=== PATIENT | female | born 1950 | race African-American/Black ===

== ENCOUNTER 2017-02-10 09:14 | Inpatient (IN) | payer MEDICAID, MEDICARE ==
[2017-02-10] MEDS ORDERED: ASPIRIN 81 MG TABLET, CHEWABLE PO ONE (09:43)
[2017-02-10 09:55] LABS: ABSOLUTE BASOPHILS # (AUTO) 0.1 10^3/uL (0.0-0.2); ABSOLUTE LYMPHOCYTES (AUTO) 1.3 10^3/uL (0.5-4.7); ABSOLUTE MONOCYTES (AUTO) 0.5 10^3/uL (0.1-1.4); ABSOLUTE NEUT (AUTO) 4.1 10^3/uL (1.7-8.2); BASOPHILS % (AUTO) 1.1 % (0-2); EOSINOPHILS % (AUTO) 0.4 % (0-6); HEMATOCRIT 39.3 % (36.0-47.0); HEMOGLOBIN 13.3 g/dL (12.0-15.5); HGB HCT DIFFERENCE 0.6; LYMPHOCYTES % (AUTO) 22.1 % (13-45); MEAN CORPUSCULAR HEMOGLOBIN 29.1 pg (27.0-33.4); MEAN CORPUSCULAR VOLUME 86 fl (80-97); MONOCYTES % (AUTO) 7.9 % (3-13); RED BLOOD COUNT 4.58 10^6/uL (3.72-5.28); RED CELL DISTRIBUTION WIDTH 15.2 % (11.5-14.0); SEGMENTED NEUTROPHILS % (AUTO) 68.5 % (42-78)
--- NOTE | 2017-02-10 10:29 | RADIOLOGY REPORT (SQ) ---
EXAM DESCRIPTION: CHEST PA/LAT COMPLETED DATE/TIME: 02/10/2017 10:12 am REASON FOR STUDY: chest pressure, weakness COMPARISON: 03/19/2015 EXAM PARAMETERS: NUMBER OF VIEWS: two views TECHNIQUE: Digital Frontal and Lateral radiographic views of the chest acquired. RADIATION DOSE: NA LIMITATIONS: none FINDINGS: LUNGS AND PLEURA: No opacities, masses or pneumothorax. No pleural effusion. MEDIASTINUM AND HILAR STRUCTURES: No masses or contour abnormalities. HEART AND VASCULAR STRUCTURES: Heart normal size. No evidence for failure. BONES: No acute findings. HARDWARE: None in the chest. OTHER: No other significant finding. IMPRESSION: NO SIGNIFICANT RADIOGRAPHIC FINDING IN THE CHEST. TECHNICAL DOCUMENTATION: JOB ID: [id number] [employer]- All Rights Reserved
--- NOTE | 2017-02-10 11:07 | ER Document Report ---
ED General - General Chief Complaint: Weakness Stated Complaint: Weakness Time Seen by Provider: 02/10/17 09:42 Mode of Arrival: Medic Information source: Patient, Relative Notes: Patient presents emergency department with complaints of feeling weak decreased appetite for the last couple days. Patient also reports she felt some chest pressure this a.m. Patient reports yesterday when she was in the shower she became nauseated and vomited and passed out per second. She also reports that yesterday she was sitting on the bed but off the bed landing on the floor. She reports she did not hit her head. She reports she was awake the whole time. She denies fever and diarrhea. Reports she just feels weak for the past few days. Patient has history of severe osteoarthritis and high blood pressure. Patient reports a chest pressure this a.m. feels more muscular and her chest wall is tender to palpation. TRAVEL OUTSIDE OF THE [place] IN LAST 30 DAYS: No - HPI Onset: Other - a few days Onset/Duration: Persistent Quality of pain: No pain Severity: None Pain Level: Denies Associated symptoms: Chest pain - pressure, Nausea, Vomiting Exacerbated by: Denies Relieved by: Denies Similar symptoms previously: No Recently seen / treated by doctor: No - Related Data Allergies/Adverse Reactions: No Known Allergies Allergy (Verified 11/08/13 21:18) Home Medications: Current Home Medications Amlodipine Besylate [Norvasc 5 mg Tablet] 5 mg PO DAILY 02/10/17 [History] Cetirizine HCl [Zyrtec 10 mg Tablet] 10 mg PO DAILY 02/10/17 [History] Ergocalciferol (Vitamin D2) [Vitamin D2] 50,000 unit PO WE 02/10/17 [History] Folic Acid [Folvite 1 mg Tablet] 1 mg PO DAILY 02/10/17 [History] Ibuprofen [Motrin 600 mg Tablet] 600 mg PO Q8 02/10/17 [History] Lisinopril [Zestril] 40 mg PO DAILY 02/10/17 [History] Montelukast Sodium [Singulair 10 mg Tablet] 10 mg PO DAILY 02/10/17 [History] Omeprazole 20 mg PO Q12 02/10/17 [History] Oxycodone HCl/Acetaminophen [Percocet 5-325 mg Tablet] 1 tab PO Q8HP PRN [History] Prednisone [Deltasone 5 mg Tablet] 10 mg PO DAILY 02/10/17 [History] Past Medical History - General Information source: Patient, Relative - Social History Smoking Status: Never Smoker Chew tobacco use (# tins/day): No Frequency of alcohol use: None Drug Abuse: None Lives with: Family Family History: Reviewed & Not Pertinent Patient has suicidal ideation: No Patient has homicidal ideation: No - Past Medical History Cardiac Medical History: Reports: Hx Hypertension Pulmonary Medical History: Denies: Hx Tuberculosis Renal/ Medical History: Denies: Hx Peritoneal Dialysis GI Medical History: Reports: Hx Gastroesophageal Reflux Disease Musculoskeltal Medical History: Reports Hx Arthritis - RA Skin Medical History: Reports Hx MRSA - CURRENTLY HAS SENSATION OF ABSCESS DEVELOPING UNDER THE LEFT ARM Traumatic Medical History: Reports: Hx Fractures - T10 COMP FX, ACUTE R SHOULDER AND CLAVICLE FX Past Surgical History: Reports: Hx Appendectomy, Hx Hysterectomy, Hx Oral Surgery, Hx Orthopedic Surgery - foot surgery - Immunizations Immunizations up to date: Yes Hx Diphtheria, Pertussis, Tetanus Vaccination: Yes Review of Systems - Review of Systems Notes: Review HPI for review of systems., All other systems negative Physical Exam - Vital signs Vitals: Temp Pulse Resp BP Pulse Ox 98.3 F 78 20 154/84 H 100 02/10/17 09:20 02/10/17 09:20 02/10/17 09:20 02/10/17 09:20 02/10/17 09:20 - Notes Notes: PHYSICAL EXAMINATION: GENERAL: Well-appearing and in no acute distress HEAD: Atraumatic, normocephalic. EYES: Pupils equal round and reactive to light, extraocular movements intact, sclera anicteric, conjunctiva are normal. ENT: nares patent, oropharynx clear without exudates. Moist mucous membranes. NECK: Normal range of motion, supple without lymphadenopathy LUNGS: CTAB and equal. No wheezes rales or rhonchi. HEART: Regular rate and rhythm without murmurs ABDOMEN: Soft, no tenderness. No guarding, no rebound EXTREMITIES: chronic arthritic changes noted to bilateral upper/lower extremities, no open wounds, no pitting edema. No cyanosis. NEUROLOGICAL: Cranial nerves grossly intact. Normal sensory/motor exams. PSYCH: Normal mood, normal affect. SKIN: Warm, Dry, normal turgor, no rashes or lesions noted Course - Re-evaluation Re-evalutation: 02/10/17 11:08 Daughter Nakita at the bedside instructed on plan of care. Both patient and daughter verbalized understanding. - Vital Signs Vital signs: Temp Pulse Resp BP Pulse Ox 99 F 82 16 159/77 H 100 02/11/17 11:41 02/11/17 14:00 02/11/17 11:41 02/11/17 11:41 02/11/17 11:41 - Laboratory Result Diagrams: 02/11/17 04:54 02/11/17 04:54 Laboratory results interpreted by me: 02/10/17 02/10/17 02/10/17 09:30 11:15 11:33 RDW 15.2 H Potassium 3.2 L Glucose 121 H Albumin 3.3 L Urine Urobilinogen 4.0 H - Diagnostic Test Radiology reviewed: Image reviewed, Reports reviewed Discharge - Discharge Clinical Impression: Weakness, Chest pressure Disposition: ADMITTED INPATIENT Admitting Provider: Chevy
[2017-02-10 12:06] LABS: ALANINE AMINOTRANSFERASE 29 U/L (9-52); ALBUMIN 3.3 g/dL (3.5-5.0); ALKALINE PHOSPHATASE 66 U/L (38-126); ANION GAP 8 (5-19); ASPARTATE AMINO TRANSFERASE 22 U/L (14-36); BILIRUBIN,DIRECT 0.3 mg/dL (0.0-0.4); BILIRUBIN,TOTAL 1.2 mg/dL (0.2-1.3); BLOOD UREA NITROGEN 10 mg/dL (7-20); CALCIUM 9.2 mg/dL (8.4-10.2); CARBON DIOXIDE 28 mmol/L (22-30); CHLORIDE 102 mmol/L (98-107); CREATINE KINASE 47 U/L (30-135); CREATININE RESULT 0.58 mg/dL (0.52-1.25); GLUCOSE 121 mg/dL (75-110); LIPASE 87.4 U/L (23-300); POTASSIUM 3.2 mmol/L (3.6-5.0); SODIUM 138.1 mmol/L (137-145); TOTAL PROTEIN 6.8 g/dL (6.3-8.2)
[2017-02-10 12:10] LABS: APPEARANCE,URINE CLEAR; BILIRUBIN,URINE NEGATIVE (NEGATIVE); GLUCOSE, URINE NEGATIVE (NEGATIVE); KETONES,URINE NEGATIVE (NEGATIVE); LEUKOCYTE ESTERASE,URINE NEGATIVE (NEGATIVE); NITRITE,URINE NEGATIVE (NEGATIVE); PROTEIN,URINE NEGATIVE (NEGATIVE)
[2017-02-10 12:17] LABS: CREATINE KINASE MB 0.28 ng/mL (<4.55)
[2017-02-10 12:19] LABS: TROPONIN I < 0.012 ng/mL
--- NOTE | 2017-02-10 13:31 | RADIOLOGY REPORT (SQ) ---
EXAM DESCRIPTION: CT HEAD WITHOUT COMPLETED DATE/TIME: 02/10/2017 1:13 pm REASON FOR STUDY: falling COMPARISON: 02/19/2016 TECHNIQUE: Axial images acquired through the brain without intravenous contrast. Images reviewed wi th bone, brain and subdural windows. Images stored on PACS. All CT scanners at this facility use dose modulation, iterative reconstruction, and/or weight based d osing when appropriate to reduce radiation dose to as low as reasonably achievable (ALARA). [facility]: Dose Right [facility]: CareDose [facility]: Dose Right [facility]: Teradose 4D [facility]: InPlace RADIATION DOSE: 64.61mGy. LIMITATIONS: None. FINDINGS: VENTRICLES: Prominent. CEREBRUM: No masses. No hemorrhage. No midline shift. Areas of low density in the white matter mos t likely due to chronic micro-vascular ischemic change. No evidence for acute infarction. CEREBELLUM: No masses. No hemorrhage. No alteration of density. No evidence for acute infarction. EXTRAAXIAL SPACES: Age-related involutional change. No fluid collections. No masses. ORBITS AND GLOBE: No intra- or extraconal masses. Normal contour of globe without masses. CALVARIUM: No fracture. PARANASAL SINUSES: No fluid or mucosal thickening. SOFT TISSUES: No mass or hematoma. OTHER: No other significant finding. IMPRESSION: CHRONIC CHANGES OF ATROPHY AND MICROVASCULAR ISCHEMIA. NO ACUTE PROCESS. TECHNICAL DOCUMENTATION: JOB ID: [id number] Quality ID # [id number]: Final reports with documentation of one or more dose reduction techniques (e.g., Au tomated exposure control, adjustment of the mA and/or kV according to patient size, use of iterative reconstruction technique) 2010 [employer]- All Rights Reserved
[2017-02-10] MEDS ORDERED: ACETAMINOPHEN 325 MG TABLET PO PRN (15:39)
[2017-02-10] MEDS ORDERED: ONDANSETRON HCL INJ/PF 4 MG/2 ML SDV IV PRN (15:39)
[2017-02-10] MEDS ORDERED: OXYCODONE-ACETAMINOPHEN 5-325 MG TABLET PO PRN (15:39)
[2017-02-10] MEDS ORDERED: ENOXAPARIN SODIUM INJ 40 MG/0.4 ML DISP.SYRIN SUBCUT ONE (16:00)
--- NOTE | 2017-02-10 16:13 | RADIOLOGY REPORT (SQ) ---
EXAM DESCRIPTION: CTA CHEST COMPLETED DATE/TIME: 02/10/2017 3:55 pm REASON FOR STUDY: fall, change in loc COMPARISON: 08/04/2010 TECHNIQUE: CT scan of the chest performed using helical scanning technique with dynamic intravenous contrast injection. Images reviewed with lung, soft tissue and bone windows. Reconstructed coronal and sagittal MPR images reviewed. Additional 3 dimensional post-processing performed to develop Maximal Intensity Projection images ([place] P). All images stored on PACS. All CT scanners at this facility use dose modulation, iterative reconstruction, and/or weight based d osing when appropriate to reduce radiation dose to as low as reasonably achievable (ALARA). [facility]: Dose Right [facility]: CareDose [facility]: Dose Right [facility]: Teradose 4D [facility]: Vaddio CONTRAST TYPE AND DOSE: 61 mL Isovue 370- low osmolar. RENAL FUNCTION: BUN 10 creatinine 0.6 RADIATION DOSE: 44.74 mGy. LIMITATIONS: Positioning. Motion. FINDINGS: LUNGS AND PLEURA: Diffuse interlobular septal thickening. Subsegmental bronchiectasis rig ht lower lobe. No effusions. AORTA AND GREAT VESSELS: No aneurysm or dissection. HEART: Cardiomegaly. No pericardial effusion. PULMONARY ARTERIES: No emboli visualized in the main pulmonary arteries or the segmental branches. HILAR AND MEDIASTINAL STRUCTURES: No identified masses or abnormal nodes. HARDWARE: None in the chest. UPPER ABDOMEN: No acute findings. THYROID AND OTHER SOFT TISSUES: No masses. No adenopathy. BONES: Compression fracture T12 with greater than 75% height loss that was not present in 2009. No s ignificant retropulsion. Additional compression fractures which are old. Old proximal humeral fract ures. 3D MIPS: Confirm above findings. OTHER: No other significant finding. IMPRESSION: 1. No PE. No evidence of pulmonary contusion or pneumothorax. 2. Compression fracture T12 of uncertain chronicity. TECHNICAL DOCUMENTATION: JOB ID: [id number] Quality ID # [id number]: Final reports with documentation of one or more dose reduction techniques (e.g., Au tomated exposure control, adjustment of the mA and/or kV according to patient size, use of iterative reconstruction technique) 2010 [employer]- All Rights Reserved
--- NOTE | 2017-02-10 16:26 | RADIOLOGY REPORT (SQ) ---
EXAM DESCRIPTION: HIP BILATERAL COMPLETED DATE/TIME: 02/10/2017 4:09 pm REASON FOR STUDY: fall, change in loc COMPARISON: None. NUMBER OF VIEWS: Two views. TECHNIQUE: AP pelvis and additional frog-leg view of the right and left hip. LIMITATIONS: None. FINDINGS: MINERALIZATION: Normal. PRIMARY HIP: No fracture or dislocation. No worrisome bone lesions. OPPOSITE HIP: No fracture or dislocation. No worrisome bone lesions. PUBIS AND ISCHIUM: No fracture. PELVIS: No fracture. SACRUM: No fracture or dislocation. No worrisome bone lesions. LOWER LUMBAR SPINE: No fracture or dislocation. No worrisome bone lesions. No significant disc disea se. SOFT TISSUES: No findings. OTHER: No other significant finding. IMPRESSION: No fracture. TECHNICAL DOCUMENTATION: JOB ID: [id number] [email or web address]- All Rights Reserved
--- NOTE | 2017-02-10 17:07 | EKG REPORT ---
SEVERITY:- ABNORMAL ECG - SINUS RHYTHM CONSIDER LEFT VENTRICULAR HYPERTROPHY PROLONGED QT INTERVAL : Confirmed by: James Chung 10-Feb-2017 17:06:25
[2017-02-10 17:18] LABS: TROPONIN I < 0.012 ng/mL
[2017-02-10] MEDS: DOCUSATE SODIUM 100 MG CAPSULE PO SCH (17:26)
[2017-02-10] MEDS: POTASSI CL 20 MEQ/NS 1L 1,000 ML IV PRN (17:27)
[2017-02-10] MEDS: LANSOPRAZOLE 15 MG TAB.RAP.DR PO SCH (17:31)
[2017-02-10] MEDS ORDERED: LANSOPRAZOLE 30 MG TAB.RAP.DR PO SCH (18:00)
--- NOTE | 2017-02-10 18:02 | PDOC H&P ---
History of Present Illness Admission Date/PCP: 02/10/17 14:38 MARY LOU OLEA MD Patient complains of: Weakness and chest pressure in the fall History of Present Illness: LILLIE AMIN is a 66 year old female This is a 66-year-old female with a significant history of the rheumatoid arthritis and hypertension's and multiple deformity due to the severe arthritis noticed more weakness since last several weeks. According to the patient she passed out yesterday and she was feeling some pressure in the chest and her daughter was concerned and brought to the emergency department. Patient initial CT head was negative and x-ray of the hip was also negative. Patient's denied any fall and injury. Patient have a CTA was also negative for any acute embolism but showing some T12 compression fracture. Patient also see the [facility] for the tunnel mucker problem and patient was complaining for weakness in the leg since review the last month August. Patients denied any shortness of the breath denied any headache denied any bloody lesion. Patient was just complaining some weakness but other than that no other symptoms Past Medical History Cardiac Medical History: Reports: Hypertension Pulmonary Medical History: Denies: Tuberculosis GI Medical History: Reports: Gastroesophageal Reflux Disease Musculoskeltal Medical History: Reports: Arthritis - RA, Other - Rheumatoid arthritis Past Surgical History Past Surgical History: Reports: Appendectomy, Hysterectomy, Orthopedic Surgery - foot surgery Social History Lives with: Family Smoking Status: Never Smoker Frequency of Alcohol Use: None Hx Recreational Drug Use: No Hx Prescription Drug Abuse: No Family History Family History: Reviewed & Not Pertinent Parental Family History Reviewed: Yes Children Family History Reviewed: Yes Sibling(s) Family History Reviewed.: Yes Medication/Allergy Home Medications: Amlodipine Besylate [Norvasc 5 mg Tablet] 5 mg PO DAILY 02/10/17 Cetirizine HCl [Zyrtec 10 mg Tablet] 10 mg PO DAILY 02/10/17 Ergocalciferol (Vitamin D2) [Vitamin D2] 50,000 unit PO WE 02/10/17 Folic Acid [Folvite 1 mg Tablet] 1 mg PO DAILY 02/10/17 Ibuprofen [Motrin 600 mg Tablet] 600 mg PO Q8 02/10/17 Lisinopril [Zestril] 40 mg PO DAILY 02/10/17 Montelukast Sodium [Singulair 10 mg Tablet] 10 mg PO DAILY 02/10/17 Omeprazole 20 mg PO Q12 02/10/17 Oxycodone HCl/Acetaminophen [Percocet 5-325 mg Tablet] 1 tab PO Q8HP PRN Prednisone [Deltasone 5 mg Tablet] 10 mg PO DAILY 02/10/17 Allergies/Adverse Reactions: No Known Allergies Allergy (Verified 11/08/13 21:18) Review of Systems Constitutional: PRESENT: fatigue, weakness Cardiovascular: PRESENT: chest pain Respiratory: ABSENT: as per HPI, cough, dyspnea, hemoptysis, sputum, other Gastrointestinal: ABSENT: as per HPI, abdominal pain, bloating, coffee ground emesis, constipation, diarrhea, dysphagia, heartburn, hematemesis, hematochezia , melena, nausea, vomiting, other Musculoskeletal: PRESENT: joint swelling, muscle weakness Neurological: ABSENT: as per HPI, abnormal gait, abnormal movements, abnormal speech, confusion, convulsions, dizziness, focal weakness, frequent falls, lack of coordination, memory loss, numbness, paresthesias, restless legs, syncope, tingling, tremor(s), vertigo, weakness, other Psychiatric: ABSENT: as per HPI, anxiety, depression, hallucinations, homidical ideation, suicidal ideation, other Endocrine: ABSENT: as per HPI, cold intolerance, flushing, heat intolerance, menstrual abnormalities, polydipsia, polyphagia, polyuria, other Hematologic/Lymphatic: ABSENT: as per HPI, easy bleeding, easy bruising, lymphadenopathy, other Physical Exam Vital Signs: Temp Pulse Resp BP Pulse Ox 98.3 F 78 19 144/88 H 99 02/10/17 09:20 02/10/17 09:20 02/10/17 15:08 02/10/17 15:08 02/10/17 13:01 General appearance: PRESENT: no acute distress, well-developed, well-nourished Head exam: PRESENT: atraumatic, normocephalic Eye exam: PRESENT: conjunctiva pink, EOMI, PERRLA. ABSENT: scleral icterus Ear exam: PRESENT: normal external ear exam Neck exam: PRESENT: full ROM. ABSENT: carotid bruit, JVD, lymphadenopathy, thyromegaly Respiratory exam: PRESENT: clear to auscultation lucas Cardiovascular exam: PRESENT: +S1, +S2 Pulses: PRESENT: normal dorsalis pedis pul, +2 pedal pulses bilateral Vascular exam: PRESENT: normal capillary refill Extremities exam: ABSENT: pedal edema Neurological exam: PRESENT: alert, awake, oriented to person, oriented to place , oriented to time, oriented to situation, reflexes normal, CN II-XII grossly intact, normal gait Psychiatric exam: PRESENT: appropriate affect, normal mood. ABSENT: homicidal ideation, suicidal ideation Skin exam: PRESENT: dry Results Impressions: Chest X-Ray 02/10/17 09:43 IMPRESSION: NO SIGNIFICANT RADIOGRAPHIC FINDING IN THE CHEST. Head CT 02/10/17 11:03 IMPRESSION: CHRONIC CHANGES OF ATROPHY AND MICROVASCULAR ISCHEMIA. NO ACUTE PROCESS. Assessment & Plan - Diagnosis (1) Chest pressure Is this a current diagnosis for this admission?: YesPlan: Most likely a chest wall pain due to the significant history of the rheumatoid arthritis. Will rule out the acute coronary syndromes and do the CT angiogram (2) Weakness Is this a current diagnosis for this admission?: YesPlan: Rule out any infectious process check sed rate and also IV fluid and physical therapy evaluations (3) Hypertension Qualifiers: Hypertension type: essential hypertension Qualified Code(s): I10 - Essential (primary) hypertension Is this a current diagnosis for this admission?: YesPlan: Continues to current medications (4) Rheumatoid arthritis Qualifiers: Rheumatoid arthritis location: multiple sites Is this a current diagnosis for this admission?: YesPlan: Patient is currently see the [facility] tunnel mucker and currently on a biological medications (5) Chronic pain syndrome Is this a current diagnosis for this admission?: YesPlan: Due to the significant rheumatoid arthritis currently taking the Percocet (6) Hyperlipidemia Qualifiers: Hyperlipidemia type: unspecified Qualified Code(s): E78.5 - Hyperlipidemia, unspecified Is this a current diagnosis for this admission?: YesPlan: Stable (7) Hypokalemia Is this a current diagnosis for this admission?: YesPlan: Replace the potassium (8) T12 compression fracture Qualifiers: Encounter type: initial encounter Is this a current diagnosis for this admission?: YesPlan: We will get the MRI of the T-spine for further evaluations - Time Time Spent: 50 to 70 Minutes Medications reviewed and adjusted accordingly: Yes Anticipated discharge: Home, Other Within: Other - Inpatient Certification Medical Necessity: Need Close Monitoring Due to Risk of Patient Decompensation, Need For IV Fluids Post Hospital Care: D/C Manager Safe Documentation - Plan Summary Plan Summary: At this point will get the MRI of the spine get the physical therapy and further evaluations. Patient's currently otherwise stable no sign of any acute neurological events.
--- NOTE | 2017-02-10 22:19 | RADIOLOGY REPORT (SQ) ---
EXAM DESCRIPTION: MRI HEAD WITHOUT COMPLETED DATE/TIME: 02/10/2017 10:02 pm REASON FOR STUDY: weakness/tia COMPARISON: CORRELATION MADE TO CT OF THE CERVICAL SPINE FROM 03/19/2015. TECHNIQUE: Multiplanar imaging includes non-contrasted T1, T2, FLAIR, and diffusion with ADC map seq uences. Images stored on PACS. LIMITATIONS: None. FINDINGS: ANATOMY: No anomalies. Normal vascular flow voids. Pituitary fossa normal. CSF SPACES: Atrophy induced prominence of ventricles and CSF spaces. CEREBRUM: High signal intensity lesions scattered throughout the white matter on FLAIR imaging with d istribution suggesting micro-vascular ischemic changes. No evidence of hemorrhage, mass, or extraaxi al fluid collection. POSTERIOR FOSSA: No signal alteration. No hemorrhage. No edema, masses or mass effect. Internal ute tory canals, cerebello-pontine angles, mastoids normal. DIFFUSION IMAGING: Negative for acute or sub-acute infarction. ORBITS: No masses. Globes normal. PARANASAL SINUSES: No fluid levels. Mucosa normal. OTHER: Limited evaluation of the cervical spine on sagittal images demonstrates stable chronic change with retrolisthesis of C4 on C5 which has mass effect upon the cervical cord. IMPRESSION: ATROPHY AND CHRONIC MICRO-VASCULAR ISCHEMIC CHANGES. OTHERWISE NORMAL MRI OF THE BRAIN W ITHOUT INTRAVENOUS GADOLINIUM CONTRAST. CHRONIC CHANGES CERVICAL SPINE ABOVE. TECHNICAL DOCUMENTATION: JOB ID: [id number]- All Rights Reserved
--- NOTE | 2017-02-10 22:26 | RADIOLOGY REPORT (SQ) ---
EXAM DESCRIPTION: MRI LUMBAR SPINE WITHOUT COMPLETED DATE/TIME: 02/10/2017 10:11 pm REASON FOR STUDY: back pain/weknaess COMPARISON: None. TECHNIQUE: Sagittal and Axial imaging includes T1, T2, STIR and gradient echo sequences. Coronal T2/ HASTE imaging. LIMITATIONS: Poor signal to noise ratio on multiple sequences. FINDINGS: VISUALIZED UPPER ABDOMEN: Limited evaluation. No acute or suspicious findings suggested. Bilateral renal cysts. SEGMENTATION: No transitional anatomy. The lowest well-developed disc space is labeled L5-S1. ALIGNMENT: Anatomic. VERTEBRAE: Intact. BONE MARROW: Normal. No marrow replacement or reactive changes. DISC SIGNAL: Mild multilevel disc desiccation most notable at L4-L5. POSTERIOR ELEMENTS: Generally intact. No pars defect evident. HARDWARE: None in the spine. CORD AND CONUS: Normal in size and signal intensity. Conus at the appropriate level. SOFT TISSUES: No aortic aneurysm seen. No bulky retroperitoneal adenopathy or mass. No paraspinal mas s or fluid. L1-L2: No significant spinal stenosis or exit foraminal stenosis. L2-L3: No significant spinal stenosis or exit foraminal stenosis. L3-L4: No significant spinal stenosis or exit foraminal stenosis. L4-L5: Mild broad-based disc bulging and ligamentum flavum hypertrophy resulting in minimal spinal ca nal stenosis. No significant neural foraminal narrowing. L5-S1: No significant spinal stenosis or exit foraminal stenosis. LOWER THORACIC: See separate MRI thoracic spine report. SACRUM: Visualized upper sacrum intact. OTHER: No other significant findings. IMPRESSION: MILD DEGENERATIVE CHANGE WITHOUT ACUTE OSSEOUS ABNORMALITY OR SIGNIFICANT SPINAL CANAL S TENOSIS. TECHNICAL DOCUMENTATION: JOB ID: [id number]- All Rights Reserved
--- NOTE | 2017-02-10 22:55 | RADIOLOGY REPORT (SQ) ---
EXAM DESCRIPTION: MRI THORACIC SPINE WITHOUT COMPLETED DATE/TIME: 02/10/2017 10:02 pm REASON FOR STUDY: back pain/weknaess COMPARISON: Correlation made to CT chest from 02/10/2017 and lumbar spine radiographs from 02/19/2016. TECHNIQUE: Sagittal and Axial imaging includes T1, T2, STIR and gradient echo sequences. LIMITATIONS: None. FINDINGS: LOCALIZER: Spinal canal stenosis at the C4 level. ALIGNMENT: Normal. VERTEBRAE: There is a chronic wedge compression deformity of the T10 vertebral body (described as T12 on prior CT chest) which appears to have progressed slightly when compared to lumbar spine radiograp hs from 2006 with some edema involving the superior endplate centrally suggestive of acute on chronic injury. Vertebrae heights otherwise maintained. BONE MARROW: Active endplate change seen at T8-T9. Marrow signal otherwise normal. HARDWARE: None in the spine. CORD: Normal in size and signal intensity. SOFT TISSUES: No soft tissue masses. THORACIC DISCS T1-T12: Multilevel degenerative disc disease. No significant spinal stenosis or exit foraminal stenosis. LOWER CERVICAL: Incompletely imaged. No significant spinal stenosis or exit foraminal stenosis. UPPER LUMBAR: See separate lumbar spine report. OTHER: No other significant finding. IMPRESSION: ACUTE ON CHRONIC COMPRESSION DEFORMITY OF THE T10 VERTEBRAL BODY (DESCRIBED T12 ON IA IOR CHEST CT). MILD MULTILEVEL DEGENERATIVE CHANGE ABOVE WITHOUT SIGNIFICANT SPINAL CANAL STENOSIS. INCOMPLETE VISUALIZATION OF SPINAL CANAL STENOSIS AT THE C4 LEVEL IN THE SETTING OF CHRONIC POSTTRAUM ATIC/POSTSURGICAL CHANGE. TECHNICAL DOCUMENTATION: JOB ID: [id number] [employer]- All Rights Reserved
[2017-02-10 23:47] LABS: CREATINE KINASE MB 0.42 ng/mL (<4.55)
[2017-02-10 23:52] LABS: TROPONIN I < 0.012 ng/mL
[2017-02-11 05:19] LABS: ABSOLUTE BASOPHILS # (AUTO) 0.1 10^3/uL (0.0-0.2); ABSOLUTE EOSINOPHILS # (AUTO) 0.1 10^3/uL (0.0-0.6); ABSOLUTE LYMPHOCYTES (AUTO) 2.8 10^3/uL (0.5-4.7); ABSOLUTE MONOCYTES (AUTO) 0.5 10^3/uL (0.1-1.4); EOSINOPHILS % (AUTO) 2.1 % (0-6); HEMATOCRIT 36.1 % (36.0-47.0); HEMOGLOBIN 12.3 g/dL (12.0-15.5); HGB HCT DIFFERENCE 0.8; LYMPHOCYTES % (AUTO) 42.6 % (13-45); MEAN CORPUSCULAR HEMOGLOBIN 28.6 pg (27.0-33.4); MEAN CORPUSCULAR HGB CONC 33.9 g/dL (32.0-36.0); MEAN CORPUSCULAR VOLUME 84 fl (80-97); MONOCYTES % (AUTO) 7.8 % (3-13); RED BLOOD COUNT 4.29 10^6/uL (3.72-5.28); RED CELL DISTRIBUTION WIDTH 14.6 % (11.5-14.0); SEGMENTED NEUTROPHILS % (AUTO) 46.5 % (42-78); WHITE BLOOD COUNT 6.5 10^3/uL (4.0-10.5)
[2017-02-11] MEDS: LANSOPRAZOLE 15 MG TAB.RAP.DR PO SCH ×2 (05:25→18:13)
[2017-02-11 05:26] LABS: ALANINE AMINOTRANSFERASE 29 U/L (9-52); ALBUMIN 2.7 g/dL (3.5-5.0); ALKALINE PHOSPHATASE 57 U/L (38-126); ANION GAP 7 (5-19); ASPARTATE AMINO TRANSFERASE 20 U/L (14-36); BILIRUBIN,DIRECT 0.3 mg/dL (0.0-0.4); BILIRUBIN,TOTAL 0.9 mg/dL (0.2-1.3); BLOOD UREA NITROGEN 7 mg/dL (7-20); CALCIUM 8.1 mg/dL (8.4-10.2); CARBON DIOXIDE 28 mmol/L (22-30); CHLORIDE 107 mmol/L (98-107); CREATINE KINASE 42 U/L (30-135); CREATININE RESULT 0.58 mg/dL (0.52-1.25); GLUCOSE 85 mg/dL (75-110); SODIUM 141.7 mmol/L (137-145); TOTAL PROTEIN 5.9 g/dL (6.3-8.2)
[2017-02-11 05:32] LABS: CREATINE KINASE MB 0.33 ng/mL (<4.55)
[2017-02-11 05:40] LABS: TROPONIN I < 0.012 ng/mL
[2017-02-11] MEDS: DOCUSATE SODIUM 100 MG CAPSULE PO SCH ×2 (09:55→18:13)
[2017-02-11] MEDS: AMLODIPINE BESYLATE 5 MG TABLET PO SCH (09:55)
[2017-02-11] MEDS: POTASSI CL 20 MEQ/NS 1L 1,000 ML IV PRN (09:55)
[2017-02-11] MEDS: CETIRIZINE 10 MG TABLET PO SCH (09:56)
[2017-02-11] MEDS: PREDNISONE 5 MG TABLET PO SCH (09:57)
[2017-02-11] MEDS: MONTELUKAST SODIUM 10 MG TABLET PO SCH (09:57)
[2017-02-11] MEDS: ENOXAPARIN SODIUM INJ 40 MG/0.4 ML DISP.SYRIN SUBCUT SCH (09:59)
[2017-02-11] MEDS: LISINOPRIL 10 MG TABLET PO SCH (09:59)
[2017-02-11] MEDS: FOLIC ACID 1 MG TABLET PO SCH (09:59)
[2017-02-11] MEDS ORDERED: (PENDING PHARMACY ID) (Lisinopril [Zestril] 40 MG) PO SCH ×2 (10:00)
[2017-02-11] MEDS: POTASSIUM CHLORIDE 10 MEQ TABLET.SA PO SCH ×2 (10:01→14:42)
--- NOTE | 2017-02-11 12:32 | PDOC PROGRESS REPORT ---
Subjective Progress Note for:: 02/11/17 Subjective:: Patient denied any chest pain or difficulty with breathing. No abdominal pain, nausea or vomiting. Generalized weakness and multiple rheumatoid arthritis related joint aches and pain do exist. Patient reported taking Aleve and Prednisone. Physical Exam Vital Signs: Temp Pulse Resp BP Pulse Ox 99 F 77 16 159/77 H 100 02/11/17 11:41 02/11/17 11:41 02/11/17 11:41 02/11/17 11:41 02/11/17 11:41 Intake & Output 02/10/17 02/11/17 02/12/17 06:59 06:59 06:59 Intake Total 895 Output Total 100 Balance 795 Weight 49.9 kg General appearance: PRESENT: no acute distress, cooperative Head exam: PRESENT: atraumatic, normocephalic Eye exam: PRESENT: EOMI, PERRLA Mouth exam: PRESENT: moist Respiratory exam: PRESENT: clear to auscultation lucas Cardiovascular exam: PRESENT: RRR. ABSENT: diastolic murmur, rubs, systolic murmur GI/Abdominal exam: PRESENT: normal bowel sounds, soft. ABSENT: distended, guarding, mass, organolmegaly, rebound, tenderness Extremities exam: ABSENT: pedal edema Musculoskeletal exam: PRESENT: deformity - related to her rheumatoid arthritis with contracture, particularly in upper extermities. Neurological exam: PRESENT: alert, awake, oriented to person, oriented to place , oriented to time, oriented to situation, CN II-XII grossly intact. ABSENT: motor sensory deficit Psychiatric exam: PRESENT: appropriate affect, normal mood. ABSENT: homicidal ideation, suicidal ideation Skin exam: PRESENT: dry, intact, warm. ABSENT: cyanosis, rash Results Laboratory Results: 02/11/17 04:54 02/11/17 04:54 02/11/17 02/11/17 02/11/17 04:54 04:54 04:54 WBC 6.5 RBC 4.29 Hgb 12.3 Hct 36.1 MCV 84 MCH 28.6 MCHC 33.9 RDW 14.6 H Plt Count 142 L Seg Neutrophils % 46.5 Lymphocytes % 42.6 Monocytes % 7.8 Eosinophils % 2.1 Basophils % 1.0 Absolute Neutrophils 3.0 Absolute Lymphocytes 2.8 Absolute Monocytes 0.5 Absolute Eosinophils 0.1 Absolute Basophils 0.1 Sodium 141.7 Potassium 3.0 L* Chloride 107 Carbon Dioxide 28 Anion Gap 7 BUN 7 Creatinine 0.58 Est GFR ( Amer) > 60 Est GFR (Non-Af Amer) > 60 Glucose 85 Calcium 8.1 L Magnesium 1.8 Total Bilirubin 0.9 AST 20 ALT 29 Alkaline Phosphatase 57 Total Protein 5.9 L Albumin 2.7 L 02/10/17 02/10/17 02/10/17 16:00 16:30 22:45 Creatine Kinase 51 50 CK-MB (CK-2) 0.30 Troponin I < 0.012 NT-Pro-B Natriuret Pep 02/10/17 02/11/17 02/11/17 22:45 04:54 04:54 Creatine Kinase 42 CK-MB (CK-2) 0.42 0.33 Troponin I < 0.012 < 0.012 NT-Pro-B Natriuret Pep 57 Impressions: Head MRI 02/10/17 00:00 IMPRESSION: ATROPHY AND CHRONIC MICRO-VASCULAR ISCHEMIC CHANGES. OTHERWISE NORMAL MRI OF THE BRAIN WITHOUT INTRAVENOUS GADOLINIUM CONTRAST. CHRONIC CHANGES CERVICAL SPINE ABOVE. Lumbar Spine MRI 02/10/17 00:00 IMPRESSION: MILD DEGENERATIVE CHANGE WITHOUT ACUTE OSSEOUS ABNORMALITY OR SIGNIFICANT SPINAL CANAL STENOSIS. Thoracic Spine MRI 02/10/17 00:00 IMPRESSION: ACUTE ON CHRONIC COMPRESSION DEFORMITY OF THE T10 VERTEBRAL BODY ( DESCRIBED T12 ON PRIOR CHEST CT). MILD MULTILEVEL DEGENERATIVE CHANGE ABOVE WITHOUT SIGNIFICANT SPINAL CANAL STENOSIS. INCOMPLETE VISUALIZATION OF SPINAL CANAL STENOSIS AT THE C4 LEVEL IN THE SETTING OF CHRONIC POSTTRAUMATIC/POSTSURGICAL CHANGE. Chest X-Ray 02/10/17 09:43 IMPRESSION: NO SIGNIFICANT RADIOGRAPHIC FINDING IN THE CHEST. Head CT 02/10/17 11:03 IMPRESSION: CHRONIC CHANGES OF ATROPHY AND MICROVASCULAR ISCHEMIA. NO ACUTE PROCESS. Chest/Abdomen CTA 02/10/17 14:23 IMPRESSION: 1. No PE. No evidence of pulmonary contusion or pneumothorax. 2. Compression fracture T12 of uncertain chronicity. Hip X-Ray 02/10/17 14:23 IMPRESSION: No fracture. Assessment & Plan - Diagnosis (1) Chest pressure Is this a current diagnosis for this admission?: YesPlan: See covering attending physician orders. (2) Chronic pain syndrome Is this a current diagnosis for this admission?: YesPlan: See covering attending physician orders. (3) Hyperlipidemia Qualifiers: Hyperlipidemia type: unspecified Qualified Code(s): E78.5 - Hyperlipidemia, unspecified Is this a current diagnosis for this admission?: YesPlan: See covering attending physician orders. (4) Hypertension Qualifiers: Hypertension type: essential hypertension Qualified Code(s): I10 - Essential (primary) hypertension Is this a current diagnosis for this admission?: YesPlan: See covering attending physician orders. (5) Hypokalemia Is this a current diagnosis for this admission?: YesPlan: See covering attending physician orders. (6) Rheumatoid arthritis Qualifiers: Rheumatoid arthritis location: multiple sites Is this a current diagnosis for this admission?: YesPlan: See covering attending physician orders. (7) Weakness Is this a current diagnosis for this admission?: YesPlan: See covering attending physician orders. (8) Non-traumatic compression fracture of T10 thoracic vertebra Qualifiers: Encounter type: initial encounter Qualified Code(s): M48.54XA - Collapsed vertebra, not elsewhere classified, thoracic region, initial encounter for fracture Is this a current diagnosis for this admission?: YesPlan: See covering attending physician orders. Patient will be started on Tramadol 50mg p.o tid prn for pain. Consider consultation with Dr Rod Ryan for any further intervention in view of MRI reported findings as acute or subacute in occurrence. - Time Time Spent with patient: 25-34 minutes Medications reviewed and adjusted accordingly: Yes Anticipated discharge: Home with Homehealth Within: Other - Inpatient Certification Medical Necessity: Need Close Monitoring Due to Risk of Patient Decompensation, Need For Continuous Telemetry Monitoring, Need for Pain Control, Risk of Complication if Not Cared For in Hospital Post Hospital Care: D/C Director Field Services Documentation - Plan Summary Plan Summary: See covering attending physician orders.
[2017-02-11] MEDS ORDERED: OXYCODONE-ACETAMINOPHEN 5-325 MG TABLET PO PRN ×2 (14:04)
[2017-02-12] MEDS: LANSOPRAZOLE 15 MG TAB.RAP.DR PO SCH ×2 (05:33→17:23)
[2017-02-12 05:47] LABS: ABSOLUTE BASOPHILS # (AUTO) 0.1 10^3/uL (0.0-0.2); ABSOLUTE EOSINOPHILS # (AUTO) 0.1 10^3/uL (0.0-0.6); ABSOLUTE LYMPHOCYTES (AUTO) 2.1 10^3/uL (0.5-4.7); ABSOLUTE MONOCYTES (AUTO) 0.6 10^3/uL (0.1-1.4); ABSOLUTE NEUT (AUTO) 4.6 10^3/uL (1.7-8.2); BASOPHILS % (AUTO) 0.8 % (0-2); EOSINOPHILS % (AUTO) 0.9 % (0-6); HEMATOCRIT 35.4 % (36.0-47.0); HGB HCT DIFFERENCE 0.6; LYMPHOCYTES % (AUTO) 28.1 % (13-45); MEAN CORPUSCULAR HEMOGLOBIN 28.9 pg (27.0-33.4); MEAN CORPUSCULAR HGB CONC 33.8 g/dL (32.0-36.0); MEAN CORPUSCULAR VOLUME 86 fl (80-97); MONOCYTES % (AUTO) 8.6 % (3-13); RED BLOOD COUNT 4.14 10^6/uL (3.72-5.28); RED CELL DISTRIBUTION WIDTH 14.7 % (11.5-14.0); SEGMENTED NEUTROPHILS % (AUTO) 61.6 % (42-78); WHITE BLOOD COUNT 7.5 10^3/uL (4.0-10.5)
[2017-02-12] MEDS: ENOXAPARIN SODIUM INJ 40 MG/0.4 ML DISP.SYRIN SUBCUT SCH (09:37)
[2017-02-12] MEDS: PREDNISONE 5 MG TABLET PO SCH (09:38)
[2017-02-12] MEDS: FOLIC ACID 1 MG TABLET PO SCH (09:38)
[2017-02-12] MEDS: CETIRIZINE 10 MG TABLET PO SCH (09:38)
[2017-02-12] MEDS: AMLODIPINE BESYLATE 5 MG TABLET PO SCH (09:38)
[2017-02-12] MEDS: DOCUSATE SODIUM 100 MG CAPSULE PO SCH ×2 (09:39→17:25)
[2017-02-12] MEDS: LISINOPRIL 10 MG TABLET PO SCH (09:39)
[2017-02-12] MEDS: MONTELUKAST SODIUM 10 MG TABLET PO SCH (09:39)
--- NOTE | 2017-02-12 11:49 | PDOC PROGRESS REPORT ---
Subjective Progress Note for:: 02/12/17 Subjective:: Patient denied any chest pain or difficulty with breathing. No abdominal pain, nausea or vomiting. Patient denied any ongoing pain at the time of my evaluation. Physical Exam Vital Signs: Temp Pulse Resp BP Pulse Ox 98.4 F 69 16 158/87 H 100 02/12/17 07:57 02/12/17 07:57 02/12/17 07:57 02/12/17 07:57 02/12/17 07:57 Intake & Output 02/11/17 02/12/17 02/13/17 06:59 06:59 06:59 Intake Total 895 1855 Output Total 100 Balance 795 1855 Weight 49.9 kg 51.5 kg Physical Exam: General appearance: PRESENT: no acute distress, cooperative Head exam: PRESENT: atraumatic, normocephalic Eye exam: PRESENT: EOMI, PERRLA Mouth exam: PRESENT: moist Respiratory exam: PRESENT: clear to auscultation lucas Cardiovascular exam: PRESENT: RRR. ABSENT: diastolic murmur, rubs, systolic murmur GI/Abdominal exam: PRESENT: normal bowel sounds, soft. ABSENT: distended, guarding, mass, organomegaly, rebound, tenderness Extremities exam: ABSENT: pedal edema Musculoskeletal exam: PRESENT: deformity - related to her rheumatoid arthritis with contracture, particularly in upper extermities. Neurological exam: PRESENT: alert, awake, oriented to person, oriented to place , oriented to time, oriented to situation, CN II-XII grossly intact. ABSENT: motor sensory deficit Psychiatric exam: PRESENT: appropriate affect, normal mood. ABSENT: homicidal ideation, suicidal ideation Skin exam: PRESENT: dry, intact, warm. ABSENT: cyanosis, rash Results Laboratory Results: 02/12/17 05:33 02/11/17 04:54 02/12/17 05:33 WBC 7.5 RBC 4.14 Hgb 12.0 Hct 35.4 L MCV 86 MCH 28.9 MCHC 33.8 RDW 14.7 H Plt Count 161 Seg Neutrophils % 61.6 Lymphocytes % 28.1 Monocytes % 8.6 Eosinophils % 0.9 Basophils % 0.8 Absolute Neutrophils 4.6 Absolute Lymphocytes 2.1 Absolute Monocytes 0.6 Absolute Eosinophils 0.1 Absolute Basophils 0.1 06/02/17 06/02/17 06/02/17 16:00 16:30 22:45 Creatine Kinase 51 50 CK-MB (CK-2) 0.30 Troponin I < 0.012 NT-Pro-B Natriuret Pep 02/10/17 02/11/17 02/11/17 22:45 04:54 04:54 Creatine Kinase 42 CK-MB (CK-2) 0.42 0.33 Troponin I < 0.012 < 0.012 NT-Pro-B Natriuret Pep 57 Impressions: Head MRI 02/10/17 00:00 IMPRESSION: ATROPHY AND CHRONIC MICRO-VASCULAR ISCHEMIC CHANGES. OTHERWISE NORMAL MRI OF THE BRAIN WITHOUT INTRAVENOUS GADOLINIUM CONTRAST. CHRONIC CHANGES CERVICAL SPINE ABOVE. Lumbar Spine MRI 02/10/17 00:00 IMPRESSION: MILD DEGENERATIVE CHANGE WITHOUT ACUTE OSSEOUS ABNORMALITY OR SIGNIFICANT SPINAL CANAL STENOSIS. Thoracic Spine MRI 02/10/17 00:00 IMPRESSION: ACUTE ON CHRONIC COMPRESSION DEFORMITY OF THE T10 VERTEBRAL BODY ( DESCRIBED T12 ON PRIOR CHEST CT). MILD MULTILEVEL DEGENERATIVE CHANGE ABOVE WITHOUT SIGNIFICANT SPINAL CANAL STENOSIS. INCOMPLETE VISUALIZATION OF SPINAL CANAL STENOSIS AT THE C4 LEVEL IN THE SETTING OF CHRONIC POSTTRAUMATIC/POSTSURGICAL CHANGE. Chest X-Ray 02/10/17 09:43 IMPRESSION: NO SIGNIFICANT RADIOGRAPHIC FINDING IN THE CHEST. Head CT 02/10/17 11:03 IMPRESSION: CHRONIC CHANGES OF ATROPHY AND MICROVASCULAR ISCHEMIA. NO ACUTE PROCESS. Chest/Abdomen CTA 02/10/17 14:23 IMPRESSION: 1. No PE. No evidence of pulmonary contusion or pneumothorax. 2. Compression fracture T12 of uncertain chronicity. Hip X-Ray 02/10/17 14:23 IMPRESSION: No fracture. Assessment & Plan - Diagnosis (1) Chest pressure Is this a current diagnosis for this admission?: Yes (2) Chronic pain syndrome Is this a current diagnosis for this admission?: Yes (3) Hyperlipidemia Qualifiers: Hyperlipidemia type: unspecified Qualified Code(s): E78.5 - Hyperlipidemia, unspecified Is this a current diagnosis for this admission?: Yes (4) Hypertension Qualifiers: Hypertension type: essential hypertension Qualified Code(s): I10 - Essential (primary) hypertension Is this a current diagnosis for this admission?: Yes (5) Hypokalemia Is this a current diagnosis for this admission?: YesPlan: See covering attending physician orders. (6) Rheumatoid arthritis Qualifiers: Rheumatoid arthritis location: multiple sites Is this a current diagnosis for this admission?: Yes (7) Weakness Is this a current diagnosis for this admission?: Yes (8) Non-traumatic compression fracture of T10 thoracic vertebra Qualifiers: Encounter type: initial encounter Qualified Code(s): M48.54XA - Collapsed vertebra, not elsewhere classified, thoracic region, initial encounter for fracture Is this a current diagnosis for this admission?: Yes - Time Time Spent with patient: 25-34 minutes Medications reviewed and adjusted accordingly: Yes Anticipated discharge: Home with Homehealth - Inpatient Certification Medical Necessity: Need Close Monitoring Due to Risk of Patient Decompensation, Need For Continuous Telemetry Monitoring, Risk of Complication if Not Cared For in Hospital Post Hospital Care: D/C Lens Cutter Documentation - Plan Summary Plan Summary: See covering attending physician orders.
[2017-02-12 13:04] LABS: ANION GAP 7 (5-19); BLOOD UREA NITROGEN 6 mg/dL (7-20); CALCIUM 8.7 mg/dL (8.4-10.2); CARBON DIOXIDE 25 mmol/L (22-30); CHLORIDE 107 mmol/L (98-107); CREATININE RESULT 0.51 mg/dL (0.52-1.25); GLUCOSE 105 mg/dL (75-110); POTASSIUM 3.7 mmol/L (3.6-5.0); SODIUM 138.9 mmol/L (137-145)
[2017-02-13] MEDS ORDERED: AMLODIPINE BESYLATE 5 MG TABLET PO ONE (02:15)
[2017-02-13] MEDS: LANSOPRAZOLE 15 MG TAB.RAP.DR PO SCH (06:42)
[2017-02-13 06:49] LABS: ABSOLUTE BASOPHILS # (AUTO) 0.1 10^3/uL (0.0-0.2); ABSOLUTE EOSINOPHILS # (AUTO) 0.1 10^3/uL (0.0-0.6); ABSOLUTE LYMPHOCYTES (AUTO) 2.8 10^3/uL (0.5-4.7); ABSOLUTE MONOCYTES (AUTO) 0.6 10^3/uL (0.1-1.4); ABSOLUTE NEUT (AUTO) 4.2 10^3/uL (1.7-8.2); BASOPHILS % (AUTO) 0.8 % (0-2); EOSINOPHILS % (AUTO) 1.3 % (0-6); HEMATOCRIT 36.3 % (36.0-47.0); HGB HCT DIFFERENCE -0.3; LYMPHOCYTES % (AUTO) 35.7 % (13-45); MEAN CORPUSCULAR HGB CONC 33.2 g/dL (32.0-36.0); MEAN CORPUSCULAR VOLUME 84 fl (80-97); MONOCYTES % (AUTO) 8.1 % (3-13); RED BLOOD COUNT 4.31 10^6/uL (3.72-5.28); RED CELL DISTRIBUTION WIDTH 15.3 % (11.5-14.0); SEGMENTED NEUTROPHILS % (AUTO) 54.1 % (42-78); WHITE BLOOD COUNT 7.7 10^3/uL (4.0-10.5)
[2017-02-13 06:51] VITALS: BP 150/85
[2017-02-13] MEDS: ENOXAPARIN SODIUM INJ 40 MG/0.4 ML DISP.SYRIN SUBCUT SCH (10:14)
[2017-02-13] MEDS: AMLODIPINE BESYLATE 5 MG TABLET PO SCH (10:33)
[2017-02-13] MEDS: MONTELUKAST SODIUM 10 MG TABLET PO SCH (10:33)
[2017-02-13] MEDS: LISINOPRIL 10 MG TABLET PO SCH (10:34)
[2017-02-13] MEDS: PREDNISONE 5 MG TABLET PO SCH (10:34)
[2017-02-13] MEDS: DOCUSATE SODIUM 100 MG CAPSULE PO SCH (10:34)
[2017-02-13] MEDS: CETIRIZINE 10 MG TABLET PO SCH (10:35)
[2017-02-13] MEDS: FOLIC ACID 1 MG TABLET PO SCH (10:35)
--- NOTE | 2017-02-13 11:58 | PDOC DISCHARGE SUMMARY ---
General - Admit/Disc Date/PCP Admission Date/Primary Care Provider: 02/10/17 15:39 MARY LOU OLEA MD Discharge Date: 02/13/17 - Discharge Diagnosis (1) Chest pressure Is this a current diagnosis for this admission?: YesSummary: All cardiac workup is negative and CT angiogram is negative will follow outpatients will refer to the cardiology (2) Weakness Is this a current diagnosis for this admission?: YesSummary: All stable and improving (3) Hypertension Is this a current diagnosis for this admission?: YesSummary: Continues to current medications (4) Rheumatoid arthritis Is this a current diagnosis for this admission?: YesSummary: Patients follow the [facility] (5) Chronic pain syndrome Is this a current diagnosis for this admission?: YesSummary: Patient is currently on a narcotics (6) Hyperlipidemia Is this a current diagnosis for this admission?: YesSummary: Continues to current medications (7) Hypokalemia Is this a current diagnosis for this admission?: YesSummary: Potassium on discharge was stable (8) T12 compression fracture Is this a current diagnosis for this admission?: YesSummary: Discussed with the patient and the daughter and referred to the pain management for further evaluations - Additional Information Discharge Diet: Cardiac Discharge Activity: Activity As Tolerated Home Medications: Amlodipine Besylate [Norvasc 5 mg Tablet] 5 mg PO DAILY 02/10/17 Cetirizine HCl [Zyrtec 10 mg Tablet] 10 mg PO DAILY 02/10/17 Ergocalciferol (Vitamin D2) [Vitamin D2] 50,000 unit PO WE 02/10/17 Folic Acid [Folvite 1 mg Tablet] 1 mg PO DAILY 02/10/17 Ibuprofen [Motrin 600 mg Tablet] 600 mg PO Q8 02/10/17 Lisinopril [Zestril] 40 mg PO DAILY 02/10/17 Montelukast Sodium [Singulair 10 mg Tablet] 10 mg PO DAILY 02/10/17 Omeprazole 20 mg PO Q12 02/10/17 Oxycodone HCl/Acetaminophen [Percocet 5-325 mg Tablet] 1 tab PO Q8HP PRN Prednisone [Deltasone 5 mg Tablet] 10 mg PO DAILY 02/10/17 History of Present Illness History of Present Illness: LILLIE AMIN is a 66 year old female This is a 66-year-old female with a significant history of the rheumatoid arthritis and hypertension's and multiple deformity due to the severe arthritis noticed more weakness since last several weeks. According to the patient she passed out yesterday and she was feeling some pressure in the chest and her daughter was concerned and brought to the emergency department. Patient initial CT head was negative and x-ray of the hip was also negative. Patient's denied any fall and injury. Patient have a CTA was also negative for any acute embolism but showing some T12 compression fracture. Patient also see the [facility] for the child adolescent care problem and patient was complaining for weakness in the leg since review the last month August. Patients denied any shortness of the breath denied any headache denied any bloody lesion. Patient was just complaining some weakness but other than that no other symptoms Hospital Course Hospital Course: This is a 66-year-old female presents with the complaining of weakness and initial workup was all stable except the potassium was low and patient's was complaining some chest pressure most likely chest wall pain but initial cardiac workup was all negative. Patient's underwent for the MRI of the head was negative for any acute neurological events Patient underwent for the MRI of the T-spine and L-spine with suggesting compression fracture but patients denied any pain and at this point patient's desires to go homeAnd discussed with the patient and the daughter to further evaluate for the kyphoplasty and make arrangements to the pain management for that Patient's continues the same home medications and following a one-week and will refer as outpatients cardiology and the pain management We will recheck the patient's Chem-7 on the follow-up visit Physical Exam Vital Signs: Temp Pulse Resp BP Pulse Ox 98.2 F 106 H 17 150/85 H 100 02/13/17 04:00 02/13/17 07:00 02/13/17 04:00 02/13/17 04:00 02/13/17 04:00 Intake & Output 02/12/17 02/13/17 02/14/17 06:59 06:59 06:59 Intake Total 1855 2555 Output Total 400 Balance 1855 2155 Weight 51.5 kg 52 kg General appearance: PRESENT: no acute distress, well-developed, well-nourished Head exam: PRESENT: atraumatic, normocephalic Eye exam: PRESENT: conjunctiva pink, EOMI, PERRLA. ABSENT: scleral icterus Ear exam: PRESENT: normal external ear exam Mouth exam: PRESENT: moist, tongue midline Neck exam: PRESENT: full ROM. ABSENT: carotid bruit, JVD, lymphadenopathy, thyromegaly Respiratory exam: PRESENT: clear to auscultation lucas Cardiovascular exam: PRESENT: RRR. ABSENT: diastolic murmur, rubs, systolic murmur Pulses: PRESENT: normal dorsalis pedis pul, +2 pedal pulses bilateral Vascular exam: PRESENT: normal capillary refill GI/Abdominal exam: PRESENT: normal bowel sounds, soft. ABSENT: distended, guarding, mass, organolmegaly, rebound, tenderness Rectal exam: PRESENT: deferred Neurological exam: PRESENT: alert, awake, oriented to person, oriented to place , oriented to time, oriented to situation, CN II-XII grossly intact. ABSENT: motor sensory deficit Psychiatric exam: PRESENT: appropriate affect, normal mood. ABSENT: homicidal ideation, suicidal ideation Skin exam: PRESENT: dry, intact, warm. ABSENT: cyanosis, rash Results Laboratory Results: 02/13/17 05:50 02/12/17 12:38 02/12/17 02/13/17 12:38 05:50 WBC 7.7 RBC 4.31 Hgb 12.0 Hct 36.3 MCV 84 MCH 28.0 MCHC 33.2 RDW 15.3 H Plt Count 160 Seg Neutrophils % 54.1 Lymphocytes % 35.7 Monocytes % 8.1 Eosinophils % 1.3 Basophils % 0.8 Absolute Neutrophils 4.2 Absolute Lymphocytes 2.8 Absolute Monocytes 0.6 Absolute Eosinophils 0.1 Absolute Basophils 0.1 Sodium 138.9 Potassium 3.7 Chloride 107 Carbon Dioxide 25 Anion Gap 7 BUN 6 L Creatinine 0.51 L Est GFR ( Amer) > 60 Est GFR (Non-Af Amer) > 60 Glucose 105 Calcium 8.7 02/10/17 02/10/17 02/10/17 16:00 16:30 22:45 Creatine Kinase 51 50 CK-MB (CK-2) 0.30 Troponin I < 0.012 NT-Pro-B Natriuret Pep 02/10/17 02/11/17 02/11/17 22:45 04:54 04:54 Creatine Kinase 42 CK-MB (CK-2) 0.42 0.33 Troponin I < 0.012 < 0.012 NT-Pro-B Natriuret Pep 57 Impressions: Head MRI 02/10/17 00:00 IMPRESSION: ATROPHY AND CHRONIC MICRO-VASCULAR ISCHEMIC CHANGES. OTHERWISE NORMAL MRI OF THE BRAIN WITHOUT INTRAVENOUS GADOLINIUM CONTRAST. CHRONIC CHANGES CERVICAL SPINE ABOVE. Lumbar Spine MRI 02/10/17 00:00 IMPRESSION: MILD DEGENERATIVE CHANGE WITHOUT ACUTE OSSEOUS ABNORMALITY OR SIGNIFICANT SPINAL CANAL STENOSIS. Thoracic Spine MRI 02/10/17 00:00 IMPRESSION: ACUTE ON CHRONIC COMPRESSION DEFORMITY OF THE T10 VERTEBRAL BODY ( DESCRIBED T12 ON PRIOR CHEST CT). MILD MULTILEVEL DEGENERATIVE CHANGE ABOVE WITHOUT SIGNIFICANT SPINAL CANAL STENOSIS. INCOMPLETE VISUALIZATION OF SPINAL CANAL STENOSIS AT THE C4 LEVEL IN THE SETTING OF CHRONIC POSTTRAUMATIC/POSTSURGICAL CHANGE. Chest X-Ray 02/10/17 09:43 IMPRESSION: NO SIGNIFICANT RADIOGRAPHIC FINDING IN THE CHEST. Head CT 02/10/17 11:03 IMPRESSION: CHRONIC CHANGES OF ATROPHY AND MICROVASCULAR ISCHEMIA. NO ACUTE PROCESS. Chest/Abdomen CTA 02/10/17 14:23 IMPRESSION: 1. No PE. No evidence of pulmonary contusion or pneumothorax. 2. Compression fracture T12 of uncertain chronicity. Hip X-Ray 02/10/17 14:23 IMPRESSION: No fracture. Plan Time Spent: Greater than 30 Minutes - Discussed with the patient and the daughter in the room about the possible evaluation for the kyphoplasty but patient wants to go home and patient does not have any pain issue at this point will follow as outpatients. Patients walk with the physical therapy need a walker and discussed with the patient and the daughter about the fall precautions
--- NOTE | 2017-02-13 19:34 | CONSULT/HISTORY AND PHYSICAL E ---
Consultation/History and Physical PATIENT NAME: LILLIE AMIN : 1950 AGE: 66Y DATE: 02/13/2017 ROOM: 319 PAIN MANAGEMENT CONSULTATION CHIEF COMPLAINT: Back pain. HISTORY OF PRESENT ILLNESS: The patient notes chronic intermittent aggravating back pain for years on and off and relates to a history of significant rheumatoid arthritis. She did fall last week on , 02/09/2017, and the pain in her back did get worse but nothing too significant and remains intermittent and again just describes it as aggravating. She denies bowel or bladder incontinence or saddle anesthesia. She did have some weakness which is what I believe brought her into the ER on 02/10/2017. The patient notes she is feeling a little bit better and is more or less just anxiously awaiting to be discharged home today. PAST MEDICAL HISTORY: She has hypertension, GERD, rheumatoid arthritis, and a history of fractures, prior fracture at T10 and also of the right shoulder and clavicle, per prior H&P notes. PAST SURGICAL HISTORY: She has had an appendectomy and hysterectomy, foot surgery, and some oral surgery, per prior H&P notes. SOCIAL HISTORY: She does not smoke. She does not drink alcohol. She does not use illicit drugs. She lives with her family. FAMILY HISTORY: Non-contributory. ALLERGIES: NKDA. MEDICATIONS AT HOME: She is on: 1. Norvasc. 2. Zyrtec. 3. Vitamin D. 4. Folic acid. 5. Motrin. 6. Lisinopril. 7. Singulair. 8. Omeprazole. 9. Percocet. 10. Prednisone. REVIEW OF SYSTEMS: Per the HPI. IMAGING: Summaries of the imaging: We have an MRI thoracic spine noncontrast done 02/10/2017 with impression of an acute on chronic compression deformity of the T10 vertebral body (previously described as T12 on a prior chest CT). There is also mild multilevel degenerative change as above without significant spinal stenosis. Then there is an MRI of the lumbar spine also done on 02/10/2017 with the impression of mild degenerative change without acute osseous abnormality or significant spinal canal stenosis. PHYSICAL EXAMINATION: VITAL SIGNS: Had not been taken yet that day while I was there for the consult. GENERAL: She is a pleasant 66-year-old female in no acute distress. Upon walking into the room, I did notice that her daughter was actually sleeping in the hospital bed and she was actually sitting in the reclined chair, but her feet were draped over the armrest, and she was slouched into the chair in a somewhat awkward position but did not seem uncomfortable whatsoever. EYES: EOMI. CARDIOVASCULAR: Regular rate and rhythm. No murmurs, rubs, or gallops. Pulse is +2 at the bilateral radial pulses. RESPIRATORY: Respirations are even and unlabored work of breathing. Lungs are clear to auscultation. SPINE: She did have axial tenderness which was moderate with palpation at about the T12 area, T10 to T12 area. Otherwise, she had no tenderness in any other areas of the spine or the paravertebral musculature or around her hips or SI joints. NEUROLOGIC: Alert and oriented x3. Cranial nerves II-XII are grossly intact. Sensation is intact in bilateral lower extremities. There is no clonus at the ankle jerks. Reflexes are +2 bilateral knees and ankles. Strength is 5/5 diffusely in bilateral lower extremities. EXTREMITIES: There is significant rheumatoid arthritic deformities, specifically at the wrists and the hands. ASSESSMENT: Acute/chronic compression fracture of T12 vertebral body. PLAN: To continue conservative management. I discussed fall prevention with her. I did recommend use of a back brace for about 2-4 weeks while ambulatory, avoid lifting over 10 pounds, and avoid any excessive bending or twisting motions. I did discuss a kyphoplasty with her and provided her with some information, a booklet specifically, regarding the procedure which she will hold off on for now as I do not think she needs it nor does she feel like she needs it at this time, but if the pain continues to progress or does not improve, we could consider in the future, and I recommended that she follow up at [facility] as needed. I gave her our contact information so that she could make an appointment again as needed. DICTATING PHYSICIAN: GEOVANI BYNUM, PA-C For Rod Ryan MD [id number] PHY#: [id number] ID: [id number] JOB#: [id number] ACCT: [id number] cc:Ana ZHANGSSICA US, TERRELL-Yazmin > GARYD
== END 2017-02-13 12:52 | disposition home health service (06) | DRG 313 ==
LOC: ER 09:14 → EH 14:38 → UNDOADMIN 14:38 → EH 15:39 → 3W 17:06
PROVIDERS: ADMIT Family Medicine; ATTEND Family Medicine
DX: R07.89 Other chest pain (principal); M48.54XA Collapsed vertebra, not elsewhere classified, thoracic region, initial encounter for fracture; R53.1 Weakness; K21.9 Gastro-esophageal reflux disease without esophagitis; I10 Essential (primary) hypertension; M06.9 Rheumatoid arthritis, unspecified; G89.4 Chronic pain syndrome; E78.5 Hyperlipidemia, unspecified; E87.6 Hypokalemia; Z79.899 Other long term (current) drug therapy; Z90.710 Acquired absence of both cervix and uterus
CPT/HCPCS: 36415; 70450; 70551; 71020; 71275; 72146; 72148; 73522; 80048; 80053; 81001; 82550; 82553; 83690; 83735; 83880; 84484; 85025; 87040; 87086; 93005; 93010; 99285; J1650; J3480; J7512

== ENCOUNTER 2017-03-01 12:22 | Emergency (ER) | payer MEDICAID ==
[2017-03-01] MEDS ORDERED: OXYCODONE-ACETAMINOPHEN 5-325 MG TABLET PO ONE ×2 (13:19→15:25)
--- NOTE | 2017-03-01 13:20 | ER Document Report ---
ED Medical Screen (RME) - General Chief Complaint: Fall Injury Stated Complaint: LOWER BACK PAIN Time Seen by Provider: 03/01/17 13:18 Mode of Arrival: Medic Information source: Patient Notes: 66-year-old female with a history of osteoporosis, osteopenia rotating rheumatoid arthritis who ambulates with a walker. Patient fell onto her buttocks earlier today and presents with low back pain. TRAVEL OUTSIDE OF THE [place] IN LAST 30 DAYS: No - Related Data Allergies/Adverse Reactions: No Known Allergies Allergy (Verified 03/01/17 12:28) Past Medical History - Past Medical History Cardiac Medical History: Reports: Hx Hypertension Pulmonary Medical History: Denies: Hx Tuberculosis Renal/ Medical History: Denies: Hx Peritoneal Dialysis GI Medical History: Reports: Hx Gastroesophageal Reflux Disease Musculoskeltal Medical History: Reports Hx Arthritis - RA Skin Medical History: Reports Hx MRSA - CURRENTLY HAS SENSATION OF ABSCESS DEVELOPING UNDER THE LEFT ARM Traumatic Medical History: Reports: Hx Fractures - T10 COMP FX, ACUTE R SHOULDER AND CLAVICLE FX Past Surgical History: Reports: Hx Appendectomy, Hx Hysterectomy, Hx Oral Surgery, Hx Orthopedic Surgery - foot surgery - Immunizations Immunizations up to date: Yes Hx Diphtheria, Pertussis, Tetanus Vaccination: Yes Physical Exam - Vital signs Vitals: Temp Pulse Resp BP Pulse Ox 98.8 F 95 18 119/89 H 97 03/01/17 12:28 03/01/17 12:28 03/01/17 12:28 03/01/17 12:28 03/01/17 12:28 Course - Vital Signs Vital signs: Temp Pulse Resp BP Pulse Ox 98.8 F 95 18 119/89 H 97 03/01/17 12:28 03/01/17 12:28 03/01/17 12:28 03/01/17 12:28 03/01/17 12:28
[2017-03-01] MEDS ORDERED: OXYCODONE-ACETAMINOPHEN 5-325 MG TABLET ONE (13:21)
--- NOTE | 2017-03-01 14:32 | RADIOLOGY REPORT (SQ) ---
EXAM DESCRIPTION: CT LUMBAR SPINE WITHOUT COMPLETED DATE/TIME: 03/01/2017 1:50 pm REASON FOR STUDY: low back pain COMPARISON: MR 02/11/2016 TECHNIQUE: Axial images acquired through the lumbar spine without intravenous contrast. Images revi ewed with lung, soft tissue and bone windows. Reconstructed coronal and sagittal MPR images reviewed . All images stored on PACS. All CT scanners at this facility use dose modulation, iterative reconstruction, and/or weight based d osing when appropriate to reduce radiation dose to as low as reasonably achievable (ALARA). [facility]: Dose Right [facility]: CareDose [facility]: Dose Right [facility]: Teradose 4D [facility]: [employer] RADIATION DOSE: 16.1 mGy. LIMITATIONS: None. FINDINGS: SEGMENTATION: Normal. No transitional anatomy. ALIGNMENT: Normal. VERTEBRAL BODIES: No fractures. No dislocation. No acute findings. DISCS: There is a shallow broad-based disc bulge at L4-5 with minimal central canal narrowing. There is no foraminal stenosis. PEDICLES, TRANSVERSE PROCESSES: No fractures. No dislocation. No acute findings. FACETS, POSTERIOR ELEMENTS: No fractures. No dislocation. No spinal stenosis. HARDWARE: None in the spine. VISUALIZED RIBS: No fractures. SOFT TISSUES: Prominent lower calyceal calculi are seen in the left kidney. OTHER: No other significant finding. IMPRESSION: 1. There is no acute abnormality. 2. There is shallow broad-based disc bulge at L4-5 as described. 3. Left renal calculi are present. TECHNICAL DOCUMENTATION: JOB ID: [id number] Quality ID # [id number]: Final reports with documentation of one or more dose reduction techniques (e.g., Au tomated exposure control, adjustment of the mA and/or kV according to patient size, use of iterative reconstruction technique) 2010 [employer]- All Rights Reserved
--- NOTE | 2017-03-01 14:36 | RADIOLOGY REPORT (SQ) ---
EXAM DESCRIPTION: CT PELVIS WITHOUT COMPLETED DATE/TIME: 03/01/2017 1:50 pm REASON FOR STUDY: sacral pain s/p fall COMPARISON: None. TECHNIQUE: CT scan of the pelvis performed without intravenous or oral contrast. Images reviewed wi th soft tissue and bone windows. Reconstructed coronal and sagittal MPR images reviewed. All images stored on PACS. All CT scanners at this facility use dose modulation, iterative reconstruction, and/or weight based d osing when appropriate to reduce radiation dose to as low as reasonably achievable (ALARA). [facility]: Dose Right [facility]: CareDose [facility]: Dose Right [facility]: Teradose 4D [facility]: [employer] RADIATION DOSE: Up-to-date CT equipment and radiation dose reduction techniques were employed. CTDIv ol: 10.4 mGy. DLP: 261 mGy-cm. mGy. LIMITATIONS: None. FINDINGS: PELVIC BONES: No acute fracture. No worrisome bone lesions. VISUALIZED SPINE: No acute findings. HIP(S): No acute fracture or dislocation. No worrisome bone lesions. PELVIC SOFT TISSUES: The urinary bladder is normal. The uterus is absent. There is no adnexal mass or fluid collection. EXTRAPELVIC SOFT TISSUES: No significant findings. OTHER: No other significant finding. IMPRESSION: NO ACUTE OR SIGNIFICANT FINDINGS. TECHNICAL DOCUMENTATION: JOB ID: [id number] Quality ID # [id number]: Final reports with documentation of one or more dose reduction techniques (e.g., Au tomated exposure control, adjustment of the mA and/or kV according to patient size, use of iterative reconstruction technique) 2010 [employer]- All Rights Reserved
--- NOTE | 2017-03-01 15:15 | ER Document Report ---
ED Fall - General Chief Complaint: Fall Injury Stated Complaint: FALL/BACK PAIN Time Seen by Provider: 03/01/17 13:18 Mode of Arrival: Medic Information source: Patient Notes: Patient is a 66-year-old patient with rheumatoid arthritis who presents to the ER today because she slipped and fell out of her wheelchair yesterday, thinking that it was locked when it was not and hurt her low back and her buttock. Patient states that she is no longer hurting. She denies any numbness or tingling. She states at this time symptoms have resolved. She denies hitting her head or loss of consciousness. TRAVEL OUTSIDE OF THE [place] IN LAST 30 DAYS: No - Related data Allergies/Adverse Reactions: No Known Allergies Allergy (Verified 03/01/17 12:28) Past Medical History - General Information source: Patient - Social History Smoking Status: Unknown if Ever Smoked Family History: Reviewed & Not Pertinent Patient has suicidal ideation: No Patient has homicidal ideation: No - Past Medical History Cardiac Medical History: Reports: Hx Hypertension Pulmonary Medical History: Denies: Hx Tuberculosis Renal/ Medical History: Denies: Hx Peritoneal Dialysis GI Medical History: Reports: Hx Gastroesophageal Reflux Disease Musculoskeltal Medical History: Reports Hx Arthritis - RA Skin Medical History: Reports Hx MRSA - CURRENTLY HAS SENSATION OF ABSCESS DEVELOPING UNDER THE LEFT ARM Traumatic Medical History: Reports: Hx Fractures - T10 COMP FX, ACUTE R SHOULDER AND CLAVICLE FX Past Surgical History: Reports: Hx Appendectomy, Hx Hysterectomy, Hx Oral Surgery, Hx Orthopedic Surgery - foot surgery - Immunizations Immunizations up to date: Yes Hx Diphtheria, Pertussis, Tetanus Vaccination: Yes Review of Systems - Review of Systems Constitutional: No symptoms reported EENT: No symptoms reported Cardiovascular: No symptoms reported Respiratory: No symptoms reported Gastrointestinal: No symptoms reported Genitourinary: No symptoms reported Female Genitourinary: No symptoms reported Musculoskeletal: See HPI Skin: No symptoms reported Hematologic/Lymphatic: No symptoms reported Neurological/Psychological: No symptoms reported Physical Exam - Vital signs Vitals: Temp Pulse Resp BP Pulse Ox 98.8 F 95 18 119/89 H 97 03/01/17 12:28 03/01/17 12:28 03/01/17 12:28 03/01/17 12:28 03/01/17 12:28 - Notes Notes: PHYSICAL EXAMINATION: GENERAL: eating, sitting comfortably, in no acute distress. HEAD: Atraumatic, normocephalic. EYES: Pupils equal round and reactive to light, extraocular movements intact, sclera anicteric, conjunctiva are normal. NECK: Normal range of motion, supple without lymphadenopathy LUNGS: CTAB and equal. No wheezes rales or rhonchi. HEART: Regular rate and rhythm without murmurs ABDOMEN: Soft, no tenderness. No guarding, no rebound BACK: no vertebral tenderness, normal ROM GI/: no CVA tenderness EXTREMITIES: contractures of bilateral hands, no pitting edema. No cyanosis. NEUROLOGICAL: Cranial nerves grossly intact. Normal sensory/motor exams. PSYCH: Normal mood, normal affect. SKIN: Warm, Dry, normal turgor, no rashes or lesions noted Course - Re-evaluation Re-evalutation: 03/01/17 15:29 CT of pelvis and lumbar spine negative for any acute pathology. - Vital Signs Vital signs: Temp Pulse Resp BP Pulse Ox 98.8 F 95 18 119/89 H 97 03/01/17 12:28 03/01/17 12:28 03/01/17 12:28 03/01/17 12:28 03/01/17 12:28 Discharge - Discharge Clinical Impression: Fall Qualifiers: Encounter type: initial encounter Qualified Code(s): W19.XXXA - Unspecified fall, initial encounter Back pain Qualifiers: Back pain location: back pain in other location Chronicity: acute Qualified Code(s): M54.9 - Dorsalgia, unspecified Condition: Stable Disposition: HOME, SELF-CARE Additional Instructions: Return immediately for any new or worsening symptoms. Follow up with primary care provider, call tomorrow to make followup appointment. Prescriptions: Ondansetron [Zofran Odt 4 mg Tablet] 1 - 2 tab PO Q4H PRN #15 tab.rapdis PRN Reason: For Nausea/Vomiting Oxycodone HCl/Acetaminophen [Percocet 5-325 mg Tablet] 1 - 2 tab PO Q4H PRN #15 tablet PRN Reason: Referrals: MARY LOU OLEA MD [Primary Care Provider] - Follow up as needed
[2017-03-01] MEDS ORDERED: ONDANSETRON 4 MG TAB.RAPDIS PO ONE (15:25)
[2017-03-01 16:00] VITALS: BP 145/77
== END 2017-03-01 16:04 | disposition home or self-care (01) ==
LOC: ER 12:22
DX: M54.9 Dorsalgia, unspecified (principal); W05.0XXA Fall from non-moving wheelchair, initial encounter
CPT/HCPCS: 99284; 72131; 72192; S0119

== ENCOUNTER 2017-05-26 10:55 | Emergency (ER) | payer MEDICAID ==
--- NOTE | 2017-05-26 12:10 | RADIOLOGY REPORT (SQ) ---
EXAM DESCRIPTION: ANKLE LEFT COMPLETE; TIBIA FIBULA LEFT COMPLETED DATE/TIME: 05/26/2017 11:41 am REASON FOR STUDY: fall pain COMPARISON: None. TECHNIQUE: Two views of the left tibia and fibula and three views of the left ankle. Images saved t o PACs. LIMITATIONS: None. FINDINGS: Bones are osteopenic. There is disruption of Boehler's angle and deformity over the talar dome which is probably all chronic. No obvious acute fracture. If there is clinical suspicion of a cute calcaneal fracture, follow-up CT is recommended. IMPRESSION: See above. TECHNICAL DOCUMENTATION: JOB ID: [id number] [employer]- All Rights Reserved
--- NOTE | 2017-05-26 12:10 | RADIOLOGY REPORT (SQ) ---
EXAM DESCRIPTION: ANKLE LEFT COMPLETE; TIBIA FIBULA LEFT COMPLETED DATE/TIME: 05/26/2017 11:41 am REASON FOR STUDY: fall pain COMPARISON: None. TECHNIQUE: Two views of the left tibia and fibula and three views of the left ankle. Images saved t o PACs. LIMITATIONS: None. FINDINGS: Bones are osteopenic. There is disruption of Boehler's angle and deformity over the talar dome which is probably all chronic. No obvious acute fracture. If there is clinical suspicion of a cute calcaneal fracture, follow-up CT is recommended. IMPRESSION: See above. TECHNICAL DOCUMENTATION: JOB ID: [id number] [email or web address]- All Rights Reserved
--- NOTE | 2017-05-26 13:27 | RADIOLOGY REPORT (SQ) ---
EXAM DESCRIPTION: CT LT LOWER EXTREMITY WITHOUT COMPLETED DATE/TIME: 05/26/2017 1:08 pm REASON FOR STUDY: left ankle and foot eval calcaneal fracture COMPARISON: None. TECHNIQUE: Axial imaging performed through the left ankle with reformatted coronal and sagittal imag ing windowed for bone and soft tissues. Images saved to PACS. 3D IMAGING: Were 3D images as MIP, SSD, or volume rendering performed at the work station? Yes. All CT scanners at this facility use dose modulation, iterative reconstruction, and/or weight based d osing when appropriate to reduce radiation dose to as low as reasonably achievable (ALARA). [facility]: Dose Right [facility]: CareDose [facility]: Dose Right [facility]: Teradose 4D [facility]: [employer] LIMITATIONS: None. RADIATION DOSE: Up-to-date CT equipment and radiation dose reduction techniques were employed. CTDIv ol: 4.1 mGy. DLP: 74 mGy-cm. mGy. FINDINGS: No acute fracture. Osteopenia and chronic degenerative changes. Loose bodies in the ankl e joint. 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 Vascular calcifications. No foreign body identified . IMPRESSION: No acute fracture. TECHNICAL DOCUMENTATION: JOB ID: [id number] Quality ID # [id number]: Final reports with documentation of one or more dose reduction techniques (e.g., Au tomated exposure control, adjustment of the mA and/or kV according to patient size, use of iterative reconstruction technique) 2010 [employer]- All Rights Reserved
[2017-05-26] MEDS ORDERED: OXYCODONE-ACETAMINOPHEN 5-325 MG TABLET PO ONE (13:55)
--- NOTE | 2017-05-26 14:00 | ER Document Report ---
ED General - General Chief Complaint: Ankle Injury Stated Complaint: FALL,LEFT LEG SWELLING TRAVEL OUTSIDE OF THE [place].S. IN LAST 30 DAYS: No - HPI Patient complains to provider of: Left ankle pain Notes: Patient coming in after having a fall around midnight states that she was using a walker when lost her balance and fell over patient now complains of left ankle pain. Patient has severe rheumatoid arthritis and sees specialist at [place]. Local PCP is at the [facility] - [place]. Patient states left ankle swollen and bruised. Denies any loss consciousness denies any chest pain abdominal pain or any other symptoms prior to or after fall. Patient is resting comfortably upon my evaluation. - Related Data Allergies/Adverse Reactions: No Known Allergies Allergy (Verified 03/01/17 12:28) Past Medical History - Social History Smoking Status: Unknown if Ever Smoked Family History: Reviewed & Not Pertinent Patient has suicidal ideation: No Patient has homicidal ideation: No - Past Medical History Cardiac Medical History: Reports: Hx Hypertension Pulmonary Medical History: Denies: Hx Tuberculosis Renal/ Medical History: Denies: Hx Peritoneal Dialysis GI Medical History: Reports: Hx Gastroesophageal Reflux Disease Musculoskeltal Medical History: Reports Hx Arthritis - RA Skin Medical History: Reports Hx MRSA - CURRENTLY HAS SENSATION OF ABSCESS DEVELOPING UNDER THE LEFT ARM Traumatic Medical History: Reports: Hx Fractures - T10 COMP FX, ACUTE R SHOULDER AND CLAVICLE FX Past Surgical History: Reports: Hx Appendectomy, Hx Hysterectomy, Hx Oral Surgery, Hx Orthopedic Surgery - foot surgery - Immunizations Immunizations up to date: Yes Hx Diphtheria, Pertussis, Tetanus Vaccination: Yes Review of Systems - Review of Systems Constitutional: No symptoms reported EENT: No symptoms reported Cardiovascular: No symptoms reported Respiratory: No symptoms reported Gastrointestinal: No symptoms reported Genitourinary: No symptoms reported Female Genitourinary: No symptoms reported Musculoskeletal: Other - Ankle pain Skin: No symptoms reported Hematologic/Lymphatic: No symptoms reported Neurological/Psychological: No symptoms reported Physical Exam - Vital signs Vitals: Temp Pulse Resp BP Pulse Ox 99.2 F 98 16 143/72 H 96 05/26/17 11:02 05/26/17 11:02 05/26/17 11:02 05/26/17 11:02 05/26/17 11:02 Interpretation: Normal - General General appearance: Appears well, Alert - HEENT Head: Normocephalic, Atraumatic Eyes: Normal Pupils: PERRL - Respiratory Respiratory status: No respiratory distress Chest status: Nontender Breath sounds: Normal Chest palpation: Normal - Cardiovascular Rhythm: Regular Heart sounds: Normal auscultation Murmur: No - Abdominal Inspection: Normal Distension: No distension Bowel sounds: Normal Tenderness: Nontender Organomegaly: No organomegaly - Back Back: Normal, Nontender - Extremities General upper extremity: Normal inspection - Chronic deformities due to RA, Nontender General lower extremity: Normal inspection - Chronic deformities of the lower extremities due to the patient's RA. Patient does have slight swelling compared to the right of her left ankle. Diffuse tenderness upon palpation of the ankle and foot., Nontender - Neurological Neuro grossly intact: Yes Cognition: Normal Orientation: AAOx4 Smithers Coma Scale Eye Opening: Spontaneous Smithers Coma Scale Verbal: Oriented Amilcar Coma Scale Motor: Obeys Commands Amilcar Coma Scale Total: 15 Speech: Normal Motor strength normal: LUE, RUE, LLE, RLE Sensory: Normal - Psychological Associated symptoms: Normal affect, Normal mood - Skin Skin Temperature: Warm Skin Moisture: Dry Skin Color: Normal Course - Re-evaluation Re-evalutation: 05/26/17 13:58 Due to the amount of degenerative changes x-ray was not beneficial in delineating signs of fracture a CT scan was performed and read by the radiologist no signs of fracture however multiple other chronic changes. Patient was evaluated on the [place] database and seems to be in pain management this time having recurring prescription for Percocet and oxycodone. Patient was given 1 oxycodone here. I did have our keycase assembler set the patient up for home physical therapy and home health care. - Vital Signs Vital signs: Temp Pulse Resp BP Pulse Ox 99.2 F 98 16 143/72 H 96 05/26/17 11:02 05/26/17 11:02 05/26/17 11:02 05/26/17 11:02 05/26/17 11:02 Discharge - Discharge Clinical Impression: Left ankle pain Qualifiers: Chronicity: acute Qualified Code(s): M25.572 - Pain in left ankle and joints of left foot Condition: Good Disposition: HOME, SELF-CARE Instructions: Ice & Elevation ([facility]), Contusion ([facility]), Warm Packs ([facility]) Additional Instructions: Follow-up with your primary care physician. Return to the ER if symptoms worsen. Referrals: MARY LOU OLEA MD [Primary Care Provider] - Follow up in 3-5 days
[2017-05-26 14:06] VITALS: BP 118/72
== END 2017-05-26 14:25 | disposition home or self-care (01) ==
LOC: ER 10:55
DX: M25.572 Pain in left ankle and joints of left foot (principal); M79.89 Other specified soft tissue disorders; W19.XXXA Unspecified fall, initial encounter
CPT/HCPCS: 99284

== ENCOUNTER 2017-08-14 22:48 | Inpatient (IN) | payer MEDICAID ==
[2017-08-15 00:39] LABS: ABSOLUTE BASOPHILS # (AUTO) 0.1 10^3/uL (0.0-0.2); ABSOLUTE EOSINOPHILS # (AUTO) 0.1 10^3/uL (0.0-0.6); ABSOLUTE LYMPHOCYTES (AUTO) 3.1 10^3/uL (0.5-4.7); ABSOLUTE MONOCYTES (AUTO) 1.3 10^3/uL (0.1-1.4); ABSOLUTE NEUT (AUTO) 5.7 10^3/uL (1.7-8.2); BASOPHILS % (AUTO) 1.3 % (0-2); EOSINOPHILS % (AUTO) 1.2 % (0-6); HEMATOCRIT 36.7 % (36.0-47.0); HEMOGLOBIN 12.6 g/dL (12.0-15.5); HGB HCT DIFFERENCE 1.1; LYMPHOCYTES % (AUTO) 30.2 % (13-45); MEAN CORPUSCULAR HEMOGLOBIN 28.6 pg (27.0-33.4); MEAN CORPUSCULAR HGB CONC 34.3 g/dL (32.0-36.0); MEAN CORPUSCULAR VOLUME 84 fl (80-97); MONOCYTES % (AUTO) 12.3 % (3-13); RED CELL DISTRIBUTION WIDTH 14.4 % (11.5-14.0); WHITE BLOOD COUNT 10.4 10^3/uL (4.0-10.5)
[2017-08-15 00:46] LABS: VENOUS BLOOD BASE EXCESS 2.4 mmol/L; VENOUS BLOOD HCO3 25.6 mmol/L (20-32); VENOUS BLOOD PCO2 35.1 mmHg (35-63); VENOUS BLOOD PH 7.48 (7.30-7.42)
--- NOTE | 2017-08-15 00:47 | RADIOLOGY REPORT (SQ) ---
EXAM DESCRIPTION: CHEST SINGLE VIEW CLINICAL HISTORY: 66 years, Female, fever COMPARISON: 03/19/2015, report only. NUMBER OF VIEWS: One view, two images. TECHNIQUE: AP portable. LIMITATIONS: None. FINDINGS: Small obscuration/effusion of the right costophrenic angle. Normal lung volume. Normal cardiac silhouette. Fracture-deformity of the proximal left humeral shaft. Mild deformity of bilateral humeral heads. IMPRESSION: Small right pleural effusion/atelectasis. 2011 [employer]- All Rights Reserved
[2017-08-15 00:51] LABS: PROTHROMBIN TIME 15.6 SEC (11.4-15.4)
[2017-08-15 01:06] LABS: ALANINE AMINOTRANSFERASE 20 U/L (9-52); ALBUMIN 3.4 g/dL (3.5-5.0); ALKALINE PHOSPHATASE 65 U/L (38-126); ANION GAP 12 (5-19); ASPARTATE AMINO TRANSFERASE 26 U/L (14-36); BILIRUBIN,DIRECT 0.5 mg/dL (0.0-0.4); BLOOD UREA NITROGEN 9 mg/dL (7-20); CALCIUM 8.5 mg/dL (8.4-10.2); CARBON DIOXIDE 26 mmol/L (22-30); CHLORIDE 101 mmol/L (98-107); CREATININE RESULT 0.64 mg/dL (0.52-1.25); GLUCOSE 138 mg/dL (75-110); SODIUM 138.8 mmol/L (137-145); TOTAL PROTEIN 6.8 g/dL (6.3-8.2)
[2017-08-15] MEDS ORDERED: ONDANSETRON HCL INJ/PF 4 MG/2 ML SDV IV ONE (01:06)
[2017-08-15] MEDS ORDERED: RINGERS SOLUTION,LACTATED 1,000 ML IV ONE (01:06)
[2017-08-15 01:12] LABS: POTASSIUM 2.9 mmol/L (3.6-5.0)
[2017-08-15] MEDS ORDERED: OXYCODONE HCL IR 5 MG TABLET PO ONE (01:15)
[2017-08-15] MEDS ORDERED: AZITHROMYCIN 250 MG TABLET PO ONE (01:20)
[2017-08-15] MEDS ORDERED: CEFTRIAXONE 1 GM/D5W RTU 1 GM/50 ML RTUPB IV ONE (01:20)
--- NOTE | 2017-08-15 01:21 | ER Document Report ---
ED General - General Chief Complaint: Vomiting Stated Complaint: THROWING UP,BODY PAIN Time Seen by Provider: 08/15/17 00:30 Notes: Patient is a 66-year-old female with a past medical history rheumatoid arthritis , currently immunosuppressed on methotrexate, who presents with 4 days of progressively worsening vomiting and generalized weakness. Patient reports for the past 2 weeks she has been unable to ambulate as she has had such severe pain throughout her body. However she states that she is not even able to get out of bed for the past 2 days and feels extremely lightheaded. She saw her primary care doctor on Monday for these concerns and was started on Tamiflu as well as amoxicillin for concerns of possible infectious etiology of her presentation but states that these have not helped. Nothing worsens her symptoms. No known sick contacts although her daughter at bedside states that she believes she has gotten sick from her mother. Patient has been completely unable to tolerate oral intake today which was why the family brought her into the hospital. Patient denies any focal abdominal pain. She does note that she started having diarrhea today. Family reports that she has had recorded fevers at home but they are unable to recall the exact numbers. TRAVEL OUTSIDE OF THE [place] IN LAST 30 DAYS: No - Related Data Allergies/Adverse Reactions: No Known Allergies Allergy (Verified 08/14/17 22:50) Past Medical History - General Information source: Patient - Social History Smoking Status: Never Smoker Frequency of alcohol use: None Drug Abuse: None Lives with: Family Family History: Reviewed & Not Pertinent Patient has suicidal ideation: No Patient has homicidal ideation: No - Past Medical History Cardiac Medical History: Reports: Hx Hypertension Pulmonary Medical History: Denies: Hx Tuberculosis Renal/ Medical History: Denies: Hx Peritoneal Dialysis GI Medical History: Reports: Hx Gastroesophageal Reflux Disease Musculoskeltal Medical History: Reports Hx Arthritis - RA Skin Medical History: Reports Hx MRSA - CURRENTLY HAS SENSATION OF ABSCESS DEVELOPING UNDER THE LEFT ARM Traumatic Medical History: Reports: Hx Fractures - T10 COMP FX, ACUTE R SHOULDER AND CLAVICLE FX Past Surgical History: Reports: Hx Appendectomy, Hx Hysterectomy, Hx Oral Surgery, Hx Orthopedic Surgery - foot surgery - Immunizations Immunizations up to date: Yes Hx Diphtheria, Pertussis, Tetanus Vaccination: Yes Review of Systems - Review of Systems Notes: Constitutional: Positive for generalized fatigue and lightheadedness HENT: Negative for sore throat. Eyes: Negative for visual changes. Cardiovascular: Negative for chest pain. Respiratory: Negative for shortness of breath. Gastrointestinal: Positive for vomiting and diarrhea Genitourinary: Negative for dysuria. Musculoskeletal: Negative for back pain. Skin: Negative for rash. Neurological: Negative for headaches, weakness or numbness. 10 point ROS negative except as marked above and in HPI. Physical Exam - Vital signs Vitals: Temp Pulse Resp BP Pulse Ox 97.6 F 111 H 18 93/66 L 98 08/14/17 22:57 08/14/17 22:57 08/14/17 22:57 08/14/17 22:57 08/14/17 22:57 Interpretation: Hypotensive, Tachycardic Notes: PHYSICAL EXAMINATION: GENERAL: Frail, chronically ill in appearance but in no acute distress HEAD: Atraumatic, normocephalic. EYES: Pupils equal round and reactive to light, extraocular movements intact, sclera anicteric, conjunctiva are normal. ENT: nares patent, oropharynx clear without exudates. Moderately dry mucous membranes. NECK: Normal range of motion, supple without lymphadenopathy LUNGS: Breath sounds clear to auscultation bilaterally and equal. No wheezes rales or rhonchi. HEART: Regular tachycardia without murmurs ABDOMEN: Soft, nontender, normoactive bowel sounds. No guarding, no rebound. No masses appreciated. EXTREMITIES: Normal range of motion, no pitting or edema. No cyanosis. NEUROLOGICAL: No focal neurological deficits. Moves all extremities spontaneously and on command. PSYCH: Very soft speech SKIN: Warm, Dry, poor skin turgor Course - Re-evaluation Re-evalutation: 08/15/17 01:00 Patient presents with persistent vomiting, weakness, and inability to ambulate for the past 2 days. Apparently at baseline patient is quite debilitated from rheumatoid arthritis but has been unable to even ambulate to the restroom for the past 2 days. The patient presented hypotensive 97 systolic and review of her prior visits shows that she is normally hypertensive. She does appear clinically quite dehydrated and her laboratories suggest that this is the case secondary to vomiting as she is hypokalemic and alkalotic on a venous blood gas. Patient denies any focal infectious symptoms other than persistent vomiting and diarrhea. Apparently her primary care doctor put her on Tamiflu although it is unclear that she was ever formally diagnosed with influenza. A chest x-ray here does show a possible right lower lobe pneumonia versus a pleural effusion. Patient does have mild tachypnea and is saturating 94% on room air. Will empirically start ceftriaxone and azithromycin for coverage of a community-acquired pneumonia. Will also begin potassium and magnesium repletion. 08/15/17 01:20 I have also discussed this case with Dr. Reece the patient's primary care physician has agreed to admit. - Vital Signs Vital signs: Temp Pulse Resp BP Pulse Ox 97.6 F 111 H 21 H 126/81 H 94 08/14/17 22:57 08/14/17 22:57 08/15/17 02:01 08/15/17 02:00 08/15/17 02:01 - Laboratory Result Diagrams: 08/15/17 00:20 08/15/17 00:20 Laboratory results interpreted by me: 08/15/17 08/15/17 08/15/17 00:20 00:20 00:20 RDW 14.4 H Plt Count 149 L PT 15.6 H VBG pH Potassium 2.9 L* Glucose 138 H Direct Bilirubin 0.5 H Albumin 3.4 L 08/15/17 00:20 RDW Plt Count PT VBG pH 7.48 H Potassium Glucose Direct Bilirubin Albumin - Diagnostic Test Radiology reviewed: Image reviewed, Reports reviewed Radiology results interpreted by me: 08/15/17 01:21 Chest x-ray: Right lower lobe infiltrate and effusion - EKG Interpretation by Me Additional EKG results interpreted by me: 08/15/17 03:27 Normal sinus rhythm. Rate 86. Prolonged QT of 512. No ST elevations or depressions. Discharge - Discharge Clinical Impression: Weakness, Hypokalemia, Dehydration, Metabolic alkalosis Hypotension Qualifiers: Hypotension type: unspecified hypotension type Qualified Code(s): I95.9 - Hypotension, unspecified Condition: Fair Disposition: ADMITTED INPATIENT Admitting Provider: Chevy Unit Admitted: Telemetry
[2017-08-15] MEDS: POTASSI CL 20 MEQ/50 ML RIDER 20 MEQ/50 ML RTUPB IV SCH ×2 (01:41→03:05)
[2017-08-15] MEDS: MAGNESIUM SULFATE/D5W 1 GM/100 ML RTUPB IV SCH ×2 (01:45→05:23)
[2017-08-15 02:37] LABS: APPEARANCE,URINE CLEAR; BILIRUBIN,URINE NEGATIVE (NEGATIVE); GLUCOSE, URINE NEGATIVE (NEGATIVE); KETONES,URINE NEGATIVE (NEGATIVE); LEUKOCYTE ESTERASE,URINE NEGATIVE (NEGATIVE); NITRITE,URINE NEGATIVE (NEGATIVE); PROTEIN,URINE 30 mg/dL (NEGATIVE); URINE SPECIFIC GRAVITY 1.019
[2017-08-15 02:47] LABS: BACTERIA,URINE TRACE /HPF; RBC,URINE NONE SEEN /HPF; WBC,URINE 0-1 /HPF
[2017-08-15] MEDS ORDERED: NORMAL SALINE 1000 ML 1,000 ML IV PRN (04:04)
[2017-08-15] MEDS ORDERED: BENZONATATE 100 MG CAPSULE PO PRN (04:10)
[2017-08-15] MEDS ORDERED: ACETAMINOPHEN 325 MG TABLET PO PRN (04:37)
[2017-08-15] MEDS ORDERED: ONDANSETRON HCL INJ/PF 4 MG/2 ML SDV IV PRN (04:40)
[2017-08-15] MEDS ORDERED: ERGOCALCIFEROL (VITAMIN D2) 50000 UNIT (1.25 MG) CAPSULE PO SCH (06:00)
[2017-08-15] MEDS: LANSOPRAZOLE 30 MG TAB.RAP.DR PO SCH ×2 (06:13→20:09)
--- NOTE | 2017-08-15 06:23 | EKG REPORT ---
SEVERITY:- ABNORMAL ECG - SINUS RHYTHM NONSPECIFIC T ABNORMALITIES, INFERIOR LEADS PROLONGED QT INTERVAL : Confirmed by: James Chung 15-Aug-2017 06:22:37
[2017-08-15] MEDS: LISINOPRIL 10 MG TABLET PO SCH (09:54)
[2017-08-15] MEDS: MONTELUKAST SODIUM 10 MG TABLET PO SCH (09:55)
[2017-08-15] MEDS: OXYCODONE-ACETAMINOPHEN 5-325 MG TABLET PO SCH ×3 (09:56→22:10)
[2017-08-15] MEDS: AMLODIPINE BESYLATE 5 MG TABLET PO SCH (09:56)
[2017-08-15] MEDS: FOLIC ACID 1 MG TABLET PO SCH (09:56)
[2017-08-15] MEDS: OXYCODONE HCL IR 5 MG TABLET PO SCH ×3 (09:56→22:10)
[2017-08-15] MEDS ORDERED: PREDNISONE 5 MG TABLET PO SCH ×2 (10:00)
[2017-08-15] MEDS ORDERED: OSELTAMIVIR PHOSPHATE 75 MG CAPSULE PO SCH (10:00)
[2017-08-15] MEDS ORDERED: POTASSIUM CHLORIDE 10 MEQ TABLET.SA PO SCH (10:00)
[2017-08-15] MEDS ORDERED: AMOXICILLIN TRIHYDRATE 500 MG CAPSULE PO SCH (10:00)
[2017-08-15] MEDS: ESCITALOPRAM OXALATE 10 MG TABLET PO SCH (10:10)
[2017-08-15] MEDS: PREDNISONE 10 MG TABLET PO SCH ×2 (10:10→20:09)
[2017-08-15] MEDS: CETIRIZINE 10 MG TABLET PO SCH (10:10)
--- NOTE | 2017-08-15 11:18 | PDOC H&P ---
History of Present Illness Admission Date/PCP: 08/15/17 01:44 MARY LOU OLEA MD Patient complains of: WeaknessAnd a fever and nausea and vomiting History of Present Illness: LILLIE AMIN is a 66 year old female This 66-year-old females with a significant history of rheumatoid arthritis and currently taking the Symphony once a month and the methotrexate once a weekAnd currently see you and see a rheumatologistRecently came in the office on MondayBecause of the fevers chills and the body ache and the patient was contacted with the positive fluAnd the patient's was started on Tamiflu and amoxicillin Patient's currently complaining some nausea and vomiting I think is most related to the Tamiflu but denied any abdominal pain Patient's denied any chest pain denied any shortness of the breath Patient is complaining of a more stiffness in the joint that happened several times in the past when the patient's rheumatoid is getting worse pt initial workup persistent hypokalemia and other blood work is pretty much stable except patient was some questionable right-sided pneumonia but patients denied any cough or congestion's Past Medical History Cardiac Medical History: Reports: Hypertension Pulmonary Medical History: Denies: Tuberculosis GI Medical History: Reports: Gastroesophageal Reflux Disease Musculoskeltal Medical History: Reports: Arthritis - RA, Other Musculoskeletal History Note: Rheumatoid arthritis Psychiatric Medical History: Reports: Depression Past Surgical History Past Surgical History: Reports: Appendectomy, Hysterectomy, Orthopedic Surgery - foot surgery Social History Lives with: Family Smoking Status: Never Smoker Frequency of Alcohol Use: None Hx Recreational Drug Use: No Drugs: None Hx Prescription Drug Abuse: No Family History Family History: Reviewed & Not Pertinent Parental Family History Reviewed: Yes Children Family History Reviewed: Yes Sibling(s) Family History Reviewed.: Yes Medication/Allergy Home Medications: Alendronate Sodium [Fosamax 70 mg Tablet] 70 mg PO FR@1000 08/15/17 Amlodipine Besylate [Norvasc 5 mg Tablet] 5 mg PO DAILY 08/15/17 Amoxicillin Trihydrate [Amoxil 500 mg Capsule] 500 mg PO Q8 08/15/17 Aspirin [Aspirin 81 mg Chewable Tablet] 81 mg PO DAILY 08/15/17 Benzonatate [Tessalon Perles 100 mg Capsule] 100 mg PO Q8HP PRN 08/15/17 Cetirizine HCl [Zyrtec 10 mg Tablet] 10 mg PO DAILY 08/15/17 Ergocalciferol (Vitamin D2) [Vitamin D2] 50,000 units PO WE@1000 08/15/17 Escitalopram Oxalate [Lexapro 10 mg Tablet] 10 mg PO DAILY 08/15/17 Folic Acid [Folvite 1 mg Tablet] 1 mg PO DAILY 08/15/17 Golimumab [Simponi] 50 mg SQ ASDIR PRN 08/15/17 Ibuprofen [Motrin 800 mg Tablet] 800 mg PO Q8 08/15/17 Lisinopril [Zestril] 40 mg PO DAILY 08/15/17 Methotrexate Sodium/Pf [Methotrexate 25 mg/ml Vial] 25 mg INJ WE@1000 08/15/17 Montelukast Sodium [Singulair 10 mg Tablet] 10 mg PO DAILY 08/15/17 Omeprazole 20 mg PO Q12 08/15/17 Oseltamivir Phosphate [Tamiflu 75 mg Capsule] 75 mg PO Q12 08/15/17 Oxycodone HCl [Oxycontin Sr 10 mg Tablet] 10 mg PO Q8 08/15/17 Potassium Chloride [Klor-Con M20] 40 meq PO DAILY 08/15/17 Prednisone [Deltasone 5 mg Tablet] 5 mg PO DAILY 08/15/17 Allergies/Adverse Reactions: No Known Allergies Allergy (Verified 08/14/17 22:50) Review of Systems Constitutional: PRESENT: chills, weakness. ABSENT: fever(s), headache(s), weight gain, weight loss Eyes: ABSENT: visual disturbances Ears: ABSENT: hearing changes Cardiovascular: ABSENT: chest pain, dyspnea on exertion, edema, orthropnea, palpitations Respiratory: ABSENT: cough, hemoptysis Gastrointestinal: PRESENT: nausea, vomiting. ABSENT: abdominal pain, constipation, diarrhea, hematemesis, hematochezia Genitourinary: ABSENT: dysuria, hematuria Musculoskeletal: ABSENT: joint swelling Integumentary: ABSENT: rash, wounds Neurological: ABSENT: abnormal gait, abnormal speech, confusion, dizziness, focal weakness, syncope Psychiatric: ABSENT: anxiety, depression, homidical ideation, suicidal ideation Endocrine: ABSENT: cold intolerance, heat intolerance, menstrual abnormalities, polydipsia, polyuria Hematologic/Lymphatic: ABSENT: easy bleeding, easy bruising, lymphadenopathy Physical Exam Vital Signs: Temp Pulse Resp BP Pulse Ox 98.3 F 111 H 15 97/66 L 95 08/15/17 10:50 08/14/17 22:57 08/15/17 10:31 08/15/17 10:31 08/15/17 10:31 General appearance: PRESENT: no acute distress, well-developed, well-nourished Head exam: PRESENT: atraumatic, normocephalic Eye exam: PRESENT: conjunctiva pink, EOMI, PERRLA. ABSENT: scleral icterus Ear exam: PRESENT: normal external ear exam Mouth exam: PRESENT: moist, tongue midline Neck exam: PRESENT: full ROM. ABSENT: carotid bruit, JVD, lymphadenopathy, thyromegaly Respiratory exam: PRESENT: clear to auscultation lucas Cardiovascular exam: PRESENT: RRR. ABSENT: diastolic murmur, rubs, systolic murmur Pulses: PRESENT: normal dorsalis pedis pul, +2 pedal pulses bilateral Vascular exam: PRESENT: normal capillary refill GI/Abdominal exam: PRESENT: normal bowel sounds, soft. ABSENT: distended, guarding, mass, organolmegaly, rebound, tenderness Rectal exam: PRESENT: deferred Extremities exam: ABSENT: pedal edema Additional comments: Multiple joint deformity both upper and lower extremity due to the rheumatoid arthritis Neurological exam: PRESENT: alert, awake, oriented to person, oriented to place , oriented to time, oriented to situation, CN II-XII grossly intact. ABSENT: motor sensory deficit Psychiatric exam: PRESENT: appropriate affect, normal mood. ABSENT: homicidal ideation, suicidal ideation Skin exam: PRESENT: dry, intact, warm. ABSENT: cyanosis, rash Results Laboratory Results: 08/15/17 02:00 Urine Color GIULIANO Urine Appearance CLEAR Urine pH 6.0 Ur Specific [place] 1.019 Urine Protein 30 H Urine Glucose (UA) NEGATIVE Urine Ketones NEGATIVE Urine Blood NEGATIVE Urine Nitrite NEGATIVE Ur Leukocyte Esterase NEGATIVE Ur Squamous Epith Cells FEW Impressions: Chest X-Ray 08/14/17 23:09 IMPRESSION: Small right pleural effusion/atelectasis. 2010 [employer]- All Rights Reserved Assessment & Plan - Diagnosis (1) Pneumonia Qualifiers: Pneumonia type: due to unspecified organism Laterality: right Is this a current diagnosis for this admission?: Yes Plan: Possible patient with some flu symptoms and top of that possible underlying right-sided pneumonia will treat with the community-acquired pneumonia with IV antibiotics (2) Dehydration Is this a current diagnosis for this admission?: Yes Plan: Continues IV fluid (3) Hypokalemia Is this a current diagnosis for this admission?: Yes Plan: Replace the potassiums (4) Hypotension Qualifiers: Hypotension type: unspecified hypotension type Qualified Code(s): I95.9 - Hypotension, unspecified Is this a current diagnosis for this admission?: Yes Plan: Currently all improving due to the above conditions (5) Weakness Is this a current diagnosis for this admission?: Yes Plan: Most likely due to the recent infections with the significant rheumatoid arthritis with a chronic steroid will increase the steroid dose (6) Chronic pain syndrome Is this a current diagnosis for this admission?: Yes Plan: Patient also see a pain management (7) Rheumatoid arthritis Qualifiers: Rheumatoid arthritis location: multiple sites Is this a current diagnosis for this admission?: Yes Plan: Currently continues to current medications - Time Time Spent: 30 to 50 Minutes Medications reviewed and adjusted accordingly: Yes Anticipated discharge: Home Within: Other - Inpatient Certification Medical Necessity: Need Close Monitoring Due to Risk of Patient Decompensation, Need For IV Fluids, Need for IV Antibiotics Post Hospital Care: D/C [employer] Treater Documentation - Plan Summary Plan Summary: See other MD orders discussed with the patient daughter on the bedside and the patient's will get the physical therapy evaluations and continues to monitor the patient's
[2017-08-15] MEDS: POTASSI CL 20 MEQ/NS 1L 1,000 ML IV PRN (13:11)
[2017-08-15] MEDS ORDERED: INFLUENZA ADLT QUAD (36MOS+) 2017-18 VAC 0.5 ML SYR IM PRN (17:43)
[2017-08-15] MEDS: CEFTRIAXONE 1 GM/D5W RTU 1 GM/50 ML RTUPB IV SCH (22:11)
[2017-08-16] MEDS: POTASSI CL 20 MEQ/NS 1L 1,000 ML IV PRN (03:46)
[2017-08-16] MEDS: OXYCODONE HCL IR 5 MG TABLET PO SCH ×3 (06:15→22:41)
[2017-08-16] MEDS: OXYCODONE-ACETAMINOPHEN 5-325 MG TABLET PO SCH ×3 (06:15→22:41)
[2017-08-16] MEDS: LANSOPRAZOLE 30 MG TAB.RAP.DR PO SCH ×2 (06:15→17:36)
[2017-08-16 06:16] LABS: HEMATOCRIT 32.7 % (36.0-47.0); HEMOGLOBIN 11.2 g/dL (12.0-15.5); HGB HCT DIFFERENCE 0.9; MEAN CORPUSCULAR HEMOGLOBIN 28.4 pg (27.0-33.4); MEAN CORPUSCULAR HGB CONC 34.2 g/dL (32.0-36.0); MEAN CORPUSCULAR VOLUME 83 fl (80-97); RED BLOOD COUNT 3.93 10^6/uL (3.72-5.28); RED CELL DISTRIBUTION WIDTH 14.1 % (11.5-14.0); WHITE BLOOD COUNT 5.3 10^3/uL (4.0-10.5)
[2017-08-16 06:32] LABS: ANION GAP 8 (5-19); BLOOD UREA NITROGEN 7 mg/dL (7-20); CALCIUM 8.3 mg/dL (8.4-10.2); CARBON DIOXIDE 24 mmol/L (22-30); CHLORIDE 104 mmol/L (98-107); CREATININE RESULT 0.51 mg/dL (0.52-1.25); GLUCOSE 120 mg/dL (75-110); POTASSIUM 5.1 mmol/L (3.6-5.0); SODIUM 135.5 mmol/L (137-145)
[2017-08-16] MEDS: LISINOPRIL 10 MG TABLET PO SCH (09:44)
[2017-08-16] MEDS: AMLODIPINE BESYLATE 5 MG TABLET PO SCH (09:45)
[2017-08-16] MEDS: MONTELUKAST SODIUM 10 MG TABLET PO SCH (09:45)
[2017-08-16] MEDS: PREDNISONE 10 MG TABLET PO SCH ×2 (09:45→17:36)
[2017-08-16] MEDS: ESCITALOPRAM OXALATE 10 MG TABLET PO SCH (09:45)
[2017-08-16] MEDS: FOLIC ACID 1 MG TABLET PO SCH (09:45)
[2017-08-16] MEDS: ENOXAPARIN SODIUM INJ 40 MG/0.4 ML DISP.SYRIN SUBCUT SCH (09:46)
[2017-08-16] MEDS: CETIRIZINE 10 MG TABLET PO SCH (09:46)
--- NOTE | 2017-08-16 12:10 | PDOC PROGRESS REPORT ---
Subjective Progress Note for:: 08/16/17 Subjective:: Patient is currently doing well Still patient's very weak Patient's denied any chest pain denied any shortness of the breath Since potassiums back to the normal Reason For Visit: PNEUMONIA,DEHYDRATION,HYPOKALEMIA,HYPOKALEMIA Physical Exam Vital Signs: Temp Pulse Resp BP Pulse Ox 97.8 F 79 17 157/85 H 91 L 08/16/17 07:58 08/16/17 07:58 08/16/17 07:58 08/16/17 07:58 08/16/17 07:58 Intake & Output 08/15/17 08/16/17 08/17/17 06:59 06:59 06:59 Intake Total 1250 Balance 1250 Weight 52.4 kg General appearance: PRESENT: no acute distress, well-developed, well-nourished Head exam: PRESENT: atraumatic, normocephalic Eye exam: PRESENT: conjunctiva pink, EOMI, PERRLA. ABSENT: scleral icterus Ear exam: PRESENT: normal external ear exam Mouth exam: PRESENT: moist, tongue midline Neck exam: PRESENT: full ROM. ABSENT: carotid bruit, JVD, lymphadenopathy, thyromegaly Respiratory exam: PRESENT: clear to auscultation lucas Cardiovascular exam: PRESENT: RRR. ABSENT: diastolic murmur, rubs, systolic murmur Pulses: PRESENT: normal dorsalis pedis pul, +2 pedal pulses bilateral Vascular exam: PRESENT: normal capillary refill GI/Abdominal exam: PRESENT: normal bowel sounds, soft. ABSENT: distended, guarding, mass, organolmegaly, rebound, tenderness Rectal exam: PRESENT: deferred Extremities exam: ABSENT: pedal edema Musculoskeletal exam: PRESENT: deformity Neurological exam: PRESENT: alert, awake, oriented to person, oriented to place , oriented to time, oriented to situation, CN II-XII grossly intact. ABSENT: motor sensory deficit Psychiatric exam: PRESENT: appropriate affect, normal mood. ABSENT: homicidal ideation, suicidal ideation Skin exam: PRESENT: dry, intact, warm. ABSENT: cyanosis, rash Results Laboratory Results: 08/16/17 05:22 08/16/17 05:22 08/16/17 08/16/17 05:22 05:22 WBC 5.3 RBC 3.93 Hgb 11.2 L Hct 32.7 L MCV 83 MCH 28.4 MCHC 34.2 RDW 14.1 H Plt Count 102 L Sodium 135.5 L Potassium 5.1 H Chloride 104 Carbon Dioxide 24 Anion Gap 8 BUN 7 Creatinine 0.51 L Est GFR ( Amer) > 60 Est GFR (Non-Af Amer) > 60 Glucose 120 H Calcium 8.3 L Impressions: Chest X-Ray 08/14/17 23:09 IMPRESSION: Small right pleural effusion/atelectasis. 2010 [employer]- All Rights Reserved Assessment & Plan - Diagnosis (1) Pneumonia Qualifiers: Pneumonia type: due to unspecified organism Laterality: right Is this a current diagnosis for this admission?: Yes Plan: Possible patient with some flu symptoms and top of that possible underlying right-sided pneumonia will treat with the community-acquired pneumonia with IV antibiotics (2) Dehydration Is this a current diagnosis for this admission?: Yes Plan: Currently all resolved (3) Hypokalemia Is this a current diagnosis for this admission?: Yes Plan: Currently all resolved (4) Hypotension Qualifiers: Hypotension type: unspecified hypotension type Qualified Code(s): I95.9 - Hypotension, unspecified Is this a current diagnosis for this admission?: Yes Plan: Currently all resolved (5) Weakness Is this a current diagnosis for this admission?: Yes Plan: Most likely due to the recent infections with the significant rheumatoid arthritis with a chronic steroid will increase the steroid dose (6) Chronic pain syndrome Is this a current diagnosis for this admission?: Yes Plan: Patient also see a pain management (7) Rheumatoid arthritis Qualifiers: Rheumatoid arthritis location: multiple sites Is this a current diagnosis for this admission?: Yes Plan: Currently continues to current medications - Time Time Spent with patient: 15-24 minutes Medications reviewed and adjusted accordingly: Yes Anticipated discharge: Home Within: Other - Inpatient Certification Medical Necessity: Need Close Monitoring Due to Risk of Patient Decompensation Post Hospital Care: D/C [employer] Custodian Documentation - Plan Summary Plan Summary: Continues to physical therapy and continues to IV antibiotic
[2017-08-16 14:09] LABS: APPEARANCE,URINE CLEAR; BILIRUBIN,URINE NEGATIVE (NEGATIVE); GLUCOSE, URINE NEGATIVE (NEGATIVE); KETONES,URINE TRACE mg/dL (NEGATIVE); LEUKOCYTE ESTERASE,URINE NEGATIVE (NEGATIVE); NITRITE,URINE NEGATIVE (NEGATIVE); PROTEIN,URINE NEGATIVE (NEGATIVE); URINE SPECIFIC GRAVITY 1.003
[2017-08-16 14:25] LABS: BACTERIA,URINE TRACE /HPF; RBC,URINE 0-1 /HPF; WBC,URINE 0-1 /HPF
[2017-08-16] MEDS: CEFTRIAXONE 1 GM/D5W RTU 1 GM/50 ML RTUPB IV SCH (22:42)
[2017-08-17 04:50] LABS: ANION GAP 11 (5-19); BLOOD UREA NITROGEN 6 mg/dL (7-20); CALCIUM 8.9 mg/dL (8.4-10.2); CARBON DIOXIDE 24 mmol/L (22-30); CHLORIDE 103 mmol/L (98-107); CREATININE RESULT 0.49 mg/dL (0.52-1.25); GLUCOSE 108 mg/dL (75-110); POTASSIUM 4.7 mmol/L (3.6-5.0); SODIUM 137.7 mmol/L (137-145)
[2017-08-17] MEDS: OXYCODONE-ACETAMINOPHEN 5-325 MG TABLET PO SCH ×3 (05:29→23:45)
[2017-08-17] MEDS: OXYCODONE HCL IR 5 MG TABLET PO SCH ×3 (05:29→23:45)
[2017-08-17] MEDS: LANSOPRAZOLE 30 MG TAB.RAP.DR PO SCH ×2 (05:30→17:34)
--- NOTE | 2017-08-17 08:59 | PDOC PROGRESS REPORT ---
Subjective Progress Note for:: 08/17/17 Subjective:: Patient is currently doing well except patient's complaint of bilateral knee pain and patients questions to ask Dr. Waters to see here to maybe give her some injections to feel better and able to walk Patient's denied any chest pain denied any shortness of the breath Reason For Visit: PNEUMONIA,DEHYDRATION,HYPOKALEMIA,HYPOKALEMIA Physical Exam Vital Signs: Temp Pulse Resp BP Pulse Ox 98.4 F 60 16 148/91 H 100 08/17/17 05:00 08/17/17 07:00 08/17/17 05:00 08/17/17 05:00 08/17/17 05:00 Intake & Output 08/16/17 08/17/17 08/18/17 06:59 06:59 06:59 Intake Total 1250 630 Output Total 400 Balance 1250 230 Weight 52.4 kg 54.8 kg General appearance: PRESENT: no acute distress, well-developed, well-nourished Head exam: PRESENT: atraumatic, normocephalic Eye exam: PRESENT: conjunctiva pink, EOMI, PERRLA. ABSENT: scleral icterus Ear exam: PRESENT: normal external ear exam Mouth exam: PRESENT: moist, tongue midline Neck exam: PRESENT: full ROM. ABSENT: carotid bruit, JVD, lymphadenopathy, thyromegaly Respiratory exam: PRESENT: clear to auscultation lucas Cardiovascular exam: PRESENT: RRR. ABSENT: diastolic murmur, rubs, systolic murmur Pulses: PRESENT: normal dorsalis pedis pul, +2 pedal pulses bilateral Vascular exam: PRESENT: normal capillary refill GI/Abdominal exam: PRESENT: normal bowel sounds, soft. ABSENT: distended, guarding, mass, organolmegaly, rebound, tenderness Rectal exam: PRESENT: deferred Additional comments: Difficult deformity in the bilateral upper and lower extremity due to significant rheumatoid arthritis Neurological exam: PRESENT: alert, awake, oriented to person, oriented to place , oriented to time, oriented to situation, CN II-XII grossly intact. ABSENT: motor sensory deficit Psychiatric exam: PRESENT: appropriate affect, normal mood. ABSENT: homicidal ideation, suicidal ideation Skin exam: PRESENT: dry, intact, warm. ABSENT: cyanosis, rash Results Laboratory Results: 08/16/17 05:22 08/17/17 03:48 08/16/17 08/17/17 13:45 03:48 Sodium 137.7 Potassium 4.7 Chloride 103 Carbon Dioxide 24 Anion Gap 11 BUN 6 L Creatinine 0.49 L Est GFR ( Amer) > 60 Est GFR (Non-Af Amer) > 60 Glucose 108 Calcium 8.9 Urine Color STRAW Urine Appearance CLEAR Urine pH 6.0 Ur Specific [place] 1.003 Urine Protein NEGATIVE Urine Glucose (UA) NEGATIVE Urine Ketones TRACE H Urine Blood SMALL H Urine Nitrite NEGATIVE Ur Leukocyte Esterase NEGATIVE Impressions: Chest X-Ray 08/14/17 23:09 IMPRESSION: Small right pleural effusion/atelectasis. 2010 [employer]- All Rights Reserved Assessment & Plan - Diagnosis (1) Pneumonia Qualifiers: Pneumonia type: due to unspecified organism Laterality: right Is this a current diagnosis for this admission?: Yes Plan: Currently all resolving (2) Dehydration Is this a current diagnosis for this admission?: Yes Plan: Currently all resolved (3) Hypokalemia Is this a current diagnosis for this admission?: Yes Plan: Currently all resolved (4) Hypotension Qualifiers: Hypotension type: unspecified hypotension type Qualified Code(s): I95.9 - Hypotension, unspecified Is this a current diagnosis for this admission?: Yes Plan: Currently all resolved (5) Weakness Is this a current diagnosis for this admission?: Yes Plan: Most likely due to the recent infections with the significant rheumatoid arthritis with a chronic steroid will increase the steroid dose (6) Chronic pain syndrome Is this a current diagnosis for this admission?: Yes Plan: Patient also see a pain management (7) Rheumatoid arthritis Qualifiers: Rheumatoid arthritis location: multiple sites Is this a current diagnosis for this admission?: Yes Plan: Will increase the steroid and asked the orthopedic to evaluate but the bilateral knee - Time Time Spent with patient: 15-24 minutes Medications reviewed and adjusted accordingly: Yes Anticipated discharge: Home Within: within 24 hours - Inpatient Certification Medical Necessity: Need Close Monitoring Due to Risk of Patient Decompensation Post Hospital Care: D/C [employer] Documentation - Plan Summary Plan Summary: Continues to physical therapy
[2017-08-17] MEDS: ENOXAPARIN SODIUM INJ 40 MG/0.4 ML DISP.SYRIN SUBCUT SCH (10:45)
[2017-08-17] MEDS: AMLODIPINE BESYLATE 5 MG TABLET PO SCH (10:54)
[2017-08-17] MEDS: LISINOPRIL 10 MG TABLET PO SCH (10:54)
[2017-08-17] MEDS: CETIRIZINE 10 MG TABLET PO SCH (10:54)
[2017-08-17] MEDS: FOLIC ACID 1 MG TABLET PO SCH (10:54)
[2017-08-17] MEDS: ESCITALOPRAM OXALATE 10 MG TABLET PO SCH (10:54)
[2017-08-17] MEDS: MONTELUKAST SODIUM 10 MG TABLET PO SCH (10:55)
[2017-08-17] MEDS: PREDNISONE 10 MG TABLET PO SCH ×2 (10:55→17:33)
--- NOTE | 2017-08-17 11:11 | Physician Advisory Note ---
Physician Advisor ProgressNote .: Pursuant to the plan for [facility], I have reviewed the medical record for this patient. Physician Advisor Statement: Please document, if you agree: 1. "Pneumonia, suspect due to " [most likely organism type: gram positive? gram neg? ... - being tx'd with Rocephin] Thanks! CK
--- NOTE | 2017-08-17 11:27 | RADIOLOGY REPORT (SQ) ---
EXAM DESCRIPTION: KNEE BILATERAL 1-2 VIEWS COMPLETED DATE/TIME: 08/17/2017 11:10 am REASON FOR STUDY: PAIN COMPARISON: None. NUMBER OF VIEWS: Two views. TECHNIQUE: AP and lateral bilateral knees. LIMITATIONS: None. FINDINGS: MINERALIZATION: Normal. RIGHT KNEE BONES: No acute fracture. No worrisome bone lesions. MEDIAL COMPARTMENT: Small marginal osteophytes. Significant narrowing the joint space. Mild menis sohail calcification. LATERAL COMPARTMENT: Small marginal osteophytes. Marked narrowing of the joint space with subchondr al sclerosis in femoral condyles tibial plateau. No chondrocalcinosis. LEFT KNEE BONES: No acute fracture. No worrisome bone lesions. MEDIAL COMPARTMENT: Small marginal osteophytes. Mild joint space narrowing. No chondrocalcinosis. LATERAL COMPARTMENT: Normal marginal osteophytes. Marked narrowing of the joint space with subchond ral sclerosis in femoral condyles and tibial plateau No chondrocalcinosis. IMPRESSION: Significant degenerative joint changes are seen predominantly lateral joint compartment of each knee, left worse than right. There is also mild degenerative joint change in the patellofemo ral compartment of each knee. TECHNICAL DOCUMENTATION: JOB ID: [id number] [employer]- All Rights Reserved
[2017-08-17] MEDS ORDERED: BUPIVACAINE HCL 0.5 % INJ/PF 30 ML SDV INJ PRN (12:00)
[2017-08-17] MEDS ORDERED: BETAMET ACET/BETAMET NA INJ 6 MG/1 ML IM PRN (12:01)
--- NOTE | 2017-08-17 12:22 | PDOC CONSULTATION ---
Consultation Consult Date: 08/17/17 Consult reason:: Bilateral knee pain History of Present Illness Admission Date/PCP: 08/15/17 01:44 MARY LOU OLEA MD History of Present Illness: The patient is a 66-year-old black female known to me from previous medical encounters who has been admitted to the hospital is now complaining of bilateral knee pain. Patient has severe rheumatoid arthritis and has associated deformities. Past Medical History Cardiac Medical History: Reports: Hypertension Pulmonary Medical History: Denies: Tuberculosis GI Medical History: Reports: Gastroesophageal Reflux Disease Musculoskeltal Medical History: Reports: Arthritis - RA, Other Psychiatric Medical History: Reports: Depression Past Surgical History Past Surgical History: Reports: Appendectomy, Hysterectomy, Orthopedic Surgery - foot surgery Social History Lives with: Family Smoking Status: Never Smoker Frequency of Alcohol Use: None Hx Recreational Drug Use: No Drugs: None Hx Prescription Drug Abuse: No Family History Family History: Reviewed & Not Pertinent Parental Family History Reviewed: No Children Family History Reviewed: No Sibling(s) Family History Reviewed.: No Medication/Allergy Home Medications: Alendronate Sodium [Fosamax 70 mg Tablet] 70 mg PO FR@1000 08/15/17 Amlodipine Besylate [Norvasc 5 mg Tablet] 5 mg PO DAILY 08/15/17 Amoxicillin Trihydrate [Amoxil 500 mg Capsule] 500 mg PO Q8 08/15/17 Aspirin [Aspirin 81 mg Chewable Tablet] 81 mg PO DAILY 08/15/17 Benzonatate [Tessalon Perles 100 mg Capsule] 100 mg PO Q8HP PRN 08/15/17 Cetirizine HCl [Zyrtec 10 mg Tablet] 10 mg PO DAILY 08/15/17 Ergocalciferol (Vitamin D2) [Vitamin D2] 50,000 units PO WE@1000 08/15/17 Escitalopram Oxalate [Lexapro 10 mg Tablet] 10 mg PO DAILY 08/15/17 Folic Acid [Folvite 1 mg Tablet] 1 mg PO DAILY 08/15/17 Golimumab [Simponi] 50 mg SQ ASDIR PRN 08/15/17 Ibuprofen [Motrin 800 mg Tablet] 800 mg PO Q8 08/15/17 Lisinopril [Zestril] 40 mg PO DAILY 08/15/17 Methotrexate Sodium/Pf [Methotrexate 25 mg/ml Vial] 25 mg INJ WE@1000 08/15/17 Montelukast Sodium [Singulair 10 mg Tablet] 10 mg PO DAILY 08/15/17 Omeprazole 20 mg PO Q12 08/15/17 Oseltamivir Phosphate [Tamiflu 75 mg Capsule] 75 mg PO Q12 08/15/17 Oxycodone HCl [Oxycontin Sr 10 mg Tablet] 10 mg PO Q8 08/15/17 Potassium Chloride [Klor-Con M20] 40 meq PO DAILY 08/15/17 Prednisone [Deltasone 5 mg Tablet] 5 mg PO DAILY 08/15/17 Allergies/Adverse Reactions: No Known Allergies Allergy (Verified 08/14/17 22:50) Review of Systems All systems: as per PMH Physical Exam Vital Signs: Temp Pulse Resp BP Pulse Ox 36.9 C 60 16 148/91 H 100 08/17/17 05:00 08/17/17 07:00 08/17/17 05:00 08/17/17 05:00 08/17/17 05:00 Intake & Output 08/16/17 08/17/17 08/18/17 06:59 06:59 06:59 Intake Total 1250 630 Output Total 400 Balance 1250 230 Weight 52.4 kg 54.8 kg Physical Exam: Patient's tiny black female curled up in a hospital bed with multiple deformities characteristic for late stage rheumatoid arthritis. This involves t her extremities as well as the lower extremities. General appearance: PRESENT: mild distress Head exam: PRESENT: normocephalic Respiratory exam: PRESENT: unlabored Cardiovascular exam: PRESENT: RRR GI/Abdominal exam: PRESENT: soft Rectal exam: PRESENT: deferred Extremities exam: PRESENT: other - Bilateral lower extremities elevated on pillows. There is crepitus associate with passive range of motion of the knees. There is probably a 30 flexion contracture left greater than right. Distal neurovascular examination is intact. Neurological exam: PRESENT: alert, awake, oriented to person, oriented to place , oriented to time, oriented to situation. ABSENT: motor sensory deficit Psychiatric exam: PRESENT: appropriate affect, normal mood. ABSENT: homicidal ideation, suicidal ideation Skin exam: PRESENT: dry, intact, warm. ABSENT: cyanosis, rash Results Laboratory Results: 08/16/17 05:22 08/17/17 03:48 08/16/17 08/17/17 13:45 03:48 Sodium 137.7 Potassium 4.7 Chloride 103 Carbon Dioxide 24 Anion Gap 11 BUN 6 L Creatinine 0.49 L Est GFR ( Amer) > 60 Est GFR (Non-Af Amer) > 60 Glucose 108 Calcium 8.9 Urine Color STRAW Urine Appearance CLEAR Urine pH 6.0 Ur Specific [place] 1.003 Urine Protein NEGATIVE Urine Glucose (UA) NEGATIVE Urine Ketones TRACE H Urine Blood SMALL H Urine Nitrite NEGATIVE Ur Leukocyte Esterase NEGATIVE 08/15/17 02:00 Catheterized Urine Urine Culture - Final NO GROWTH 2 DAYS Impressions: Chest X-Ray 08/14/17 23:09 IMPRESSION: Small right pleural effusion/atelectasis. 2010 [employer]- All Rights Reserved Knee X-Ray 08/17/17 00:00 IMPRESSION: Significant degenerative joint changes are seen predominantly lateral joint compartment of each knee, left worse than right. There is also mild degenerative joint change in the patellofemoral compartment of each knee. Status: Imported from PACS Assessment & Plan - Diagnosis (1) Inflammatory knee arthritis Is this a current diagnosis for this admission?: Yes Plan: Patient will undergo bilateral knee injections today. - Time Time Spent: 50 to 70 Minutes Anticipated discharge: Other Within: Other
[2017-08-17] MEDS: CEFTRIAXONE 1 GM/D5W RTU 1 GM/50 ML RTUPB IV SCH (23:46)
[2017-08-18] MEDS: OXYCODONE-ACETAMINOPHEN 5-325 MG TABLET PO SCH ×3 (05:59→22:40)
[2017-08-18] MEDS: OXYCODONE HCL IR 5 MG TABLET PO SCH ×3 (06:00→22:41)
[2017-08-18] MEDS: LANSOPRAZOLE 30 MG TAB.RAP.DR PO SCH ×2 (06:00→17:03)
[2017-08-18 07:30] LABS: HEMATOCRIT 35.6 % (36.0-47.0); HEMOGLOBIN 12.3 g/dL (12.0-15.5); HGB HCT DIFFERENCE 1.3; MEAN CORPUSCULAR HEMOGLOBIN 28.1 pg (27.0-33.4); MEAN CORPUSCULAR HGB CONC 34.6 g/dL (32.0-36.0); MEAN CORPUSCULAR VOLUME 81 fl (80-97); RED BLOOD COUNT 4.39 10^6/uL (3.72-5.28); RED CELL DISTRIBUTION WIDTH 13.7 % (11.5-14.0); WHITE BLOOD COUNT 3.4 10^3/uL (4.0-10.5)
[2017-08-18 07:55] LABS: ANION GAP 11 (5-19); BLOOD UREA NITROGEN 9 mg/dL (7-20); CALCIUM 8.6 mg/dL (8.4-10.2); CARBON DIOXIDE 27 mmol/L (22-30); CHLORIDE 99 mmol/L (98-107); GLUCOSE 148 mg/dL (75-110); POTASSIUM 3.8 mmol/L (3.6-5.0); SODIUM 136.9 mmol/L (137-145)
--- NOTE | 2017-08-18 08:25 | PDOC PROGRESS REPORT ---
Subjective Progress Note for:: 08/18/17 Subjective:: Patient is currently feeling much better patients getting the injection of the knee Patient's denied any chest pain denied any shortness of the breath Since denied any fever Patient's feeling some more than 100% better and wants to go home tomorrow due to the family situations Reason For Visit: PNEUMONIA,DEHYDRATION,HYPOKALEMIA,HYPOKALEMIA Physical Exam Vital Signs: Temp Pulse Resp BP Pulse Ox 98.3 F 59 L 18 169/90 H 97 08/17/17 23:56 08/18/17 07:00 08/17/17 23:56 08/17/17 23:56 08/17/17 23:56 Intake & Output 08/17/17 08/18/17 08/19/17 06:59 06:59 06:59 Intake Total 630 658 Output Total 400 475 Balance 230 183 Weight 54.8 kg 55.2 kg General appearance: PRESENT: no acute distress, well-developed, well-nourished Head exam: PRESENT: atraumatic, normocephalic Eye exam: PRESENT: conjunctiva pink, EOMI, PERRLA. ABSENT: scleral icterus Ear exam: PRESENT: normal external ear exam Mouth exam: PRESENT: moist, tongue midline Neck exam: PRESENT: full ROM. ABSENT: carotid bruit, JVD, lymphadenopathy, thyromegaly Respiratory exam: PRESENT: clear to auscultation lucas Cardiovascular exam: PRESENT: RRR. ABSENT: diastolic murmur, rubs, systolic murmur Pulses: PRESENT: normal dorsalis pedis pul, +2 pedal pulses bilateral Vascular exam: PRESENT: normal capillary refill GI/Abdominal exam: PRESENT: normal bowel sounds, soft. 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 ABSENT: motor sensory deficit Psychiatric exam: PRESENT: appropriate affect, normal mood. ABSENT: homicidal ideation, suicidal ideation Skin exam: PRESENT: dry, intact, warm. ABSENT: cyanosis, rash Results Laboratory Results: 08/18/17 06:30 08/18/17 06:30 08/18/17 08/18/17 06:30 06:30 WBC 3.4 L RBC 4.39 Hgb 12.3 Hct 35.6 L MCV 81 MCH 28.1 MCHC 34.6 RDW 13.7 Plt Count 204 Sodium 136.9 L Potassium 3.8 Chloride 99 Carbon Dioxide 27 Anion Gap 11 BUN 9 Creatinine 0.50 L Est GFR ( Amer) > 60 Est GFR (Non-Af Amer) > 60 Glucose 148 H Calcium 8.6 08/15/17 02:00 Catheterized Urine Urine Culture - Final NO GROWTH 2 DAYS Impressions: Chest X-Ray 08/14/17 23:09 IMPRESSION: Small right pleural effusion/atelectasis. 2010 [email or web address]- All Rights Reserved Knee X-Ray 08/17/17 00:00 IMPRESSION: Significant degenerative joint changes are seen predominantly lateral joint compartment of each knee, left worse than right. There is also mild degenerative joint change in the patellofemoral compartment of each knee. Assessment & Plan - Diagnosis (1) Pneumonia Qualifiers: Pneumonia type: due to unspecified organism Laterality: right Is this a current diagnosis for this admission?: Yes Plan: Currently all resolved (2) Dehydration Is this a current diagnosis for this admission?: Yes Plan: Currently all resolved (3) Hypokalemia Is this a current diagnosis for this admission?: Yes Plan: Currently all resolved (4) Hypotension Qualifiers: Hypotension type: unspecified hypotension type Qualified Code(s): I95.9 - Hypotension, unspecified Is this a current diagnosis for this admission?: Yes Plan: Currently all resolved (5) Weakness Is this a current diagnosis for this admission?: Yes Plan: Most likely due to the recent infections with the significant rheumatoid arthritis with a chronic steroid will increase the steroid dose (6) Chronic pain syndrome Is this a current diagnosis for this admission?: Yes Plan: Patient also see a pain management (7) Rheumatoid arthritis Qualifiers: Rheumatoid arthritis location: multiple sites Is this a current diagnosis for this admission?: Yes Plan: Will increase the steroid and asked the orthopedic to evaluate but the bilateral knee - Time Time Spent with patient: 15-24 minutes Medications reviewed and adjusted accordingly: Yes Anticipated discharge: Home Within: within 24 hours - Inpatient Certification Medical Necessity: Need Close Monitoring Due to Risk of Patient Decompensation - Plan Summary Plan Summary: Patient is currently doing well patient's back to the baseline still is to follow with the [facility] information security associate for the ongoing problem patient's discharge home tomorrow morning with the home health and physical therapy and continues to medication as above and following a one-week in office
[2017-08-18] MEDS: AMLODIPINE BESYLATE 5 MG TABLET PO SCH (10:20)
[2017-08-18] MEDS: LISINOPRIL 10 MG TABLET PO SCH (10:20)
[2017-08-18] MEDS: ESCITALOPRAM OXALATE 10 MG TABLET PO SCH (10:20)
[2017-08-18] MEDS: FOLIC ACID 1 MG TABLET PO SCH (10:20)
[2017-08-18] MEDS: CETIRIZINE 10 MG TABLET PO SCH (10:20)
[2017-08-18] MEDS: ENOXAPARIN SODIUM INJ 40 MG/0.4 ML DISP.SYRIN SUBCUT SCH (10:24)
[2017-08-18] MEDS: MONTELUKAST SODIUM 10 MG TABLET PO SCH (10:24)
[2017-08-18] MEDS: PREDNISONE 10 MG TABLET PO SCH ×2 (10:24→17:02)
[2017-08-18] MEDS: CEPHALEXIN 500 MG CAPSULE PO SCH ×2 (14:39→22:41)
--- NOTE | 2017-08-18 15:15 | PDOC DISCHARGE SUMMARY ---
General - Admit/Disc Date/PCP Admission Date/Primary Care Provider: 08/15/17 01:44 MARY LOU OLEA MD Discharge Date: 08/19/17 - Discharge Diagnosis (1) Pneumonia Is this a current diagnosis for this admission?: Yes Summary: Currently all resolved (2) Dehydration Is this a current diagnosis for this admission?: Yes Summary: Currently all resolved (3) Hypokalemia Is this a current diagnosis for this admission?: Yes Summary: Currently all resolved (4) Hypotension Is this a current diagnosis for this admission?: Yes Summary: Currently all resolved (5) Weakness Is this a current diagnosis for this admission?: Yes Summary: From chronic disease from rheumatoid arthritis (6) Chronic pain syndrome Is this a current diagnosis for this admission?: Yes Summary: Patient is currently see the pain management (7) Rheumatoid arthritis Is this a current diagnosis for this admission?: Yes Summary: Currently follow the [facility] world history teacher - Additional Information Discharge Diet: Cardiac Discharge Activity: Activity As Tolerated Home Medications: Alendronate Sodium [Fosamax 70 mg Tablet] 70 mg PO FR@1000 08/15/17 Amlodipine Besylate [Norvasc 5 mg Tablet] 5 mg PO DAILY 08/15/17 Aspirin [Aspirin 81 mg Chewable Tablet] 81 mg PO DAILY 08/15/17 Benzonatate [Tessalon Perles 100 mg Capsule] 100 mg PO Q8HP PRN 08/15/17 Cetirizine HCl [Zyrtec 10 mg Tablet] 10 mg PO DAILY 08/15/17 Ergocalciferol (Vitamin D2) [Vitamin D2] 50,000 units PO WE@1000 08/15/17 Escitalopram Oxalate [Lexapro 10 mg Tablet] 10 mg PO DAILY 08/15/17 Folic Acid [Folvite 1 mg Tablet] 1 mg PO DAILY 08/15/17 Golimumab [Simponi] 50 mg SQ ASDIR PRN 08/15/17 Ibuprofen [Motrin 800 mg Tablet] 800 mg PO Q8 08/15/17 Lisinopril [Zestril] 40 mg PO DAILY 08/15/17 Methotrexate Sodium/Pf [Methotrexate 25 mg/ml Vial] 25 mg INJ WE@1000 08/15/17 Montelukast Sodium [Singulair 10 mg Tablet] 10 mg PO DAILY 08/15/17 Omeprazole 20 mg PO Q12 08/15/17 Oxycodone HCl [Oxycontin Sr 10 mg Tablet] 10 mg PO Q8 08/15/17 Potassium Chloride [Klor-Con M20] 40 meq PO DAILY 08/15/17 Cephalexin Monohydrate [Keflex 500 mg Capsule] 500 mg PO TID #21 capsule Prednisone [Deltasone 10 mg Tablet] 10 mg PO BID #14 tablet 08/18/17 History of Present Illness History of Present Illness: LILLIE AMIN is a 66 year old female This 66-year-old females with a significant history of rheumatoid arthritis and currently taking the Symphony once a month and the methotrexate once a weekAnd currently see you and see a rheumatologistRecently came in the office on MondayBecause of the fevers chills and the body ache and the patient was contacted with the positive fluAnd the patient's was started on Tamiflu and amoxicillin Patient's currently complaining some nausea and vomiting I think is most related to the Tamiflu but denied any abdominal pain Patient's denied any chest pain denied any shortness of the breath Patient is complaining of a more stiffness in the joint that happened several times in the past when the patient's rheumatoid is getting worse pt initial workup persistent hypokalemia and other blood work is pretty much stable except patient was some questionable right-sided pneumonia but patients denied any cough or congestion's Hospital Course Hospital Course: This is a 66-year-old female with a significant history of the rheumatoid arthritis with a significant deformity from the and currently taking the medications from the [facility] to the flulike symptoms last week in the office and patient was giving the Tamiflu and antibiotic patients came to the ER because of the feeling not well with some nausea and vomitingAnd patient was diagnosed with a possible pneumonia and presented with generalized weakness due to the chronic conditionsPatient was admitting in the hospital for further evaluation and treatment His nausea and vomiting most likely from the side effect from the Tamiflu was stoppedAnd patient's symptoms all resolved Patient's steroid dose was increased and patient's put him on IV antibiotic Recent response very well with medication and switch to the p.o. medications Patient also complains of bilateral knee pain and the Dr. Waters was consulted and given injections Patient also counseled with the physical therapy some progress but patient still require physical therapy and patients and the family do not want to go to the acute rehabAnd was to prefer to go home At this point patient's possible discharge in the morning while patient is requested because of the some family arrangement with some home health and physical therapy for remained stable Patient's also continues to have a steroid dose for the next 1 week and will taper back to the 5 mg and patient have a following upcoming appointment to the [facility] for further evaluations Physical Exam Vital Signs: Temp Pulse Resp BP Pulse Ox 98.6 F 61 17 160/90 H 96 08/18/17 11:41 08/18/17 11:41 08/18/17 11:41 08/18/17 11:41 08/18/17 11:41 Intake & Output 08/17/17 08/18/17 08/19/17 06:59 06:59 06:59 Intake Total 630 658 Output Total 400 475 Balance 230 183 Weight 54.8 kg 55.2 kg General appearance: PRESENT: no acute distress, well-developed, well-nourished Head exam: PRESENT: atraumatic, normocephalic Eye exam: PRESENT: conjunctiva pink, EOMI, PERRLA. ABSENT: scleral icterus Ear exam: PRESENT: normal external ear exam Mouth exam: PRESENT: moist, tongue midline Neck exam: PRESENT: full ROM. ABSENT: carotid bruit, JVD, lymphadenopathy, thyromegaly Respiratory exam: PRESENT: clear to auscultation lucas Cardiovascular exam: PRESENT: RRR. ABSENT: diastolic murmur, rubs, systolic murmur Pulses: PRESENT: normal dorsalis pedis pul, +2 pedal pulses bilateral Vascular exam: PRESENT: normal capillary refill GI/Abdominal exam: PRESENT: normal bowel sounds, soft. ABSENT: distended, guarding, mass, organolmegaly, rebound, tenderness Rectal exam: PRESENT: deferred Extremities exam: ABSENT: pedal edema Additional comments: Significant deformity from rheumatoid arthritis Musculoskeletal exam: PRESENT: ambulatory Neurological exam: PRESENT: alert, awake, oriented to person, oriented to place , oriented to time, oriented to situation, CN II-XII grossly intact. ABSENT: motor sensory deficit Psychiatric exam: PRESENT: appropriate affect, normal mood. ABSENT: homicidal ideation, suicidal ideation Skin exam: PRESENT: dry, intact, warm. ABSENT: cyanosis, rash Results Laboratory Results: 08/18/17 06:30 08/18/17 06:30 08/18/17 08/18/17 06:30 06:30 WBC 3.4 L RBC 4.39 Hgb 12.3 Hct 35.6 L MCV 81 MCH 28.1 MCHC 34.6 RDW 13.7 Plt Count 204 Sodium 136.9 L Potassium 3.8 Chloride 99 Carbon Dioxide 27 Anion Gap 11 BUN 9 Creatinine 0.50 L Est GFR ( Amer) > 60 Est GFR (Non-Af Amer) > 60 Glucose 148 H Calcium 8.6 08/15/17 02:00 Catheterized Urine Urine Culture - Final NO GROWTH 2 DAYS Impressions: Chest X-Ray 08/14/17 23:09 IMPRESSION: Small right pleural effusion/atelectasis. 2010 [employer]- All Rights Reserved Knee X-Ray 08/17/17 00:00 IMPRESSION: Significant degenerative joint changes are seen predominantly lateral joint compartment of each knee, left worse than right. There is also mild degenerative joint change in the patellofemoral compartment of each knee. Plan Time Spent: Greater than 30 Minutes - Discharge home with the home health and physical therapy Follow you and see world history teacher Check a CBC and Chem-7 in the following visit in office Discussed with the patient and the daughter about the fall precautions and the patient's also offered to go to the acute rehab but the patient and family declined for that
[2017-08-19] MEDS: OXYCODONE HCL IR 5 MG TABLET PO SCH ×3 (06:25→22:33)
[2017-08-19] MEDS: CEPHALEXIN 500 MG CAPSULE PO SCH ×3 (06:25→22:33)
[2017-08-19] MEDS: LANSOPRAZOLE 30 MG TAB.RAP.DR PO SCH ×2 (06:25→17:34)
[2017-08-19] MEDS: OXYCODONE-ACETAMINOPHEN 5-325 MG TABLET PO SCH ×3 (06:25→22:33)
[2017-08-19] MEDS: ENOXAPARIN SODIUM INJ 40 MG/0.4 ML DISP.SYRIN SUBCUT SCH (10:06)
[2017-08-19] MEDS: FOLIC ACID 1 MG TABLET PO SCH (10:07)
[2017-08-19] MEDS: CETIRIZINE 10 MG TABLET PO SCH (10:07)
[2017-08-19] MEDS: MONTELUKAST SODIUM 10 MG TABLET PO SCH (10:07)
[2017-08-19] MEDS: PREDNISONE 10 MG TABLET PO SCH ×2 (10:07→17:33)
[2017-08-19] MEDS: AMLODIPINE BESYLATE 5 MG TABLET PO SCH (10:07)
[2017-08-19] MEDS: ESCITALOPRAM OXALATE 10 MG TABLET PO SCH (10:07)
[2017-08-19] MEDS: LISINOPRIL 10 MG TABLET PO SCH (10:08)
--- NOTE | 2017-08-19 12:41 | PDOC PROGRESS REPORT ---
Subjective Progress Note for:: 08/19/17 Subjective:: Patient denied any difficulty with breathing or chest pain. No nausea or vomiting. Toleration oral feeding. Her discharge is delayed due to difficulty procuring prescribed bed to aide her management upon discharge. This item will not e available to patient until 08/21/17 Reason For Visit: PNEUMONIA,DEHYDRATION,HYPOKALEMIA,HYPOKALEMIA Physical Exam Vital Signs: Temp Pulse Resp BP Pulse Ox 98.0 F 68 18 156/90 H 99 08/19/17 08:23 08/19/17 08:23 08/19/17 08:23 08/19/17 08:23 08/19/17 08:23 Intake & Output 08/18/17 08/19/17 08/20/17 06:59 06:59 06:59 Intake Total 658 928 Output Total 475 250 Balance 183 678 Weight 55.2 kg General appearance: PRESENT: no acute distress Head exam: PRESENT: atraumatic, normocephalic Mouth exam: PRESENT: moist Respiratory exam: PRESENT: clear to auscultation lucas, decreased breath sounds - at lung bases Cardiovascular exam: PRESENT: RRR. ABSENT: diastolic murmur, rubs, systolic murmur Vascular exam: PRESENT: normal capillary refill. ABSENT: pallor GI/Abdominal exam: PRESENT: normal bowel sounds, soft. ABSENT: distended, guarding, mass, organolmegaly, rebound, tenderness Extremities exam: ABSENT: pedal edema Musculoskeletal exam: PRESENT: deformity - related to rheumatoid arthritis Neurological exam: PRESENT: alert, awake, oriented to person, oriented to place , oriented to time, CN II-XII grossly intact Psychiatric exam: PRESENT: appropriate affect, normal mood. ABSENT: homicidal ideation, suicidal ideation Skin exam: PRESENT: dry, intact, warm. ABSENT: cyanosis, rash Results Laboratory Results: 08/18/17 06:30 08/18/17 06:30 Impressions: Chest X-Ray 08/14/17 23:09 IMPRESSION: Small right pleural effusion/atelectasis. 2010 [employer]- All Rights Reserved Knee X-Ray 08/17/17 00:00 IMPRESSION: Significant degenerative joint changes are seen predominantly lateral joint compartment of each knee, left worse than right. There is also mild degenerative joint change in the patellofemoral compartment of each knee. Assessment & Plan - Diagnosis (1) Pneumonia Qualifiers: Pneumonia type: due to unspecified organism Laterality: right Is this a current diagnosis for this admission?: Yes Plan: See covering attending physician orders. (2) Dehydration Is this a current diagnosis for this admission?: Yes Plan: See covering attending physician orders. (3) Hypokalemia Is this a current diagnosis for this admission?: Yes Plan: See covering attending physician orders. (4) Rheumatoid arthritis Qualifiers: Rheumatoid arthritis location: multiple sites Is this a current diagnosis for this admission?: Yes Plan: See covering attending physician orders. - Time Time Spent with patient: 15-24 minutes Medications reviewed and adjusted accordingly: Yes Anticipated discharge: Home Within: within 48 hours - Inpatient Certification Based on my medical assessment, after consideration of the patient's comorbidities, presenting symptoms, or acuity I expect that the services needed warrant INPATIENT care.: Yes I certify that my determination is in accordance with my understanding of Medicare's requirements for reasonable and necessary INPATIENT services [42 CFR 412.3e].: Yes Medical Necessity: Need Close Monitoring Due to Risk of Patient Decompensation, Need For Continuous Telemetry Monitoring, Risk of Complication if Not Cared For in Hospital Post Hospital Care: D/C Shop Director Documentation - Plan Summary Plan Summary: I will cancel pending discharge order. We will follow up on DME supple for bed by Monday
[2017-08-20] MEDS: OXYCODONE HCL IR 5 MG TABLET PO SCH ×3 (07:11→22:33)
[2017-08-20] MEDS: LANSOPRAZOLE 30 MG TAB.RAP.DR PO SCH ×2 (07:12→17:55)
[2017-08-20] MEDS: OXYCODONE-ACETAMINOPHEN 5-325 MG TABLET PO SCH ×3 (07:12→22:33)
[2017-08-20] MEDS: CEPHALEXIN 500 MG CAPSULE PO SCH ×3 (07:15→22:33)
[2017-08-20] MEDS: AMLODIPINE BESYLATE 5 MG TABLET PO SCH (10:49)
[2017-08-20] MEDS: ENOXAPARIN SODIUM INJ 40 MG/0.4 ML DISP.SYRIN SUBCUT SCH (10:49)
[2017-08-20] MEDS: CETIRIZINE 10 MG TABLET PO SCH (10:50)
[2017-08-20] MEDS: ESCITALOPRAM OXALATE 10 MG TABLET PO SCH (10:50)
[2017-08-20] MEDS: PREDNISONE 10 MG TABLET PO SCH ×2 (10:50→17:55)
[2017-08-20] MEDS: LISINOPRIL 10 MG TABLET PO SCH (10:50)
[2017-08-20] MEDS: FOLIC ACID 1 MG TABLET PO SCH (10:50)
[2017-08-20] MEDS: MONTELUKAST SODIUM 10 MG TABLET PO SCH (10:50)
--- NOTE | 2017-08-20 11:11 | PDOC PROGRESS REPORT ---
Subjective Progress Note for:: 08/20/17 Subjective:: Patient denied any chest pain or difficulty with breathing. No abdominal pain, nausea or vomiting. No fever or chills. Reason For Visit: PNEUMONIA,DEHYDRATION,HYPOKALEMIA,HYPOKALEMIA Physical Exam Vital Signs: Temp Pulse Resp BP Pulse Ox 98.5 F 60 18 156/88 H 99 08/20/17 09:00 08/20/17 09:00 08/20/17 09:00 08/20/17 09:00 08/20/17 09:00 Intake & Output 08/19/17 08/20/17 08/21/17 06:59 06:59 06:59 Intake Total 928 910 Output Total 250 Balance 678 910 Physical Exam: General appearance: PRESENT: no acute distress Head exam: PRESENT: atraumatic, normocephalic Mouth exam: PRESENT: moist Respiratory exam: PRESENT: clear to auscultation lucas, decreased breath sounds - at lung bases Cardiovascular exam: PRESENT: RRR. ABSENT: diastolic murmur, rubs, systolic murmur Vascular exam: PRESENT: normal capillary refill. ABSENT: pallor GI/Abdominal exam: PRESENT: normal bowel sounds, soft. ABSENT: distended, guarding, mass, organomegaly, rebound, tenderness Extremities exam: ABSENT: pedal edema Musculoskeletal exam: PRESENT: deformity - related to rheumatoid arthritis Neurological exam: PRESENT: alert, awake, oriented to person, oriented to place , oriented to time, CN II-XII grossly intact Psychiatric exam: PRESENT: appropriate affect, normal mood. ABSENT: homicidal ideation, suicidal ideation Skin exam: PRESENT: dry, intact, warm. ABSENT: cyanosis, rash Results Laboratory Results: 08/18/17 06:30 08/18/17 06:30 Impressions: Chest X-Ray 08/14/17 23:09 IMPRESSION: Small right pleural effusion/atelectasis. 2010 [employer] [facility] [employer]- All Rights Reserved Knee X-Ray 08/17/17 00:00 IMPRESSION: Significant degenerative joint changes are seen predominantly lateral joint compartment of each knee, left worse than right. There is also mild degenerative joint change in the patellofemoral compartment of each knee. Assessment & Plan - Diagnosis (1) Pneumonia Qualifiers: Pneumonia type: due to unspecified organism Laterality: right Is this a current diagnosis for this admission?: Yes (2) Dehydration Is this a current diagnosis for this admission?: Yes (3) Hypokalemia Is this a current diagnosis for this admission?: Yes (4) Rheumatoid arthritis Qualifiers: Rheumatoid arthritis location: multiple sites Is this a current diagnosis for this admission?: Yes - Time Time Spent with patient: 25-34 minutes Medications reviewed and adjusted accordingly: Yes Anticipated discharge: Home Within: within 24 hours - Inpatient Certification Based on my medical assessment, after consideration of the patient's comorbidities, presenting symptoms, or acuity I expect that the services needed warrant INPATIENT care.: Yes I certify that my determination is in accordance with my understanding of Medicare's requirements for reasonable and necessary INPATIENT services [42 CFR 412.3e].: Yes Medical Necessity: Need Close Monitoring Due to Risk of Patient Decompensation, Risk of Complication if Not Cared For in Hospital Post Hospital Care: D/C Cloth Carrier Documentation - Plan Summary Plan Summary: See covering attending physician orders.
[2017-08-21] MEDS: OXYCODONE HCL IR 5 MG TABLET PO SCH ×3 (06:13→21:32)
[2017-08-21] MEDS: OXYCODONE-ACETAMINOPHEN 5-325 MG TABLET PO SCH ×3 (06:13→21:32)
[2017-08-21] MEDS: LANSOPRAZOLE 30 MG TAB.RAP.DR PO SCH ×2 (06:14→19:08)
[2017-08-21] MEDS: CEPHALEXIN 500 MG CAPSULE PO SCH ×3 (06:15→21:32)
[2017-08-21] MEDS: ENOXAPARIN SODIUM INJ 40 MG/0.4 ML DISP.SYRIN SUBCUT SCH (11:03)
[2017-08-21] MEDS: ESCITALOPRAM OXALATE 10 MG TABLET PO SCH (11:04)
[2017-08-21] MEDS: AMLODIPINE BESYLATE 5 MG TABLET PO SCH (11:04)
[2017-08-21] MEDS: CETIRIZINE 10 MG TABLET PO SCH (11:04)
[2017-08-21] MEDS: PREDNISONE 10 MG TABLET PO SCH ×2 (11:04→19:08)
[2017-08-21] MEDS: FOLIC ACID 1 MG TABLET PO SCH (11:04)
[2017-08-21] MEDS: LISINOPRIL 10 MG TABLET PO SCH (11:05)
[2017-08-21] MEDS: MONTELUKAST SODIUM 10 MG TABLET PO SCH (11:05)
[2017-08-21] MEDS ORDERED: ONDANSETRON HCL INJ/PF 4 MG/2 ML SDV IV PRN (11:30)
--- NOTE | 2017-08-21 13:14 | PDOC PROGRESS REPORT ---
Subjective Progress Note for:: 08/21/17 Subjective:: Patient is currently doing wellPatient did not go home because of the patient does not have any hospital bed Reason For Visit: PNEUMONIA,DEHYDRATION,HYPOKALEMIA,HYPOKALEMIA Physical Exam Vital Signs: Temp Pulse Resp BP Pulse Ox 98.6 F 59 L 18 131/76 H 98 08/21/17 12:50 08/21/17 12:50 08/21/17 12:50 08/21/17 12:50 08/21/17 12:50 Intake & Output 08/20/17 08/21/17 08/22/17 06:59 06:59 06:59 Intake Total 910 890 Output Total 600 Balance 910 290 General appearance: PRESENT: no acute distress, well-developed, well-nourished Head exam: PRESENT: atraumatic, normocephalic Eye exam: PRESENT: conjunctiva pink, EOMI, PERRLA. ABSENT: scleral icterus Ear exam: PRESENT: normal external ear exam Mouth exam: PRESENT: moist, tongue midline Neck exam: PRESENT: full ROM. ABSENT: carotid bruit, JVD, lymphadenopathy, thyromegaly Respiratory exam: PRESENT: clear to auscultation lucas Cardiovascular exam: PRESENT: RRR. ABSENT: diastolic murmur, rubs, systolic murmur Pulses: PRESENT: normal dorsalis pedis pul, +2 pedal pulses bilateral Vascular exam: PRESENT: normal capillary refill GI/Abdominal exam: PRESENT: normal bowel sounds, soft. ABSENT: distended, guarding, mass, organolmegaly, rebound, tenderness Rectal exam: PRESENT: deferred Additional comments: Deformity in both upper and lower extremity Musculoskeletal exam: PRESENT: ambulatory Neurological exam: PRESENT: alert, awake, oriented to person, oriented to place , oriented to time, oriented to situation, CN II-XII grossly intact. ABSENT: motor sensory deficit Psychiatric exam: PRESENT: appropriate affect, normal mood. ABSENT: homicidal ideation, suicidal ideation Skin exam: PRESENT: dry, intact, warm. ABSENT: cyanosis, rash Results Laboratory Results: 08/18/17 06:30 08/21/17 10:25 08/21/17 08/21/17 08:44 10:25 Potassium Cancelled 3.5 L Impressions: Chest X-Ray 08/14/17 23:09 IMPRESSION: Small right pleural effusion/atelectasis. 2010 [employer] [facility]- All Rights Reserved Knee X-Ray 08/17/17 00:00 IMPRESSION: Significant degenerative joint changes are seen predominantly lateral joint compartment of each knee, left worse than right. There is also mild degenerative joint change in the patellofemoral compartment of each knee. Assessment & Plan - Diagnosis (1) Pneumonia Qualifiers: Pneumonia type: due to unspecified organism Laterality: right Is this a current diagnosis for this admission?: Yes Plan: Currently all resolved (2) Dehydration Is this a current diagnosis for this admission?: Yes Plan: Currently all resolved (3) Hypokalemia Is this a current diagnosis for this admission?: Yes Plan: Recheck the potassium todayWas 3.5 patients continues to take the potassium at home (4) Hypotension Qualifiers: Hypotension type: unspecified hypotension type Qualified Code(s): I95.9 - Hypotension, unspecified Is this a current diagnosis for this admission?: Yes Plan: Currently all resolved (5) Weakness Is this a current diagnosis for this admission?: Yes Plan: Most likely due to the recent infections with the significant rheumatoid arthritis with a chronic steroid will increase the steroid dose (6) Chronic pain syndrome Is this a current diagnosis for this admission?: Yes Plan: Patient also see a pain management (7) Rheumatoid arthritis Qualifiers: Rheumatoid arthritis location: multiple sites Is this a current diagnosis for this admission?: Yes Plan: Will increase the steroid and asked the orthopedic to evaluate but the bilateral knee - Inpatient Certification Medical Necessity: Need Close Monitoring Due to Risk of Patient Decompensation Post Hospital Care: D/C Wirer Documentation - Plan Summary Plan Summary: Patient is waiting for the arrangement for the bed otherwise patient is ready to go home
[2017-08-21] MEDS ORDERED: POTASSIUM CHLORIDE 10 MEQ TABLET.SA PO ONE (14:00)
[2017-08-22] MEDS: OXYCODONE-ACETAMINOPHEN 5-325 MG TABLET PO SCH (05:10)
[2017-08-22] MEDS: CEPHALEXIN 500 MG CAPSULE PO SCH (05:11)
[2017-08-22] MEDS: LANSOPRAZOLE 30 MG TAB.RAP.DR PO SCH (05:11)
[2017-08-22] MEDS: OXYCODONE HCL IR 5 MG TABLET PO SCH (05:11)
[2017-08-22] MEDS: LISINOPRIL 10 MG TABLET PO SCH (11:17)
[2017-08-22] MEDS: FOLIC ACID 1 MG TABLET PO SCH (11:18)
[2017-08-22] MEDS: AMLODIPINE BESYLATE 5 MG TABLET PO SCH (11:18)
[2017-08-22] MEDS: PREDNISONE 10 MG TABLET PO SCH (11:18)
[2017-08-22] MEDS: ENOXAPARIN SODIUM INJ 40 MG/0.4 ML DISP.SYRIN SUBCUT SCH (11:18)
[2017-08-22] MEDS: CETIRIZINE 10 MG TABLET PO SCH (11:19)
[2017-08-22] MEDS: ESCITALOPRAM OXALATE 10 MG TABLET PO SCH (11:19)
[2017-08-22] MEDS: MONTELUKAST SODIUM 10 MG TABLET PO SCH (11:19)
[2017-08-22 13:13] VITALS: BP 154/77
== END 2017-08-22 16:15 | disposition home health service (06) | DRG 195 ==
LOC: ER 22:48 → EH 08-15 01:44 → 5 08-15 17:25
PROVIDERS: ADMIT Family Medicine; ATTEND Family Medicine
PROC: 3E0U33Z Introduction of Anti-inflammatory into Joints, Percutaneous Approach (ICD-10-PCS; principal; 2017-08-17)
PROC: 3E0U3BZ Introduction of Anesthetic Agent into Joints, Percutaneous Approach (ICD-10-PCS; 2017-08-17)
DX: J18.9 Pneumonia, unspecified organism (principal); E87.6 Hypokalemia; E86.0 Dehydration; I95.9 Hypotension, unspecified; M17.0 Bilateral primary osteoarthritis of knee; I10 Essential (primary) hypertension; K21.9 Gastro-esophageal reflux disease without esophagitis; G89.4 Chronic pain syndrome; M06.9 Rheumatoid arthritis, unspecified; F32.9 Major depressive disorder, single episode, unspecified; Z79.82 Long term (current) use of aspirin; Z79.899 Other long term (current) drug therapy; Z90.710 Acquired absence of both cervix and uterus
CPT/HCPCS: 36415; 51701; 71010; 80048; 80053; 81001; 82803; 83605; 84132; 85025; 85027; 85610; 85652; 87040; 87086; 87804; 93005; 93010; 96374; 99285; J0696; J0702; J1650; J2405; J3475; J3480; J7120; J7512

== ENCOUNTER 2017-09-07 13:56 | Emergency (ER) | payer MEDICAID ==
[2017-09-07] MEDS ORDERED: NORMAL SALINE 1000 ML 1,000 ML IV ONE ×2 (14:06→15:20)
--- NOTE | 2017-09-07 14:07 | ER Document Report ---
ED General - General Chief Complaint: Chest Pain Stated Complaint: NAUSEA,VOMITING Time Seen by Provider: 09/07/17 14:03 Notes: Patient is a 66-year-old female, past medical history rheumatoid arthritis ( currently immunosuppressed on methotrexate), hypertension, GERD, presents with 3 days of nausea, vomiting and diarrhea. Pt also says that she is having worsening SOB that is worse when she moves. She is bedbound and her daughter is her caregiver. Patient is having mild epigastric pain that is worse when she vomits, but denies hematemesis, fevers, blood in stool, urinary symptoms, rash, flank pain, chest pain, numbness, tingling, back pain or headache. TRAVEL OUTSIDE OF THE [place] IN LAST 30 DAYS: No - Related Data Allergies/Adverse Reactions: No Known Allergies Allergy (Verified 09/07/17 14:19) Past Medical History - General Information source: Patient - Social History Smoking Status: Unknown if Ever Smoked Family History: Reviewed & Not Pertinent - Past Medical History Cardiac Medical History: Reports: Hx Hypertension Pulmonary Medical History: Denies: Hx Tuberculosis Renal/ Medical History: Denies: Hx Peritoneal Dialysis GI Medical History: Reports: Hx Gastroesophageal Reflux Disease Musculoskeltal Medical History: Reports Hx Arthritis - RA Skin Medical History: Reports Hx MRSA - CURRENTLY HAS SENSATION OF ABSCESS DEVELOPING UNDER THE LEFT ARM Psychiatric Medical History: Reports: Hx Depression Traumatic Medical History: Reports: Hx Fractures - T10 COMP FX, ACUTE R SHOULDER AND CLAVICLE FX Past Surgical History: Reports: Hx Appendectomy, Hx Hysterectomy, Hx Oral Surgery, Hx Orthopedic Surgery - foot surgery - Immunizations Immunizations up to date: Yes Hx Diphtheria, Pertussis, Tetanus Vaccination: Yes Review of Systems - Review of Systems Notes: REVIEW OF SYSTEMS: CONSTITUTIONAL: -fevers, -chills EENT: -eye pain, -difficulty swallowing, -nasal congestion CARDIOVASCULAR:-chest pain, -syncope. RESPIRATORY: -cough, -SOB GASTROINTESTINAL: +epigastric abdominal pain, +nausea, +vomiting, +diarrhea GENITOURINARY: -dysuria, -hematuria MUSCULOSKELETAL: -back pain, -neck pain SKIN: -rash or skin lesions. HEMATOLOGIC: -easy bruising or bleeding. LYMPHATIC: -swollen, enlarged glands. NEUROLOGICAL: -altered mental status or loss of consciousness, -headache, - neurologic symptoms PSYCHIATRIC: -anxiety, -depression. ALL OTHER SYSTEMS REVIEWED AND NEGATIVE. Physical Exam - Vital signs Vitals: Temp Pulse Ox 99.0 F 88 L 09/07/17 14:00 09/07/17 14:00 - Notes Notes: PHYSICAL EXAMINATION: GENERAL: Well-appearing, well-nourished and in no acute distress. HEAD: Atraumatic, normocephalic. EYES: Pupils equal round and reactive to light, extraocular movements intact, sclera anicteric, conjunctiva are normal. ENT: nares patent, oropharynx clear without exudates. Moist mucous membranes. NECK: Supple without lymphadenopathy LUNGS: Breath sounds clear to auscultation bilaterally and equal. No wheezes rales or rhonchi. HEART: Regular rate and rhythm without murmurs ABDOMEN: Soft, mild epigastric tenderness, normoactive bowel sounds. No guarding, no rebound. No masses appreciated. EXTREMITIES: Normal range of motion, no pitting or edema. No cyanosis. NEUROLOGICAL: Cranial nerves grossly intact. Normal sensory and motor exams. PSYCH: Normal mood, normal affect. SKIN: Warm, Dry, normal turgor, no rashes or lesions noted. Course - Re-evaluation Re-evalutation: Pt with worsening shortness of breath and dyspnea on exertion. She is satting 88% on room air and she does not wear oxygen at home and has no history of COPD. Due to recent hospitalization, hypoxia and tachycardia, d-dimer ordered, which was very elevated. CTA ordered to assess for PEs. Call from Radiologist, Dr. Sinha, about extensive PEs, almost throughout her entire left lung. Spoke to her PMD, Dr. Jorje Reece, and he recommends transfer to facility for evaluation by Vascular Surgery for possible intervention due to the extensive nature of the PEs. Heparin started. Pt's nausea and vomiting completely resolved after Zofran, fluids and Reglan. No abdominal tenderness. 09/07/17 16:52 Placed call to [facility] [place] and Dr. Jackman has accepted patient. 09/07/17 17:30: Transport in ED. Pt reassessed and stable for air transport. - Vital Signs Vital signs: Temp Pulse Resp BP Pulse Ox 98.1 F 122 H 22 H 116/60 96 09/07/17 18:17 09/07/17 18:17 09/07/17 18:17 09/07/17 18:01 09/07/17 18:17 - Laboratory Result Diagrams: 09/07/17 14:10 09/07/17 14:10 Laboratory results interpreted by me: 09/07/17 09/07/17 09/07/17 14:10 14:10 14:10 WBC 11.0 H RDW 15.3 H Plt Count 146 L Basophils % (Manual) 3 H Abs Basophils (Manual) 0.3 H D-Dimer 18.90 H Sodium 134.9 L Potassium 3.4 L Creatine Kinase < 20 L Total Protein 6.0 L Albumin 3.1 L Urine Ketones Urine Urobilinogen Ur Leukocyte Esterase 09/07/17 15:11 WBC RDW Plt Count Basophils % (Manual) Abs Basophils (Manual) D-Dimer Sodium Potassium Creatine Kinase Total Protein Albumin Urine Ketones TRACE H Urine Urobilinogen 4.0 H Ur Leukocyte Esterase TRACE H - Diagnostic Test Radiology reviewed: Image reviewed, Reports reviewed Radiology results interpreted by me: CXR: NAD CTA Chest: extensive bilateral PEs. - EKG Interpretation by Me EKG shows normal: Sinus rhythm, [place], Intervals, QRS Complexes, ST-T Waves Rate: Normal When compared to previous EKG there are: No significant change - compared to 08/15/17 EKG Critical Care Note - Critical Care Note Total time excluding time spent on procedures (mins): 35 Discharge - Discharge Clinical Impression: Pulmonary embolism Qualifiers: Pulmonary embolism type: other Chronicity: acute Acute cor pulmonale presence: with acute cor pulmonale Qualified Code(s): I26.09 - Other pulmonary embolism with acute cor pulmonale Condition: Serious Disposition: [facility]
[2017-09-07 14:28] LABS: HEMATOCRIT 37.1 % (36.0-47.0); HEMOGLOBIN 12.5 g/dL (12.0-15.5); MEAN CORPUSCULAR HEMOGLOBIN 28.2 pg (27.0-33.4); MEAN CORPUSCULAR HGB CONC 33.6 g/dL (32.0-36.0); MEAN CORPUSCULAR VOLUME 84 fl (80-97); PLATELET COUNT 146 10^3/uL (150-450); RED BLOOD COUNT 4.42 10^6/uL (3.72-5.28); RED CELL DISTRIBUTION WIDTH 15.3 % (11.5-14.0)
--- NOTE | 2017-09-07 14:28 | RADIOLOGY REPORT (SQ) ---
EXAM DESCRIPTION: CHEST SINGLE VIEW COMPLETED DATE/TIME: 09/07/2017 2:19 pm REASON FOR STUDY: chest pain COMPARISON: 08/15/2017 EXAM PARAMETERS: NUMBER OF VIEWS: One view. TECHNIQUE: Single frontal radiographic view of the chest acquired. RADIATION DOSE: NA LIMITATIONS: None. FINDINGS: LUNGS AND PLEURA: No opacities, masses or pneumothorax. No pleural effusion. MEDIASTINUM AND HILAR STRUCTURES: No masses. Contour normal. HEART AND VASCULAR STRUCTURES: Heart normal in size. Normal vasculature. BONES: No acute findings. Degenerative changes are identified in both shoulder articulations. The p reviously described old fracture of the proximal left humerus is again identified. HARDWARE: None in the chest. OTHER: No other significant finding. IMPRESSION: NO ACUTE RADIOGRAPHIC FINDING IN THE CHEST. TECHNICAL DOCUMENTATION: JOB ID: [id number] [employer]- All Rights Reserved
[2017-09-07 14:32] LABS: VENOUS BLOOD BASE EXCESS 0.7 mmol/L; VENOUS BLOOD HCO3 26.3 mmol/L (20-32); VENOUS BLOOD PCO2 46.4 mmHg (35-63); VENOUS BLOOD PH 7.37 (7.30-7.42)
[2017-09-07 14:39] LABS: ALANINE AMINOTRANSFERASE 30 U/L (9-52); ALBUMIN 3.1 g/dL (3.5-5.0); ALKALINE PHOSPHATASE 68 U/L (38-126); ANION GAP 11 (5-19); ASPARTATE AMINO TRANSFERASE 16 U/L (14-36); BILIRUBIN,DIRECT 0.3 mg/dL (0.0-0.4); BILIRUBIN,TOTAL 0.9 mg/dL (0.2-1.3); BLOOD UREA NITROGEN 8 mg/dL (7-20); CALCIUM 8.4 mg/dL (8.4-10.2); CARBON DIOXIDE 26 mmol/L (22-30); CHLORIDE 98 mmol/L (98-107); CREATINE KINASE < 20 U/L (30-135); GLUCOSE 90 mg/dL (75-110); LIPASE 68.4 U/L (23-300); POTASSIUM 3.4 mmol/L (3.6-5.0); SODIUM 134.9 mmol/L (137-145)
[2017-09-07 14:51] LABS: ABSOLUTE LYMPHOCYTES# (MANUAL) 1.9 10^3/uL (0.5-4.7); ABSOLUTE MONOCYTES # (MANUAL) 0.4 10^3/uL (0.1-1.4); ABSOLUTE NEUTROPHILS# (MANUAL) 8.1 10^3/uL (1.7-8.2); ANISOCYTOSIS SLIGHT; BASOPHILS % (MANUAL) 3 % (0-2); EOSINOPHILS % (MANUAL) 2 % (0-6); LYMPHOCYTES % (MANUAL) 16 % (13-45); MONOCYTES % (MANUAL) 4 % (3-13); OVALOCYTES SLIGHT; PLATELET COMMENT ADEQUATE; PLATELET LARGE PRESENT; POIKILOCYTOSIS SLIGHT; POLYCHROMASIA SLIGHT; ROULEAUX SLIGHT; SEGMENTED NEUTROPHILS % (MAN) 74 % (42-78); TOTAL CELLS COUNTED 100; TOXIC VACUOLATION PRESENT
[2017-09-07] MEDS ORDERED: POTASSIUM CHLORIDE 10 MEQ TABLET.SA PO ONE (14:51)
[2017-09-07] MEDS ORDERED: METOCLOPRAMIDE HCL INJ/PF 10 MG/2 ML SDV IV ONE (14:51)
[2017-09-07 14:52] LABS: NT PRO BNP 129 pg/mL (5-900)
[2017-09-07 14:53] LABS: TROPONIN I < 0.012 ng/mL
[2017-09-07 15:38] LABS: APPEARANCE,URINE SLIGHTLY-CLOUDY; BILIRUBIN,URINE NEGATIVE (NEGATIVE); COLOR,URINE YELLOW; GLUCOSE, URINE NEGATIVE (NEGATIVE); KETONES,URINE TRACE mg/dL (NEGATIVE); LEUKOCYTE ESTERASE,URINE TRACE (NEGATIVE); NITRITE,URINE NEGATIVE (NEGATIVE); PROTEIN,URINE NEGATIVE (NEGATIVE); URINE SPECIFIC GRAVITY 1.015
--- NOTE | 2017-09-07 16:26 | RADIOLOGY REPORT (SQ) ---
EXAM DESCRIPTION: CTA CHEST COMPLETED DATE/TIME: 09/07/2017 4:05 pm REASON FOR STUDY: hypoxia, tachycardia, SOB, elevated d-dimer COMPARISON: CT angio chest 02/10/2017 TECHNIQUE: CT scan of the chest performed using helical scanning technique with dynamic intravenous contrast injection. Images reviewed with lung, soft tissue and bone windows. Reconstructed coronal and sagittal MPR images reviewed. Additional 3 dimensional post-processing performed to develop Maximal Intensity Projection images (VA P). All images stored on PACS. All CT scanners at this facility use dose modulation, iterative reconstruction, and/or weight based d osing when appropriate to reduce radiation dose to as low as reasonably achievable (ALARA). [facility]: Dose Right [facility]: CareDose [facility]: Dose Right [facility]: Teradose 4D [facility]: Vicampo CONTRAST TYPE AND DOSE: contrast/concentration: Isovue 370.00 mg/ml; Total Contrast Delivered: 61.0 ml; Total Saline Delivered: 80.0 ml Contrast bolus adequate for pulmonary arteries and aorta. RENAL FUNCTION: Creatinine 0.7 RADIATION DOSE: CT Rad equipment meets quality standard of care and radiation dose reduction techniq ues were employed. CTDIvol: 13.2 - 19.9 mGy. DLP: 727 mGy-cm. . LIMITATIONS: None. FINDINGS: LUNGS AND PLEURA: Trace bilateral pleural effusions are present. There is airspace diseas e in both the right and left posterior costophrenic sulci, infarct versus atelectasis. AORTA AND GREAT VESSELS: No aneurysm. Contrast bolus not optimized for the aorta. HEART: No pericardial effusion. No significant coronary artery calcifications. PULMONARY ARTERIES: Large pulmonary emboli to the distal right and left main pulmonary arteries. Paulette t extends into the right lower lobe segmental pulmonary arteries, left upper lobe and left lower lobe segmental pulmonary arteries. HILAR AND MEDIASTINAL STRUCTURES: No identified masses or abnormal nodes. HARDWARE: None in the chest. UPPER ABDOMEN: No significant findings. Limited exam. THYROID AND OTHER SOFT TISSUES: No masses. No adenopathy. 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 Old 50% compression deformity T12 3D MIPS: Confirm above findings. OTHER: No other significant finding. IMPRESSION: Bilateral multiple pulmonary emboli COMMENT: Pertinent findings on the imaging study reported as a CRITICAL RESULT to MELISSA HESS MD at16:10 on 09/07/2017. Category of Critical Result: Bilateral pulmonary emboli Quality ID # [id number]: Final reports with documentation of one or more dose reduction techniques (e.g., Au tomated exposure control, adjustment of the mA and/or kV according to patient size, use of iterative reconstruction technique) TECHNICAL DOCUMENTATION: JOB ID: [id number] [employer]- All Rights Reserved
[2017-09-07 16:38] LABS: PROTHROMBIN TIME 14.9 SEC (11.4-15.4)
[2017-09-07 16:39] LABS: PARTIAL THROMBOPLASTIN TIME 34.5 SEC (23.5-35.8)
[2017-09-07] MEDS ORDERED: HEPARIN SODIUM,PORCINE/D5W 25,000 UNIT/250 ML RTUINJ IV PRN (16:49)
[2017-09-07] MEDS ORDERED: HEPARIN SOD (PORCINE) 1,000 UNIT/ML 10 ML VIAL IV ONE (16:49)
[2017-09-07 18:02] VITALS: BP 116/60
[2017-09-07] MEDS ORDERED: HEPARIN SOD (PORCINE) 1,000 UNIT/ML 10 ML VIAL IV PRN (19:51)
--- NOTE | 2017-09-10 12:39 | EKG REPORT ---
SEVERITY:- BORDERLINE ECG - SINUS RHYTHM BORDERLINE T ABNORMALITIES, ANT-LAT LEADS : Confirmed by: Ammy Page MD 10-Sep-2017 12:38:33
== END 2017-09-07 18:32 | disposition short-term general hospital (02) ==
LOC: ER 13:56
DX: I26.09 Other pulmonary embolism with acute cor pulmonale (principal); R07.9 Chest pain, unspecified; R11.2 Nausea with vomiting, unspecified; M06.9 Rheumatoid arthritis, unspecified; I10 Essential (primary) hypertension; K21.9 Gastro-esophageal reflux disease without esophagitis; R06.02 Shortness of breath; R10.13 Epigastric pain
CPT/HCPCS: 93005; 99291; 96361; 96375; 96365; 36415; 82550; 83690; 85025; 85610; 85730; 80053; 81001; 84484; 85379; 82803; 83880; 71010; 71275; 93010; J1644 ×2; J2765; J7030

== ENCOUNTER 2018-01-27 23:37 | Inpatient (IN) | payer MEDICARE, MEDICAID ==
[2018-01-27] MEDS ORDERED: RINGERS SOLUTION,LACTATED 1,000 ML IV ONE (23:44)
[2018-01-27] MEDS ORDERED: ACETAMINOPHEN 325 MG TABLET PO ONE (23:44)
--- NOTE | 2018-01-28 00:20 | RADIOLOGY REPORT (SQ) ---
EXAM DESCRIPTION: Angle view of the chest. CLINICAL HISTORY: fever COMPARISON: None. FINDINGS: Single frontal view of the chest. Atherosclerotic calcification and tortuosity of the thoracic aorta. Heart is not enlarged. Leads overlie the chest. Left basilar patchy airspace opacity. No pneumothorax or pleural effusion definitely identified. Remote left proximal humerus fracture. Degenerative change of the shoulders. Upper abdominal soft tissues are unremarkable. IMPRESSION: 1. Left basilar patchy airspace opacities concerning for pneumonia. Continued radiographic follow-up to resolution recommended.
[2018-01-28 00:24] LABS: ABSOLUTE EOSINOPHILS # (AUTO) 0.1 10^3/uL (0.0-0.6); ABSOLUTE MONOCYTES (AUTO) 1.1 10^3/uL (0.1-1.4); ABSOLUTE NEUT (AUTO) 3.6 10^3/uL (1.7-8.2); BASOPHILS % (AUTO) 0.5 % (0-2); EOSINOPHILS % (AUTO) 1.5 % (0-6); HEMATOCRIT 36.3 % (36.0-47.0); LYMPHOCYTES % (AUTO) 29.4 % (13-45); MEAN CORPUSCULAR HEMOGLOBIN 28.2 pg (27.0-33.4); MEAN CORPUSCULAR VOLUME 86 fl (80-97); MONOCYTES % (AUTO) 15.7 % (3-13); PLATELET COUNT 164 10^3/uL (150-450); RED BLOOD COUNT 4.25 10^6/uL (3.72-5.28); RED CELL DISTRIBUTION WIDTH 14.7 % (11.5-14.0); SEGMENTED NEUTROPHILS % (AUTO) 52.9 % (42-78); TOTAL CELLS COUNTED % (AUTO) 100 %; WHITE BLOOD COUNT 6.8 10^3/uL (4.0-10.5)
[2018-01-28 00:25] LABS: VENOUS BLOOD BASE EXCESS -0.1 mmol/L; VENOUS BLOOD HCO3 25.7 mmol/L (20-32); VENOUS BLOOD PCO2 46.7 mmHg (35-63); VENOUS BLOOD PH 7.36 (7.30-7.42)
[2018-01-28] MEDS ORDERED: CEFTRIAXONE INJ 1000 MG VIAL IV ONE (00:39)
[2018-01-28 00:42] LABS: ALANINE AMINOTRANSFERASE 28 U/L (9-52); ALBUMIN 2.8 g/dL (3.5-5.0); ALKALINE PHOSPHATASE 51 U/L (38-126); ANION GAP 10 (5-19); ASPARTATE AMINO TRANSFERASE 46 U/L (14-36); BILIRUBIN,DIRECT 0.6 mg/dL (0.0-0.4); BILIRUBIN,TOTAL 1.1 mg/dL (0.2-1.3); BLOOD UREA NITROGEN 14 mg/dL (7-20); CALCIUM 8.5 mg/dL (8.4-10.2); CARBON DIOXIDE 25 mmol/L (22-30); CHLORIDE 103 mmol/L (98-107); GLUCOSE 112 mg/dL (75-110); POTASSIUM 3.6 mmol/L (3.6-5.0); SODIUM 137.5 mmol/L (137-145); TOTAL PROTEIN 5.7 g/dL (6.3-8.2)
[2018-01-28] MEDS ORDERED: RINGERS SOLUTION,LACTATED 500 ML IV ONE (00:53)
[2018-01-28 01:08] LABS: APPEARANCE,URINE CLEAR; BILIRUBIN,URINE NEGATIVE (NEGATIVE); COLOR,URINE AMBER; GLUCOSE, URINE NEGATIVE (NEGATIVE); KETONES,URINE 20 mg/dL (NEGATIVE); LEUKOCYTE ESTERASE,URINE NEGATIVE (NEGATIVE); NITRITE,URINE NEGATIVE (NEGATIVE); PROTEIN,URINE NEGATIVE (NEGATIVE); URINE SPECIFIC GRAVITY 1.019
--- NOTE | 2018-01-28 01:22 | ER Document Report ---
ED General - General Chief Complaint: General Weakness Stated Complaint: FEVER Time Seen by Provider: 01/27/18 23:43 Mode of Arrival: Medic Information source: Patient, Emergency Med Personnel, [facility] Records TRAVEL OUTSIDE OF THE [place] IN LAST 30 DAYS: No - HPI Patient complains to provider of: fever Onset: This afternoon Onset/Duration: Sudden Quality of pain: No pain Associated symptoms: Chills, Nonproductive cough, Fever, Other - dark urine Exacerbated by: Denies Relieved by: Denies Similar symptoms previously: Yes Recently seen / treated by doctor: Yes - on z tor - Related Data Allergies/Adverse Reactions: No Known Allergies Allergy (Verified 09/07/17 14:19) Past Medical History - General Information source: Patient, Emergency Med Personnel, [facility] Records - Social History Smoking Status: Never Smoker Frequency of alcohol use: None Drug Abuse: None Lives with: Family Family History: Reviewed & Not Pertinent - Past Medical History Cardiac Medical History: Reports: Hx Hypertension Pulmonary Medical History: Reports: Hx Pneumonia Denies: Hx Tuberculosis Renal/ Medical History: Denies: Hx Peritoneal Dialysis GI Medical History: Reports: Hx Gastroesophageal Reflux Disease Musculoskeltal Medical History: Reports Hx Arthritis - RA Skin Medical History: Reports Hx MRSA - CURRENTLY HAS SENSATION OF ABSCESS DEVELOPING UNDER THE LEFT ARM Psychiatric Medical History: Reports: Hx Depression Traumatic Medical History: Reports: Hx Fractures - T10 COMP FX, ACUTE R SHOULDER AND CLAVICLE FX Past Surgical History: Reports: Hx Appendectomy, Hx Hysterectomy, Hx Oral Surgery, Hx Orthopedic Surgery - foot surgery - Immunizations Immunizations up to date: Yes Hx Diphtheria, Pertussis, Tetanus Vaccination: Yes Review of Systems - Review of Systems Constitutional: Weakness EENT: No symptoms reported Cardiovascular: No symptoms reported Respiratory: Cough Gastrointestinal: No symptoms reported Genitourinary: See HPI Female Genitourinary: No symptoms reported Musculoskeletal: Joint pain Skin: No symptoms reported Hematologic/Lymphatic: No symptoms reported Neurological/Psychological: No symptoms reported Physical Exam - Vital signs Vitals: Resp Pulse Ox 18 93 01/27/18 23:49 01/27/18 23:49 - Notes Notes: PHYSICAL EXAMINATION: GENERAL: Elderly frail female sitting up in bed in no acute distress HEAD: Atraumatic, normocephalic. EYES: Pupils equal round and reactive to light, extraocular movements intact, conjunctiva are normal. ENT: Nares patent, oropharynx clear without exudates. Dry mucous membranes. NECK: Normal range of motion, supple without lymphadenopathy LUNGS: Breath sounds clear to auscultation bilaterally and equal. No wheezes rales or rhonchi. HEART: tachy ABDOMEN: Soft, nontender, nondistended abdomen. No guarding, no rebound. No masses appreciated. Female : deferred Musculoskeletal: Good skeletal changes secondary to rheumatoid arthritis. Both wrists are flexed. Bilateral shoulders have slight internal rotation NEUROLOGICAL: Cranial nerves grossly intact. Normal speech Normal sensory, motor exams PSYCH: Normal mood, normal affect. SKIN: Warm, Dry, normal turgor, no rashes or lesions noted. Course - Re-evaluation Re-evalutation: 01/28/18 01:32 Labs- All tests 24 hr 01/28/18 01/28/18 01/28/18 00:10 00:10 00:10 WBC 6.8 RBC 4.25 Hgb 12.0 Hct 36.3 MCV 86 MCH 28.2 MCHC 33.0 RDW 14.7 H Plt Count 164 Seg Neutrophils % 52.9 Lymphocytes % 29.4 Monocytes % 15.7 H Eosinophils % 1.5 Basophils % 0.5 Absolute Neutrophils 3.6 Absolute Lymphocytes 2.0 Absolute Monocytes 1.1 Absolute Eosinophils 0.1 Absolute Basophils 0.0 VBG pH VBG pCO2 VBG HCO3 VBG Base Excess Sodium 137.5 Potassium 3.6 Chloride 103 Carbon Dioxide 25 Anion Gap 10 BUN 14 Creatinine 0.86 Est GFR ( Amer) > 60 Est GFR (Non-Af Amer) > 60 Glucose 112 H Lactic Acid 1.1 Calcium 8.5 Total Bilirubin 1.1 Direct Bilirubin 0.6 H Neonat Total Bilirubin Not Reportable Neonat Direct Bilirubin Not Reportable Neonat Indirect Bili Not Reportable AST 46 H ALT 28 Alkaline Phosphatase 51 Total Protein 5.7 L Albumin 2.8 L Urine Color Urine Appearance Urine pH Ur Specific [place] Urine Protein Urine Glucose (UA) Urine Ketones Urine Blood Urine Nitrite Urine Bilirubin Urine Urobilinogen Ur Leukocyte Esterase Urine WBC (Auto) Urine RBC (Auto) U Hyaline Cast (Auto) Squamous Epi Cells Auto Urine Mucus (Auto) Urine Ascorbic Acid 01/28/18 01/28/18 00:10 00:45 WBC RBC Hgb Hct MCV MCH MCHC RDW Plt Count Seg Neutrophils % Lymphocytes % Monocytes % Eosinophils % Basophils % Absolute Neutrophils Absolute Lymphocytes Absolute Monocytes Absolute Eosinophils Absolute Basophils VBG pH 7.36 VBG pCO2 46.7 VBG HCO3 25.7 VBG Base Excess -0.1 Sodium Potassium Chloride Carbon Dioxide Anion Gap BUN Creatinine Est GFR ( Amer) Est GFR (Non-Af Amer) Glucose Lactic Acid Calcium Total Bilirubin Direct Bilirubin Neonat Total Bilirubin Neonat Direct Bilirubin Neonat Indirect Bili AST ALT Alkaline Phosphatase Total Protein Albumin Urine Color GIULIANO Urine Appearance CLEAR Urine pH 5.0 Ur Specific [place] 1.019 Urine Protein NEGATIVE Urine Glucose (UA) NEGATIVE Urine Ketones 20 H Urine Blood NEGATIVE Urine Nitrite NEGATIVE Urine Bilirubin NEGATIVE Urine Urobilinogen 4.0 H Ur Leukocyte Esterase NEGATIVE Urine WBC (Auto) 6 Urine RBC (Auto) 1 U Hyaline Cast (Auto) 7 Squamous Epi Cells Auto 1 Urine Mucus (Auto) RARE Urine Ascorbic Acid NEGATIVE Chest X-Ray 01/27/18 23:43 IMPRESSION: 1. Left basilar patchy airspace opacities concerning for pneumonia. Continued radiographic follow-up to resolution recommended. - Vital Signs Vital signs: Temp Pulse Resp BP Pulse Ox 20 101/57 L 92 01/28/18 01:00 01/28/18 00:39 01/28/18 01:00 - Laboratory Result Diagrams: 01/28/18 00:10 01/28/18 00:10 Laboratory results interpreted by me: 01/28/18 01/28/18 01/28/18 00:10 00:10 00:45 RDW 14.7 H Monocytes % 15.7 H Glucose 112 H Direct Bilirubin 0.6 H AST 46 H Total Protein 5.7 L Albumin 2.8 L Urine Ketones 20 H Urine Urobilinogen 4.0 H - Diagnostic Test Radiology reviewed: Image reviewed, Reports reviewed - EKG Interpretation by Wi EKG shows normal: Sinus rhythm - 75 Rate: Normal Discharge - Discharge Clinical Impression: Pneumonia Condition: Stable Disposition: ADMITTED INPATIENT Admitting Provider: Chevy Unit Admitted: IMCU Referrals: MARY LOU OLEA MD [Primary Care Provider] - Follow up as needed
[2018-01-28] MEDS ORDERED: ACETAMINOPHEN 325 MG TABLET PO PRN (01:23)
[2018-01-28] MEDS ORDERED: IPRATROPIUM/ALBUTEROL 0.5-2.5 MG/3 ML AMPUL NEB PRN (01:23)
[2018-01-28] MEDS: NORMAL SALINE 1000 ML 1,000 ML IV PRN ×2 (03:23→17:04)
[2018-01-28] MEDS: LANSOPRAZOLE 15 MG TAB.RAP.DR PO SCH ×2 (06:08→17:04)
[2018-01-28] MEDS: GUAIFENESIN 600 MG TABLET.SA PO SCH ×2 (09:00→22:51)
--- NOTE | 2018-01-28 09:38 | PDOC H&P ---
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 with the history of the chronic significant deformity due to the rheumatoid arthritis currently see a pain management and also orthopedic and a history of the pulmonary embolism and currently on Xarelto with the multiple other comorbidity recently seen in my office with a routine visit for some mild cough and congestion's was put on the Zithromax and the patient's call back yesterday and told the patient have a fever and not feeling well then directed to the emergency departments patient was found to be a pneumonia and admitting in the hospital for further evaluation and treatments Was also running low blood pressures and currently when I saw in the floor patients feeling better denied any chest pain denied any shortness of the breath Patient's currently on IV fluid and IV antibiotics Complains some episode of the cough but denied any blood denied any other symptoms Since denied any headache denied any urinary symptoms Past Medical History Cardiac Medical History: Reports: Hypertension Pulmonary Medical History: Reports: Pneumonia Denies: Tuberculosis GI Medical History: Reports: Gastroesophageal Reflux Disease Musculoskeltal Medical History: Reports: Arthritis - RA, Other Musculoskeletal History Note: Rheumatoid arthritis with a significant deformity Psychiatric Medical History: Reports: Depression Past Surgical History Past Surgical History: Reports: Appendectomy, Hysterectomy, Orthopedic Surgery - foot surgery Social History Lives with: Family Smoking Status: Never Smoker Frequency of Alcohol Use: None Hx Recreational Drug Use: No Drugs: None Hx Prescription Drug Abuse: No Family History Family History: Reviewed & Not Pertinent Parental Family History Reviewed: Yes Children Family History Reviewed: Yes Sibling(s) Family History Reviewed.: Yes Medication/Allergy Home Medications: Alendronate Sodium [Fosamax 70 mg Tablet] 70 mg PO FR@1000 08/15/17 Amlodipine Besylate [Norvasc 5 mg Tablet] 5 mg PO DAILY 08/15/17 Aspirin [Aspirin 81 mg Chewable Tablet] 81 mg PO DAILY 08/15/17 Benzonatate [Tessalon Perles 100 mg Capsule] 100 mg PO Q8HP PRN 08/15/17 Cetirizine HCl [Zyrtec 10 mg Tablet] 10 mg PO DAILY 08/15/17 Ergocalciferol (Vitamin D2) [Vitamin D2] 50,000 units PO WE@1000 08/15/17 Escitalopram Oxalate [Lexapro 10 mg Tablet] 10 mg PO DAILY 08/15/17 Folic Acid [Folvite 1 mg Tablet] 1 mg PO DAILY 08/15/17 Golimumab [Simponi] 50 mg SQ ASDIR PRN 08/15/17 Ibuprofen [Motrin 800 mg Tablet] 800 mg PO Q8 08/15/17 Lisinopril [Zestril] 40 mg PO DAILY 08/15/17 Methotrexate Sodium/Pf [Methotrexate 25 mg/ml Vial] 25 mg INJ WE@1000 08/15/17 Montelukast Sodium [Singulair 10 mg Tablet] 10 mg PO DAILY 08/15/17 Omeprazole 20 mg PO Q12 08/15/17 Oxycodone HCl [Oxycontin Sr 10 mg Tablet] 10 mg PO Q8 08/15/17 Potassium Chloride [Klor-Con M20] 40 meq PO DAILY 08/15/17 Cephalexin Monohydrate [Keflex 500 mg Capsule] 500 mg PO TID #21 capsule Prednisone [Deltasone 10 mg Tablet] 10 mg PO BID #14 tablet 08/18/17 Allergies/Adverse Reactions: No Known Allergies Allergy (Verified 09/07/17 14:19) Review of Systems Constitutional: PRESENT: chills, fever(s), weakness. ABSENT: headache(s), weight gain, weight loss Eyes: ABSENT: visual disturbances Ears: ABSENT: hearing changes Cardiovascular: ABSENT: chest pain, dyspnea on exertion, edema, orthropnea, palpitations Respiratory: PRESENT: cough, sputum. ABSENT: hemoptysis Gastrointestinal: ABSENT: abdominal pain, constipation, diarrhea, hematemesis, hematochezia, nausea, vomiting Genitourinary: ABSENT: dysuria, hematuria Musculoskeletal: ABSENT: joint swelling Integumentary: ABSENT: rash, wounds Neurological: ABSENT: abnormal gait, abnormal speech, confusion, dizziness, focal weakness, syncope Psychiatric: ABSENT: anxiety, depression, homidical ideation, suicidal ideation Endocrine: ABSENT: cold intolerance, heat intolerance, menstrual abnormalities, polydipsia, polyuria Hematologic/Lymphatic: ABSENT: easy bleeding, easy bruising, lymphadenopathy Physical Exam Vital Signs: Temp Pulse Resp BP Pulse Ox 97.9 F 99 16 113/59 L 95 01/28/18 07:54 01/28/18 07:54 01/28/18 07:54 01/28/18 07:54 01/28/18 07:54 Intake & Output 01/27/18 01/28/18 01/29/18 06:59 06:59 06:59 Intake Total 450 Balance 450 Weight 47.7 kg General appearance: PRESENT: no acute distress, well-developed, well-nourished Head exam: PRESENT: atraumatic, normocephalic Eye exam: PRESENT: conjunctiva pink, EOMI, PERRLA. ABSENT: scleral icterus Ear exam: PRESENT: normal external ear exam Mouth exam: PRESENT: moist, tongue midline Neck exam: PRESENT: full ROM. ABSENT: carotid bruit, JVD, lymphadenopathy, thyromegaly Respiratory exam: PRESENT: clear to auscultation lucas Cardiovascular exam: PRESENT: RRR. ABSENT: diastolic murmur, rubs, systolic murmur Pulses: PRESENT: normal dorsalis pedis pul, +2 pedal pulses bilateral Vascular exam: PRESENT: normal capillary refill GI/Abdominal exam: PRESENT: normal bowel sounds, soft. ABSENT: distended, guarding, mass, organolmegaly, rebound, tenderness Rectal exam: PRESENT: deferred Extremities exam: ABSENT: pedal edema Additional comments: Significant deformity both upper and lower extremity due to the rheumatoid arthritis Neurological exam: PRESENT: alert, awake, oriented to person, oriented to place , oriented to time, oriented to situation, CN II-XII grossly intact. ABSENT: motor sensory deficit Psychiatric exam: PRESENT: appropriate affect, normal mood. ABSENT: homicidal ideation, suicidal ideation Skin exam: PRESENT: dry, intact, warm. ABSENT: cyanosis, rash Results Impressions: Chest X-Ray 01/27/18 23:43 IMPRESSION: 1. Left basilar patchy airspace opacities concerning for pneumonia. Continued radiographic follow-up to resolution recommended. Assessment & Plan - Diagnosis (1) Pneumonia Qualifiers: Laterality: unspecified laterality Is this a current diagnosis for this admission?: Yes Plan: Continues IV antibiotic (2) Chronic pain syndrome Is this a current diagnosis for this admission?: Yes Plan: Continues to current pain medication (3) Dehydration Is this a current diagnosis for this admission?: Yes Plan: Continues to IV fluid (4) Hyperlipidemia Qualifiers: (5) Hypotension Qualifiers: Hypotension type: idiopathic hypotension Qualified Code(s): I95.0 - Idiopathic hypotension Is this a current diagnosis for this admission?: Yes Plan: Most likely due to the underlying sepsis and pneumonia continues to IV fluid and hold the blood pressure medications (6) Rheumatoid arthritis Qualifiers: Rheumatoid arthritis location: multiple sites Is this a current diagnosis for this admission?: Yes Plan: Currently hold the methotrexate due to the infections (7) Pulmonary embolism Qualifiers: Pulmonary embolism type: other Chronicity: unspecified Is this a current diagnosis for this admission?: Yes Plan: Continue Xarelto - Time Time Spent: 30 to 50 Minutes Medications reviewed and adjusted accordingly: Yes Anticipated discharge: Home Within: Other - Inpatient Certification Medical Necessity: Need Close Monitoring Due to Risk of Patient Decompensation, Need For IV Fluids, Need for IV Antibiotics 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
[2018-01-28] MEDS: CEFEPIME 2 GM/D5W RTU 2 GM/50 ML RTUPB IV SCH ×2 (09:51→22:51)
[2018-01-28] MEDS ORDERED: ENOXAPARIN SODIUM INJ 40 MG/0.4 ML DISP.SYRIN SUBCUT SCH (10:00)
[2018-01-28] MEDS: AZITHROMYCIN 500 MG in DEXTROSE 5%-WATER 250 ML IV SCH (10:55)
[2018-01-28] MEDS ORDERED: BENZONATATE 100 MG CAPSULE PO PRN (11:10)
[2018-01-28] MEDS ORDERED: (PENDING PHARMACY ID) (Oxycodone Hcl/Acetaminophen [Oxycodon-Acetaminophen 7.5-325] 1 EACH PO PRN (11:10)
[2018-01-28] MEDS ORDERED: ESCITALOPRAM OXALATE 10 MG TABLET PO ONE (13:00)
[2018-01-28] MEDS ORDERED: LANSOPRAZOLE 30 MG TAB.RAP.DR PO ONE (13:00)
--- NOTE | 2018-01-28 16:20 | EKG REPORT ---
SEVERITY:- ABNORMAL ECG - SINUS TACHYCARDIA NONSPECIFIC T ABNORMALITIES, DIFFUSE LEADS : Confirmed by: James Chung 28-Jan-2018 16:19:25
[2018-01-28] MEDS: RIVAROXABAN 10 MG TABLET PO SCH (17:04)
[2018-01-28] MEDS: CETIRIZINE 5 MG TABLET PO SCH (17:05)
[2018-01-28] MEDS: CYCLOSPORINE 0.05% OPH EMULSIO 0.4 ML DROPERETTE OU SCH (17:05)
[2018-01-28] MEDS: OXYCODONE HCL IR 5 MG TABLET PO PRN (18:39)
[2018-01-28] MEDS: OXYCODONE-ACETAMINOPHEN 5-325 MG TABLET PO PRN (18:39)
--- NOTE | 2018-01-28 20:10 | PDOC CONSULTATION ---
Consultation Consult Date: 01/28/18 Attending physician:: MARY LOU OLEA Consult reason:: pna History of Present Illness Admission Date/PCP: 01/28/18 01:35 MARY LOU OLEA MD History of Present Illness: LILLIE AMIN is a 67 year old female severe R CHRONIC STEROIDS WELL METHOTRXATE c/ocough,fever,chiis increrasing shortness of breath,She is bed bound derik to her RA. No hx of chronic barbara disesde as a child.Admits to exsoure to passive smoke chid and adult.She has never smoked ;no known occupational exsposure to potential resp toxins.No pwts or receny travel.No chest pain,3 pillows no PND,nocturnal cough or edema.No snoring nocturia 2-3 per night,unrestful sleep and excessive daytime somulence Past Medical History Cardiac Medical History: Reports: Hypertension Pulmonary Medical History: Reports: Pneumonia Denies: Tuberculosis GI Medical History: Reports: Gastroesophageal Reflux Disease Musculoskeltal Medical History: Reports: Arthritis - RA, Other Psychiatric Medical History: Reports: Depression Past Surgical History Past Surgical History: Reports: Appendectomy, Hysterectomy, Orthopedic Surgery - foot surgery Social History Information Source: Patient, [facility] Records Lives with: Family Smoking Status: Never Smoker Passive smoke exposure as: Both Frequency of Alcohol Use: None Hx Recreational Drug Use: No Drugs: None Hx Prescription Drug Abuse: No Do you have pets?: No Have you had any respiratory illnesses as a child?: No Have you been exposed to any sick contacts recently?: No Have you had any recent respiratory illnesses?: No Have you travelled outside of [place] in the past 12 months?: No Family History Family History: DM, Hypertension Parental Family History Reviewed: Yes Children Family History Reviewed: Yes Sibling(s) Family History Reviewed.: Yes Medication/Allergy Home Medications: Benzonatate [Tessalon Perles 100 mg Capsule] 100 mg PO Q8HP PRN 08/15/17 Escitalopram Oxalate [Lexapro 10 mg Tablet] 10 mg PO DAILY 08/15/17 Lisinopril [Zestril] 40 mg PO DAILY 08/15/17 Potassium Chloride [Klor-Con M20] 40 meq PO DAILY 08/15/17 Cephalexin [Cephalexin 250 MG Tablet] 250 mg PO DAILY 01/28/18 Cyclosporine 0.05% Oph Emulsio [Restasis 0.05% Opthalmic Droperette] 1 drop OU BID 01/28/18 Diclofenac Sodium [Voltaren] 4 gm TP TID 01/28/18 Levocetirizine Dihydrochloride [Xyzal] 5 mg PO QPM 01/28/18 Oxycodone HCl/Acetaminophen [Oxycodon-Acetaminophen 7.5-325] 1 each PO Q8HP PRN 01/28/18 Pantoprazole Sodium [Protonix] 40 mg PO DAILY 01/28/18 Rivaroxaban [Xarelto 10 mg Tablet] 20 mg PO DAILY 01/28/18 Cefuroxime Axetil [Ceftin 500 mg Tablet] 500 mg PO Q12 #12 tablet 02/07/18 Clopidogrel Bisulfate [Plavix 75 mg Tablet] 75 mg PO DAILY #30 tablet 02/07/18 Diltiazem HCl [Cardizem 60 mg Tablet] 60 mg PO Q8 #30 tablet 02/07/18 Guaifenesin [Mucinex Sr 600 mg Tablet.sa] 600 mg PO Q12 #30 tablet.sa 02/07/18 Prednisone [Deltasone 10 mg Tablet] 10 mg PO DAILY #30 tablet 02/07/18 Allergies/Adverse Reactions: No Known Allergies Allergy (Verified 09/07/17 14:19) Review of Systems Constitutional: PRESENT: chills, fever(s). ABSENT: night sweats Eyes: ABSENT: visual disturbances Ears: ABSENT: hearing changes Nose, Mouth, and Throat: ABSENT: sore throat Cardiovascular: PRESENT: orthropnea. ABSENT: palpitations Respiratory: PRESENT: cough, dyspnea. ABSENT: hemoptysis Gastrointestinal: ABSENT: abdominal pain, bloating, coffee ground emesis, dysphagia, heartburn, hematemesis, hematochezia, melena Genitourinary: ABSENT: dysuria, hematuria Musculoskeletal: PRESENT: joint swelling, muscle weakness Integumentary: ABSENT: pruritus, rash Neurological: ABSENT: abnormal gait, abnormal movements, abnormal speech, confusion, lack of coordination, memory loss Endocrine: ABSENT: cold intolerance, heat intolerance Hematologic/Lymphatic: ABSENT: easy bruising Physical Exam Vital Signs: Temp Pulse Resp BP Pulse Ox 100.2 F 102 H 18 125/69 95 01/28/18 18:21 01/28/18 17:05 01/28/18 17:05 01/28/18 17:05 01/28/18 17:05 Intake & Output 01/27/18 01/28/18 01/29/18 06:59 06:59 06:59 Intake Total 450 1771 Balance 450 1771 Weight 47.7 kg General appearance: PRESENT: no acute distress, cooperative, disheveled Head exam: PRESENT: atraumatic, normocephalic Eye exam: PRESENT: conjunctiva pale, EOMI. ABSENT: nystagmus, periorbital swelling, scleral icterus Mouth exam: PRESENT: dry mucosa, neck supple, tongue midline Neck exam: ABSENT: carotid bruit, JVD, lymphadenopathy, thyromegaly, tracheal deviation, tracheostomy Respiratory exam: PRESENT: decreased breath sounds, prolonged expiratory phas, rales, rhonchi, unlabored. ABSENT: retraction, stridor, tachypnea Cardiovascular exam: PRESENT: RRR, +S1, +S2 Pulses: PRESENT: normal radial pulses GI/Abdominal exam: PRESENT: normal bowel sounds, soft Extremities exam: ABSENT: calf tenderness, clubbing, full ROM Musculoskeletal exam: ABSENT: full ROM Neurological exam: PRESENT: awake, oriented to person, oriented to place, oriented to time Psychiatric exam: PRESENT: flat affect Skin exam: PRESENT: dry, warm Results Impressions: Chest X-Ray 01/27/18 23:43 IMPRESSION: 1. Left basilar patchy airspace opacities concerning for pneumonia. Continued radiographic follow-up to resolution recommended. Assessment & Plan - Diagnosis (1) Pneumonia Qualifiers: Laterality: unspecified laterality Is this a current diagnosis for this admission?: Yes Plan: no sputum thus far chest phsiotherapy acetyl cystene (2) Chronic pain syndrome Is this a current diagnosis for this admission?: Yes (3) Rheumatoid arthritis Qualifiers: Rheumatoid arthritis location: multiple sites Is this a current diagnosis for this admission?: Yes Plan: prednisone and methortexate recent hospitialization [facility] coverage (4) Weakness Is this a current diagnosis for this admission?: Yes
[2018-01-29] MEDS: OXYCODONE HCL IR 5 MG TABLET PO PRN ×2 (04:55→16:53)
[2018-01-29] MEDS: OXYCODONE-ACETAMINOPHEN 5-325 MG TABLET PO PRN ×2 (04:55→16:53)
[2018-01-29] MEDS: LANSOPRAZOLE 30 MG TAB.RAP.DR PO SCH (04:56)
[2018-01-29 06:50] LABS: HEMATOCRIT 33.9 % (36.0-47.0); HEMOGLOBIN 11.5 g/dL (12.0-15.5); MEAN CORPUSCULAR HEMOGLOBIN 28.5 pg (27.0-33.4); MEAN CORPUSCULAR VOLUME 84 fl (80-97); PLATELET COUNT 113 10^3/uL (150-450); RED BLOOD COUNT 4.04 10^6/uL (3.72-5.28); RED CELL DISTRIBUTION WIDTH 14.7 % (11.5-14.0); WHITE BLOOD COUNT 4.3 10^3/uL (4.0-10.5)
[2018-01-29 07:42] LABS: ABSOLUTE LYMPHOCYTES# (MANUAL) 1.2 10^3/uL (0.5-4.7); ABSOLUTE MONOCYTES # (MANUAL) 0.4 10^3/uL (0.1-1.4); ABSOLUTE NEUTROPHILS# (MANUAL) 2.6 10^3/uL (1.7-8.2); BASOPHILS % (MANUAL) 0 % (0-2); EOSINOPHILS % (MANUAL) 4 % (0-6); LYMPHOCYTES % (MANUAL) 26 % (13-45); MONOCYTES % (MANUAL) 9 % (3-13); SEGMENTED NEUTROPHILS % (MAN) 60 % (42-78); TOTAL CELLS COUNTED 100
[2018-01-29 07:43] LABS: ANISOCYTOSIS SLIGHT; BURR CELLS SLIGHT; OVALOCYTES 1+; PLATELET COMMENT DECREASED; POIKILOCYTOSIS 1+
[2018-01-29 08:02] LABS: ALANINE AMINOTRANSFERASE 23 U/L (9-52); ALBUMIN 2.7 g/dL (3.5-5.0); ALKALINE PHOSPHATASE 40 U/L (38-126); ANION GAP 8 (5-19); ASPARTATE AMINO TRANSFERASE 55 U/L (14-36); BILIRUBIN,DIRECT 0.6 mg/dL (0.0-0.4); BILIRUBIN,TOTAL 0.8 mg/dL (0.2-1.3); BLOOD UREA NITROGEN 7 mg/dL (7-20); CALCIUM 7.9 mg/dL (8.4-10.2); CARBON DIOXIDE 24 mmol/L (22-30); CHLORIDE 105 mmol/L (98-107); GLUCOSE 80 mg/dL (75-110); POTASSIUM 3.7 mmol/L (3.6-5.0); SODIUM 136.6 mmol/L (137-145)
--- NOTE | 2018-01-29 08:53 | PDOC PROGRESS REPORT ---
Subjective Progress Note for:: 01/29/18 Subjective:: Patient is currently doing fairPatient still feeling weak Still with some mild cough Patient's denied any chest pain denied any shortness of the breath Reason For Visit: PNEUMONIA Physical Exam Vital Signs: Temp Pulse Resp BP Pulse Ox 98.4 F 87 16 103/64 100 01/29/18 00:03 01/29/18 07:00 01/29/18 00:03 01/29/18 00:03 01/29/18 00:03 Intake & Output 01/28/18 01/29/18 01/30/18 06:59 06:59 06:59 Intake Total 450 3121 Output Total 140 Balance 450 2981 Weight 47.7 kg 52.2 kg General appearance: PRESENT: no acute distress, well-developed, well-nourished Head exam: PRESENT: atraumatic, normocephalic Eye exam: PRESENT: conjunctiva pink, EOMI, PERRLA. ABSENT: scleral icterus Ear exam: PRESENT: normal external ear exam Mouth exam: PRESENT: moist, tongue midline Neck exam: PRESENT: full ROM. ABSENT: carotid bruit, JVD, lymphadenopathy, thyromegaly Respiratory exam: PRESENT: clear to auscultation lucas Cardiovascular exam: PRESENT: RRR. ABSENT: diastolic murmur, rubs, systolic murmur Pulses: PRESENT: normal dorsalis pedis pul, +2 pedal pulses bilateral Vascular exam: PRESENT: normal capillary refill GI/Abdominal exam: PRESENT: normal bowel sounds, soft. ABSENT: distended, guarding, mass, organolmegaly, rebound, tenderness Rectal exam: PRESENT: deferred Extremities exam: ABSENT: pedal edema Neurological exam: PRESENT: alert, awake, oriented to person, oriented to place , oriented to time, oriented to situation, CN II-XII grossly intact. ABSENT: motor sensory deficit Psychiatric exam: PRESENT: appropriate affect, normal mood. ABSENT: homicidal ideation, suicidal ideation Skin exam: PRESENT: dry, intact, warm. ABSENT: cyanosis, rash Results Laboratory Results: 01/29/18 05:31 01/29/18 07:35 01/29/18 01/29/18 01/29/18 05:31 05:31 07:35 WBC 4.3 RBC 4.04 Hgb 11.5 L Hct 33.9 L MCV 84 MCH 28.5 MCHC 34.0 RDW 14.7 H Plt Count 113 L Seg Neutrophils % Not Reportable Lymphocytes % Not Reportable Monocytes % Not Reportable Eosinophils % Not Reportable Basophils % Not Reportable Absolute Neutrophils Not Reportable Absolute Lymphocytes Not Reportable Absolute Monocytes Not Reportable Absolute Eosinophils Not Reportable Absolute Basophils Not Reportable Sodium Cancelled 136.6 L Potassium Cancelled 3.7 Chloride Cancelled 105 Carbon Dioxide Cancelled 24 Anion Gap Cancelled 8 BUN Cancelled 7 Creatinine Cancelled 0.48 L Est GFR ( Amer) Cancelled > 60 Est GFR (Non-Af Amer) Cancelled > 60 Glucose Cancelled 80 Calcium Cancelled 7.9 L Total Bilirubin Cancelled 0.8 AST Cancelled 55 H ALT Cancelled 23 Alkaline Phosphatase Cancelled 40 Total Protein Cancelled 6.0 L Albumin Cancelled 2.7 L Impressions: Chest X-Ray 01/27/18 23:43 IMPRESSION: 1. Left basilar patchy airspace opacities concerning for pneumonia. Continued radiographic follow-up to resolution recommended. Assessment & Plan - Diagnosis (1) Pneumonia Qualifiers: Laterality: unspecified laterality Is this a current diagnosis for this admission?: Yes Plan: Continues to IV antibiotic (2) Chronic pain syndrome Is this a current diagnosis for this admission?: Yes Plan: Continues to current pain medication (3) Dehydration Is this a current diagnosis for this admission?: Yes Plan: Currently resolving (4) Hyperlipidemia Qualifiers: Is this a current diagnosis for this admission?: Yes (5) Hypotension Qualifiers: Hypotension type: idiopathic hypotension Qualified Code(s): I95.0 - Idiopathic hypotension Is this a current diagnosis for this admission?: Yes Plan: Currently stable still continues hold the blood pressure medications (6) Rheumatoid arthritis Qualifiers: Rheumatoid arthritis location: multiple sites Is this a current diagnosis for this admission?: Yes Plan: Currently hold the methotrexate due to the infections (7) Pulmonary embolism Qualifiers: Pulmonary embolism type: other Chronicity: unspecified Is this a current diagnosis for this admission?: Yes Plan: Continue Xarelto - Time Time Spent with patient: 15-24 minutes Medications reviewed and adjusted accordingly: Yes Anticipated discharge: Home Within: Other - Inpatient Certification Medical Necessity: Need Close Monitoring Due to Risk of Patient Decompensation, Need For IV Fluids, Need for IV Antibiotics 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
[2018-01-29] MEDS ORDERED: RIVAROXABAN 10 MG TABLET PO SCH (10:00)
[2018-01-29] MEDS ORDERED: POTASSIUM CHLORIDE 10 MEQ TABLET.SA PO SCH (10:00)
[2018-01-29] MEDS: CEFEPIME 2 GM/D5W RTU 2 GM/50 ML RTUPB IV SCH ×2 (10:47→22:13)
--- NOTE | 2018-01-29 10:48 | RADIOLOGY REPORT (SQ) ---
EXAM DESCRIPTION: CT CHEST WITHOUT COMPLETED DATE/TIME: 01/29/2018 10:16 am REASON FOR STUDY: pna rheumatoid arthritis COMPARISON: Chest x-ray dated January 2018 TECHNIQUE: CT scan performed of the chest without intravenous contrast. Images reviewed with lung, soft tissue and bone windows. Reconstructed coronal and sagittal MPR images reviewed. All images st ored on PACS. All CT scanners at this facility use dose modulation, iterative reconstruction, and/or weight based d osing when appropriate to reduce radiation dose to as low as reasonably achievable (ALARA). [facility]: Dose Right [facility]: CareDose [facility]: Dose Right [facility]: Teradose 4D [facility]: Smart Freebee RADIATION DOSE: CT Rad equipment meets quality standard of care and radiation dose reduction techniq ues were employed. CTDIvol: 10.1 mGy. DLP: 318 mGy-cm. mGy. LIMITATIONS: No technical limitations. FINDINGS: LUNGS AND PLEURA: Small bilateral pleural effusions are identified with associated airspac e consolidation most consistent with atelectatic changes although I cannot exclude minimal pneumonic infiltrates. HILAR AND MEDIASTINAL STRUCTURES: No identified masses or abnormal nodes. No obvious aneurysm. HEART AND VASCULAR STRUCTURES: There is some thickening of the pericardium suggesting a small pericar dial effusion. Pulmonary vascular congestion is identified. UPPER ABDOMEN: No significant findings. Limited exam. THYROID AND OTHER SOFT TISSUES: No masses. No adenopathy. BONES: There is bony deformity of both proximal humeri presumably related to previous trauma. Couple thoracic compression fractures are identified which are age indeterminate HARDWARE: None in the chest. OTHER: No other significant findings. IMPRESSION: Small bilateral pleural effusions are identified with associated airspace consolidation most consistent with atelectatic changes although I cannot exclude minimal pneumonic infiltrates. Ot her findings as noted above TECHNICAL DOCUMENTATION: JOB ID: [id number] Quality ID # [id number]: Final reports with documentation of one or more dose reduction techniques (e.g., Au tomated exposure control, adjustment of the mA and/or kV according to patient size, use of iterative reconstruction technique) 2010 [employer]- All Rights Reserved Reading location - IP/workstation name: [email or web address]
[2018-01-29] MEDS: CYCLOSPORINE 0.05% OPH EMULSIO 0.4 ML DROPERETTE OU SCH ×2 (10:57→17:02)
[2018-01-29] MEDS: GUAIFENESIN 600 MG TABLET.SA PO SCH ×2 (11:11→22:12)
--- NOTE | 2018-01-29 11:13 | RADIOLOGY REPORT (SQ) ---
EXAM DESCRIPTION: CHEST 2 VIEWS COMPLETED DATE/TIME: 01/29/2018 10:38 am REASON FOR STUDY: Caps COMPARISON: CT chest 01/18/2018, 02/10/2017 EXAM PARAMETERS: NUMBER OF VIEWS: two views TECHNIQUE: Digital Frontal and Lateral radiographic views of the chest acquired. RADIATION DOSE: NA LIMITATIONS: none FINDINGS: LUNGS AND PLEURA: No opacities, masses or pneumothorax. No pleural effusion. MEDIASTINUM AND HILAR STRUCTURES: No masses or contour abnormalities. HEART AND VASCULAR STRUCTURES: Stable mild cardiomegaly BONES: Old incompletely healed fracture left proximal humeral metaphysis. Advanced osteoarthritis ri ght glenohumeral joint HARDWARE: None in the chest. OTHER: No other significant finding. IMPRESSION: No acute changes. TECHNICAL DOCUMENTATION: JOB ID: [id number] [email or web address]- All Rights Reserved Reading location - IP/workstation name: [email or web address]
[2018-01-29] MEDS ORDERED: MAG HYDROX/AL HYDROX/SIMETH SUSP 30 ML UDCUP PO PRN (11:30)
--- NOTE | 2018-01-29 12:07 | PDOC PROGRESS REPORT ---
Subjective Progress Note for:: 01/29/18 Subjective:: Continues occasional cough otherwise without complaints Reason For Visit: PNEUMONIA Physical Exam Vital Signs: Temp Pulse Resp BP Pulse Ox 98.4 F 87 16 103/64 100 01/29/18 00:03 01/29/18 07:00 01/29/18 00:03 01/29/18 00:03 01/29/18 00:03 Intake & Output 01/28/18 01/29/18 01/30/18 06:59 06:59 06:59 Intake Total 450 3121 Output Total 140 Balance 450 2981 Weight 47.7 kg 52.2 kg General appearance: PRESENT: no acute distress, cooperative, disheveled Head exam: PRESENT: atraumatic, normocephalic Eye exam: PRESENT: conjunctiva pale, EOMI, PERRLA. ABSENT: nystagmus, periorbital swelling, scleral icterus Mouth exam: PRESENT: moist, neck supple, tongue midline Neck exam: ABSENT: carotid bruit, JVD, lymphadenopathy, thyromegaly, tracheal deviation, tracheostomy Respiratory exam: PRESENT: decreased breath sounds, prolonged expiratory phas, rales, rhonchi, unlabored. ABSENT: retraction, stridor Cardiovascular exam: PRESENT: RRR, +S1, +S2 Pulses: PRESENT: normal radial pulses GI/Abdominal exam: PRESENT: normal bowel sounds, soft Extremities exam: ABSENT: calf tenderness, clubbing, joint swelling Musculoskeletal exam: PRESENT: tenderness. ABSENT: ambulatory, deformity, dislocation, full ROM Neurological exam: PRESENT: alert, awake Psychiatric exam: PRESENT: flat affect Skin exam: PRESENT: dry, warm Results Laboratory Results: 01/29/18 05:31 01/29/18 07:35 01/29/18 01/29/18 01/29/18 05:31 05:31 07:35 WBC 4.3 RBC 4.04 Hgb 11.5 L Hct 33.9 L MCV 84 MCH 28.5 MCHC 34.0 RDW 14.7 H Plt Count 113 L Seg Neutrophils % Not Reportable Lymphocytes % Not Reportable Monocytes % Not Reportable Eosinophils % Not Reportable Basophils % Not Reportable Absolute Neutrophils Not Reportable Absolute Lymphocytes Not Reportable Absolute Monocytes Not Reportable Absolute Eosinophils Not Reportable Absolute Basophils Not Reportable Sodium Cancelled 136.6 L Potassium Cancelled 3.7 Chloride Cancelled 105 Carbon Dioxide Cancelled 24 Anion Gap Cancelled 8 BUN Cancelled 7 Creatinine Cancelled 0.48 L Est GFR ( Amer) Cancelled > 60 Est GFR (Non-Af Amer) Cancelled > 60 Glucose Cancelled 80 Calcium Cancelled 7.9 L Total Bilirubin Cancelled 0.8 AST Cancelled 55 H ALT Cancelled 23 Alkaline Phosphatase Cancelled 40 Total Protein Cancelled 6.0 L Albumin Cancelled 2.7 L Impressions: Chest X-Ray 01/29/18 00:00 IMPRESSION: No acute changes. Chest CT 01/29/18 06:00 IMPRESSION: Small bilateral pleural effusions are identified with associated airspace consolidation most consistent with atelectatic changes although I cannot exclude minimal pneumonic infiltrates. Other findings as noted above Assessment & Plan - Diagnosis (1) Pneumonia Qualifiers: Laterality: unspecified laterality Is this a current diagnosis for this admission?: Yes Plan: no sputum thus far chest phsiotherapy acetyl cystene (2) Chronic pain syndrome Is this a current diagnosis for this admission?: Yes (3) Rheumatoid arthritis Qualifiers: Rheumatoid arthritis location: multiple sites Is this a current diagnosis for this admission?: Yes Plan: prednisone and methortexate recent hospitialization HAP coverage (4) Weakness Is this a current diagnosis for this admission?: Yes
[2018-01-29] MEDS: ONDANSETRON HCL INJ/PF 4 MG/2 ML SDV IV PRN (12:57)
[2018-01-29] MEDS: AZITHROMYCIN 500 MG in DEXTROSE 5%-WATER 250 ML IV SCH (12:57)
[2018-01-29] MEDS: ESCITALOPRAM OXALATE 10 MG TABLET PO SCH (12:58)
[2018-01-29] MEDS: RIVAROXABAN 10 MG TABLET PO SCH (16:52)
[2018-01-29] MEDS: NORMAL SALINE 1000 ML 1,000 ML IV PRN (16:52)
[2018-01-29] MEDS: CETIRIZINE 5 MG TABLET PO SCH (17:02)
--- NOTE | 2018-01-30 01:33 | RADIOLOGY REPORT (SQ) ---
EXAM DESCRIPTION: U/S ABDOMEN COMPLETE W/O DOP COMPLETED DATE/TIME: 01/30/2018 12:55 am REASON FOR STUDY: n/v/abnormal lft COMPARISON: None. TECHNIQUE: Dynamic and static grayscale images acquired of the abdomen and recorded on PACS. Additio nal selected color Doppler and spectral images recorded. LIMITATIONS: Limited by decreased patient mobility. FINDINGS: PANCREAS: Not seen. LIVER: Poorly seen. No gross mass. Potential fatty parenchyma. LIVER VASCULATURE: Normal directional flow of the main portal vein and hepatic veins. GALLBLADDER: Sludge. No definable stones or pericholecystic fluid. ULTRASOUND-DETECTED ALLRED'S SIGN: Negative. INTRAHEPATIC DUCTS AND COMMON DUCT: CBD and intrahepatic ducts normal caliber. No filling defects. INFERIOR VENA CAVA: Normal flow. AORTA: No aneurysm. RIGHT KIDNEY:No stones or obstruction. At least 1 cyst. LEFT KIDNEY: No stones or obstruction. At least 1 cyst. SPLEEN: Not seen. PERITONEAL AND PLEURAL SPACES: No ascites or effusions. OTHER: No other significant finding. IMPRESSION: 1. Gallbladder sludge. No definable stones. 2. Limited study, other findings as above. TECHNICAL DOCUMENTATION: JOB ID: [id number] [employer]- All Rights Reserved Reading location - IP/workstation name: [email or web address]
[2018-01-30] MEDS: NORMAL SALINE 1000 ML 1,000 ML IV PRN ×2 (04:13→16:35)
[2018-01-30] MEDS: LANSOPRAZOLE 30 MG TAB.RAP.DR PO SCH (05:07)
[2018-01-30 05:19] LABS: ABSOLUTE EOSINOPHILS # (AUTO) 0.2 10^3/uL (0.0-0.6); ABSOLUTE LYMPHOCYTES (AUTO) 1.5 10^3/uL (0.5-4.7); ABSOLUTE MONOCYTES (AUTO) 0.7 10^3/uL (0.1-1.4); ABSOLUTE NEUT (AUTO) 2.2 10^3/uL (1.7-8.2); BASOPHILS % (AUTO) 0.8 % (0-2); EOSINOPHILS % (AUTO) 3.5 % (0-6); HEMATOCRIT 34.3 % (36.0-47.0); HEMOGLOBIN 11.5 g/dL (12.0-15.5); LYMPHOCYTES % (AUTO) 32.1 % (13-45); MEAN CORPUSCULAR HEMOGLOBIN 28.1 pg (27.0-33.4); MEAN CORPUSCULAR HGB CONC 33.5 g/dL (32.0-36.0); MEAN CORPUSCULAR VOLUME 84 fl (80-97); MONOCYTES % (AUTO) 15.2 % (3-13); PLATELET COUNT 144 10^3/uL (150-450); RED BLOOD COUNT 4.09 10^6/uL (3.72-5.28); RED CELL DISTRIBUTION WIDTH 14.7 % (11.5-14.0); SEGMENTED NEUTROPHILS % (AUTO) 48.4 % (42-78); TOTAL CELLS COUNTED % (AUTO) 100 %; WHITE BLOOD COUNT 4.6 10^3/uL (4.0-10.5)
[2018-01-30 05:47] LABS: ALANINE AMINOTRANSFERASE 27 U/L (9-52); ALBUMIN 2.3 g/dL (3.5-5.0); ALKALINE PHOSPHATASE 43 U/L (38-126); ANION GAP 8 (5-19); ASPARTATE AMINO TRANSFERASE 36 U/L (14-36); BILIRUBIN,DIRECT 0.5 mg/dL (0.0-0.4); BILIRUBIN,TOTAL 0.6 mg/dL (0.2-1.3); BLOOD UREA NITROGEN 5 mg/dL (7-20); CALCIUM 7.9 mg/dL (8.4-10.2); CARBON DIOXIDE 25 mmol/L (22-30); CHLORIDE 105 mmol/L (98-107); GLUCOSE 58 mg/dL (75-110); POTASSIUM 3.6 mmol/L (3.6-5.0); SODIUM 137.7 mmol/L (137-145); TOTAL PROTEIN 5.2 g/dL (6.3-8.2)
[2018-01-30] MEDS: CEFEPIME 2 GM/D5W RTU 2 GM/50 ML RTUPB IV SCH ×2 (10:27→23:00)
[2018-01-30] MEDS: ONDANSETRON HCL INJ/PF 4 MG/2 ML SDV IV PRN ×2 (10:27→21:24)
[2018-01-30] MEDS: CYCLOSPORINE 0.05% OPH EMULSIO 0.4 ML DROPERETTE OU SCH ×2 (10:31→18:37)
--- NOTE | 2018-01-30 11:27 | PDOC PROGRESS REPORT ---
Subjective Progress Note for:: 01/30/18 Subjective:: Continues occasional cough otherwise without complaints Reason For Visit: PNEUMONIA Physical Exam Vital Signs: Temp Pulse Resp BP Pulse Ox 98.9 F 93 18 122/62 94 01/30/18 07:42 01/30/18 07:42 01/30/18 07:42 01/30/18 07:42 01/30/18 07:42 Intake & Output 01/29/18 01/30/18 01/31/18 06:59 06:59 06:59 Intake Total 3121 1725 Output Total 140 200 Balance 2981 1525 Weight 52.2 kg 50.8 kg General appearance: PRESENT: no acute distress, cooperative, disheveled Head exam: PRESENT: atraumatic, normocephalic Eye exam: PRESENT: conjunctiva pale, EOMI, PERRLA. ABSENT: nystagmus, periorbital swelling, scleral icterus Mouth exam: PRESENT: dry mucosa, neck supple, tongue midline Neck exam: ABSENT: carotid bruit, JVD, lymphadenopathy, thyromegaly, tracheal deviation, tracheostomy Respiratory exam: PRESENT: decreased breath sounds, prolonged expiratory phas, rales, rhonchi, unlabored. ABSENT: retraction, stridor Cardiovascular exam: PRESENT: RRR, +S1, +S2 Pulses: PRESENT: normal radial pulses GI/Abdominal exam: PRESENT: normal bowel sounds, soft Gentrourinary exam: PRESENT: indwelling catheter Extremities exam: ABSENT: calf tenderness, clubbing Musculoskeletal exam: ABSENT: deformity, dislocation Neurological exam: PRESENT: alert, awake Psychiatric exam: PRESENT: flat affect Skin exam: PRESENT: dry, warm Results Laboratory Results: 01/30/18 04:13 01/30/18 04:13 01/30/18 01/30/18 04:13 04:13 WBC 4.6 RBC 4.09 Hgb 11.5 L Hct 34.3 L MCV 84 MCH 28.1 MCHC 33.5 RDW 14.7 H Plt Count 144 L Seg Neutrophils % 48.4 Lymphocytes % 32.1 Monocytes % 15.2 H Eosinophils % 3.5 Basophils % 0.8 Absolute Neutrophils 2.2 Absolute Lymphocytes 1.5 Absolute Monocytes 0.7 Absolute Eosinophils 0.2 Absolute Basophils 0.0 Sodium 137.7 Potassium 3.6 Chloride 105 Carbon Dioxide 25 Anion Gap 8 BUN 5 L Creatinine 0.51 L Est GFR ( Amer) > 60 Est GFR (Non-Af Amer) > 60 Glucose 58 L Calcium 7.9 L Total Bilirubin 0.6 AST 36 ALT 27 Alkaline Phosphatase 43 Total Protein 5.2 L Albumin 2.3 L Impressions: Abdomen Ultrasound 01/29/18 00:00 IMPRESSION: 1. Gallbladder sludge. No definable stones. 2. Limited study, other findings as above. Chest X-Ray 01/29/18 00:00 IMPRESSION: No acute changes. Chest CT 01/29/18 06:00 IMPRESSION: Small bilateral pleural effusions are identified with associated airspace consolidation most consistent with atelectatic changes although I cannot exclude minimal pneumonic infiltrates. Other findings as noted above Assessment & Plan - Diagnosis (1) Pneumonia Qualifiers: Laterality: unspecified laterality Is this a current diagnosis for this admission?: Yes Plan: no sputum thus far chest phsiotherapy acetyl cystene (2) Chronic pain syndrome Is this a current diagnosis for this admission?: Yes (3) Rheumatoid arthritis Qualifiers: Rheumatoid arthritis location: multiple sites Is this a current diagnosis for this admission?: Yes Plan: prednisone and methortexate recent hospitialization HAP coverage (4) Weakness Is this a current diagnosis for this admission?: Yes
[2018-01-30] MEDS: GUAIFENESIN 600 MG TABLET.SA PO SCH ×2 (11:48→23:00)
[2018-01-30] MEDS: ESCITALOPRAM OXALATE 10 MG TABLET PO SCH (11:49)
[2018-01-30] MEDS: AZITHROMYCIN 500 MG in DEXTROSE 5%-WATER 250 ML IV SCH (11:49)
--- NOTE | 2018-01-30 11:50 | PDOC PROGRESS REPORT ---
Subjective Progress Note for:: 01/30/18 Subjective:: Patient is currently doing fair patient's denied any abdominal pain no nausea no vomiting today Is to remain afebrile Patient ultrasound of the abdomen did not show any acute finding except some gallbladder sludge Reason For Visit: PNEUMONIA Physical Exam Vital Signs: Temp Pulse Resp BP Pulse Ox 98.9 F 93 18 122/62 94 01/30/18 07:42 01/30/18 07:42 01/30/18 07:42 01/30/18 07:42 01/30/18 07:42 Intake & Output 01/29/18 01/30/18 01/31/18 06:59 06:59 06:59 Intake Total 3121 1725 Output Total 140 200 Balance 2981 1525 Weight 52.2 kg 50.8 kg General appearance: PRESENT: no acute distress, well-developed, well-nourished Head exam: PRESENT: atraumatic, normocephalic Eye exam: PRESENT: conjunctiva pink, EOMI, PERRLA. ABSENT: scleral icterus Ear exam: PRESENT: normal external ear exam Mouth exam: PRESENT: moist, tongue midline Neck exam: PRESENT: full ROM. ABSENT: carotid bruit, JVD, lymphadenopathy, thyromegaly Respiratory exam: PRESENT: clear to auscultation lucas Cardiovascular exam: PRESENT: RRR. ABSENT: diastolic murmur, rubs, systolic murmur Pulses: PRESENT: normal dorsalis pedis pul, +2 pedal pulses bilateral Vascular exam: PRESENT: normal capillary refill GI/Abdominal exam: PRESENT: normal bowel sounds, soft. ABSENT: distended, guarding, mass, organolmegaly, rebound, tenderness Rectal exam: PRESENT: deferred Extremities exam: ABSENT: pedal edema Neurological exam: PRESENT: alert, awake, oriented to person, oriented to place , oriented to time, oriented to situation, CN II-XII grossly intact. ABSENT: motor sensory deficit Psychiatric exam: PRESENT: appropriate affect, normal mood. ABSENT: homicidal ideation, suicidal ideation Skin exam: PRESENT: dry, intact, warm. ABSENT: cyanosis, rash Results Laboratory Results: 01/30/18 04:13 01/30/18 04:13 01/30/18 01/30/18 04:13 04:13 WBC 4.6 RBC 4.09 Hgb 11.5 L Hct 34.3 L MCV 84 MCH 28.1 MCHC 33.5 RDW 14.7 H Plt Count 144 L Seg Neutrophils % 48.4 Lymphocytes % 32.1 Monocytes % 15.2 H Eosinophils % 3.5 Basophils % 0.8 Absolute Neutrophils 2.2 Absolute Lymphocytes 1.5 Absolute Monocytes 0.7 Absolute Eosinophils 0.2 Absolute Basophils 0.0 Sodium 137.7 Potassium 3.6 Chloride 105 Carbon Dioxide 25 Anion Gap 8 BUN 5 L Creatinine 0.51 L Est GFR ( Amer) > 60 Est GFR (Non-Af Amer) > 60 Glucose 58 L Calcium 7.9 L Total Bilirubin 0.6 AST 36 ALT 27 Alkaline Phosphatase 43 Total Protein 5.2 L Albumin 2.3 L Impressions: Abdomen Ultrasound 01/29/18 00:00 IMPRESSION: 1. Gallbladder sludge. No definable stones. 2. Limited study, other findings as above. Chest X-Ray 01/29/18 00:00 IMPRESSION: No acute changes. Chest CT 01/29/18 06:00 IMPRESSION: Small bilateral pleural effusions are identified with associated airspace consolidation most consistent with atelectatic changes although I cannot exclude minimal pneumonic infiltrates. Other findings as noted above Assessment & Plan - Diagnosis (1) Pneumonia Qualifiers: Laterality: unspecified laterality Is this a current diagnosis for this admission?: Yes Plan: Continues to IV antibiotic (2) Chronic pain syndrome Is this a current diagnosis for this admission?: Yes Plan: Continues to current pain medication (3) Dehydration Is this a current diagnosis for this admission?: Yes (4) Hyperlipidemia Qualifiers: Is this a current diagnosis for this admission?: Yes (5) Hypotension Qualifiers: Hypotension type: idiopathic hypotension Qualified Code(s): I95.0 - Idiopathic hypotension Is this a current diagnosis for this admission?: Yes Plan: Currently all resolved (6) Rheumatoid arthritis Qualifiers: Rheumatoid arthritis location: multiple sites Is this a current diagnosis for this admission?: Yes Plan: Currently hold the methotrexate due to the infections (7) Pulmonary embolism Qualifiers: Pulmonary embolism type: other Chronicity: unspecified Is this a current diagnosis for this admission?: Yes Plan: Continue Xarelto (8) E. coli urinary tract infection Is this a current diagnosis for this admission?: Yes Plan: Continues to IV antibiotic - Time Time Spent with patient: 15-24 minutes Medications reviewed and adjusted accordingly: Yes Anticipated discharge: Home with Homehealth Within: Other - Inpatient Certification Medical Necessity: Need Close Monitoring Due to Risk of Patient Decompensation, Need For IV Fluids, Need for IV Antibiotics Post Hospital Care: D/C Material Expeditor Documentation - Plan Summary Plan Summary: The patient remains stable and afebrile switch to the p.o. antibiotic
[2018-01-30] MEDS ORDERED: PANTOPRAZOLE SODIUM 40 MG VIAL IV ONE (14:00)
--- NOTE | 2018-01-30 14:15 | PDOC CONSULTATION ---
Consultation Consult Date: 01/30/18 Attending physician:: MAGDALENA LEVIN Consult reason:: nausea and vomiting History of Present Illness Admission Date/PCP: 01/28/18 01:35 MARY LOU OLEA MD History of Present Illness: LILLIE AMIN is a 67 year old female Asked to see this patient by Dr Olea has been admitted for possible pneumonia has had chest CT patient having nausea and vomiting had ultrasound that shows biliary sludge patient states no melena there is a component of early satiety no abdominal pain has rheumatoid arthritis, on MTX Dr Olea has requested EGD to rule out peptic ulcer disease Past Medical History Cardiac Medical History: Reports: Hypertension Pulmonary Medical History: Reports: Pneumonia Denies: Tuberculosis GI Medical History: Reports: Gastroesophageal Reflux Disease Musculoskeltal Medical History: Reports: Arthritis - RA, Other Psychiatric Medical History: Reports: Depression Past Surgical History Past Surgical History: Reports: Appendectomy, Hysterectomy, Orthopedic Surgery - foot surgery Social History Lives with: Family Smoking Status: Never Smoker Frequency of Alcohol Use: None Hx Recreational Drug Use: No Drugs: None Hx Prescription Drug Abuse: No Family History Family History: DM, Hypertension Parental Family History Reviewed: Yes Children Family History Reviewed: Unknown Sibling(s) Family History Reviewed.: Unknown Medication/Allergy Home Medications: Amlodipine Besylate [Norvasc 5 mg Tablet] 5 mg PO DAILY 08/15/17 Benzonatate [Tessalon Perles 100 mg Capsule] 100 mg PO Q8HP PRN 08/15/17 Escitalopram Oxalate [Lexapro 10 mg Tablet] 10 mg PO DAILY 08/15/17 Golimumab [Simponi] 50 mg SQ ASDIR PRN 08/15/17 Lisinopril [Zestril] 40 mg PO DAILY 08/15/17 Methotrexate Sodium/Pf [Methotrexate 25 mg/ml Vial] 25 mg INJ WE@1000 08/15/17 Potassium Chloride [Klor-Con M20] 40 meq PO DAILY 08/15/17 Azithromycin [Zithromax 250 mg Tablet] 250 mg PO DAILY MDD FILLED 01/26 TOOK 1ST DOSE 01/28/18 Cephalexin [Cephalexin 250 MG Tablet] 250 mg PO DAILY 01/28/18 Cyclosporine 0.05% Oph Emulsio [Restasis 0.05% Opthalmic Droperette] 1 drop OU BID 01/28/18 Diclofenac Sodium [Voltaren] 4 gm TP TID 01/28/18 Levocetirizine Dihydrochloride [Xyzal] 5 mg PO QPM 01/28/18 Oxycodone HCl/Acetaminophen [Oxycodon-Acetaminophen 7.5-325] 1 each PO Q8HP PRN 01/28/18 Pantoprazole Sodium [Protonix] 40 mg PO DAILY 01/28/18 Rivaroxaban [Xarelto 10 mg Tablet] 20 mg PO DAILY 01/28/18 Allergies/Adverse Reactions: No Known Allergies Allergy (Verified 09/07/17 14:19) Review of Systems Constitutional: ABSENT: fever(s), headache(s), night sweats, weakness Eyes: ABSENT: visual disturbances Ears: ABSENT: hearing changes Nose, Mouth, and Throat: ABSENT: mouth pain, sore throat Cardiovascular: ABSENT: edema, orthropnea Gastrointestinal: ABSENT: diarrhea, heartburn, hematochezia, melena Genitourinary: ABSENT: dysuria, hematuria Neurological: ABSENT: syncope, tingling, vertigo Endocrine: ABSENT: polydipsia, polyphagia, polyuria Hematologic/Lymphatic: ABSENT: easy bruising Physical Exam Vital Signs: Temp Pulse Resp BP Pulse Ox 98.9 F 93 18 122/62 94 01/30/18 07:42 01/30/18 07:42 01/30/18 07:42 01/30/18 07:42 01/30/18 07:42 Intake & Output 01/29/18 01/30/18 01/31/18 06:59 06:59 06:59 Intake Total 3121 1725 237 Output Total 140 200 Balance 2981 1525 237 Weight 52.2 kg 50.8 kg General appearance: PRESENT: mild distress, thin, well-nourished Head exam: PRESENT: atraumatic, normocephalic Eye exam: PRESENT: EOMI, PERRLA. ABSENT: nystagmus, periorbital swelling, scleral icterus Mouth exam: PRESENT: moist, neck supple Throat exam: ABSENT: tonsillar exudate, tonsillogmegaly Neck exam: ABSENT: meningismus, tenderness, thyromegaly Respiratory exam: PRESENT: symmetrical, unlabored. ABSENT: tachypnea, wheezes Cardiovascular exam: PRESENT: RRR, +S1, +S2 GI/Abdominal exam: PRESENT: soft. ABSENT: rebound, rigid, tenderness Extremities exam: ABSENT: joint swelling Musculoskeletal exam: PRESENT: full ROM Neurological exam: PRESENT: alert, awake, oriented to time, oriented to situation, CN II-XII grossly intact Focused psych exam: ABSENT: restlessness Skin exam: PRESENT: normal color. ABSENT: mottled, pallor, urticaria, vesicles Results Laboratory Results: 01/30/18 04:13 01/30/18 04:13 01/30/18 01/30/18 04:13 04:13 WBC 4.6 RBC 4.09 Hgb 11.5 L Hct 34.3 L MCV 84 MCH 28.1 MCHC 33.5 RDW 14.7 H Plt Count 144 L Seg Neutrophils % 48.4 Lymphocytes % 32.1 Monocytes % 15.2 H Eosinophils % 3.5 Basophils % 0.8 Absolute Neutrophils 2.2 Absolute Lymphocytes 1.5 Absolute Monocytes 0.7 Absolute Eosinophils 0.2 Absolute Basophils 0.0 Sodium 137.7 Potassium 3.6 Chloride 105 Carbon Dioxide 25 Anion Gap 8 BUN 5 L Creatinine 0.51 L Est GFR ( Amer) > 60 Est GFR (Non-Af Amer) > 60 Glucose 58 L Calcium 7.9 L Total Bilirubin 0.6 AST 36 ALT 27 Alkaline Phosphatase 43 Total Protein 5.2 L Albumin 2.3 L Impressions: Abdomen Ultrasound 01/29/18 00:00 IMPRESSION: 1. Gallbladder sludge. No definable stones. 2. Limited study, other findings as above. Chest X-Ray 01/29/18 00:00 IMPRESSION: No acute changes. Chest CT 01/29/18 06:00 IMPRESSION: Small bilateral pleural effusions are identified with associated airspace consolidation most consistent with atelectatic changes although I cannot exclude minimal pneumonic infiltrates. Other findings as noted above Assessment & Plan - Diagnosis (1) Nausea and vomiting Plan: ? possible peptic ulcer disease could be due to medication will need EGD\ Risks, benefits and alternatives are discussed with the patient she is willing to proceed further recommendations to follow - Time Time Spent: 50 to 70 Minutes
[2018-01-30] MEDS: OXYCODONE HCL IR 5 MG TABLET PO PRN (16:35)
[2018-01-30] MEDS: OXYCODONE-ACETAMINOPHEN 5-325 MG TABLET PO PRN (16:35)
[2018-01-30] MEDS: RIVAROXABAN 10 MG TABLET PO SCH (16:35)
[2018-01-30] MEDS: CETIRIZINE 5 MG TABLET PO SCH (18:37)
[2018-01-30] MEDS: PANTOPRAZOLE SODIUM 40 MG VIAL IV SCH (23:00)
[2018-01-31] MEDS: NORMAL SALINE 1000 ML 1,000 ML IV PRN ×2 (03:49→13:59)
[2018-01-31] MEDS: OXYCODONE HCL IR 5 MG TABLET PO PRN (03:58)
[2018-01-31] MEDS: OXYCODONE-ACETAMINOPHEN 5-325 MG TABLET PO PRN (03:59)
[2018-01-31 05:00] LABS: ABSOLUTE EOSINOPHILS # (AUTO) 0.2 10^3/uL (0.0-0.6); ABSOLUTE LYMPHOCYTES (AUTO) 1.2 10^3/uL (0.5-4.7); ABSOLUTE MONOCYTES (AUTO) 0.6 10^3/uL (0.1-1.4); ABSOLUTE NEUT (AUTO) 1.8 10^3/uL (1.7-8.2); BASOPHILS % (AUTO) 1.1 % (0-2); EOSINOPHILS % (AUTO) 4.3 % (0-6); HEMATOCRIT 33.6 % (36.0-47.0); HEMOGLOBIN 11.4 g/dL (12.0-15.5); LYMPHOCYTES % (AUTO) 32.7 % (13-45); MEAN CORPUSCULAR HEMOGLOBIN 27.9 pg (27.0-33.4); MEAN CORPUSCULAR HGB CONC 33.8 g/dL (32.0-36.0); MEAN CORPUSCULAR VOLUME 83 fl (80-97); MONOCYTES % (AUTO) 15.4 % (3-13); PLATELET COUNT 148 10^3/uL (150-450); RED BLOOD COUNT 4.07 10^6/uL (3.72-5.28); RED CELL DISTRIBUTION WIDTH 14.7 % (11.5-14.0); SEGMENTED NEUTROPHILS % (AUTO) 46.5 % (42-78); TOTAL CELLS COUNTED % (AUTO) 100 %; WHITE BLOOD COUNT 3.8 10^3/uL (4.0-10.5)
[2018-01-31] MEDS: LANSOPRAZOLE 30 MG TAB.RAP.DR PO SCH (05:08)
[2018-01-31 05:24] LABS: ALANINE AMINOTRANSFERASE 36 U/L (9-52); ALBUMIN 2.3 g/dL (3.5-5.0); ALKALINE PHOSPHATASE 45 U/L (38-126); ANION GAP 7 (5-19); ASPARTATE AMINO TRANSFERASE 77 U/L (14-36); BILIRUBIN,DIRECT 0.5 mg/dL (0.0-0.4); BILIRUBIN,TOTAL 0.6 mg/dL (0.2-1.3); BLOOD UREA NITROGEN 3 mg/dL (7-20); CALCIUM 7.9 mg/dL (8.4-10.2); CARBON DIOXIDE 23 mmol/L (22-30); CHLORIDE 106 mmol/L (98-107); GLUCOSE 53 mg/dL (75-110); SODIUM 136.2 mmol/L (137-145); TOTAL PROTEIN 5.2 g/dL (6.3-8.2)
[2018-01-31 05:27] LABS: POTASSIUM 2.9 mmol/L (3.6-5.0)
[2018-01-31] MEDS ORDERED: POTASSI CL 20 MEQ/50 ML RIDER 20 MEQ/50 ML RTUPB IV ONE (05:53)
[2018-01-31] MEDS: POTASSIUM CHLORIDE 20 MEQ/50 ML RTU IV SCH ×2 (06:25→08:49)
[2018-01-31] MEDS ORDERED: CEFUROXIME 500 MG TABLET PO SCH (10:00)
[2018-01-31] MEDS ORDERED: DIPHENHYDRAMINE HCL 50 MG/ML VIAL ONE (10:00)
[2018-01-31] MEDS ORDERED: AZITHROMYCIN 250 MG TABLET PO SCH (10:00)
[2018-01-31] MEDS ORDERED: EPINEPHRINE INJ 1 MG/10 ML DISP.SYRIN ONE (10:01)
[2018-01-31] MEDS ORDERED: NALOXONE HCL INJ/PF 0.4 MG/1 ML SDV ONE (10:01)
[2018-01-31] MEDS ORDERED: FLUMAZENIL INJ 0.5 MG/5 ML VIAL ONE (10:01)
[2018-01-31] MEDS ORDERED: FENTANYL CITRATE INJ/PF 100 MCG/2 ML AMPUL ONE (10:01)
[2018-01-31] MEDS ORDERED: MIDAZOLAM 2 MG/2 ML INJ ONE (10:01)
[2018-01-31] MEDS ORDERED: GLUCAGON,HUMAN RECOMB 1 MG INJ ONE (10:02)
--- NOTE | 2018-01-31 10:42 | PDOC PROGRESS REPORT ---
Subjective Progress Note for:: 01/31/18 Subjective:: Patient is currently doing fair Patient's denied any chest pain denied any shortness of the breath She is denied any abdominal pain no nausea no vomiting this morning This is scheduled for the endoscopy today Reason For Visit: PNEUMONIA Physical Exam Vital Signs: Temp Pulse Resp BP Pulse Ox 98.3 F 89 10 L 116/67 97 01/31/18 09:59 01/31/18 10:25 01/31/18 10:25 01/31/18 10:25 01/31/18 10:25 Intake & Output 01/30/18 01/31/18 02/01/18 06:59 06:59 06:59 Intake Total 1725 2537 Output Total 200 Balance 1525 2537 Weight 50.8 kg 50.8 kg General appearance: PRESENT: no acute distress, well-developed, well-nourished Head exam: PRESENT: atraumatic, normocephalic Eye exam: PRESENT: conjunctiva pink, EOMI, PERRLA. ABSENT: scleral icterus Ear exam: PRESENT: normal external ear exam Mouth exam: PRESENT: moist, tongue midline Neck exam: PRESENT: full ROM. ABSENT: carotid bruit, JVD, lymphadenopathy, thyromegaly Respiratory exam: PRESENT: clear to auscultation lucas Cardiovascular exam: PRESENT: RRR. ABSENT: diastolic murmur, rubs, systolic murmur Pulses: PRESENT: normal dorsalis pedis pul, +2 pedal pulses bilateral Vascular exam: PRESENT: normal capillary refill GI/Abdominal exam: PRESENT: normal bowel sounds, soft. ABSENT: distended, guarding, mass, organolmegaly, rebound, tenderness Rectal exam: PRESENT: deferred Extremities exam: ABSENT: pedal edema Neurological exam: PRESENT: alert, awake, oriented to person, oriented to place , oriented to time, oriented to situation, CN II-XII grossly intact. ABSENT: motor sensory deficit Psychiatric exam: PRESENT: appropriate affect, normal mood. ABSENT: homicidal ideation, suicidal ideation Skin exam: PRESENT: dry, intact, warm. ABSENT: cyanosis, rash Results Laboratory Results: 01/31/18 04:36 01/31/18 04:36 01/31/18 01/31/18 04:36 04:36 WBC 3.8 L RBC 4.07 Hgb 11.4 L Hct 33.6 L MCV 83 MCH 27.9 MCHC 33.8 RDW 14.7 H Plt Count 148 L Seg Neutrophils % 46.5 Lymphocytes % 32.7 Monocytes % 15.4 H Eosinophils % 4.3 Basophils % 1.1 Absolute Neutrophils 1.8 Absolute Lymphocytes 1.2 Absolute Monocytes 0.6 Absolute Eosinophils 0.2 Absolute Basophils 0.0 Sodium 136.2 L Potassium 2.9 L* Chloride 106 Carbon Dioxide 23 Anion Gap 7 BUN 3 L Creatinine 0.47 L Est GFR ( Amer) > 60 Est GFR (Non-Af Amer) > 60 Glucose 53 L Calcium 7.9 L Total Bilirubin 0.6 AST 77 H ALT 36 Alkaline Phosphatase 45 Total Protein 5.2 L Albumin 2.3 L Impressions: Abdomen Ultrasound 01/29/18 00:00 IMPRESSION: 1. Gallbladder sludge. No definable stones. 2. Limited study, other findings as above. Chest X-Ray 01/29/18 00:00 IMPRESSION: No acute changes. Chest CT 01/29/18 06:00 IMPRESSION: Small bilateral pleural effusions are identified with associated airspace consolidation most consistent with atelectatic changes although I cannot exclude minimal pneumonic infiltrates. Other findings as noted above Assessment & Plan - Diagnosis (1) Pneumonia Qualifiers: Laterality: unspecified laterality Is this a current diagnosis for this admission?: Yes Plan: Will switch to the IV to the p.o. antibiotic (2) Chronic pain syndrome Is this a current diagnosis for this admission?: Yes Plan: Continues to current pain medication (3) Dehydration Is this a current diagnosis for this admission?: Yes Plan: Currently resolving (4) Hyperlipidemia Qualifiers: Is this a current diagnosis for this admission?: Yes (5) Hypotension Qualifiers: Hypotension type: idiopathic hypotension Qualified Code(s): I95.0 - Idiopathic hypotension Is this a current diagnosis for this admission?: Yes Plan: Currently all resolved (6) Rheumatoid arthritis Qualifiers: Rheumatoid arthritis location: multiple sites Is this a current diagnosis for this admission?: Yes Plan: Currently hold the methotrexate due to the infections (7) Pulmonary embolism Qualifiers: Pulmonary embolism type: other Chronicity: unspecified Is this a current diagnosis for this admission?: Yes Plan: Continue Xarelto (8) E. coli urinary tract infection Is this a current diagnosis for this admission?: Yes Plan: Switch to the p.o. antibiotic (9) Nausea and vomiting Qualifiers: Vomiting type: unspecified Is this a current diagnosis for this admission?: Yes Plan: Continues to PPI and scheduled for endoscopy today - Time Time Spent with patient: 15-24 minutes Medications reviewed and adjusted accordingly: Yes Anticipated discharge: Home Within: within 24 hours - Inpatient Certification Medical Necessity: Need Close Monitoring Due to Risk of Patient Decompensation Post Hospital Care: D/C Side Splitter Documentation - Plan Summary Plan Summary: Will wait for the endoscopy switch to the p.o. antibiotic and the patient's remain afebrile and symptom is resolved hopefully discharge tomorrow
--- NOTE | 2018-01-31 10:46 | Operative Report ---
Operative Report DATE OF SURGERY: 01/31/18 Operative Report: The risks benefits and alternatives of the procedure explained to the patient in detail and informed consent is obtained.A GIF Olympus video scope was inserted into the patient's mouth and hypopharynx, the esophagus is identified intubated and insufflated, the scope was then advanced through the esophagus stomach and duodenum, retroflexion maneuver is done, the esophagus stomach and first and second portions of the duodenum examined PREOPERATIVE DIAGNOSIS: Nausea vomiting POSTOPERATIVE DIAGNOSIS: Schatzki's ring status post biopsy to break. Gastritis status post biopsy. Hiatal hernia. Duodenitis OPERATION: EGD with biopsy SURGEON: MAGDALENA LEVIN ANESTHESIA: Moderate Sedation - 2 mg of Versed. Conscious sedation monitoring time 30 minutes. TISSUE REMOVED OR ALTERED: As noted above. COMPLICATIONS: None. ESTIMATED BLOOD LOSS: None. INTRAOPERATIVE FINDINGS: As noted above. PROCEDURE: Patient tolerated the procedure well. No immediate postprocedure complications are noted. Patient sent back to her room in good condition. Resume preprocedure activity and diet. Resume all medications. We will await biopsies.
--- NOTE | 2018-01-31 11:24 | PDOC PROGRESS REPORT ---
Subjective Progress Note for:: 01/31/18 Subjective:: Continues occasional cough otherwise without complaints Reason For Visit: PNEUMONIA Physical Exam Vital Signs: Temp Pulse Resp BP Pulse Ox 98.3 F 96 13 105/54 L 93 01/31/18 09:59 01/31/18 11:05 01/31/18 11:05 01/31/18 11:05 01/31/18 11:05 Intake & Output 01/30/18 01/31/18 02/01/18 06:59 06:59 06:59 Intake Total 1725 2537 150 Output Total 200 Balance 1525 2537 150 Weight 50.8 kg 50.8 kg General appearance: PRESENT: no acute distress, cooperative, disheveled Head exam: PRESENT: atraumatic, normocephalic Eye exam: PRESENT: conjunctiva pale, EOMI, PERRLA. ABSENT: nystagmus, periorbital swelling, scleral icterus Mouth exam: PRESENT: dry mucosa, neck supple, tongue midline Neck exam: ABSENT: carotid bruit, JVD, lymphadenopathy, thyromegaly, tracheal deviation, tracheostomy Respiratory exam: PRESENT: decreased breath sounds, prolonged expiratory phas, rales, rhonchi, unlabored. ABSENT: retraction, stridor Cardiovascular exam: PRESENT: RRR, +S1, +S2 Pulses: PRESENT: normal radial pulses GI/Abdominal exam: PRESENT: normal bowel sounds, soft Extremities exam: ABSENT: calf tenderness, clubbing, full ROM Musculoskeletal exam: ABSENT: ambulatory, deformity, dislocation, full ROM Neurological exam: PRESENT: alert, awake Psychiatric exam: PRESENT: normal mood Skin exam: PRESENT: dry, warm Results Laboratory Results: 01/31/18 04:36 01/31/18 04:36 01/31/18 01/31/18 04:36 04:36 WBC 3.8 L RBC 4.07 Hgb 11.4 L Hct 33.6 L MCV 83 MCH 27.9 MCHC 33.8 RDW 14.7 H Plt Count 148 L Seg Neutrophils % 46.5 Lymphocytes % 32.7 Monocytes % 15.4 H Eosinophils % 4.3 Basophils % 1.1 Absolute Neutrophils 1.8 Absolute Lymphocytes 1.2 Absolute Monocytes 0.6 Absolute Eosinophils 0.2 Absolute Basophils 0.0 Sodium 136.2 L Potassium 2.9 L* Chloride 106 Carbon Dioxide 23 Anion Gap 7 BUN 3 L Creatinine 0.47 L Est GFR ( Amer) > 60 Est GFR (Non-Af Amer) > 60 Glucose 53 L Calcium 7.9 L Total Bilirubin 0.6 AST 77 H ALT 36 Alkaline Phosphatase 45 Total Protein 5.2 L Albumin 2.3 L Impressions: Abdomen Ultrasound 01/29/18 00:00 IMPRESSION: 1. Gallbladder sludge. No definable stones. 2. Limited study, other findings as above. Chest X-Ray 01/29/18 00:00 IMPRESSION: No acute changes. Chest CT 01/29/18 06:00 IMPRESSION: Small bilateral pleural effusions are identified with associated airspace consolidation most consistent with atelectatic changes although I cannot exclude minimal pneumonic infiltrates. Other findings as noted above Assessment & Plan - Diagnosis (1) Pneumonia Qualifiers: Laterality: unspecified laterality Is this a current diagnosis for this admission?: Yes Plan: no sputum thus far chest phsiotherapy acetyl cystene (2) Chronic pain syndrome Is this a current diagnosis for this admission?: Yes (3) Rheumatoid arthritis Qualifiers: Rheumatoid arthritis location: multiple sites Is this a current diagnosis for this admission?: Yes Plan: prednisone and methortexate recent hospitialization HAP coverage (4) Weakness Is this a current diagnosis for this admission?: Yes
[2018-01-31] MEDS: POTASSIUM CHLORIDE 10 MEQ TABLET.SA PO SCH (14:00)
[2018-01-31] MEDS: PANTOPRAZOLE SODIUM 40 MG VIAL IV SCH ×2 (14:01→22:04)
[2018-01-31] MEDS: ESCITALOPRAM OXALATE 10 MG TABLET PO SCH (14:01)
[2018-01-31] MEDS: GUAIFENESIN 600 MG TABLET.SA PO SCH ×2 (14:01→22:04)
[2018-01-31] MEDS: CEFUROXIME 500 MG TABLET PO SCH ×2 (14:06→22:04)
[2018-01-31] MEDS: CYCLOSPORINE 0.05% OPH EMULSIO 0.4 ML DROPERETTE OU SCH ×2 (14:07→17:53)
[2018-01-31] MEDS: CETIRIZINE 5 MG TABLET PO SCH (17:53)
[2018-01-31] MEDS: RIVAROXABAN 10 MG TABLET PO SCH (17:53)
[2018-02-01] MEDS: ONDANSETRON HCL INJ/PF 4 MG/2 ML SDV IV PRN (01:57)
[2018-02-01] MEDS ORDERED: DILTIAZEM HCL 30 MG TABLET ONE (02:41)
[2018-02-01 03:02] LABS: ANION GAP 10 (5-19); BLOOD UREA NITROGEN 2 mg/dL (7-20); CALCIUM 8.1 mg/dL (8.4-10.2); CARBON DIOXIDE 22 mmol/L (22-30); CHLORIDE 105 mmol/L (98-107); GLUCOSE 50 mg/dL (75-110); POTASSIUM 3.1 mmol/L (3.6-5.0); SODIUM 136.9 mmol/L (137-145)
[2018-02-01] MEDS ORDERED: DILTIAZEM HCL 30 MG TABLET PO ONE (03:15)
[2018-02-01 07:00] LABS: ABSOLUTE BASOPHILS # (AUTO) 0.1 10^3/uL (0.0-0.2); ABSOLUTE EOSINOPHILS # (AUTO) 0.2 10^3/uL (0.0-0.6); ABSOLUTE LYMPHOCYTES (AUTO) 1.3 10^3/uL (0.5-4.7); ABSOLUTE MONOCYTES (AUTO) 0.8 10^3/uL (0.1-1.4); ABSOLUTE NEUT (AUTO) 2.8 10^3/uL (1.7-8.2); EOSINOPHILS % (AUTO) 3.8 % (0-6); HEMATOCRIT 36.2 % (36.0-47.0); HEMOGLOBIN 12.4 g/dL (12.0-15.5); LYMPHOCYTES % (AUTO) 25.3 % (13-45); MEAN CORPUSCULAR HEMOGLOBIN 28.2 pg (27.0-33.4); MEAN CORPUSCULAR HGB CONC 34.3 g/dL (32.0-36.0); MEAN CORPUSCULAR VOLUME 82 fl (80-97); MONOCYTES % (AUTO) 16.1 % (3-13); PLATELET COUNT 184 10^3/uL (150-450); RED CELL DISTRIBUTION WIDTH 14.5 % (11.5-14.0); SEGMENTED NEUTROPHILS % (AUTO) 53.8 % (42-78); TOTAL CELLS COUNTED % (AUTO) 100 %; WHITE BLOOD COUNT 5.2 10^3/uL (4.0-10.5)
[2018-02-01 07:14] LABS: ANION GAP 11 (5-19); CALCIUM 8.1 mg/dL (8.4-10.2); CARBON DIOXIDE 22 mmol/L (22-30); CHLORIDE 101 mmol/L (98-107); GLUCOSE 43 mg/dL (75-110); SODIUM 133.5 mmol/L (137-145)
[2018-02-01 07:19] LABS: BLOOD UREA NITROGEN < 2 mg/dL (7-20)
--- NOTE | 2018-02-01 07:44 | EKG REPORT ---
SEVERITY:- ABNORMAL ECG - SINUS RHYTHM BORDERLINE T ABNORMALITIES, INFERIOR LEADS PROLONGED QT INTERVAL : Confirmed by: Sidney Thomas MD 01-Feb-2018 07:44:03
--- NOTE | 2018-02-01 07:44 | EKG REPORT ---
SEVERITY:- ABNORMAL ECG - SINUS TACHYCARDIA PROBABLE LEFT ATRIAL ABNORMALITY NONSPECIFIC T ABNORMALITIES, INFERIOR LEADS : Confirmed by: Sidney Thomas MD 01-Feb-2018 07:43:53
--- NOTE | 2018-02-01 08:35 | PDOC PROGRESS REPORT ---
Subjective Progress Note for:: 02/01/18 Subjective:: Patient's currently doing same Patient had endoscopy done yesterday was all stable Patient had heart rate is 130-150 range overnight and patient's potassium and magnesium was low currently replacing Since denied any chest pain denied any shortness of the breath denied any abdominal pain But I noticed the patient's speech is slurred compared to the before Patients move all extremities except patient having difficulty to move the right lower extremity but patient over the contracture on that extremities Discussed with the daughter patient's unable to move at home usually patient is required to lift and put in a wheelchair this the baseline of the patient'sTo the severe rheumatoid arthritis Reason For Visit: PNEUMONIA Physical Exam Vital Signs: Temp Pulse Resp BP Pulse Ox 98.3 F 108 H 16 134/65 H 100 01/31/18 15:31 02/01/18 07:00 01/31/18 15:31 01/31/18 15:31 01/31/18 15:31 Intake & Output 01/31/18 02/01/18 02/02/18 06:59 06:59 06:59 Intake Total 2537 2410 Balance 2537 2410 Weight 50.8 kg 49.9 kg General appearance: PRESENT: no acute distress, well-developed, well-nourished Head exam: PRESENT: atraumatic, normocephalic Eye exam: PRESENT: conjunctiva pink, EOMI, PERRLA. ABSENT: scleral icterus Ear exam: PRESENT: normal external ear exam Mouth exam: PRESENT: moist, tongue midline Neck exam: PRESENT: full ROM. ABSENT: carotid bruit, JVD, lymphadenopathy, thyromegaly Respiratory exam: PRESENT: clear to auscultation lucas Cardiovascular exam: PRESENT: RRR. ABSENT: diastolic murmur, rubs, systolic murmur Pulses: PRESENT: normal dorsalis pedis pul, +2 pedal pulses bilateral Vascular exam: PRESENT: normal capillary refill GI/Abdominal exam: PRESENT: normal bowel sounds, soft. ABSENT: distended, guarding, mass, organolmegaly, rebound, tenderness Rectal exam: PRESENT: deferred Extremities exam: ABSENT: pedal edema Additional comments: contracture in the lower extremity significant deformity in the both upper and lower extremity Neurological exam: PRESENT: alert, awake, oriented to person, oriented to place , oriented to time, oriented to situation. ABSENT: motor sensory deficit Additional comments: Except slurred speech Psychiatric exam: PRESENT: appropriate affect, normal mood. ABSENT: homicidal ideation, suicidal ideation Skin exam: PRESENT: dry, intact, warm. ABSENT: cyanosis, rash Results Laboratory Results: 02/01/18 06:10 02/01/18 06:10 02/01/18 02/01/18 02/01/18 02:37 06:10 06:10 WBC 5.2 RBC 4.40 Hgb 12.4 Hct 36.2 MCV 82 MCH 28.2 MCHC 34.3 RDW 14.5 H Plt Count 184 Seg Neutrophils % 53.8 Lymphocytes % 25.3 Monocytes % 16.1 H Eosinophils % 3.8 Basophils % 1.0 Absolute Neutrophils 2.8 Absolute Lymphocytes 1.3 Absolute Monocytes 0.8 Absolute Eosinophils 0.2 Absolute Basophils 0.1 Sodium 136.9 L 133.5 L Potassium 3.1 L 3.0 L* Chloride 105 101 Carbon Dioxide 22 22 Anion Gap 10 11 BUN 2 L < 2 L Creatinine 0.44 L 0.41 L Est GFR ( Amer) > 60 > 60 Est GFR (Non-Af Amer) > 60 > 60 Glucose 50 L 43 L Calcium 8.1 L 8.1 L Magnesium 1.4 L Impressions: Abdomen Ultrasound 01/29/18 00:00 IMPRESSION: 1. Gallbladder sludge. No definable stones. 2. Limited study, other findings as above. Chest X-Ray 01/29/18 00:00 IMPRESSION: No acute changes. Chest CT 01/29/18 06:00 IMPRESSION: Small bilateral pleural effusions are identified with associated airspace consolidation most consistent with atelectatic changes although I cannot exclude minimal pneumonic infiltrates. Other findings as noted above Assessment & Plan - Diagnosis (1) Pneumonia Qualifiers: Laterality: unspecified laterality Is this a current diagnosis for this admission?: Yes Plan: Continues to Ceftin patient's currently remain afebrile (2) Chronic pain syndrome Is this a current diagnosis for this admission?: Yes Plan: Continues to current pain medication (3) Dehydration Is this a current diagnosis for this admission?: Yes Plan: Currently resolved (4) Hyperlipidemia Qualifiers: Is this a current diagnosis for this admission?: Yes (5) Hypotension Qualifiers: Hypotension type: idiopathic hypotension Qualified Code(s): I95.0 - Idiopathic hypotension Is this a current diagnosis for this admission?: Yes Plan: Currently resolved (6) Rheumatoid arthritis Qualifiers: Rheumatoid arthritis location: multiple sites Is this a current diagnosis for this admission?: Yes Plan: History of a severe rheumatoid arthritis currently hold the methotrexate and Simponi (7) Pulmonary embolism Qualifiers: Pulmonary embolism type: other Chronicity: unspecified Is this a current diagnosis for this admission?: Yes Plan: Currently on the Xarelto (8) E. coli urinary tract infection Is this a current diagnosis for this admission?: Yes Plan: Continues to Ceftin (9) Nausea and vomiting Qualifiers: Vomiting type: unspecified Is this a current diagnosis for this admission?: Yes Plan: Continues to PPI (10) Weakness Is this a current diagnosis for this admission?: Yes Plan: Patient's weakness most likely due to the underlying severe rheumatoid arthritis which patient's baseline is not moving but the slurred speech will get the CT of the head to rule out the neurological evaluations (11) Tachycardia Is this a current diagnosis for this admission?: Yes Plan: Most likely from the electrolytes imbalance we will also consult the cardiology for further evaluations (12) Electrolyte imbalance Is this a current diagnosis for this admission?: Yes Plan: We will check the cortisol level if is low consider putting the hydrocortisone due to the chronic steroid patient usually taking 5 mg steroid at home - Time Time Spent with patient: 15-24 minutes Medications reviewed and adjusted accordingly: Yes Anticipated discharge: Other Within: Other - Inpatient Certification Medical Necessity: Need Close Monitoring Due to Risk of Patient Decompensation, Need For IV Fluids Post Hospital Care: D/C Mental Retardation Nurse Documentation - Plan Summary Plan Summary: Very extensive discussions with the patient's daughter Eden regarding the patient's current conditions with overall prognosis is not good with ongoing problems with severe rheumatoid arthritis with a severe contracture We consulted cardiology at the CT of the head Since not able to do the physical therapy much because of the severe contracture Patient see the rheumatology at the [facility]
[2018-02-01] MEDS ORDERED: POTASSIUM CHLORIDE 10 MEQ TABLET.SA PO ONE ×2 (09:00→14:00)
--- NOTE | 2018-02-01 09:56 | RADIOLOGY REPORT (SQ) ---
EXAM DESCRIPTION: CT HEAD WITHOUT COMPLETED DATE/TIME: 02/01/2018 9:46 am REASON FOR STUDY: weakness COMPARISON: MRI brain 02/10/2017 CT brain 02/10/2017, 03/04/2008 TECHNIQUE: Axial images acquired through the brain without intravenous contrast. Images reviewed wi th bone, brain and subdural windows. Additional sagittal and coronal reconstructions were generated. Images stored on PACS. All CT scanners at this facility use dose modulation, iterative reconstruction, and/or weight based d osing when appropriate to reduce radiation dose to as low as reasonably achievable (ALARA). [facility]: Dose Right [facility]: CareDose [facility]: Dose Right [facility]: Teradose 4D [facility]: [employer] RADIATION DOSE: CT Rad equipment meets quality standard of care and radiation dose reduction techniq ues were employed. CTDIvol: 48.6 mGy. DLP: 929 mGy-cm. mGy. LIMITATIONS: None. FINDINGS: VENTRICLES: Normal size and contour. CEREBRUM: No masses. No hemorrhage. No midline shift. No evidence for acute infarction. Few scatte red areas of low density in the white matter most likely chronic small vessel ischemic changes. CEREBELLUM: No masses. No hemorrhage. No alteration of density. No evidence for acute infarction. EXTRAAXIAL SPACES: No fluid collections. No masses. ORBITS AND GLOBE: No intra- or extraconal masses. Normal contour of globe without masses. CALVARIUM: No fracture. PARANASAL SINUSES: No fluid or mucosal thickening. SOFT TISSUES: No mass or hematoma. OTHER: No other significant finding. IMPRESSION: No acute findings. Minimal stable small vessel ischemic change in the hemispheric white matter. EVIDENCE OF ACUTE STROKE: NO. COMMENT: Quality ID # [id number]: Final reports with documentation of one or more dose reduction techniques (e.g., Automated exposure control, adjustment of the mA and/or kV according to patient size, use of iterative reconstruction technique) TECHNICAL DOCUMENTATION: JOB ID: [id number] [employer]- All Rights Reserved Reading location - IP/workstation name: [email or web address]
[2018-02-01] MEDS: POTASSIUM CHLORIDE 10 MEQ TABLET.SA PO SCH (10:06)
[2018-02-01] MEDS: GUAIFENESIN 600 MG TABLET.SA PO SCH ×2 (10:06→21:38)
[2018-02-01] MEDS: ESCITALOPRAM OXALATE 10 MG TABLET PO SCH (10:06)
[2018-02-01] MEDS: POTASSI CL 20 MEQ/50 ML RIDER 20 MEQ/50 ML RTUPB IV SCH ×2 (10:06→16:23)
[2018-02-01] MEDS: CEFUROXIME 500 MG TABLET PO SCH ×2 (10:06→21:42)
[2018-02-01] MEDS: PANTOPRAZOLE SODIUM 40 MG VIAL IV SCH ×2 (10:07→21:37)
[2018-02-01] MEDS: CYCLOSPORINE 0.05% OPH EMULSIO 0.4 ML DROPERETTE OU SCH ×2 (10:07→17:56)
[2018-02-01 12:16] LABS: ANION GAP 13 (5-19); BLOOD UREA NITROGEN 2 mg/dL (7-20); CALCIUM 8.2 mg/dL (8.4-10.2); CARBON DIOXIDE 20 mmol/L (22-30); CHLORIDE 100 mmol/L (98-107); GLUCOSE 46 mg/dL (75-110); POTASSIUM 3.1 mmol/L (3.6-5.0); SODIUM 132.7 mmol/L (137-145)
[2018-02-01] MEDS ORDERED: MAGNESIUM SULFATE/D5W 1 GM/100 ML RTUPB IV ONE ×2 (13:00→16:00)
[2018-02-01] MEDS ORDERED: NORMAL SALINE 1000 ML 1,000 ML IV PRN (13:05)
--- NOTE | 2018-02-01 13:09 | PDOC PROGRESS REPORT ---
Subjective Progress Note for:: 02/01/18 Subjective:: Continues occasional cough otherwise without complaints Reason For Visit: PNEUMONIA Physical Exam Vital Signs: Temp Pulse Resp BP Pulse Ox 98.5 F 122 H 18 123/68 100 02/01/18 11:09 02/01/18 11:09 02/01/18 11:09 02/01/18 11:09 02/01/18 11:09 Intake & Output 01/31/18 02/01/18 02/02/18 06:59 06:59 06:59 Intake Total 2537 2410 Balance 2537 2410 Weight 50.8 kg 49.9 kg General appearance: PRESENT: no acute distress, cooperative, disheveled, well- nourished Head exam: PRESENT: atraumatic, normocephalic Eye exam: PRESENT: conjunctiva pale, EOMI. ABSENT: nystagmus, periorbital swelling, scleral icterus Mouth exam: PRESENT: dry mucosa, neck supple, tongue midline Neck exam: ABSENT: carotid bruit, JVD, lymphadenopathy, thyromegaly, tracheal deviation, tracheostomy Respiratory exam: PRESENT: decreased breath sounds, prolonged expiratory phas, rales, rhonchi, unlabored. ABSENT: retraction, stridor, tachypnea Cardiovascular exam: PRESENT: RRR, +S1, +S2, systolic murmur Pulses: PRESENT: normal radial pulses GI/Abdominal exam: PRESENT: normal bowel sounds, soft Extremities exam: ABSENT: calf tenderness, clubbing, full ROM Musculoskeletal exam: ABSENT: ambulatory, deformity, dislocation, full ROM Neurological exam: PRESENT: alert, awake Psychiatric exam: PRESENT: flat affect Skin exam: PRESENT: dry, warm Results Laboratory Results: 02/01/18 06:10 02/01/18 11:38 02/01/18 02/01/18 02/01/18 02:37 06:10 06:10 WBC 5.2 RBC 4.40 Hgb 12.4 Hct 36.2 MCV 82 MCH 28.2 MCHC 34.3 RDW 14.5 H Plt Count 184 Seg Neutrophils % 53.8 Lymphocytes % 25.3 Monocytes % 16.1 H Eosinophils % 3.8 Basophils % 1.0 Absolute Neutrophils 2.8 Absolute Lymphocytes 1.3 Absolute Monocytes 0.8 Absolute Eosinophils 0.2 Absolute Basophils 0.1 Sodium 136.9 L 133.5 L Potassium 3.1 L 3.0 L* Chloride 105 101 Carbon Dioxide 22 22 Anion Gap 10 11 BUN 2 L < 2 L Creatinine 0.44 L 0.41 L Est GFR ( Amer) > 60 > 60 Est GFR (Non-Af Amer) > 60 > 60 Glucose 50 L 43 L Calcium 8.1 L 8.1 L Magnesium 1.4 L 02/01/18 11:38 WBC RBC Hgb Hct MCV MCH MCHC RDW Plt Count Seg Neutrophils % Lymphocytes % Monocytes % Eosinophils % Basophils % Absolute Neutrophils Absolute Lymphocytes Absolute Monocytes Absolute Eosinophils Absolute Basophils Sodium 132.7 L Potassium 3.1 L Chloride 100 Carbon Dioxide 20 L Anion Gap 13 BUN 2 L Creatinine 0.42 L Est GFR ( Amer) > 60 Est GFR (Non-Af Amer) > 60 Glucose 46 L Calcium 8.2 L Magnesium Impressions: Abdomen Ultrasound 01/29/18 00:00 IMPRESSION: 1. Gallbladder sludge. No definable stones. 2. Limited study, other findings as above. Chest X-Ray 01/29/18 00:00 IMPRESSION: No acute changes. Chest CT 01/29/18 06:00 IMPRESSION: Small bilateral pleural effusions are identified with associated airspace consolidation most consistent with atelectatic changes although I cannot exclude minimal pneumonic infiltrates. Other findings as noted above Head CT 02/01/18 00:00 IMPRESSION: No acute findings. Minimal stable small vessel ischemic change in the hemispheric white matter. EVIDENCE OF ACUTE STROKE: NO. Assessment & Plan - Diagnosis (1) Pneumonia Qualifiers: Laterality: unspecified laterality Is this a current diagnosis for this admission?: Yes Plan: no sputum thus far chest phsiotherapy acetyl cystene (2) Chronic pain syndrome Is this a current diagnosis for this admission?: Yes (3) Rheumatoid arthritis Qualifiers: Rheumatoid arthritis location: multiple sites Is this a current diagnosis for this admission?: Yes Plan: HAP coverage (4) Weakness Is this a current diagnosis for this admission?: Yes
[2018-02-01] MEDS ORDERED: POTASSIUM CHLORIDE 20 MEQ/50 ML RTU IV ONE (13:30)
--- NOTE | 2018-02-01 14:59 | RADIOLOGY REPORT (SQ) ---
EXAM DESCRIPTION: MRI HEAD WITHOUT COMPLETED DATE/TIME: 02/01/2018 2:27 pm REASON FOR STUDY: weakness/slurred specch COMPARISON: CT brain 02/01/2018 MRI brain 02/10/2017 TECHNIQUE: Multiplanar imaging includes non-contrasted T1, T2, FLAIR, and diffusion with ADC map seq uences. Images stored on PACS. LIMITATIONS: None. FINDINGS: ANATOMY: No developmental anomalies. Normal vascular flow voids. Pituitary fossa normal. CSF SPACES: Normal in size and contour. No hemorrhage. CEREBRUM: Diffusion-weighted images are positive for tiny foci of acute or subacute nonhemorrhagic is chemic changes in the left frontal deep periventricular white matter. Elsewhere, there is moderate chronic small vessel ischemic change with old infarcts in the bifrontal and biparietal deep periventricular white matter, bilateral basal ganglia, and mid alec. No acute intracranial hemorrhage, mass effect, or midline shift. POSTERIOR FOSSA: No findings worrisome for acute infarct. No hemorrhage. No edema, masses or mass eff ect. Internal auditory canals, cerebello-pontine angles, mastoids normal. DIFFUSION IMAGING: Positive for tiny foci of acute or subacute nonhemorrhagic ischemic change in the left frontal deep periventricular white matter. ORBITS: No masses. Globes normal. PARANASAL SINUSES: No fluid levels. Mucosa normal. OTHER: No other significant finding. 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 Moderate chronic small vessel ischemic change elsewhere in the cerebral hemispheres and mid alec EVIDENCE OF ACUTE STROKE: Yes TECHNICAL DOCUMENTATION: JOB ID: [id number] [employer]- All Rights Reserved Reading location - IP/workstation name: [email or web address]
[2018-02-01] MEDS: DILTIAZEM HCL 30 MG TABLET PO SCH ×2 (16:19→21:48)
[2018-02-01] MEDS: HYDROCORTISONE SOD SUCCINATE INJ/PF 100 MG/2 ML SDV IV SCH ×2 (16:20→21:40)
[2018-02-01] MEDS: RIVAROXABAN 10 MG TABLET PO SCH (16:21)
[2018-02-01] MEDS: CETIRIZINE 5 MG TABLET PO SCH (17:56)
--- NOTE | 2018-02-01 18:47 | XCELERA REPORT ---
[address] [address] Transthoracic Echocardiogram Report Name: LILLIE AMIN Age: 67 yrs Gender: Female : 1950 Patient Status: Inpatient Patient Location: [address] [place] [address] Study Date: 02/01/2018 02:44 PM Height: 57 in Weight: 110 lb BSA: 1.4 m2 Procedure: A complete two-dimensional transthoracic echocardiogram was performed (2D, M-mode, spectral and color flow Doppler). The study was technically adequate with some images being suboptimal in quality. Reason For Study: svt Ordering Physician: JAMES RESENDIZ Performed By: Sanam Richards Interpretation Summary The left ventricular ejection fraction is normal. There is borderline concentric left ventricular hypertrophy. Doppler measurements suggest impaired left ventricular relaxation, which is associated with grade I/IV or mild diastolic dysfunction The left ventricle is grossly normal size. Wall motion cannot be accurately commented on, but no definite regional wall motion abnormalities noted. The right ventricle is mild to moderately dilated. The right ventricular systolic function is normal. The right atrium is mildly dilated. The left atrial size is normal. There is no mitral valve stenosis. There is a trace amount of mitral regurgitation There is no aortic valve stenosis No aortic regurgitation is present. There is a trace or physiologic amount of tricuspid regurgitation Tricuspid regurgitation jet envelope not well defined to measure RV systolic pressure accurately. The aortic root is not well visualized but is probably normal size. The inferior vena cava appeared normal and decreased > 50% with respiration (RAP 5-10 mmHg) There is no pericardial effusion. MMode/2D Measurements & Calculations RVDd: 2.4 cm LVIDd: 3.5 cm FS: 39.7 % Ao root diam: 2.8 cm IVSd: 0.96 cm LVIDs: 2.1 cm EDV(Teich): 50.9 ml LVPWd: 0.95 cm ESV(Teich): 14.6 ml Ao root area: 6.2 cm2 EF(Teich): 71.3 % Doppler Measurements & Calculations MV E max brianna: MV dec slope: Ao V2 max: LV V1 max P.2 cm/sec 102.9 cm/sec 3.2 mmHg MV A max brianna: 348.0 cm/sec2 Ao max PG: LV V1 max: 53.2 cm/sec MV dec time: 4.2 mmHg 89.7 cm/sec MV E/A: 1.1 0.16 sec PA V2 max: TR max brianna: 80.7 cm/sec 273.8 cm/sec PA max PG: TR max P.0 mmHg 2.6 mmHg Left Ventricle The left ventricle is grossly normal size. There is borderline concentric left ventricular hypertrophy. The left ventricular ejection fraction is normal. Doppler measurements suggest impaired left ventricular relaxation, which is associated with grade I/IV or mild diastolic dysfunction. Wall motion cannot be accurately commented on, but no definite regional wall motion abnormalities noted. Right Ventricle The right ventricle is mild to moderately dilated. There is normal right ventricular wall thickness. The right ventricular systolic function is normal. Atria The right atrium is mildly dilated. The left atrial size is normal. Interarterial septum not well visualized and not well dopplered. Cannot comment on ASD/PFO presence. Mitral Valve The mitral valve is grossly normal. There is no mitral valve stenosis. There is a trace amount of mitral regurgitation. Aortic Valve The aortic valve is grossly normal. There is no aortic valve stenosis. No aortic regurgitation is present. Tricuspid Valve The tricuspid valve is not well visualized, but is grossly normal. There is no tricuspid stenosis. There is a trace or physiologic amount of tricuspid regurgitation. Tricuspid regurgitation jet envelope not well defined to measure RV systolic pressure accurately. Pulmonic Valve The pulmonic valve is not well visualized. Great Vessels The aortic root is not well visualized but is probably normal size. The inferior vena cava appeared normal and decreased > 50% with respiration (RAP 5-10 mmHg). Effusions There is no pericardial effusion. : JAMES RESENDIZ > James Resendiz
[2018-02-01 19:26] LABS: ANION GAP 13 (5-19); BLOOD UREA NITROGEN 2 mg/dL (7-20); CALCIUM 8.5 mg/dL (8.4-10.2); CARBON DIOXIDE 19 mmol/L (22-30); CHLORIDE 102 mmol/L (98-107); GLUCOSE 48 mg/dL (75-110); SODIUM 134.1 mmol/L (137-145)
[2018-02-01 19:28] LABS: POTASSIUM 4.4 mmol/L (3.6-5.0)
--- NOTE | 2018-02-01 20:55 | PDOC CONSULTATION ---
Consultation Consult Date: 02/01/18 Attending physician:: MARY LOU OLEA Consult reason:: SVT History of Present Illness Admission Date/PCP: 01/28/18 01:35 MARY LOU OLEA MD Patient complains of: Difficulty with speech and generalized weakness History of Present Illness: LILLIE AMIN is a 67 year old femalewith a significant history of the rheumatoid arthritis chronic steroid dependence and currently taking the methotrexate and Simponi from the [facility] control clerk with the history of the chronic significant deformity due to the rheumatoid arthritis currently see a pain management and also orthopedic and a history of the pulmonary embolism and currently on Xarelto with the multiple other comorbidity recently seen in my office with a routine visit for some mild cough and congestion's was put on the Zithromax and the patient's call back yesterday and told the patient have a fever and not feeling well then directed to the emergency departments patient was found to be a pneumonia and admitting in the hospital for further evaluation and treatments Was also running low blood pressures and currently when I saw in the floor patients feeling better denied any chest pain denied any shortness of the breath Patient's currently on IV fluid and IV antibiotics Complains some episode of the cough but denied any blood denied any other symptoms Since denied any headache denied any urinary symptoms. Patient was seen earlier this morning. Patient's daughter and grandchildren in the room. Patient was noted to have difficulty with speech. She was also noted to be generally weak. Patient's telemetry strips were reviewed. Patient was noted to have sinus tachycardia. Patient on questioning denied any chest pain by nodding. She was noted to be mildly short of breath but otherwise comfortable. Past Medical History Cardiac Medical History: Reports: Hypertension, Pulmonary Embolism Pulmonary Medical History: Reports: Pneumonia Denies: Tuberculosis Neurological Medical History: Denies: Seizures GI Medical History: Reports: Gastroesophageal Reflux Disease Musculoskeltal Medical History: Reports: Arthritis - RA, Other Psychiatric Medical History: Reports: Depression Past Surgical History Past Surgical History: Reports: Appendectomy, Hysterectomy, Orthopedic Surgery - foot surgery Social History Information Source: Relative Lives with: Family Smoking Status: Never Smoker Frequency of Alcohol Use: None Hx Recreational Drug Use: No Drugs: None Hx Prescription Drug Abuse: No - Advance Directive Resuscitation Status: Full Code Surrogate healthcare decision maker:: Patient's daughter is the surrogate decision-maker Family History Family History: DM, Hypertension Parental Family History Reviewed: Yes Children Family History Reviewed: Yes Sibling(s) Family History Reviewed.: Yes Medication/Allergy Home Medications: Amlodipine Besylate [Norvasc 5 mg Tablet] 5 mg PO DAILY 08/15/17 Benzonatate [Tessalon Perles 100 mg Capsule] 100 mg PO Q8HP PRN 08/15/17 Escitalopram Oxalate [Lexapro 10 mg Tablet] 10 mg PO DAILY 08/15/17 Golimumab [Simponi] 50 mg SQ ASDIR PRN 08/15/17 Lisinopril [Zestril] 40 mg PO DAILY 08/15/17 Methotrexate Sodium/Pf [Methotrexate 25 mg/ml Vial] 25 mg INJ WE@1000 08/15/17 Potassium Chloride [Klor-Con M20] 40 meq PO DAILY 08/15/17 Azithromycin [Zithromax 250 mg Tablet] 250 mg PO DAILY MDD FILLED 01/26 TOOK 1ST DOSE 01/28/18 Cephalexin [Cephalexin 250 MG Tablet] 250 mg PO DAILY 01/28/18 Cyclosporine 0.05% Oph Emulsio [Restasis 0.05% Opthalmic Droperette] 1 drop OU BID 01/28/18 Diclofenac Sodium [Voltaren] 4 gm TP TID 01/28/18 Levocetirizine Dihydrochloride [Xyzal] 5 mg PO QPM 01/28/18 Oxycodone HCl/Acetaminophen [Oxycodon-Acetaminophen 7.5-325] 1 each PO Q8HP PRN 01/28/18 Pantoprazole Sodium [Protonix] 40 mg PO DAILY 01/28/18 Rivaroxaban [Xarelto 10 mg Tablet] 20 mg PO DAILY 01/28/18 Allergies/Adverse Reactions: No Known Allergies Allergy (Verified 09/07/17 14:19) Review of Systems ROS unobtainable: Other - Patient noted to have speech difficulty especially with expressing the speech. Physical Exam Vital Signs: Temp Pulse Resp BP Pulse Ox 99.5 F 109 H 16 119/77 100 02/01/18 15:16 02/01/18 16:00 02/01/18 16:00 02/01/18 16:00 02/01/18 16:00 Intake & Output 01/31/18 02/01/18 02/02/18 06:59 06:59 06:59 Intake Total 2537 2410 540 Balance 2537 2410 540 Weight 50.8 kg 49.9 kg Exam: GENERAL: well-nourished and in no acute distress. Alert orientation could not be checked because of speech difficulty. HEAD: Atraumatic, normocephalic. EYES: Pupils equal round and reactive to light, extraocular movements intact, sclera anicteric, conjunctiva are normal. ENT: TMs normal, nares patent, oropharynx clear without exudates. Moist mucous membranes. No oral ulcerations or bleeding gums noted NECK: supple without lymphadenopathy. Trachea is central. No cervical or axillary lymphadenopathy noted. Carotids are 2+, JVD WNL LUNGS: Respiration seems nonlabored, no significant accessory muscle action noted. Breath sounds clear to auscultation bilaterally and equal noted. No wheezes rales or rhonchi noted. No significant dullness noted on percussion. Patient noted to have a barrel chest suggestive of underlying emphysema. CHEST: Palpation of the chest wall shows no significant chest wall tenderness. 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 ABDOMEN: Soft, no significant tenderness appreciated, normoactive bowel sounds. No guarding, no rebound. No rigidity noted . No masses appreciated. EXTREMITIES: Pedal pulses are 1-2+, no calf tenderness noted. No clubbing or cyanosis. negative pedal edema noted NEUROLOGICAL: Full neurological exam could not be performed as patient could not participate in it. She was noted to have speech difficulty with generalized weakness.. PSYCH: Normal mood, normal affect. Judgment and insight could not be checked because of speech difficulty.. SKIN: No significant ecchymosis, skin is noted to be warm. MUSCULOSKELETAL EXAM: No significant acute joint swelling noted. Significant chronic rheumatoid arthritis changes with some contractures noted. Results Laboratory Results: 02/01/18 06:10 02/01/18 18:41 02/01/18 02/01/18 02/01/18 02:37 06:10 06:10 WBC 5.2 RBC 4.40 Hgb 12.4 Hct 36.2 MCV 82 MCH 28.2 MCHC 34.3 RDW 14.5 H Plt Count 184 Seg Neutrophils % 53.8 Lymphocytes % 25.3 Monocytes % 16.1 H Eosinophils % 3.8 Basophils % 1.0 Absolute Neutrophils 2.8 Absolute Lymphocytes 1.3 Absolute Monocytes 0.8 Absolute Eosinophils 0.2 Absolute Basophils 0.1 Sodium 136.9 L 133.5 L Potassium 3.1 L 3.0 L* Chloride 105 101 Carbon Dioxide 22 22 Anion Gap 10 11 BUN 2 L < 2 L Creatinine 0.44 L 0.41 L Est GFR ( Amer) > 60 > 60 Est GFR (Non-Af Amer) > 60 > 60 Glucose 50 L 43 L Calcium 8.1 L 8.1 L Magnesium 1.4 L 02/01/18 02/01/18 11:38 18:41 WBC RBC Hgb Hct MCV MCH MCHC RDW Plt Count Seg Neutrophils % Lymphocytes % Monocytes % Eosinophils % Basophils % Absolute Neutrophils Absolute Lymphocytes Absolute Monocytes Absolute Eosinophils Absolute Basophils Sodium 132.7 L 134.1 L Potassium 3.1 L 4.4 D Chloride 100 102 Carbon Dioxide 20 L 19 L Anion Gap 13 13 BUN 2 L 2 L Creatinine 0.42 L 0.43 L Est GFR ( Amer) > 60 > 60 Est GFR (Non-Af Amer) > 60 > 60 Glucose 46 L 48 L Calcium 8.2 L 8.5 Magnesium EKG Comments: Sinus tachycardia with heart rate of 1 49 bpm with minor nonspecific ST-T wave changes. Impressions: Abdomen Ultrasound 01/29/18 00:00 IMPRESSION: 1. Gallbladder sludge. No definable stones. 2. Limited study, other findings as above. Chest X-Ray 01/29/18 00:00 IMPRESSION: No acute changes. Chest CT 01/29/18 06:00 IMPRESSION: Small bilateral pleural effusions are identified with associated airspace consolidation most consistent with atelectatic changes although I cannot exclude minimal pneumonic infiltrates. Other findings as noted above Head CT 02/01/18 00:00 IMPRESSION: No acute findings. Minimal stable small vessel ischemic change in the hemispheric white matter. EVIDENCE OF ACUTE STROKE: NO. Head MRI 02/01/18 00:00 IMPRESSION: Tiny acute or subacute white matter infarcts left frontal lobe. Moderate chronic small vessel ischemic change elsewhere in the cerebral hemispheres and mid alec EVIDENCE OF ACUTE STROKE: Yes Assessment & Plan - Diagnosis (1) Cerebrovascular accident Qualifiers: CVA mechanism: unspecified Qualified Code(s): I63.9 - Cerebral infarction, unspecified Is this a current diagnosis for this admission?: Yes (2) Tachycardia Is this a current diagnosis for this admission?: Yes (3) Hyperlipidemia Qualifiers: Is this a current diagnosis for this admission?: Yes (4) Hypertension Qualifiers: Hypertension type: essential hypertension Qualified Code(s): I10 - Essential (primary) hypertension Is this a current diagnosis for this admission?: Yes (5) Rheumatoid arthritis Qualifiers: Rheumatoid arthritis location: multiple sites Is this a current diagnosis for this admission?: Yes (6) Weakness Is this a current diagnosis for this admission?: Yes (7) Hypokalemia Is this a current diagnosis for this admission?: Yes - Notes Notes: Cerebrovascular accident: When patient seen this morning she was noted to have difficulty with speech and some confusion. Patient subsequently underwent CT of the brain and MRI which confirmed cerebrovascular accident. It was nonhemorrhagic. It is felt that patient would benefit from antiplatelet therapy. Initially patient was started on aspirin but they switched it to Plavix being somewhat better and since patient is going to be on some nonsteroidal anti-inflammatory for rheumatoid arthritis therefore felt that Plavix would be a better option as a whole. Tachycardia: Exact reason not clear but could be related to metabolic reason. Agree with obtaining 2D echocardiogram for this reason. 2D echocardiogram actually shows relatively well-preserved LVEF. Mild pulmonary hypertension noted. Minimal pericardial effusion is noted. At this point recommend calcium channel jamee, Cardizem 30 mg p.o. every 8 was started by the primary care physician which with I agree. Hyperlipidemia: Recommend statin therapy as statin therapy has been shown to reduce cardiovascular and cerebrovascular event risk. Rheumatoid arthritis: Patient being adequately managed by primary care physician. Generalized weakness: Possibly related to general debility, cortisol deficiency. Random cortisol level was noted to be quite low. Agree with Solu- Medrol dose. Hypokalemia: This could be contributing to weakness. Agree with replacement. - Time Time Spent: 30 to 50 Minutes - CODE STATUS was discussed, patient remains full code. Surrogate decision-maker patient's daughter. Multiple medical problems were addressed. More than 50% of the time spent coordinating care, discussing management plans with involved caregivers. Management plans discussed with involved personnels. Medical decision making was of moderate to high complexity , patient's has multiple comorbidities. Medications reviewed and adjusted accordingly: Yes
[2018-02-01] MEDS ORDERED: ASPIRIN 81 MG TABLET, CHEWABLE PO SCH (22:00)
[2018-02-02 05:50] LABS: ABSOLUTE LYMPHOCYTES (AUTO) 0.7 10^3/uL (0.5-4.7); ABSOLUTE MONOCYTES (AUTO) 0.1 10^3/uL (0.1-1.4); ABSOLUTE NEUT (AUTO) 4.2 10^3/uL (1.7-8.2); BASOPHILS % (AUTO) 0.7 % (0-2); EOSINOPHILS % (AUTO) 0.1 % (0-6); HEMATOCRIT 36.6 % (36.0-47.0); HEMOGLOBIN 12.3 g/dL (12.0-15.5); LYMPHOCYTES % (AUTO) 13.5 % (13-45); MEAN CORPUSCULAR HGB CONC 33.6 g/dL (32.0-36.0); MEAN CORPUSCULAR VOLUME 83 fl (80-97); MONOCYTES % (AUTO) 2.3 % (3-13); PLATELET COUNT 220 10^3/uL (150-450); RED BLOOD COUNT 4.39 10^6/uL (3.72-5.28); RED CELL DISTRIBUTION WIDTH 14.8 % (11.5-14.0); SEGMENTED NEUTROPHILS % (AUTO) 83.4 % (42-78); TOTAL CELLS COUNTED % (AUTO) 100 %; WHITE BLOOD COUNT 5.1 10^3/uL (4.0-10.5)
[2018-02-02 05:59] LABS: ANION GAP 15 (5-19); BLOOD UREA NITROGEN 2 mg/dL (7-20); CALCIUM 8.5 mg/dL (8.4-10.2); CARBON DIOXIDE 15 mmol/L (22-30); CHLORIDE 104 mmol/L (98-107); GLUCOSE 118 mg/dL (75-110); POTASSIUM 4.4 mmol/L (3.6-5.0); SODIUM 134.1 mmol/L (137-145)
[2018-02-02] MEDS: DILTIAZEM HCL 30 MG TABLET PO SCH (06:33)
[2018-02-02] MEDS: HYDROCORTISONE SOD SUCCINATE INJ/PF 100 MG/2 ML SDV IV SCH ×3 (06:37→22:41)
[2018-02-02] MEDS ORDERED: CLOPIDOGREL BISULFATE 300 MG TABLET PO SCH (10:00)
--- NOTE | 2018-02-02 10:38 | PDOC PROGRESS REPORT ---
Subjective Progress Note for:: 02/02/18 Subjective:: without complaints Reason For Visit: PNEUMONIA Physical Exam Vital Signs: Temp Pulse Resp BP Pulse Ox 98.5 F 98 18 142/78 H 98 02/02/18 07:53 02/02/18 07:53 02/02/18 07:53 02/02/18 07:53 02/02/18 07:53 Intake & Output 02/01/18 02/02/18 02/03/18 06:59 06:59 06:59 Intake Total 2410 1360 Balance 2410 1360 Weight 49.9 kg 53.3 kg General appearance: PRESENT: no acute distress, cooperative, disheveled Head exam: PRESENT: atraumatic, normocephalic Eye exam: PRESENT: conjunctiva pale, EOMI. ABSENT: nystagmus, periorbital swelling, scleral icterus Mouth exam: PRESENT: dry mucosa, neck supple, tongue midline Neck exam: ABSENT: carotid bruit, JVD, lymphadenopathy, thyromegaly, tracheal deviation, tracheostomy Respiratory exam: PRESENT: decreased breath sounds, prolonged expiratory phas, rales, rhonchi, unlabored. ABSENT: retraction, stridor, tachypnea Cardiovascular exam: PRESENT: RRR, +S1, +S2 Pulses: PRESENT: normal radial pulses GI/Abdominal exam: PRESENT: normal bowel sounds, soft Extremities exam: ABSENT: calf tenderness, clubbing Musculoskeletal exam: ABSENT: deformity, dislocation Neurological exam: PRESENT: awake Psychiatric exam: PRESENT: flat affect Skin exam: PRESENT: dry Results Laboratory Results: 02/02/18 04:25 02/02/18 04:25 02/01/18 02/01/18 02/02/18 11:38 18:41 04:25 WBC 5.1 RBC 4.39 Hgb 12.3 Hct 36.6 MCV 83 MCH 28.0 MCHC 33.6 RDW 14.8 H Plt Count 220 Seg Neutrophils % 83.4 H Lymphocytes % 13.5 Monocytes % 2.3 L Eosinophils % 0.1 Basophils % 0.7 Absolute Neutrophils 4.2 Absolute Lymphocytes 0.7 Absolute Monocytes 0.1 Absolute Eosinophils 0.0 Absolute Basophils 0.0 Sodium 132.7 L 134.1 L Potassium 3.1 L 4.4 D Chloride 100 102 Carbon Dioxide 20 L 19 L Anion Gap 13 13 BUN 2 L 2 L Creatinine 0.42 L 0.43 L Est GFR ( Amer) > 60 > 60 Est GFR (Non-Af Amer) > 60 > 60 Glucose 46 L 48 L Calcium 8.2 L 8.5 02/02/18 04:25 WBC RBC Hgb Hct MCV MCH MCHC RDW Plt Count Seg Neutrophils % Lymphocytes % Monocytes % Eosinophils % Basophils % Absolute Neutrophils Absolute Lymphocytes Absolute Monocytes Absolute Eosinophils Absolute Basophils Sodium 134.1 L Potassium 4.4 Chloride 104 Carbon Dioxide 15 L Anion Gap 15 BUN 2 L Creatinine 0.45 L Est GFR ( Amer) > 60 Est GFR (Non-Af Amer) > 60 Glucose 118 H Calcium 8.5 Impressions: Abdomen Ultrasound 01/29/18 00:00 IMPRESSION: 1. Gallbladder sludge. No definable stones. 2. Limited study, other findings as above. Chest X-Ray 01/29/18 00:00 IMPRESSION: No acute changes. Chest CT 01/29/18 06:00 IMPRESSION: Small bilateral pleural effusions are identified with associated airspace consolidation most consistent with atelectatic changes although I cannot exclude minimal pneumonic infiltrates. Other findings as noted above Head CT 02/01/18 00:00 IMPRESSION: No acute findings. Minimal stable small vessel ischemic change in the hemispheric white matter. EVIDENCE OF ACUTE STROKE: NO. Head MRI 02/01/18 00:00 IMPRESSION: Tiny acute or subacute white matter infarcts left frontal lobe. Moderate chronic small vessel ischemic change elsewhere in the cerebral hemispheres and mid alec EVIDENCE OF ACUTE STROKE: Yes Assessment & Plan - Diagnosis (1) Pneumonia Qualifiers: Laterality: unspecified laterality Is this a current diagnosis for this admission?: Yes Plan: no sputum thus far chest phsiotherapy acetyl cystene (2) Chronic pain syndrome Is this a current diagnosis for this admission?: Yes (3) Rheumatoid arthritis Qualifiers: Rheumatoid arthritis location: multiple sites Is this a current diagnosis for this admission?: Yes Plan: HAP coverage (4) Weakness Is this a current diagnosis for this admission?: Yes
--- NOTE | 2018-02-02 10:50 | PDOC PROGRESS REPORT ---
Subjective Progress Note for:: 02/02/18 Subjective:: Patient seems to be doing significantly better with marked improvement. Pt is denying any chest arm or neck discomfort. Patient denying any PND, orthopnea. Patient denied any sustained palpitations, dizziness, syncope, near syncope. Patient denying any fever chills. Patient denying any other significant discomfort. Patient is maintaining sinus rhythm. Patient noted to have intermittent sinus tachycardia Review of systems: Rest review of systems negative. Medications: Medications have been reviewed. Reason For Visit: PNEUMONIA Physical Exam Vital Signs: Temp Pulse Resp BP Pulse Ox 98.5 F 98 18 142/78 H 98 02/02/18 07:53 02/02/18 07:53 02/02/18 07:53 02/02/18 07:53 02/02/18 07:53 Intake & Output 02/01/18 02/02/18 02/03/18 06:59 06:59 06:59 Intake Total 2410 1360 Balance 2410 1360 Weight 49.9 kg 53.3 kg Exam: GENERAL: well-nourished and in no acute distress. Alert and oriented x3, his speech is significantly improved. HEAD: Atraumatic, normocephalic. EYES: Pupils equal round and reactive to light, extraocular movements intact, sclera anicteric, conjunctiva are normal. ENT: TMs normal, nares patent, oropharynx clear without exudates. Moist mucous membranes. No oral ulcerations or bleeding gums noted NECK: supple without lymphadenopathy. Trachea is central. No cervical or axillary lymphadenopathy noted. Carotids are 2+, JVD WNL LUNGS: Respiration seems nonlabored, no significant accessory muscle action noted. Breath sounds clear to auscultation bilaterally and equal noted. No wheezes rales or rhonchi noted. No significant dullness noted on percussion. CHEST: Palpation of the chest wall shows no significant chest wall tenderness. 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 ABDOMEN: Soft, no significant tenderness appreciated, normoactive bowel sounds. No guarding, no rebound. No rigidity noted . No masses appreciated. EXTREMITIES: Pedal pulses are 1-2+, no calf tenderness noted. No clubbing or cyanosis. negative pedal edema noted NEUROLOGICAL: Focused neurological exam showed no significant neurologic deficit. Normal speech, no focal weakness appreciated. PSYCH: Normal mood, normal affect. Judgment and insight within normal limits. SKIN: No significant ecchymosis, skin is noted to be warm. MUSCULOSKELETAL EXAM: No significant acute joint swelling noted. Significant chronic changes of rheumatoid arthritis affecting joints noted with some contractures Results Laboratory Results: 02/02/18 04:25 02/02/18 04:25 02/01/18 02/01/18 02/02/18 11:38 18:41 04:25 WBC 5.1 RBC 4.39 Hgb 12.3 Hct 36.6 MCV 83 MCH 28.0 MCHC 33.6 RDW 14.8 H Plt Count 220 Seg Neutrophils % 83.4 H Lymphocytes % 13.5 Monocytes % 2.3 L Eosinophils % 0.1 Basophils % 0.7 Absolute Neutrophils 4.2 Absolute Lymphocytes 0.7 Absolute Monocytes 0.1 Absolute Eosinophils 0.0 Absolute Basophils 0.0 Sodium 132.7 L 134.1 L Potassium 3.1 L 4.4 D Chloride 100 102 Carbon Dioxide 20 L 19 L Anion Gap 13 13 BUN 2 L 2 L Creatinine 0.42 L 0.43 L Est GFR ( Amer) > 60 > 60 Est GFR (Non-Af Amer) > 60 > 60 Glucose 46 L 48 L Calcium 8.2 L 8.5 02/02/18 04:25 WBC RBC Hgb Hct MCV MCH MCHC RDW Plt Count Seg Neutrophils % Lymphocytes % Monocytes % Eosinophils % Basophils % Absolute Neutrophils Absolute Lymphocytes Absolute Monocytes Absolute Eosinophils Absolute Basophils Sodium 134.1 L Potassium 4.4 Chloride 104 Carbon Dioxide 15 L Anion Gap 15 BUN 2 L Creatinine 0.45 L Est GFR ( Amer) > 60 Est GFR (Non-Af Amer) > 60 Glucose 118 H Calcium 8.5 EKG Comments: Shows sinus rhythm with intermittent sinus tachycardia Impressions: Abdomen Ultrasound 01/29/18 00:00 IMPRESSION: 1. Gallbladder sludge. No definable stones. 2. Limited study, other findings as above. Chest X-Ray 01/29/18 00:00 IMPRESSION: No acute changes. Chest CT 01/29/18 06:00 IMPRESSION: Small bilateral pleural effusions are identified with associated airspace consolidation most consistent with atelectatic changes although I cannot exclude minimal pneumonic infiltrates. Other findings as noted above Head CT 02/01/18 00:00 IMPRESSION: No acute findings. Minimal stable small vessel ischemic change in the hemispheric white matter. EVIDENCE OF ACUTE STROKE: NO. Head MRI 02/01/18 00:00 IMPRESSION: Tiny acute or subacute white matter infarcts left frontal lobe. Moderate chronic small vessel ischemic change elsewhere in the cerebral hemispheres and mid alec EVIDENCE OF ACUTE STROKE: Yes Assessment & Plan - Diagnosis (1) Cerebrovascular accident Qualifiers: CVA mechanism: unspecified Qualified Code(s): I63.9 - Cerebral infarction, unspecified Is this a current diagnosis for this admission?: Yes (2) Tachycardia Is this a current diagnosis for this admission?: Yes (3) Hyperlipidemia Qualifiers: Is this a current diagnosis for this admission?: Yes (4) Hypertension Qualifiers: Hypertension type: essential hypertension Qualified Code(s): I10 - Essential (primary) hypertension Is this a current diagnosis for this admission?: Yes (5) Rheumatoid arthritis Qualifiers: Rheumatoid arthritis location: multiple sites Is this a current diagnosis for this admission?: Yes (6) Weakness Is this a current diagnosis for this admission?: Yes (7) Hypokalemia Is this a current diagnosis for this admission?: Yes - Notes Notes: Have increased Cardizem to 60 mg p.o. every 6. 2D echo results reviewed. It showed normal LVEF, mild pulmonary hypertension, no significant valvular abnormalities. Minimal pericardial effusion was noted. Continue other concurrent management plans. Cerebrovascular accident: When patient seen this morning she was noted to have difficulty with speech and some confusion. Patient subsequently underwent CT of the brain and MRI which confirmed cerebrovascular accident. It was nonhemorrhagic. It is felt that patient would benefit from antiplatelet therapy. Initially patient was started on aspirin but they switched it to Plavix being somewhat better and since patient is going to be on some nonsteroidal anti-inflammatory for rheumatoid arthritis therefore felt that Plavix would be a better option as a whole. Tachycardia: Exact reason not clear but could be related to metabolic reason. Agree with obtaining 2D echocardiogram for this reason. 2D echocardiogram actually shows relatively well-preserved LVEF. Mild pulmonary hypertension noted. Minimal pericardial effusion is noted. Tachycardia is most likely related to metabolic reasons but patient still somewhat tachycardic but significantly improved on Cardizem. Will increase the dose of Cardizem. Hyperlipidemia: Recommend statin therapy as statin therapy has been shown to reduce cardiovascular and cerebrovascular event risk. Rheumatoid arthritis: Patient being adequately managed by strategic planning director. Generalized weakness: Possibly related to general debility, cortisol deficiency. Random cortisol level was noted to be quite low. Agree with Solu- Medrol dose. Hypokalemia: This could be contributing to weakness. Agree with replacement. Patient noted to be stable from cardiac standpoint. Will sign off. Please reconsult if needed. - Time Time with patient: Greater than 35 minutes - CODE STATUS was discussed, patient remains full code. Surrogate decision-maker unchanged. Multiple medical problems were addressed. More than 50% of the time spent coordinating care, discussing management plans with involved caregivers. Management plans discussed with involved personnels. Medical decision making was of moderate to high complexity, patient's has multiple comorbidities. Medications reviewed and adjusted accordingly: Yes
[2018-02-02] MEDS: GUAIFENESIN 600 MG TABLET.SA PO SCH ×2 (11:16→22:40)
[2018-02-02] MEDS: NORMAL SALINE 1000 ML 1,000 ML IV PRN (11:16)
[2018-02-02] MEDS: ESCITALOPRAM OXALATE 10 MG TABLET PO SCH (11:17)
[2018-02-02] MEDS: CEFUROXIME 500 MG TABLET PO SCH ×2 (11:17→22:43)
[2018-02-02] MEDS: CYCLOSPORINE 0.05% OPH EMULSIO 0.4 ML DROPERETTE OU SCH ×2 (11:18→18:44)
[2018-02-02] MEDS: CLOPIDOGREL BISULFATE 75 MG TABLET PO SCH (11:18)
[2018-02-02] MEDS: PANTOPRAZOLE SODIUM 40 MG VIAL IV SCH (11:18)
--- NOTE | 2018-02-02 13:55 | PDOC PROGRESS REPORT ---
Subjective Progress Note for:: 02/02/18 Subjective:: When I saw the patient in the morning patient is currently doing well at that time denied any chest pain denied any shortness of the breath denied any Headache Patient's seen later different the lunchtime see bug on body and hallucination and rt eye can not seeBut when I saw the patient again patients pretty much back to the normal when I saw this morning and according to the patient she does not have a no glassesPatient cannot see better But patient have a recent stroke order the CT of the head to rule out the any further extension of the strokes in order the CTA of the neck and head to rule out any further stenosis\ Is already on the Xarelto and Plavix Patient's echocardiogram is all stable Reason For Visit: PNEUMONIA Physical Exam Vital Signs: Temp Pulse Resp BP Pulse Ox 98.1 F 114 H 18 138/80 H 97 02/02/18 12:40 02/02/18 12:40 02/02/18 12:40 02/02/18 12:40 02/02/18 12:40 Intake & Output 02/01/18 02/02/18 02/03/18 06:59 06:59 06:59 Intake Total 2410 1360 Balance 2410 1360 Weight 49.9 kg 53.3 kg General appearance: PRESENT: no acute distress, well-developed, well-nourished Head exam: PRESENT: atraumatic, normocephalic Eye exam: PRESENT: conjunctiva pink, EOMI, PERRLA. ABSENT: scleral icterus Ear exam: PRESENT: normal external ear exam Mouth exam: PRESENT: moist, tongue midline Neck exam: PRESENT: full ROM. ABSENT: carotid bruit, JVD, lymphadenopathy, thyromegaly Respiratory exam: PRESENT: clear to auscultation lucas Cardiovascular exam: PRESENT: RRR. ABSENT: diastolic murmur, rubs, systolic murmur Pulses: PRESENT: normal dorsalis pedis pul, +2 pedal pulses bilateral Vascular exam: PRESENT: normal capillary refill GI/Abdominal exam: PRESENT: normal bowel sounds, soft. ABSENT: distended, guarding, mass, organolmegaly, rebound, tenderness Rectal exam: PRESENT: deferred Extremities exam: ABSENT: pedal edema Additional comments: Contracture due to the rheumatoid arthritis Neurological exam: PRESENT: alert, awake, oriented to person, oriented to place , oriented to time, oriented to situation, CN II-XII grossly intact. ABSENT: motor sensory deficit Psychiatric exam: PRESENT: appropriate affect, normal mood. ABSENT: homicidal ideation, suicidal ideation Skin exam: PRESENT: dry, intact, warm. ABSENT: cyanosis, rash Results Laboratory Results: 02/02/18 04:25 02/02/18 04:25 02/01/18 02/02/18 02/02/18 18:41 04:25 04:25 WBC 5.1 RBC 4.39 Hgb 12.3 Hct 36.6 MCV 83 MCH 28.0 MCHC 33.6 RDW 14.8 H Plt Count 220 Seg Neutrophils % 83.4 H Lymphocytes % 13.5 Monocytes % 2.3 L Eosinophils % 0.1 Basophils % 0.7 Absolute Neutrophils 4.2 Absolute Lymphocytes 0.7 Absolute Monocytes 0.1 Absolute Eosinophils 0.0 Absolute Basophils 0.0 Sodium 134.1 L 134.1 L Potassium 4.4 D 4.4 Chloride 102 104 Carbon Dioxide 19 L 15 L Anion Gap 13 15 BUN 2 L 2 L Creatinine 0.43 L 0.45 L Est GFR ( Amer) > 60 > 60 Est GFR (Non-Af Amer) > 60 > 60 Glucose 48 L 118 H Calcium 8.5 8.5 Magnesium 02/02/18 04:25 WBC RBC Hgb Hct MCV MCH MCHC RDW Plt Count Seg Neutrophils % Lymphocytes % Monocytes % Eosinophils % Basophils % Absolute Neutrophils Absolute Lymphocytes Absolute Monocytes Absolute Eosinophils Absolute Basophils Sodium Potassium Chloride Carbon Dioxide Anion Gap BUN Creatinine Est GFR ( Amer) Est GFR (Non-Af Amer) Glucose Calcium Magnesium 1.8 Impressions: Abdomen Ultrasound 01/29/18 00:00 IMPRESSION: 1. Gallbladder sludge. No definable stones. 2. Limited study, other findings as above. Chest X-Ray 01/29/18 00:00 IMPRESSION: No acute changes. Chest CT 01/29/18 06:00 IMPRESSION: Small bilateral pleural effusions are identified with associated airspace consolidation most consistent with atelectatic changes although I cannot exclude minimal pneumonic infiltrates. Other findings as noted above Head MRI 02/01/18 00:00 IMPRESSION: Tiny acute or subacute white matter infarcts left frontal lobe. Moderate chronic small vessel ischemic change elsewhere in the cerebral hemispheres and mid alec EVIDENCE OF ACUTE STROKE: Yes Assessment & Plan - Diagnosis (1) Pneumonia Qualifiers: Laterality: unspecified laterality Is this a current diagnosis for this admission?: Yes Plan: Continues to Ceftin patient's currently remain afebrile (2) Chronic pain syndrome Is this a current diagnosis for this admission?: Yes Plan: Continues to current pain medication (3) Dehydration Is this a current diagnosis for this admission?: Yes (4) Hyperlipidemia Qualifiers: Is this a current diagnosis for this admission?: Yes Plan: Continues to statin (5) Hypotension Qualifiers: Hypotension type: idiopathic hypotension Qualified Code(s): I95.0 - Idiopathic hypotension Is this a current diagnosis for this admission?: Yes Plan: Currently resolved (6) Rheumatoid arthritis Qualifiers: Rheumatoid arthritis location: multiple sites Is this a current diagnosis for this admission?: Yes Plan: History of a severe rheumatoid arthritis currently hold the methotrexate and Simponi (7) Pulmonary embolism Qualifiers: Pulmonary embolism type: other Chronicity: unspecified Is this a current diagnosis for this admission?: Yes Plan: Currently on the Xarelto (8) E. coli urinary tract infection Is this a current diagnosis for this admission?: Yes Plan: Continues to Ceftin (9) Nausea and vomiting Qualifiers: Vomiting type: unspecified Is this a current diagnosis for this admission?: Yes Plan: Currently resolved (10) Weakness Is this a current diagnosis for this admission?: Yes (11) Tachycardia Is this a current diagnosis for this admission?: Yes (12) Electrolyte imbalance Is this a current diagnosis for this admission?: Yes (13) Cerebrovascular accident Qualifiers: CVA mechanism: unspecified Qualified Code(s): I63.9 - Cerebral infarction, unspecified Is this a current diagnosis for this admission?: Yes Plan: Continues to Plavix and continues to Xarelto and I have the statin Will repeat the CT head to rule out further extension of the stroke and CT of the head and the neck Is already on a maximum treatments Discussed with the patient's family - Time Time Spent with patient: 15-24 minutes Medications reviewed and adjusted accordingly: Yes Anticipated discharge: Other Within: Other - Inpatient Certification Medical Necessity: Need Close Monitoring Due to Risk of Patient Decompensation 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
--- NOTE | 2018-02-02 13:58 | RADIOLOGY REPORT (SQ) ---
EXAM DESCRIPTION: CT HEAD WITHOUT COMPLETED DATE/TIME: 02/02/2018 1:49 pm REASON FOR STUDY: Hallucination and trouble seeing right side COMPARISON: 02/01/2018. TECHNIQUE: Axial images acquired through the brain without intravenous contrast. Images reviewed wi th bone, brain and subdural windows. Additional sagittal and coronal reconstructions were generated. Images stored on PACS. All CT scanners at this facility use dose modulation, iterative reconstruction, and/or weight based d osing when appropriate to reduce radiation dose to as low as reasonably achievable (ALARA). [facility]: Dose Right [facility]: CareDose [facility]: Dose Right [facility]: Teradose 4D [facility]: Smart iBuildApp RADIATION DOSE: CT Rad equipment meets quality standard of care and radiation dose reduction techniq ues were employed. CTDIvol: 53.2 mGy. DLP: 1044 mGy-cm. mGy. LIMITATIONS: None. FINDINGS: VENTRICLES: Prominent. CEREBRUM: No masses. No hemorrhage. No midline shift. Areas of low density in the white matter mos t likely due to chronic micro-vascular ischemic change. No evidence for acute infarction. CEREBELLUM: No masses. No hemorrhage. No alteration of density. No evidence for acute infarction. EXTRAAXIAL SPACES: Mild age-related involutional change. No fluid collections. No masses. ORBITS AND GLOBE: No intra- or extraconal masses. Normal contour of globe without masses. CALVARIUM: No fracture. PARANASAL SINUSES: No fluid or mucosal thickening. SOFT TISSUES: No mass or hematoma. OTHER: No other significant finding. IMPRESSION: MILD CHRONIC CHANGES OF ATROPHY AND MICROVASCULAR ISCHEMIA. NO ACUTE PROCESS. EVIDENCE OF ACUTE STROKE: NO. TECHNICAL DOCUMENTATION: JOB ID: [id number] Quality ID # [id number]: Final reports with documentation of one or more dose reduction techniques (e.g., Au tomated exposure control, adjustment of the mA and/or kV according to patient size, use of iterative reconstruction technique) 2010 [employer]- All Rights Reserved Reading location - IP/workstation name: [email or web address]
[2018-02-02] MEDS: DILTIAZEM HCL 60 MG TABLET PO SCH ×2 (14:30→22:41)
--- NOTE | 2018-02-02 17:01 | RADIOLOGY REPORT (SQ) ---
EXAM DESCRIPTION: CTA HEAD; CTA NECK COMPLETED DATE/TIME: 02/02/2018 4:35 pm REASON FOR STUDY: Hallucination, trouble seeing on right peripheral COMPARISON: MRI brain 02/10/2017, 02/01/2018 CT brain 02/10/2017, 02/01/2018, 02/02/2018 CT cervical spine 03/04/2008 TECHNIQUE: Post IV contrast scanning, thin section axial imaging through the brain to evaluate the a rterial structures. Source and MIP images are saved and reviewed on PACS. Post IV scanning thin section axial imaging from the thoracic inlet to the skullbase to evaluate the arterial structures. Source and MIPS images are saved and reviewed on PACs Advanced 3D imaging as volume-rendering, MIPs, SSD performed? yes All CT scanners at this facility use dose modulation, iterative reconstruction, and/or weight based d osing when appropriate to reduce radiation dose to as low as reasonably achievable (ALARA). [facility]: Dose Right [facility]: CareDose [facility]: Dose Right [facility]: Teradose 4D [facility]: ciValue CONTRAST TYPE AND DOSE: contrast/concentration: Isovue 370.00 mg/ml; Total Contrast Delivered: 80.0 ml; Total Saline Delivered: 75.0 ml RENAL FUNCTION: Creatinine 0.45 LIMITATIONS: None. FINDINGS: CTA [place]: The anterior, middle, posterior cerebral arteries are all patent. No evidence of a neurysm or focal stenosis. POSTERIOR CIRCULATION: The distal vertebral arteries are patent as is the basilar artery. No aneurysm . BRAIN: No gross enhancing lesions as visualized. Stable bifrontal small vessel ischemic change. BONES: Intact as visualized. SINUSES: No fluid or mucosal thickening. CTA NECK: AORTA AND GREAT VESSELS: Thoracic aortic arch, brachiocephalic artery, left common carotid artery, l eft subclavian artery are all normal. There is a direct origin of the left vertebral artery off the aortic arch, an anatomic variant. No aortic arch aneurysm. CAROTID VESSELS IN THE NECK: Bilateral common carotid arteries, carotid bifurcations, cervical inter nal carotid arteries are unremarkable. Please note that the right and left common carotid arteries a nd carotid bifurcations are in the prevertebral space, an anatomic variant. This is best shown on ax ial images 60-67. VERTEBRAL ARTERIES IN THE NECK: Codominant vertebral arteries are present. No stenosis or dissectio n. NECK SOFT TISSUES: No masses or adenopathy. Airway patent. Thyroid, neck soft tissues otherwise un remarkable. CERVICAL SPINE: Chronic fusion of the cervical spine, unchanged since CT 03/04/2008. Patient has had resection of the odontoid process and bone graft with fusion of the posterior arch of C1, posterior elements of C2, posterior elements of C3. There is advanced disc space narrowing at C3-4 and C5-6 wi th bony ankylosis across the C4-5 disc space. Mild anterolisthesis of C3 over C4, and C4 over C5 is seen. These findings are all stable compared to 2008. UPPER CHEST/LUNG APICES: Moderate pleural effusions are present layering dependently in the chest. 4 x 1.8 cm conglomerate right paratracheal adenopathy on axial image 38 and coronal image 78. IMPRESSION: NO CTA EVIDENCE OF STENOSIS OR ANEURYSM OF THE [place]. THE EXTRACRANIAL VERTEBRAL AND CAROTID CIRCULATION IS UNREMARKABLE NO ABNORMAL BRAIN PARENCHYMAL ENHANCING LESIONS. STABLE SMALL VESSEL ISCHEMIC CHANGE IN THE HEMISPHE MARLEN[place] WHITE MATTER STABLE APPEARANCE OF THE CERVICAL SPINE COMPARED TO CT EXAMS SINCE 2008. TECHNICAL DOCUMENTATION: JOB ID: [id number] Quality ID # [id number]: Final reports with documentation of one or more dose reduction techniques (e.g., Au tomated exposure control, adjustment of the mA and/or kV according to patient size, use of iterative reconstruction technique) 2010 [employer]- All Rights Reserved Reading location - IP/workstation name: [email or web address]
--- NOTE | 2018-02-02 17:01 | RADIOLOGY REPORT (SQ) ---
EXAM DESCRIPTION: CTA HEAD; CTA NECK COMPLETED DATE/TIME: 02/02/2018 4:35 pm REASON FOR STUDY: Hallucination, trouble seeing on right peripheral COMPARISON: MRI brain 02/10/2017, 02/01/2018 CT brain 02/10/2017, 02/01/2018, 02/02/2018 CT cervical spine 03/04/2008 TECHNIQUE: Post IV contrast scanning, thin section axial imaging through the brain to evaluate the a rterial structures. Source and MIP images are saved and reviewed on PACS. Post IV scanning thin section axial imaging from the thoracic inlet to the skullbase to evaluate the arterial structures. Source and MIPS images are saved and reviewed on PACs Advanced 3D imaging as volume-rendering, MIPs, SSD performed? yes All CT scanners at this facility use dose modulation, iterative reconstruction, and/or weight based d osing when appropriate to reduce radiation dose to as low as reasonably achievable (ALARA). [facility]: Dose Right [facility]: CareDose [facility]: Dose Right [facility]: Teradose 4D [facility]: Tiltap CONTRAST TYPE AND DOSE: contrast/concentration: Isovue 370.00 mg/ml; Total Contrast Delivered: 80.0 ml; Total Saline Delivered: 75.0 ml RENAL FUNCTION: Creatinine 0.45 LIMITATIONS: None. FINDINGS: CTA [place]: The anterior, middle, posterior cerebral arteries are all patent. No evidence of a neurysm or focal stenosis. POSTERIOR CIRCULATION: The distal vertebral arteries are patent as is the basilar artery. No aneurysm . BRAIN: No gross enhancing lesions as visualized. Stable bifrontal small vessel ischemic change. BONES: Intact as visualized. SINUSES: No fluid or mucosal thickening. CTA NECK: AORTA AND GREAT VESSELS: Thoracic aortic arch, brachiocephalic artery, left common carotid artery, l eft subclavian artery are all normal. There is a direct origin of the left vertebral artery off the aortic arch, an anatomic variant. No aortic arch aneurysm. CAROTID VESSELS IN THE NECK: Bilateral common carotid arteries, carotid bifurcations, cervical inter nal carotid arteries are unremarkable. Please note that the right and left common carotid arteries a nd carotid bifurcations are in the prevertebral space, an anatomic variant. This is best shown on ax ial images 60-67. VERTEBRAL ARTERIES IN THE NECK: Codominant vertebral arteries are present. No stenosis or dissectio n. NECK SOFT TISSUES: No masses or adenopathy. Airway patent. Thyroid, neck soft tissues otherwise un remarkable. CERVICAL SPINE: Chronic fusion of the cervical spine, unchanged since CT 03/04/2008. Patient has had resection of the odontoid process and bone graft with fusion of the posterior arch of C1, posterior elements of C2, posterior elements of C3. There is advanced disc space narrowing at C3-4 and C5-6 wi th bony ankylosis across the C4-5 disc space. Mild anterolisthesis of C3 over C4, and C4 over C5 is seen. These findings are all stable compared to 2008. UPPER CHEST/LUNG APICES: Moderate pleural effusions are present layering dependently in the chest. 4 x 1.8 cm conglomerate right paratracheal adenopathy on axial image 38 and coronal image 78. IMPRESSION: NO CTA EVIDENCE OF STENOSIS OR ANEURYSM OF THE [place]. THE EXTRACRANIAL VERTEBRAL AND CAROTID CIRCULATION IS UNREMARKABLE NO ABNORMAL BRAIN PARENCHYMAL ENHANCING LESIONS. STABLE SMALL VESSEL ISCHEMIC CHANGE IN THE HEMISPHE MARLENE WHITE MATTER STABLE APPEARANCE OF THE CERVICAL SPINE COMPARED TO CT EXAMS SINCE 2008. TECHNICAL DOCUMENTATION: JOB ID: [id number] Quality ID # [id number]: Final reports with documentation of one or more dose reduction techniques (e.g., Au tomated exposure control, adjustment of the mA and/or kV according to patient size, use of iterative reconstruction technique) 2010 [employer]- All Rights Reserved Reading location - IP/workstation name: [email or web address]
[2018-02-02] MEDS: RIVAROXABAN 10 MG TABLET PO SCH (18:43)
[2018-02-02] MEDS: CETIRIZINE 5 MG TABLET PO SCH (18:44)
[2018-02-02] MEDS: OXYCODONE-ACETAMINOPHEN 5-325 MG TABLET PO PRN (22:49)
[2018-02-03] MEDS: DILTIAZEM HCL 60 MG TABLET PO SCH ×3 (06:23→21:14)
[2018-02-03] MEDS: HYDROCORTISONE SOD SUCCINATE INJ/PF 100 MG/2 ML SDV IV SCH ×3 (06:24→21:15)
[2018-02-03 06:32] LABS: ABSOLUTE LYMPHOCYTES (AUTO) 0.8 10^3/uL (0.5-4.7); ABSOLUTE MONOCYTES (AUTO) 0.5 10^3/uL (0.1-1.4); ABSOLUTE NEUT (AUTO) 5.8 10^3/uL (1.7-8.2); BASOPHILS % (AUTO) 0.2 % (0-2); EOSINOPHILS % (AUTO) 0.1 % (0-6); HEMOGLOBIN 12.2 g/dL (12.0-15.5); LYMPHOCYTES % (AUTO) 11.7 % (13-45); MEAN CORPUSCULAR HEMOGLOBIN 28.1 pg (27.0-33.4); MEAN CORPUSCULAR HGB CONC 34.8 g/dL (32.0-36.0); MEAN CORPUSCULAR VOLUME 81 fl (80-97); MONOCYTES % (AUTO) 7.4 % (3-13); PLATELET COUNT 279 10^3/uL (150-450); RED BLOOD COUNT 4.35 10^6/uL (3.72-5.28); SEGMENTED NEUTROPHILS % (AUTO) 80.6 % (42-78); TOTAL CELLS COUNTED % (AUTO) 100 %; WHITE BLOOD COUNT 7.2 10^3/uL (4.0-10.5)
[2018-02-03 06:52] LABS: ANION GAP 13 (5-19); BLOOD UREA NITROGEN 6 mg/dL (7-20); CALCIUM 8.7 mg/dL (8.4-10.2); CARBON DIOXIDE 18 mmol/L (22-30); CHLORIDE 106 mmol/L (98-107); GLUCOSE 141 mg/dL (75-110); POTASSIUM 3.2 mmol/L (3.6-5.0); SODIUM 137.4 mmol/L (137-145)
[2018-02-03] MEDS: ESCITALOPRAM OXALATE 10 MG TABLET PO SCH (09:34)
[2018-02-03] MEDS: CEFUROXIME 500 MG TABLET PO SCH ×2 (09:35→21:14)
[2018-02-03] MEDS: GUAIFENESIN 600 MG TABLET.SA PO SCH ×2 (09:35→21:14)
[2018-02-03] MEDS: CYCLOSPORINE 0.05% OPH EMULSIO 0.4 ML DROPERETTE OU SCH ×2 (09:35→18:09)
[2018-02-03] MEDS: CLOPIDOGREL BISULFATE 75 MG TABLET PO SCH (09:36)
[2018-02-03] MEDS: OXYCODONE HCL IR 5 MG TABLET PO PRN ×2 (13:26→21:15)
[2018-02-03] MEDS: OXYCODONE-ACETAMINOPHEN 5-325 MG TABLET PO PRN ×2 (13:26→21:15)
[2018-02-03] MEDS: NORMAL SALINE 1000 ML 1,000 ML IV PRN (13:30)
--- NOTE | 2018-02-03 15:12 | PDOC PROGRESS REPORT ---
Subjective Progress Note for:: 02/03/18 Subjective:: No chest pain or difficulty with breathing. No nausea or vomiting. Reported poor appetite and po intake. Daughter at bedside reported about 25 % food intake. No fever or chills. Reason For Visit: PNEUMONIA Physical Exam Vital Signs: Temp Pulse Resp BP Pulse Ox 97.9 F 91 12 144/78 H 98 02/03/18 11:15 02/03/18 11:15 02/03/18 11:15 02/03/18 11:15 02/03/18 11:15 Intake & Output 02/02/18 02/03/18 02/04/18 06:59 06:59 06:59 Intake Total 1360 1659 118 Balance 1360 1659 118 Weight 53.3 kg 49.3 kg General appearance: PRESENT: no acute distress Head exam: PRESENT: atraumatic, normocephalic Mouth exam: PRESENT: moist Respiratory exam: PRESENT: clear to auscultation lucas Cardiovascular exam: PRESENT: RRR. ABSENT: diastolic murmur, rubs, systolic murmur Vascular exam: PRESENT: normal capillary refill. ABSENT: pallor GI/Abdominal exam: PRESENT: normal bowel sounds, soft Extremities exam: ABSENT: pedal edema Musculoskeletal exam: PRESENT: deformity - multiple joints deformity from Rheumatoid arthritis. ABSENT: full ROM Neurological exam: PRESENT: alert, awake, oriented to person, oriented to place , oriented to time, oriented to situation, CN II-XII grossly intact. ABSENT: motor sensory deficit Psychiatric exam: PRESENT: appropriate affect, normal mood. ABSENT: homicidal ideation, suicidal ideation Skin exam: PRESENT: dry, intact, warm. ABSENT: cyanosis, rash Results Laboratory Results: 02/03/18 06:09 02/03/18 06:09 02/03/18 02/03/18 06:09 06:09 WBC 7.2 RBC 4.35 Hgb 12.2 Hct 35.0 L MCV 81 MCH 28.1 MCHC 34.8 RDW 15.0 H Plt Count 279 Seg Neutrophils % 80.6 H Lymphocytes % 11.7 L Monocytes % 7.4 Eosinophils % 0.1 Basophils % 0.2 Absolute Neutrophils 5.8 Absolute Lymphocytes 0.8 Absolute Monocytes 0.5 Absolute Eosinophils 0.0 Absolute Basophils 0.0 Sodium 137.4 Potassium 3.2 L Chloride 106 Carbon Dioxide 18 L Anion Gap 13 BUN 6 L Creatinine 0.43 L Est GFR ( Amer) > 60 Est GFR (Non-Af Amer) > 60 Glucose 141 H Calcium 8.7 Impressions: Abdomen Ultrasound 01/29/18 00:00 IMPRESSION: 1. Gallbladder sludge. No definable stones. 2. Limited study, other findings as above. Chest X-Ray 01/29/18 00:00 IMPRESSION: No acute changes. Chest CT 01/29/18 06:00 IMPRESSION: Small bilateral pleural effusions are identified with associated airspace consolidation most consistent with atelectatic changes although I cannot exclude minimal pneumonic infiltrates. Other findings as noted above Head MRI 02/01/18 00:00 IMPRESSION: Tiny acute or subacute white matter infarcts left frontal lobe. Moderate chronic small vessel ischemic change elsewhere in the cerebral hemispheres and mid alec EVIDENCE OF ACUTE STROKE: Yes Head CT 02/02/18 00:00 IMPRESSION: MILD CHRONIC CHANGES OF ATROPHY AND MICROVASCULAR ISCHEMIA. NO ACUTE PROCESS. EVIDENCE OF ACUTE STROKE: NO. Head CTA 02/02/18 00:00 IMPRESSION: NO CTA EVIDENCE OF STENOSIS OR ANEURYSM OF THE [place]. THE EXTRACRANIAL VERTEBRAL AND CAROTID CIRCULATION IS UNREMARKABLE NO ABNORMAL BRAIN PARENCHYMAL ENHANCING LESIONS. STABLE SMALL VESSEL ISCHEMIC CHANGE IN THE HEMISPHERIC WHITE MATTER STABLE APPEARANCE OF THE CERVICAL SPINE COMPARED TO CT EXAMS SINCE 2007. Neck CTA 02/02/18 00:00 IMPRESSION: NO CTA EVIDENCE OF STENOSIS OR ANEURYSM OF THE [place]. THE EXTRACRANIAL VERTEBRAL AND CAROTID CIRCULATION IS UNREMARKABLE NO ABNORMAL BRAIN PARENCHYMAL ENHANCING LESIONS. STABLE SMALL VESSEL ISCHEMIC CHANGE IN THE HEMISPHERIC WHITE MATTER STABLE APPEARANCE OF THE CERVICAL SPINE COMPARED TO CT EXAMS SINCE 2007. Assessment & Plan - Diagnosis (1) Cerebrovascular accident Qualifiers: CVA mechanism: unspecified Qualified Code(s): I63.9 - Cerebral infarction, unspecified Is this a current diagnosis for this admission?: Yes Plan: See covering attending physician orders. (2) Pneumonia Qualifiers: Laterality: unspecified laterality Is this a current diagnosis for this admission?: Yes Plan: See covering attending physician orders. (3) E. coli urinary tract infection Is this a current diagnosis for this admission?: Yes Plan: See covering attending physician orders. (4) Hypokalemia Is this a current diagnosis for this admission?: Yes Plan: See covering attending physician orders. (5) Pulmonary embolism Qualifiers: Pulmonary embolism type: other Chronicity: unspecified Is this a current diagnosis for this admission?: Yes Plan: See covering attending physician orders. (6) Rheumatoid arthritis Qualifiers: Rheumatoid arthritis location: multiple sites Is this a current diagnosis for this admission?: Yes Plan: See covering attending physician orders. - Time Time Spent with patient: 25-34 minutes Medications reviewed and adjusted accordingly: Yes Anticipated discharge: Home - Inpatient Certification Based on my medical assessment, after consideration of the patient's comorbidities, presenting symptoms, or acuity I expect that the services needed warrant INPATIENT care.: Yes I certify that my determination is in accordance with my understanding of Medicare's requirements for reasonable and necessary INPATIENT services [42 CFR 412.3e].: Yes Medical Necessity: Need Close Monitoring Due to Risk of Patient Decompensation, Need For Continuous Telemetry Monitoring, Risk of Complication if Not Cared For in Hospital 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 Potassium replacement. Start on Ensure oral supplementation with meals.
[2018-02-03] MEDS ORDERED: POTASSIUM CHLORIDE 10 MEQ TABLET.SA PO SCH (16:00)
[2018-02-03] MEDS: RIVAROXABAN 10 MG TABLET PO SCH (16:48)
[2018-02-03] MEDS: POTASSIUM CHLORIDE 20 MEQ/15 ML UDCUP PO SCH ×2 (16:48→20:27)
[2018-02-03] MEDS: CETIRIZINE 5 MG TABLET PO SCH (18:08)
[2018-02-04 06:16] LABS: ANION GAP 7 (5-19); BLOOD UREA NITROGEN 9 mg/dL (7-20); CALCIUM 8.7 mg/dL (8.4-10.2); CARBON DIOXIDE 23 mmol/L (22-30); CHLORIDE 109 mmol/L (98-107); GLUCOSE 170 mg/dL (75-110); POTASSIUM 4.1 mmol/L (3.6-5.0); SODIUM 138.5 mmol/L (137-145)
[2018-02-04] MEDS: DILTIAZEM HCL 60 MG TABLET PO SCH ×3 (06:17→21:48)
[2018-02-04] MEDS: HYDROCORTISONE SOD SUCCINATE INJ/PF 100 MG/2 ML SDV IV SCH ×3 (06:18→21:47)
[2018-02-04] MEDS: OXYCODONE-ACETAMINOPHEN 5-325 MG TABLET PO PRN ×2 (06:20→18:15)
[2018-02-04] MEDS: ESCITALOPRAM OXALATE 10 MG TABLET PO SCH (10:32)
[2018-02-04] MEDS: CLOPIDOGREL BISULFATE 75 MG TABLET PO SCH (10:32)
[2018-02-04] MEDS: CEFUROXIME 500 MG TABLET PO SCH ×2 (10:32→21:49)
[2018-02-04] MEDS: GUAIFENESIN 600 MG TABLET.SA PO SCH ×2 (10:32→21:48)
[2018-02-04] MEDS: CYCLOSPORINE 0.05% OPH EMULSIO 0.4 ML DROPERETTE OU SCH ×2 (10:33→18:13)
[2018-02-04] MEDS: NORMAL SALINE 1000 ML 1,000 ML IV PRN (10:33)
--- NOTE | 2018-02-04 16:49 | PDOC PROGRESS REPORT ---
Subjective Progress Note for:: 02/04/18 Subjective:: No chest pain or difficulty with breathing. No abdominal pain, nausea or vomiting. No reported fever or chills. Reason For Visit: PNEUMONIA Physical Exam Vital Signs: Temp Pulse Resp BP Pulse Ox 99.0 F 91 20 162/86 H 100 02/04/18 15:13 02/04/18 15:13 02/04/18 15:13 02/04/18 15:13 02/04/18 15:13 Intake & Output 02/03/18 02/04/18 02/05/18 06:59 06:59 06:59 Intake Total 1659 1556 237 Balance 1659 1556 237 Weight 49.3 kg 48.4 kg Physical Exam: General appearance: PRESENT: no acute distress Head exam: PRESENT: atraumatic, normocephalic Mouth exam: PRESENT: moist Respiratory exam: PRESENT: clear to auscultation lucas Cardiovascular exam: PRESENT: RRR. ABSENT: diastolic murmur, rubs, systolic murmur Vascular exam: ABSENT: pallor GI/Abdominal exam: PRESENT: normal bowel sounds, soft Extremities exam: ABSENT: pedal edema. Contracture prevention Knee braces in use. Musculoskeletal exam: PRESENT: deformity - multiple joints deformity from Rheumatoid arthritis. ABSENT: full ROM Neurological exam: PRESENT: alert, awake, oriented to person, oriented to place , oriented to time, oriented to situation, CN II-XII grossly intact. ABSENT: motor sensory deficit Psychiatric exam: PRESENT: appropriate affect, normal mood. ABSENT: homicidal ideation, suicidal ideation Skin exam: PRESENT: dry, intact, warm. ABSENT: cyanosis, rash Results Laboratory Results: 02/03/18 06:09 02/04/18 04:49 02/04/18 04:49 Sodium 138.5 Potassium 4.1 Chloride 109 H Carbon Dioxide 23 Anion Gap 7 BUN 9 Creatinine 0.43 L Est GFR ( Amer) > 60 Est GFR (Non-Af Amer) > 60 Glucose 170 H Calcium 8.7 Impressions: Abdomen Ultrasound 01/29/18 00:00 IMPRESSION: 1. Gallbladder sludge. No definable stones. 2. Limited study, other findings as above. Chest X-Ray 01/29/18 00:00 IMPRESSION: No acute changes. Chest CT 01/29/18 06:00 IMPRESSION: Small bilateral pleural effusions are identified with associated airspace consolidation most consistent with atelectatic changes although I cannot exclude minimal pneumonic infiltrates. Other findings as noted above Head MRI 02/01/18 00:00 IMPRESSION: Tiny acute or subacute white matter infarcts left frontal lobe. Moderate chronic small vessel ischemic change elsewhere in the cerebral hemispheres and mid alec EVIDENCE OF ACUTE STROKE: Yes Head CT 02/02/18 00:00 IMPRESSION: MILD CHRONIC CHANGES OF ATROPHY AND MICROVASCULAR ISCHEMIA. NO ACUTE PROCESS. EVIDENCE OF ACUTE STROKE: NO. Head CTA 02/02/18 00:00 IMPRESSION: NO CTA EVIDENCE OF STENOSIS OR ANEURYSM OF THE [place]. THE EXTRACRANIAL VERTEBRAL AND CAROTID CIRCULATION IS UNREMARKABLE NO ABNORMAL BRAIN PARENCHYMAL ENHANCING LESIONS. STABLE SMALL VESSEL ISCHEMIC CHANGE IN THE HEMISPHERIC WHITE MATTER STABLE APPEARANCE OF THE CERVICAL SPINE COMPARED TO CT EXAMS SINCE 2007. Neck CTA 02/02/18 00:00 IMPRESSION: NO CTA EVIDENCE OF STENOSIS OR ANEURYSM OF THE [place]. THE EXTRACRANIAL VERTEBRAL AND CAROTID CIRCULATION IS UNREMARKABLE NO ABNORMAL BRAIN PARENCHYMAL ENHANCING LESIONS. STABLE SMALL VESSEL ISCHEMIC CHANGE IN THE HEMISPHERIC WHITE MATTER STABLE APPEARANCE OF THE CERVICAL SPINE COMPARED TO CT EXAMS SINCE 2007. Assessment & Plan - Diagnosis (1) Cerebrovascular accident Qualifiers: CVA mechanism: unspecified Qualified Code(s): I63.9 - Cerebral infarction, unspecified Is this a current diagnosis for this admission?: Yes (2) Pneumonia Qualifiers: Laterality: unspecified laterality Is this a current diagnosis for this admission?: Yes (3) E. coli urinary tract infection Is this a current diagnosis for this admission?: Yes (4) Hypokalemia Is this a current diagnosis for this admission?: Yes (5) Pulmonary embolism Qualifiers: Pulmonary embolism type: other Chronicity: unspecified Is this a current diagnosis for this admission?: Yes (6) Rheumatoid arthritis Qualifiers: Rheumatoid arthritis location: multiple sites Is this a current diagnosis for this admission?: Yes - Time Time Spent with patient: 25-34 minutes Medications reviewed and adjusted accordingly: Yes Anticipated discharge: Home with Homehealth Within: Other - Inpatient Certification Based on my medical assessment, after consideration of the patient's comorbidities, presenting symptoms, or acuity I expect that the services needed warrant INPATIENT care.: Yes I certify that my determination is in accordance with my understanding of Medicare's requirements for reasonable and necessary INPATIENT services [42 CFR 412.3e].: Yes Medical Necessity: Need Close Monitoring Due to Risk of Patient Decompensation, Need For IV Fluids, Need For Continuous Telemetry Monitoring, Need for IV Antibiotics, Risk of Complication if Not Cared For in Hospital Post Hospital Care: D/C Medicaid Plan Compliance Director Documentation - Plan Summary Plan Summary: Continue current medication management.
[2018-02-04] MEDS: CETIRIZINE 5 MG TABLET PO SCH (18:13)
[2018-02-04] MEDS: OXYCODONE HCL IR 5 MG TABLET PO PRN (18:15)
[2018-02-04] MEDS: RIVAROXABAN 10 MG TABLET PO SCH (18:16)
[2018-02-05] MEDS: OXYCODONE-ACETAMINOPHEN 5-325 MG TABLET PO PRN ×2 (06:10→15:21)
[2018-02-05] MEDS: HYDROCORTISONE SOD SUCCINATE INJ/PF 100 MG/2 ML SDV IV SCH ×3 (06:10→21:29)
[2018-02-05] MEDS: DILTIAZEM HCL 60 MG TABLET PO SCH ×3 (06:11→21:28)
[2018-02-05] MEDS: OXYCODONE HCL IR 5 MG TABLET PO PRN ×2 (06:11→15:21)
[2018-02-05] MEDS: NORMAL SALINE 1000 ML 1,000 ML IV PRN (06:15)
[2018-02-05] MEDS: CEFUROXIME 500 MG TABLET PO SCH ×2 (10:42→21:27)
[2018-02-05] MEDS: ESCITALOPRAM OXALATE 10 MG TABLET PO SCH (10:42)
[2018-02-05] MEDS: CLOPIDOGREL BISULFATE 75 MG TABLET PO SCH (10:42)
[2018-02-05] MEDS: GUAIFENESIN 600 MG TABLET.SA PO SCH ×2 (10:42→21:28)
[2018-02-05] MEDS: CYCLOSPORINE 0.05% OPH EMULSIO 0.4 ML DROPERETTE OU SCH ×2 (10:42→17:23)
--- NOTE | 2018-02-05 16:55 | PDOC PROGRESS REPORT ---
Subjective Progress Note for:: 02/05/18 Subjective:: No chest pain or difficulty with breathing. No fever or chills. No abdominal pain, nausea or vomiting. Appetite and P.O intake remain fair. No constipation. Reason For Visit: PNEUMONIA Physical Exam Vital Signs: Temp Pulse Resp BP Pulse Ox 97.7 F 89 16 145/84 H 100 02/05/18 15:44 02/05/18 15:44 02/05/18 15:44 02/05/18 15:44 02/05/18 15:44 Intake & Output 02/04/18 02/05/18 02/06/18 06:59 06:59 06:59 Intake Total 1556 1744 237 Balance 1556 1744 237 Weight 48.4 kg 52.1 kg Physical Exam: General appearance: PRESENT: no acute distress Head exam: PRESENT: atraumatic, normocephalic Mouth exam: PRESENT: moist Respiratory exam: PRESENT: clear to auscultation lucas Cardiovascular exam: PRESENT: RRR. ABSENT: diastolic murmur, rubs, systolic murmur Vascular exam: ABSENT: pallor GI/Abdominal exam: PRESENT: normal bowel sounds, soft Extremities exam: ABSENT: pedal edema. Contracture prevention Knee braces in use. Musculoskeletal exam: PRESENT: deformity - multiple joints deformity from Rheumatoid arthritis. ABSENT: full ROM Neurological exam: PRESENT: alert, awake, oriented to person, oriented to place , oriented to time, oriented to situation, CN II-XII grossly intact. ABSENT: motor sensory deficit Psychiatric exam: PRESENT: appropriate affect, normal mood. ABSENT: homicidal ideation, suicidal ideation Skin exam: PRESENT: dry, intact, warm. ABSENT: cyanosis, rash Results Laboratory Results: 02/03/18 06:09 02/04/18 04:49 Impressions: Abdomen Ultrasound 01/29/18 00:00 IMPRESSION: 1. Gallbladder sludge. No definable stones. 2. Limited study, other findings as above. Chest X-Ray 01/29/18 00:00 IMPRESSION: No acute changes. Chest CT 01/29/18 06:00 IMPRESSION: Small bilateral pleural effusions are identified with associated airspace consolidation most consistent with atelectatic changes although I cannot exclude minimal pneumonic infiltrates. Other findings as noted above Head MRI 02/01/18 00:00 IMPRESSION: Tiny acute or subacute white matter infarcts left frontal lobe. Moderate chronic small vessel ischemic change elsewhere in the cerebral hemispheres and mid alec EVIDENCE OF ACUTE STROKE: Yes Head CT 02/02/18 00:00 IMPRESSION: MILD CHRONIC CHANGES OF ATROPHY AND MICROVASCULAR ISCHEMIA. NO ACUTE PROCESS. EVIDENCE OF ACUTE STROKE: NO. Head CTA 02/02/18 00:00 IMPRESSION: NO CTA EVIDENCE OF STENOSIS OR ANEURYSM OF THE [place]. THE EXTRACRANIAL VERTEBRAL AND CAROTID CIRCULATION IS UNREMARKABLE NO ABNORMAL BRAIN PARENCHYMAL ENHANCING LESIONS. STABLE SMALL VESSEL ISCHEMIC CHANGE IN THE HEMISPHERIC WHITE MATTER STABLE APPEARANCE OF THE CERVICAL SPINE COMPARED TO CT EXAMS SINCE 2007. Neck CTA 02/02/18 00:00 IMPRESSION: NO CTA EVIDENCE OF STENOSIS OR ANEURYSM OF THE [place]. THE EXTRACRANIAL VERTEBRAL AND CAROTID CIRCULATION IS UNREMARKABLE NO ABNORMAL BRAIN PARENCHYMAL ENHANCING LESIONS. STABLE SMALL VESSEL ISCHEMIC CHANGE IN THE HEMISPHERIC WHITE MATTER STABLE APPEARANCE OF THE CERVICAL SPINE COMPARED TO CT EXAMS SINCE 2007. Assessment & Plan - Diagnosis (1) Cerebrovascular accident Qualifiers: CVA mechanism: unspecified Qualified Code(s): I63.9 - Cerebral infarction, unspecified Is this a current diagnosis for this admission?: Yes (2) Pneumonia Qualifiers: Laterality: unspecified laterality Is this a current diagnosis for this admission?: Yes (3) E. coli urinary tract infection Is this a current diagnosis for this admission?: Yes (4) Hypokalemia Is this a current diagnosis for this admission?: Yes (5) Pulmonary embolism Qualifiers: Pulmonary embolism type: other Chronicity: unspecified Is this a current diagnosis for this admission?: Yes (6) Rheumatoid arthritis Qualifiers: Rheumatoid arthritis location: multiple sites Is this a current diagnosis for this admission?: Yes - Time Time Spent with patient: 25-34 minutes Medications reviewed and adjusted accordingly: Yes Anticipated discharge: Home with Homehealth Within: Other - Inpatient Certification Based on my medical assessment, after consideration of the patient's comorbidities, presenting symptoms, or acuity I expect that the services needed warrant INPATIENT care.: Yes I certify that my determination is in accordance with my understanding of Medicare's requirements for reasonable and necessary INPATIENT services [42 CFR 412.3e].: Yes Medical Necessity: Need Close Monitoring Due to Risk of Patient Decompensation, Need For IV Fluids, Need For Continuous Telemetry Monitoring, Risk of Complication if Not Cared For in Hospital Post 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
[2018-02-05] MEDS: RIVAROXABAN 10 MG TABLET PO SCH (17:24)
[2018-02-05] MEDS: CETIRIZINE 5 MG TABLET PO SCH (17:24)
[2018-02-06] MEDS: OXYCODONE-ACETAMINOPHEN 5-325 MG TABLET PO PRN ×3 (03:37→23:28)
[2018-02-06] MEDS: OXYCODONE HCL IR 5 MG TABLET PO PRN ×3 (03:38→23:21)
[2018-02-06] MEDS: NORMAL SALINE 1000 ML 1,000 ML IV PRN (03:41)
[2018-02-06] MEDS: DILTIAZEM HCL 60 MG TABLET PO SCH ×3 (05:46→23:12)
[2018-02-06] MEDS: HYDROCORTISONE SOD SUCCINATE INJ/PF 100 MG/2 ML SDV IV SCH (05:46)
[2018-02-06] MEDS: ESCITALOPRAM OXALATE 10 MG TABLET PO SCH (10:15)
[2018-02-06] MEDS: CYCLOSPORINE 0.05% OPH EMULSIO 0.4 ML DROPERETTE OU SCH ×2 (10:15→17:48)
[2018-02-06] MEDS: GUAIFENESIN 600 MG TABLET.SA PO SCH ×2 (10:15→23:11)
[2018-02-06] MEDS: CEFUROXIME 500 MG TABLET PO SCH ×2 (10:15→23:29)
[2018-02-06] MEDS: CLOPIDOGREL BISULFATE 75 MG TABLET PO SCH (10:15)
[2018-02-06 10:53] LABS: ARTERIAL BLOOD BASE EXCESS 7.7 mmol/L; ARTERIAL BLOOD H2CO3 1.11 mmol/L (1.05-1.35); ARTERIAL BLOOD HCO3 30.6 mmol/L (20-26); ARTERIAL BLOOD O2 SATURATION 96.4 % (94-98); ARTERIAL BLOOD PH 7.54 (7.35-7.45); ARTERIAL BLOOD PO2 74.5 mmHg (80-100); ARTERIAL BLOOD TOTAL CO2 31.8 mmol/L (21-25)
[2018-02-06 10:54] LABS: ARTERIAL BLOOD FIO2 ROOM AIR
[2018-02-06 12:00] LABS: ABSOLUTE LYMPHOCYTES (AUTO) 1.1 10^3/uL (0.5-4.7); ABSOLUTE MONOCYTES (AUTO) 0.8 10^3/uL (0.1-1.4); ABSOLUTE NEUT (AUTO) 5.7 10^3/uL (1.7-8.2); BASOPHILS % (AUTO) 0.1 % (0-2); EOSINOPHILS % (AUTO) 0.1 % (0-6); HEMATOCRIT 33.4 % (36.0-47.0); HEMOGLOBIN 11.7 g/dL (12.0-15.5); LYMPHOCYTES % (AUTO) 14.2 % (13-45); MEAN CORPUSCULAR HEMOGLOBIN 28.2 pg (27.0-33.4); MEAN CORPUSCULAR HGB CONC 34.9 g/dL (32.0-36.0); MEAN CORPUSCULAR VOLUME 81 fl (80-97); PLATELET COUNT 448 10^3/uL (150-450); RED BLOOD COUNT 4.14 10^6/uL (3.72-5.28); RED CELL DISTRIBUTION WIDTH 14.8 % (11.5-14.0); SEGMENTED NEUTROPHILS % (AUTO) 75.6 % (42-78); TOTAL CELLS COUNTED % (AUTO) 100 %; WHITE BLOOD COUNT 7.6 10^3/uL (4.0-10.5)
--- NOTE | 2018-02-06 12:07 | PDOC PROGRESS REPORT ---
Subjective Progress Note for:: 02/06/18 Subjective:: unchanged Reason For Visit: PNEUMONIA Physical Exam Vital Signs: Temp Pulse Resp BP Pulse Ox 98.7 F 73 18 121/65 100 02/06/18 07:39 02/06/18 07:39 02/06/18 07:39 02/06/18 07:39 02/06/18 07:39 Intake & Output 02/05/18 02/06/18 02/07/18 06:59 06:59 06:59 Intake Total 1744 1850 Balance 1744 1850 Weight 52.1 kg 53.4 kg General appearance: PRESENT: no acute distress, disheveled. ABSENT: cooperative Head exam: PRESENT: atraumatic, normocephalic Eye exam: PRESENT: conjunctiva pale. ABSENT: EOMI, nystagmus, periorbital swelling, scleral icterus Mouth exam: PRESENT: dry mucosa, neck supple, tongue midline Neck exam: ABSENT: carotid bruit, JVD, lymphadenopathy, thyromegaly, tracheal deviation, tracheostomy Respiratory exam: PRESENT: decreased breath sounds, prolonged expiratory phas, rhonchi, symmetrical. ABSENT: stridor, tachypnea Cardiovascular exam: PRESENT: RRR, +S1, +S2 Pulses: PRESENT: normal radial pulses GI/Abdominal exam: PRESENT: hypoactive bowel sounds, soft Extremities exam: ABSENT: calf tenderness, clubbing, full ROM Musculoskeletal exam: ABSENT: ambulatory, deformity, dislocation, full ROM Neurological exam: ABSENT: awake Skin exam: PRESENT: dry, warm Results Laboratory Results: 02/03/18 06:09 02/04/18 04:49 Impressions: Abdomen Ultrasound 01/29/18 00:00 IMPRESSION: 1. Gallbladder sludge. No definable stones. 2. Limited study, other findings as above. Chest X-Ray 01/29/18 00:00 IMPRESSION: No acute changes. Chest CT 01/29/18 06:00 IMPRESSION: Small bilateral pleural effusions are identified with associated airspace consolidation most consistent with atelectatic changes although I cannot exclude minimal pneumonic infiltrates. Other findings as noted above Head MRI 02/01/18 00:00 IMPRESSION: Tiny acute or subacute white matter infarcts left frontal lobe. Moderate chronic small vessel ischemic change elsewhere in the cerebral hemispheres and mid alec EVIDENCE OF ACUTE STROKE: Yes Head CT 02/02/18 00:00 IMPRESSION: MILD CHRONIC CHANGES OF ATROPHY AND MICROVASCULAR ISCHEMIA. NO ACUTE PROCESS. EVIDENCE OF ACUTE STROKE: NO. Head CTA 02/02/18 00:00 IMPRESSION: NO CTA EVIDENCE OF STENOSIS OR ANEURYSM OF THE [place]. THE EXTRACRANIAL VERTEBRAL AND CAROTID CIRCULATION IS UNREMARKABLE NO ABNORMAL BRAIN PARENCHYMAL ENHANCING LESIONS. STABLE SMALL VESSEL ISCHEMIC CHANGE IN THE HEMISPHERIC WHITE MATTER STABLE APPEARANCE OF THE CERVICAL SPINE COMPARED TO CT EXAMS SINCE 2007. Neck CTA 02/02/18 00:00 IMPRESSION: NO CTA EVIDENCE OF STENOSIS OR ANEURYSM OF THE [place]. THE EXTRACRANIAL VERTEBRAL AND CAROTID CIRCULATION IS UNREMARKABLE NO ABNORMAL BRAIN PARENCHYMAL ENHANCING LESIONS. STABLE SMALL VESSEL ISCHEMIC CHANGE IN THE HEMISPHERIC WHITE MATTER STABLE APPEARANCE OF THE CERVICAL SPINE COMPARED TO CT EXAMS SINCE 2007. Assessment & Plan - Diagnosis (1) Pneumonia Qualifiers: Laterality: unspecified laterality Is this a current diagnosis for this admission?: Yes Plan: patient is unchanged (2) Chronic pain syndrome Is this a current diagnosis for this admission?: Yes (3) Rheumatoid arthritis Qualifiers: Rheumatoid arthritis location: multiple sites Is this a current diagnosis for this admission?: Yes Plan: resolved (4) Weakness Is this a current diagnosis for this admission?: Yes Plan: unchanged
[2018-02-06 12:19] LABS: ANION GAP 9 (5-19); BLOOD UREA NITROGEN 12 mg/dL (7-20); CALCIUM 8.2 mg/dL (8.4-10.2); CARBON DIOXIDE 29 mmol/L (22-30); CHLORIDE 101 mmol/L (98-107); GLUCOSE 184 mg/dL (75-110)
[2018-02-06 12:27] LABS: POTASSIUM 2.6 mmol/L (3.6-5.0)
[2018-02-06] MEDS ORDERED: POTASSIUM CHLORIDE 10 MEQ TABLET.SA PO PRN ×2 (12:42→12:43)
--- NOTE | 2018-02-06 13:59 | PDOC PROGRESS REPORT ---
Subjective Progress Note for:: 02/06/18 Subjective:: Patient is currently doing fair Patient's potassium is 2.6 Patient's denied any chest pain denied any shortness of the breath Patient's denied any abdominal pain no nausea no vomiting Patient otherwise no other events happens Reason For Visit: PNEUMONIA Physical Exam Vital Signs: Temp Pulse Resp BP Pulse Ox 98.7 F 84 18 166/89 H 96 02/06/18 12:06 02/06/18 12:06 02/06/18 12:06 02/06/18 12:06 02/06/18 12:06 Pulse Oximeter Continuous Start: 02/06/18 09: 27 Freq: RTQ4 Status: Active Document 02/06/18 11:58 [facility] (Rec: 02/06/18 12:00 [facility] [email or web address]) Pulse Oximetry Assessment Oxygen Saturation (92-100) 98 Oxygen Delivery Method Room Air Equipment Usage Initial Set Up Continuous Pulse Oximeter 24 Hour Charge Charge Now Continuous SpO2 Machine # [id number] Intake & Output 02/05/18 02/06/18 02/07/18 06:59 06:59 06:59 Intake Total 1744 1850 250 Balance 1744 1850 250 Weight 52.1 kg 53.4 kg General appearance: PRESENT: no acute distress, well-developed, well-nourished Head exam: PRESENT: atraumatic, normocephalic Eye exam: PRESENT: conjunctiva pink, EOMI, PERRLA. ABSENT: scleral icterus Ear exam: PRESENT: normal external ear exam Mouth exam: PRESENT: moist, tongue midline Neck exam: PRESENT: full ROM. ABSENT: carotid bruit, JVD, lymphadenopathy, thyromegaly Respiratory exam: PRESENT: clear to auscultation lucas Cardiovascular exam: PRESENT: RRR. ABSENT: diastolic murmur, rubs, systolic murmur Pulses: PRESENT: normal dorsalis pedis pul, +2 pedal pulses bilateral Vascular exam: PRESENT: normal capillary refill GI/Abdominal exam: PRESENT: normal bowel sounds, soft. ABSENT: distended, guarding, mass, organolmegaly, rebound, tenderness Rectal exam: PRESENT: deferred Additional comments: Contracture upper and lower extremity due to the severe rheumatoid arthritis Neurological exam: PRESENT: alert, awake, oriented to person, oriented to place , oriented to time, oriented to situation, CN II-XII grossly intact. ABSENT: motor sensory deficit Psychiatric exam: PRESENT: appropriate affect, normal mood. ABSENT: homicidal ideation, suicidal ideation Skin exam: PRESENT: dry, intact, warm. ABSENT: cyanosis, rash Results Laboratory Results: 02/06/18 11:33 02/06/18 11:33 02/06/18 02/06/18 02/06/18 10:35 11:33 11:33 WBC 7.6 RBC 4.14 Hgb 11.7 L Hct 33.4 L MCV 81 MCH 28.2 MCHC 34.9 RDW 14.8 H Plt Count 448 Seg Neutrophils % 75.6 Lymphocytes % 14.2 Monocytes % 10.0 Eosinophils % 0.1 Basophils % 0.1 Absolute Neutrophils 5.7 Absolute Lymphocytes 1.1 Absolute Monocytes 0.8 Absolute Eosinophils 0.0 Absolute Basophils 0.0 Carbonic Acid 1.11 HCO3/H2CO3 Ratio 27:1 ABG pH 7.54 H ABG pCO2 37.0 ABG pO2 74.5 L ABG HCO3 30.6 H ABG O2 Saturation 96.4 ABG Base Excess 7.7 FiO2 ROOM AIR Sodium 139.0 Potassium 2.6 L* Chloride 101 Carbon Dioxide 29 Anion Gap 9 BUN 12 Creatinine 0.40 L Est GFR ( Amer) > 60 Est GFR (Non-Af Amer) > 60 Glucose 184 H Calcium 8.2 L Magnesium 1.8 02/01/18 09:59 Blood Blood Culture - Final NO GROWTH IN 5 DAYS 02/01/18 09:15 Blood Blood Culture - Final NO GROWTH IN 5 DAYS Impressions: Abdomen Ultrasound 01/29/18 00:00 IMPRESSION: 1. Gallbladder sludge. No definable stones. 2. Limited study, other findings as above. Chest X-Ray 01/29/18 00:00 IMPRESSION: No acute changes. Chest CT 01/29/18 06:00 IMPRESSION: Small bilateral pleural effusions are identified with associated airspace consolidation most consistent with atelectatic changes although I cannot exclude minimal pneumonic infiltrates. Other findings as noted above Head MRI 02/01/18 00:00 IMPRESSION: Tiny acute or subacute white matter infarcts left frontal lobe. Moderate chronic small vessel ischemic change elsewhere in the cerebral hemispheres and mid alec EVIDENCE OF ACUTE STROKE: Yes Head CT 02/02/18 00:00 IMPRESSION: MILD CHRONIC CHANGES OF ATROPHY AND MICROVASCULAR ISCHEMIA. NO ACUTE PROCESS. EVIDENCE OF ACUTE STROKE: NO. Head CTA 02/02/18 00:00 IMPRESSION: NO CTA EVIDENCE OF STENOSIS OR ANEURYSM OF THE [place]. THE EXTRACRANIAL VERTEBRAL AND CAROTID CIRCULATION IS UNREMARKABLE NO ABNORMAL BRAIN PARENCHYMAL ENHANCING LESIONS. STABLE SMALL VESSEL ISCHEMIC CHANGE IN THE HEMISPHERIC WHITE MATTER STABLE APPEARANCE OF THE CERVICAL SPINE COMPARED TO CT EXAMS SINCE 2007. Neck CTA 02/02/18 00:00 IMPRESSION: NO CTA EVIDENCE OF STENOSIS OR ANEURYSM OF THE [place]. THE EXTRACRANIAL VERTEBRAL AND CAROTID CIRCULATION IS UNREMARKABLE NO ABNORMAL BRAIN PARENCHYMAL ENHANCING LESIONS. STABLE SMALL VESSEL ISCHEMIC CHANGE IN THE HEMISPHERIC WHITE MATTER STABLE APPEARANCE OF THE CERVICAL SPINE COMPARED TO CT EXAMS SINCE 2007. Assessment & Plan - Diagnosis (1) Pneumonia Qualifiers: Laterality: unspecified laterality Is this a current diagnosis for this admission?: Yes Plan: Currently all stable and improving (2) Chronic pain syndrome Is this a current diagnosis for this admission?: Yes Plan: Continues to current pain medication (3) Dehydration Is this a current diagnosis for this admission?: Yes (4) Hyperlipidemia Qualifiers: Is this a current diagnosis for this admission?: Yes Plan: Continues to statin (5) Hypotension Qualifiers: Hypotension type: idiopathic hypotension Qualified Code(s): I95.0 - Idiopathic hypotension Is this a current diagnosis for this admission?: Yes Plan: Currently all resolved (6) Rheumatoid arthritis Qualifiers: Rheumatoid arthritis location: multiple sites Is this a current diagnosis for this admission?: Yes Plan: History of a severe rheumatoid arthritis currently hold the methotrexate and Simponi (7) Pulmonary embolism Qualifiers: Pulmonary embolism type: other Chronicity: unspecified Is this a current diagnosis for this admission?: Yes Plan: Currently on the Xarelto (8) E. coli urinary tract infection Is this a current diagnosis for this admission?: Yes Plan: Continues to Ceftin (9) Nausea and vomiting Qualifiers: Vomiting type: unspecified Is this a current diagnosis for this admission?: Yes (10) Weakness Is this a current diagnosis for this admission?: Yes (11) Tachycardia Is this a current diagnosis for this admission?: Yes (12) Electrolyte imbalance Is this a current diagnosis for this admission?: Yes Plan: Replace the potassium (13) Cerebrovascular accident Qualifiers: CVA mechanism: unspecified Qualified Code(s): I63.9 - Cerebral infarction, unspecified Is this a current diagnosis for this admission?: Yes Plan: Kevin the Plavix and continues to Xarelto - Time Time Spent with patient: 15-24 minutes Medications reviewed and adjusted accordingly: Yes Anticipated discharge: Home Within: within 24 hours - Inpatient Certification Medical Necessity: Need Close Monitoring Due to Risk of Patient Decompensation Post Hospital Care: D/C Blindmaker Documentation - Plan Summary Plan Summary: Replace the potassium Discussed with the patient and the family patients willing to go home patient do not want to go to the rehab
[2018-02-06] MEDS: RIVAROXABAN 10 MG TABLET PO SCH (17:48)
[2018-02-06] MEDS: CETIRIZINE 5 MG TABLET PO SCH (17:48)
[2018-02-06] MEDS: PREDNISONE 10 MG TABLET PO SCH (17:48)
[2018-02-07 05:46] LABS: ANION GAP 7 (5-19); BLOOD UREA NITROGEN 10 mg/dL (7-20); CALCIUM 7.9 mg/dL (8.4-10.2); CARBON DIOXIDE 35 mmol/L (22-30); CHLORIDE 99 mmol/L (98-107); GLUCOSE 111 mg/dL (75-110); POTASSIUM 3.1 mmol/L (3.6-5.0); SODIUM 140.9 mmol/L (137-145)
[2018-02-07] MEDS ORDERED: POTASSIUM CHLORIDE 10 MEQ TABLET.SA PO ONE (06:40)
[2018-02-07] MEDS: DILTIAZEM HCL 60 MG TABLET PO SCH ×2 (06:53→13:59)
[2018-02-07] MEDS: PREDNISONE 10 MG TABLET PO SCH (09:48)
[2018-02-07] MEDS: CLOPIDOGREL BISULFATE 75 MG TABLET PO SCH (09:52)
[2018-02-07] MEDS: ESCITALOPRAM OXALATE 10 MG TABLET PO SCH (09:52)
[2018-02-07] MEDS: GUAIFENESIN 600 MG TABLET.SA PO SCH (09:52)
[2018-02-07] MEDS: CYCLOSPORINE 0.05% OPH EMULSIO 0.4 ML DROPERETTE OU SCH (09:53)
[2018-02-07] MEDS ORDERED: POTASSIUM CHLORIDE 10 MEQ TABLET.SA PO SCH (10:00)
[2018-02-07] MEDS ORDERED: LISINOPRIL 10 MG TABLET PO SCH (10:00)
--- NOTE | 2018-02-07 11:08 | PDOC DISCHARGE SUMMARY ---
General - Admit/Disc Date/PCP Admission Date/Primary Care Provider: 01/28/18 01:35 MARY LOU OLEA MD Discharge Date: 02/07/18 - Discharge Diagnosis (1) Pneumonia Is this a current diagnosis for this admission?: Yes Summary: Currently all resolving (2) Chronic pain syndrome Is this a current diagnosis for this admission?: Yes Summary: Continues to follow with the pain management (3) Dehydration Is this a current diagnosis for this admission?: Yes Summary: Currently all resolved (4) Hyperlipidemia Is this a current diagnosis for this admission?: Yes Summary: Continues to statin (5) Hypotension Is this a current diagnosis for this admission?: Yes Summary: Currently all resolved (6) Rheumatoid arthritis Is this a current diagnosis for this admission?: Yes Summary: Is currently follow with the [facility] (7) Pulmonary embolism Is this a current diagnosis for this admission?: Yes Summary: Currently on the Xarelto This with the patient and daughter about the side effect of the Xarelto and fall precautions (8) E. coli urinary tract infection Is this a current diagnosis for this admission?: Yes Summary: Currently all resolved (9) Nausea and vomiting Is this a current diagnosis for this admission?: Yes Summary: This post endoscopy currently all stable (10) Weakness Is this a current diagnosis for this admission?: Yes Summary: Due to the multiple medical problem as above (11) Tachycardia Is this a current diagnosis for this admission?: Yes Summary: Currently on a Cardizem (12) Electrolyte imbalance Is this a current diagnosis for this admission?: Yes Summary: Continues to potassium supplements (13) Cerebrovascular accident Is this a current diagnosis for this admission?: Yes Summary: Continues to Plavix and Xarelto - Additional Information Resuscitation Status: Full Code Discharge Diet: Cardiac Prescriptions: Cefuroxime Axetil [Ceftin 500 mg Tablet] 500 mg PO Q12 #12 tablet Clopidogrel Bisulfate [Plavix 75 mg Tablet] 75 mg PO DAILY #30 tablet Diltiazem HCl [Cardizem 60 mg Tablet] 60 mg PO Q8 #30 tablet Guaifenesin [Mucinex Sr 600 mg Tablet.sa] 600 mg PO Q12 #30 tablet.sa Prednisone [Deltasone 10 mg Tablet] 10 mg PO DAILY #30 tablet Home Medications: Benzonatate [Tessalon Perles 100 mg Capsule] 100 mg PO Q8HP PRN 08/15/17 Escitalopram Oxalate [Lexapro 10 mg Tablet] 10 mg PO DAILY 08/15/17 Lisinopril [Zestril] 40 mg PO DAILY 08/15/17 Potassium Chloride [Klor-Con M20] 40 meq PO DAILY 08/15/17 Cephalexin [Cephalexin 250 MG Tablet] 250 mg PO DAILY 01/28/18 Cyclosporine 0.05% Oph Emulsio [Restasis 0.05% Opthalmic Droperette] 1 drop OU BID 01/28/18 Diclofenac Sodium [Voltaren] 4 gm TP TID 01/28/18 Levocetirizine Dihydrochloride [Xyzal] 5 mg PO QPM 01/28/18 Oxycodone HCl/Acetaminophen [Oxycodon-Acetaminophen 7.5-325] 1 each PO Q8HP PRN 01/28/18 Pantoprazole Sodium [Protonix] 40 mg PO DAILY 01/28/18 Rivaroxaban [Xarelto 10 mg Tablet] 20 mg PO DAILY 01/28/18 Cefuroxime Axetil [Ceftin 500 mg Tablet] 500 mg PO Q12 #12 tablet 02/07/18 Clopidogrel Bisulfate [Plavix 75 mg Tablet] 75 mg PO DAILY #30 tablet 02/07/18 Diltiazem HCl [Cardizem 60 mg Tablet] 60 mg PO Q8 #30 tablet 02/07/18 Guaifenesin [Mucinex Sr 600 mg Tablet.sa] 600 mg PO Q12 #30 tablet.sa 02/07/18 Prednisone [Deltasone 10 mg Tablet] 10 mg PO DAILY #30 tablet 02/07/18 History of Present Illness History of Present Illness: LILLIE AMIN is a 67 year old female This is a 67-year-old female with a significant history of the rheumatoid arthritis chronic steroid dependence and currently taking the methotrexate and 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 chronic significant deformity due to the rheumatoid arthritis currently see a pain management and also orthopedic and a history of the pulmonary embolism and currently on Xarelto with the multiple other comorbidity recently seen in my office with a routine visit for some mild cough and congestion's was put on the Zithromax and the patient's call back yesterday and told the patient have a fever and not feeling well then directed to the emergency departments patient was found to be a pneumonia and admitting in the hospital for further evaluation and treatments Was also running low blood pressures and currently when I saw in the floor patients feeling better denied any chest pain denied any shortness of the breath Patient's currently on IV fluid and IV antibiotics Complains some episode of the cough but denied any blood denied any other symptoms Since denied any headache denied any urinary symptoms Hospital Course Hospital Course: This is a 67-year-old female with the multiple medical problem as able admitting the hospital for the pneumonia patient was seen by the pulmonary patient was started on IV antibiotic Patient also have a history of electrolyte imbalance which is treated with the proper supplements Patient also developed the sinus tachycardia but on the Cardizem and 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 and did echocardiogram and suggested continues the Cardizem Patient's also developed acute slurred speech and small left-sided frontal stroke Patient underwent for the CTA and CT of the head and neck was all stable Patient had a MRI of the head was done with so some small stroke in the left side Patient underwent for the physical therapy speech therapy Due to the significant rheumatoid arthritis and contractures present very limited ability to the physical therapy Patient otherwise doing much better discussed with the patient and the daughter on the bedside patients wants to go home and daughter is pretty much take care of the her And do not want to go to the rehab Arrange the home health and physical therapy and speech therapy Very extensive discussed with the patient and the daughter about follow with the [facility] currently hold the methotrexate and Simponi due to the infections Patient have a still multiple comorbidity Physical Exam Vital Signs: Temp Pulse Resp BP Pulse Ox 98.6 F 92 12 152/83 H 97 02/07/18 07:54 02/07/18 07:54 02/07/18 07:54 02/07/18 07:54 02/07/18 08:10 Pulse Oximeter Continuous Start: 02/06/18 09: 27 Freq: RTQ4 Status: Active Document 02/07/18 08:10 TPO (Rec: 02/07/18 08:11 TPO [email or web address]) Pulse Oximetry Assessment Oxygen Saturation (92-100) 97 Oxygen Delivery Method Room Air Fraction of Inspired Oxygen (FIO2) 21 Equipment Usage Equipment in Use Continuous SpO2 Machine # 8 Intake & Output 02/06/18 02/07/18 02/08/18 06:59 06:59 06:59 Intake Total 1850 685 Balance 1850 685 Weight 53.4 kg 54 kg General appearance: PRESENT: no acute distress, well-developed, well-nourished Head exam: PRESENT: atraumatic, normocephalic Eye exam: PRESENT: conjunctiva pink, EOMI, PERRLA. ABSENT: scleral icterus Ear exam: PRESENT: normal external ear exam Mouth exam: PRESENT: moist, tongue midline Neck exam: PRESENT: full ROM. ABSENT: carotid bruit, JVD, lymphadenopathy, thyromegaly Respiratory exam: PRESENT: clear to auscultation lucas Cardiovascular exam: PRESENT: RRR. ABSENT: diastolic murmur, rubs, systolic murmur Pulses: PRESENT: normal dorsalis pedis pul, +2 pedal pulses bilateral Vascular exam: PRESENT: normal capillary refill GI/Abdominal exam: PRESENT: normal bowel sounds, soft. ABSENT: distended, guarding, mass, organolmegaly, rebound, tenderness Rectal exam: PRESENT: deferred Extremities exam: ABSENT: pedal edema Additional comments: Contractures in upper and lower extremity due to the rheumatoid arthritis Neurological exam: PRESENT: alert, awake, oriented to person, oriented to place , oriented to situation. ABSENT: motor sensory deficit Psychiatric exam: PRESENT: appropriate affect, normal mood. ABSENT: homicidal ideation, suicidal ideation Skin exam: PRESENT: dry, intact, warm. ABSENT: cyanosis, rash Results Laboratory Results: 02/06/18 11:33 02/07/18 04:45 02/06/18 02/06/18 02/07/18 11:33 11:33 04:45 WBC 7.6 RBC 4.14 Hgb 11.7 L Hct 33.4 L MCV 81 MCH 28.2 MCHC 34.9 RDW 14.8 H Plt Count 448 Seg Neutrophils % 75.6 Lymphocytes % 14.2 Monocytes % 10.0 Eosinophils % 0.1 Basophils % 0.1 Absolute Neutrophils 5.7 Absolute Lymphocytes 1.1 Absolute Monocytes 0.8 Absolute Eosinophils 0.0 Absolute Basophils 0.0 Sodium 139.0 140.9 Potassium 2.6 L* 3.1 L Chloride 101 99 Carbon Dioxide 29 35 H Anion Gap 9 7 BUN 12 10 Creatinine 0.40 L 0.37 L Est GFR ( Amer) > 60 > 60 Est GFR (Non-Af Amer) > 60 > 60 Glucose 184 H 111 H Calcium 8.2 L 7.9 L Magnesium 1.8 02/01/18 09:59 Blood Blood Culture - Final NO GROWTH IN 5 DAYS 02/01/18 09:15 Blood Blood Culture - Final NO GROWTH IN 5 DAYS Impressions: Abdomen Ultrasound 01/29/18 00:00 IMPRESSION: 1. Gallbladder sludge. No definable stones. 2. Limited study, other findings as above. Chest X-Ray 01/29/18 00:00 IMPRESSION: No acute changes. Chest CT 01/29/18 06:00 IMPRESSION: Small bilateral pleural effusions are identified with associated airspace consolidation most consistent with atelectatic changes although I cannot exclude minimal pneumonic infiltrates. Other findings as noted above Head MRI 02/01/18 00:00 IMPRESSION: Tiny acute or subacute white matter infarcts left frontal lobe. Moderate chronic small vessel ischemic change elsewhere in the cerebral hemispheres and mid alec EVIDENCE OF ACUTE STROKE: Yes Head CT 02/02/18 00:00 IMPRESSION: MILD CHRONIC CHANGES OF ATROPHY AND MICROVASCULAR ISCHEMIA. NO ACUTE PROCESS. EVIDENCE OF ACUTE STROKE: NO. Head CTA 02/02/18 00:00 IMPRESSION: NO CTA EVIDENCE OF STENOSIS OR ANEURYSM OF THE [place]. THE EXTRACRANIAL VERTEBRAL AND CAROTID CIRCULATION IS UNREMARKABLE NO ABNORMAL BRAIN PARENCHYMAL ENHANCING LESIONS. STABLE SMALL VESSEL ISCHEMIC CHANGE IN THE HEMISPHERIC WHITE MATTER STABLE APPEARANCE OF THE CERVICAL SPINE COMPARED TO CT EXAMS SINCE 2007. Neck CTA 02/02/18 00:00 IMPRESSION: NO CTA EVIDENCE OF STENOSIS OR ANEURYSM OF THE [place]. THE EXTRACRANIAL VERTEBRAL AND CAROTID CIRCULATION IS UNREMARKABLE NO ABNORMAL BRAIN PARENCHYMAL ENHANCING LESIONS. STABLE SMALL VESSEL ISCHEMIC CHANGE IN THE HEMISPHERIC WHITE MATTER STABLE APPEARANCE OF THE CERVICAL SPINE COMPARED TO CT EXAMS SINCE 2007. Qualifiers - * PATIENT BEING DISCHARGED WITH ANY OF THE FOLLOWING DIAGNOSIS: Stroke VTE patient discharged on overlapping Therapy?: Yes Stroke Pt being discharged on Anti-thrombolytic therapy?: Yes Stroke Pt being discharged on Anti-coagulation therapy?: Yes Stroke Pt being discharged on Statins?: Yes Plan Time Spent: Greater than 30 Minutes - Patient's discharge home with the home health and physical therapy Following a one-week in office will repeat the Chem- 7 Follow with the [facility]
--- NOTE | 2018-02-07 14:10 | PDOC PROGRESS REPORT ---
Subjective Progress Note for:: 02/07/18 Subjective:: w/o complaints Reason For Visit: PNEUMONIA Physical Exam Vital Signs: Temp Pulse Resp BP Pulse Ox 98.8 F 78 12 160/84 H 100 02/07/18 11:43 02/07/18 11:43 02/07/18 11:43 02/07/18 11:43 02/07/18 11:43 Pulse Oximeter Continuous Start: 02/06/18 09: 27 Freq: RTQ4 Status: Active Document 02/07/18 11:10 TPO (Rec: 02/07/18 11:10 TPO [email or web address]) Pulse Oximetry Assessment Oxygen Saturation (92-100) 97 Oxygen Delivery Method Room Air Fraction of Inspired Oxygen (FIO2) 21 Equipment Usage Equipment in Use Continuous SpO2 Machine # 8 Intake & Output 02/06/18 02/07/18 02/08/18 06:59 06:59 06:59 Intake Total 1850 685 400 Balance 1850 685 400 Weight 53.4 kg 54 kg General appearance: PRESENT: no acute distress, cooperative, disheveled Head exam: PRESENT: atraumatic, normocephalic Eye exam: PRESENT: conjunctiva pale, EOMI, PERRLA. ABSENT: nystagmus, periorbital swelling, scleral icterus Mouth exam: PRESENT: dry mucosa, neck supple, tongue midline Neck exam: ABSENT: carotid bruit, JVD, lymphadenopathy, thyromegaly, tracheal deviation, tracheostomy Respiratory exam: PRESENT: decreased breath sounds, prolonged expiratory phas, rhonchi, unlabored. ABSENT: retraction, stridor Cardiovascular exam: PRESENT: RRR, +S1, +S2 Pulses: PRESENT: normal radial pulses GI/Abdominal exam: PRESENT: normal bowel sounds, soft Extremities exam: ABSENT: calf tenderness, clubbing, full ROM, joint swelling Musculoskeletal exam: ABSENT: deformity, dislocation, full ROM Neurological exam: PRESENT: alert, awake Psychiatric exam: PRESENT: flat affect Skin exam: PRESENT: dry, warm Results Laboratory Results: 02/06/18 11:33 02/07/18 12:27 02/07/18 02/07/18 04:45 12:27 Sodium 140.9 Potassium 3.1 L 3.8 Chloride 99 Carbon Dioxide 35 H Anion Gap 7 BUN 10 Creatinine 0.37 L Est GFR ( Amer) > 60 Est GFR (Non-Af Amer) > 60 Glucose 111 H Calcium 7.9 L 02/01/18 09:59 Blood Blood Culture - Final NO GROWTH IN 5 DAYS Impressions: Abdomen Ultrasound 01/29/18 00:00 IMPRESSION: 1. Gallbladder sludge. No definable stones. 2. Limited study, other findings as above. Chest X-Ray 01/29/18 00:00 IMPRESSION: No acute changes. Chest CT 01/29/18 06:00 IMPRESSION: Small bilateral pleural effusions are identified with associated airspace consolidation most consistent with atelectatic changes although I cannot exclude minimal pneumonic infiltrates. Other findings as noted above Head MRI 02/01/18 00:00 IMPRESSION: Tiny acute or subacute white matter infarcts left frontal lobe. Moderate chronic small vessel ischemic change elsewhere in the cerebral hemispheres and mid alec EVIDENCE OF ACUTE STROKE: Yes Head CT 02/02/18 00:00 IMPRESSION: MILD CHRONIC CHANGES OF ATROPHY AND MICROVASCULAR ISCHEMIA. NO ACUTE PROCESS. EVIDENCE OF ACUTE STROKE: NO. Head CTA 02/02/18 00:00 IMPRESSION: NO CTA EVIDENCE OF STENOSIS OR ANEURYSM OF THE [place]. THE EXTRACRANIAL VERTEBRAL AND CAROTID CIRCULATION IS UNREMARKABLE NO ABNORMAL BRAIN PARENCHYMAL ENHANCING LESIONS. STABLE SMALL VESSEL ISCHEMIC CHANGE IN THE HEMISPHERIC WHITE MATTER STABLE APPEARANCE OF THE CERVICAL SPINE COMPARED TO CT EXAMS SINCE 2007. Neck CTA 02/02/18 00:00 IMPRESSION: NO CTA EVIDENCE OF STENOSIS OR ANEURYSM OF THE [place]. THE EXTRACRANIAL VERTEBRAL AND CAROTID CIRCULATION IS UNREMARKABLE NO ABNORMAL BRAIN PARENCHYMAL ENHANCING LESIONS. STABLE SMALL VESSEL ISCHEMIC CHANGE IN THE HEMISPHERIC WHITE MATTER STABLE APPEARANCE OF THE CERVICAL SPINE COMPARED TO CT EXAMS SINCE 2007. Assessment & Plan - Diagnosis (1) Pneumonia Qualifiers: Laterality: unspecified laterality Is this a current diagnosis for this admission?: Yes Plan: Today's presentation patient is better (2) Chronic pain syndrome Is this a current diagnosis for this admission?: Yes (3) Rheumatoid arthritis Qualifiers: Rheumatoid arthritis location: multiple sites Is this a current diagnosis for this admission?: Yes Plan: HAP coverage (4) Weakness Is this a current diagnosis for this admission?: Yes Plan: improved somewhat
[2018-02-07 14:30] VITALS: BP 158/80
== END 2018-02-07 16:50 | disposition home health service (06) | DRG 193 ==
LOC: ER 23:37 → EH 01-28 01:35 → 3N 01-28 04:12
PROVIDERS: ADMIT Family Medicine; ATTEND Family Medicine
PROC: 5A09557 Assistance with Respiratory Ventilation, Greater than 96 Consecutive Hours, Continuous Positive Airway Pressure (ICD-10-PCS; principal; 2018-01-29)
PROC: 0DB68ZX Excision of Stomach, Via Natural or Artificial Opening Endoscopic, Diagnostic (ICD-10-PCS; 2018-01-31)
DX: J18.9 Pneumonia, unspecified organism (principal); I63.9 Cerebral infarction, unspecified; N39.0 Urinary tract infection, site not specified; G89.4 Chronic pain syndrome; E86.0 Dehydration; E78.00 Pure hypercholesterolemia, unspecified; M06.9 Rheumatoid arthritis, unspecified; B96.20 Unspecified Escherichia coli [E. coli] as the cause of diseases classified elsewhere; R47.81 Slurred speech; I10 Essential (primary) hypertension; K21.9 Gastro-esophageal reflux disease without esophagitis; F32.9 Major depressive disorder, single episode, unspecified; R00.0 Tachycardia, unspecified; I27.20 Pulmonary hypertension, unspecified; E87.6 Hypokalemia; R53.1 Weakness; I95.0 Idiopathic hypotension; K22.2 Esophageal obstruction; K44.9 Diaphragmatic hernia without obstruction or gangrene; K29.70 Gastritis, unspecified, without bleeding; K29.80 Duodenitis without bleeding; Z86.711 Personal history of pulmonary embolism; Z79.899 Other long term (current) drug therapy; Z90.710 Acquired absence of both cervix and uterus; Z79.52 Long term (current) use of systemic steroids; Z79.01 Long term (current) use of anticoagulants; Z86.14 Personal history of Methicillin resistant Staphylococcus aureus infection; Z83.3 Family history of diabetes mellitus; Z82.49 Family history of ischemic heart disease and other diseases of the circulatory system
CPT/HCPCS: 36415; 43239; 70450; 70496; 70498; 70551; 71045; 71046; 71250; 76700; 80048; 80053; 81001; 82533; 82803; 83605; 83735; 84132; 85025; 87040; 87086; 87088; 87186; 88305; 88342; 93005; 93010; 93306; 94660; 94667; 94668; 94762; 96365; 99285; G8981-GP; G8982-GP; G8987-GO; G8988-GO; G8999-GN; G9186-GN; J0171; J0456; J0692; J0696; J1200; J1610; J1650; J1720; J2250; J2310; J2405; J3010; J3475; J3480; J3490; J7030; J7060; J7512; S0164

== ENCOUNTER 2018-03-17 15:20 | Inpatient (IN) | payer MEDICARE, MEDICAID ==
--- NOTE | 2018-03-17 15:32 | ER Document Report ---
ED Syncope and Near Syncope - General Chief Complaint: Syncope Stated Complaint: BLOOD PRESSURE ISSUES Time Seen by Provider: 03/17/18 15:31 Mode of Arrival: Medic Information source: Patient, Transfer Record, Emergency Med Personnel TRAVEL OUTSIDE OF THE [place] IN LAST 30 DAYS: No - HPI Patient complains to provider of: Fainting Episode witnessed (by whom): Yes - DAUGHTER Single episoded occurred: 1430 Symptoms prior to episode: Nausea/vomiting, Other - ON TOILET FOR B.M. Duration of preceeding symptoms: 30 SECS?? Position/Activity at time of episode: Sitting Details of activity: ON TOILET FOR B.M., HAD N&V, THEN L.O.C. Quality of pain: No pain Context: Became unresponsive, Breathing shallow/stopped, Collapsed Duration of LOC (min): 1 Injury location: None Current symptoms: Lightheaded, Nausea Similar symptoms previously: Yes - NOT RECENT Recently seen / treated by doctor: No - Related Data Allergies/Adverse Reactions: No Known Allergies Allergy (Verified 09/07/17 14:19) Past Medical History - General Information source: Relative - Social History Smoking Status: Unknown if Ever Smoked Cigarette use (# per day): No Chew tobacco use (# tins/day): No Frequency of alcohol use: None Drug Abuse: None Lives with: Family Family History: DM, Hypertension Patient has suicidal ideation: No Patient has homicidal ideation: No - Past Medical History Cardiac Medical History: Reports: Hx Hypertension, Hx Pulmonary Embolism Pulmonary Medical History: Reports: Hx Pneumonia Denies: Hx Tuberculosis Neurological Medical History: Denies: Hx Seizures Renal/ Medical History: Denies: Hx Peritoneal Dialysis GI Medical History: Reports: Hx Gastroesophageal Reflux Disease Musculoskeltal Medical History: Reports Hx Arthritis - RA Skin Medical History: Reports Hx MRSA - CURRENTLY HAS SENSATION OF ABSCESS DEVELOPING UNDER THE LEFT ARM Psychiatric Medical History: Reports: Hx Depression Traumatic Medical History: Reports: Hx Fractures - T10 COMP FX, ACUTE R SHOULDER AND CLAVICLE FX Past Surgical History: Reports: Hx Appendectomy, Hx Hysterectomy, Hx Oral Surgery, Hx Orthopedic Surgery - foot surgery - Immunizations Immunizations up to date: Yes Hx Diphtheria, Pertussis, Tetanus Vaccination: Yes Review of Systems - Review of Systems Constitutional: See HPI EENT: No symptoms reported Cardiovascular: No symptoms reported Respiratory: See HPI Gastrointestinal: See HPI Genitourinary: No symptoms reported Female Genitourinary: Post menopausal Musculoskeletal: No symptoms reported Skin: Other - STAGE 1 DECUBITI Neurological/Psychological: See HPI Physical Exam - Vital signs Vitals: Temp Pulse Resp BP Pulse Ox 99 F 91 16 88/45 L 98 03/17/18 15:30 03/17/18 15:30 03/17/18 15:30 03/17/18 15:30 03/17/18 15:30 Interpretation: Hypotensive. No: Bradycardic, Tachycardic, Hypoxic, Febrile - General General appearance: Appears well, Alert In distress: None - HEENT Head: Normocephalic Eyes: Normal Conjunctiva: Normal Course - Vital Signs Vital signs: Temp Pulse Resp BP Pulse Ox 98.8 F 91 18 109/56 L 98 03/17/18 15:42 03/17/18 15:30 03/17/18 15:42 03/17/18 15:42 03/17/18 15:42 - Laboratory Result Diagrams: 03/17/18 15:30 03/17/18 15:30 Laboratory results interpreted by me: 03/17/18 03/17/18 03/17/18 15:30 15:30 18:26 Hgb 11.8 L Hct 35.0 L RDW 16.8 H Monocytes % 2.4 L Sodium 135.7 L Calcium 8.0 L Total Protein 5.4 L Albumin 2.6 L Urine Urobilinogen 4.0 H - Diagnostic Test Radiology reviewed: Image reviewed, Reports reviewed - EKG Interpretation by De EKG shows normal: Sinus rhythm, Martell, Intervals, QRS Complexes, ST-T Waves Rate: Normal Rhythm: NSR Discharge - Discharge Clinical Impression: Syncope and collapse Hypotension Qualifiers: Hypotension type: hypotension due to hypovolemia Qualified Code(s): I95.89 - Other hypotension Condition: Fair Disposition: ADMITTED OBSERVATION Admitting Provider: Reece Unit Admitted: [facility]
[2018-03-17] MEDS ORDERED: NORMAL SALINE 1000 ML 500 ML IV PRN (16:22)
[2018-03-17] MEDS ORDERED: ONDANSETRON 4 MG TAB.RAPDIS PO ONE (16:39)
[2018-03-17 17:09] LABS: ABSOLUTE BASOPHILS # (AUTO) 0.1 10^3/uL (0.0-0.2); ABSOLUTE EOSINOPHILS # (AUTO) 0.1 10^3/uL (0.0-0.6); ABSOLUTE LYMPHOCYTES (AUTO) 2.8 10^3/uL (0.5-4.7); ABSOLUTE MONOCYTES (AUTO) 0.2 10^3/uL (0.1-1.4); ABSOLUTE NEUT (AUTO) 6.5 10^3/uL (1.7-8.2); BASOPHILS % (AUTO) 0.7 % (0-2); HEMOGLOBIN 11.8 g/dL (12.0-15.5); LYMPHOCYTES % (AUTO) 29.1 % (13-45); MEAN CORPUSCULAR HEMOGLOBIN 28.7 pg (27.0-33.4); MEAN CORPUSCULAR HGB CONC 33.7 g/dL (32.0-36.0); MEAN CORPUSCULAR VOLUME 85 fl (80-97); MONOCYTES % (AUTO) 2.4 % (3-13); PLATELET COUNT 256 10^3/uL (150-450); RED BLOOD COUNT 4.12 10^6/uL (3.72-5.28); RED CELL DISTRIBUTION WIDTH 16.8 % (11.5-14.0); SEGMENTED NEUTROPHILS % (AUTO) 66.8 % (42-78); TOTAL CELLS COUNTED % (AUTO) 100 %; WHITE BLOOD COUNT 9.7 10^3/uL (4.0-10.5)
--- NOTE | 2018-03-17 17:13 | RADIOLOGY REPORT (SQ) ---
EXAM DESCRIPTION: CHEST SINGLE VIEW COMPLETED DATE/TIME: 03/17/2018 4:51 pm REASON FOR STUDY: SYNCOPE COMPARISON: 01/29/2018 EXAM PARAMETERS: NUMBER OF VIEWS: One view. TECHNIQUE: Single frontal radiographic view of the chest acquired. RADIATION DOSE: NA LIMITATIONS: None. FINDINGS: LUNGS AND PLEURA: No acute opacities, masses or pneumothorax. No pleural effusion. MEDIASTINUM AND HILAR STRUCTURES: Stable. HEART AND VASCULAR STRUCTURES: Stable. BONES: No acute findings. HARDWARE: None in the chest. OTHER: No other significant finding. IMPRESSION: NO ACUTE RADIOGRAPHIC FINDING IN THE CHEST. TECHNICAL DOCUMENTATION: JOB ID: [id number] [id number] [email or web address]- All Rights Reserved Reading location - IP/workstation name: [email or web address]
[2018-03-17 17:20] LABS: ALANINE AMINOTRANSFERASE 17 U/L (9-52); ALBUMIN 2.6 g/dL (3.5-5.0); ALKALINE PHOSPHATASE 63 U/L (38-126); ANION GAP 6 (5-19); ASPARTATE AMINO TRANSFERASE 20 U/L (14-36); BILIRUBIN,DIRECT 0.3 mg/dL (0.0-0.4); BILIRUBIN,TOTAL 0.7 mg/dL (0.2-1.3); BLOOD UREA NITROGEN 10 mg/dL (7-20); CARBON DIOXIDE 24 mmol/L (22-30); CHLORIDE 106 mmol/L (98-107); GLUCOSE 92 mg/dL (75-110); POTASSIUM 3.8 mmol/L (3.6-5.0); SODIUM 135.7 mmol/L (137-145); TOTAL PROTEIN 5.4 g/dL (6.3-8.2)
[2018-03-17 17:39] LABS: CREATINE KINASE MB < 0.22 ng/mL (<4.55); TROPONIN I < 0.012 ng/mL
[2018-03-17] MEDS ORDERED: ONDANSETRON 4 MG TAB.RAPDIS PO PRN (18:37)
[2018-03-17] MEDS ORDERED: ACETAMINOPHEN 325 MG TABLET PO PRN (18:37)
[2018-03-17] MEDS ORDERED: OXYCODONE-ACETAMINOPHEN 5-325 MG TABLET PO PRN (18:37)
[2018-03-17 18:44] LABS: APPEARANCE,URINE CLEAR; BILIRUBIN,URINE NEGATIVE (NEGATIVE); COLOR,URINE YELLOW; GLUCOSE, URINE NEGATIVE (NEGATIVE); KETONES,URINE NEGATIVE (NEGATIVE); LEUKOCYTE ESTERASE,URINE NEGATIVE (NEGATIVE); NITRITE,URINE NEGATIVE (NEGATIVE); PROTEIN,URINE NEGATIVE (NEGATIVE); URINE SPECIFIC GRAVITY 1.013
[2018-03-17] MEDS ORDERED: CEFTRIAXONE 1 GM/D5W RTU 1 GM/50 ML RTUPB IV ONE (19:00)
--- NOTE | 2018-03-17 19:14 | RADIOLOGY REPORT (SQ) ---
EXAM DESCRIPTION: CT HEAD WITHOUT COMPLETED DATE/TIME: 03/17/2018 6:54 pm REASON FOR STUDY: SYNCOPE COMPARISON: 02/02/2018 TECHNIQUE: Axial images acquired through the brain without intravenous contrast. Images reviewed wi th bone, brain and subdural windows. Additional sagittal and coronal reconstructions were generated. Images stored on PACS. All CT scanners at this facility use dose modulation, iterative reconstruction, and/or weight based d osing when appropriate to reduce radiation dose to as low as reasonably achievable (ALARA). [facility]: Dose Right [facility]: CareDose [facility]: Dose Right [facility]: Teradose 4D [facility]: Smart vLex RADIATION DOSE: CT Rad equipment meets quality standard of care and radiation dose reduction techniq ues were employed. CTDIvol: 53.2 mGy. DLP: 991 mGy-cm. mGy. LIMITATIONS: None. FINDINGS: VENTRICLES: Prominent. CEREBRUM: No masses. No hemorrhage. No midline shift. Areas of low density in the white matter mos t likely due to chronic micro-vascular ischemic change. No evidence for acute infarction. CEREBELLUM: No masses. No hemorrhage. No alteration of density. No evidence for acute infarction. EXTRAAXIAL SPACES: Mild age-related involutional change. No fluid collections. No masses. ORBITS AND GLOBE: No intra- or extraconal masses. Normal contour of globe without masses. CALVARIUM: No fracture. PARANASAL SINUSES: No fluid or mucosal thickening. SOFT TISSUES: No mass or hematoma. OTHER: No other significant finding. IMPRESSION: MILD CHRONIC CHANGES OF ATROPHY AND MICROVASCULAR ISCHEMIA. NO ACUTE PROCESS. EVIDENCE OF ACUTE STROKE: NO. TECHNICAL DOCUMENTATION: JOB ID: [id number] Quality ID # [id number]: Final reports with documentation of one or more dose reduction techniques (e.g., Au tomated exposure control, adjustment of the mA and/or kV according to patient size, use of iterative reconstruction technique) 2010 [employer]- All Rights Reserved Reading location - IP/workstation name: [email or web address]
--- NOTE | 2018-03-17 19:39 | PDOC H&P ---
History of Present Illness Admission Date/PCP: 03/17/18 19:20 MARY LOU OLEA MD Patient complains of: Syncopal episode History of Present Illness: LILLIE AMIN is a 67 year old female This is a 67-year-old female with a significant history of the rheumatoid arthritis and multiple deformity chronic pain syndrome history of the hypertension and the history of the cerebrovascular accident and a pretty much bedbound and history of the pulmonary embolism on chronic anticoagulations went to the bathroom today and the daughter noticed the patient suddenly get collapse loss of consciousness for a few seconds and the daughter called 911 and the patient's brought to the emergency department where patients pretty much alert awake oriented back to the baseline's Patient denied any chest pain denied any shortness of the breath denied any headache Patient's denied any blood in the stools no black stools Patient's blood pressure is running in the lower end giving some IV fluid Came to the daughters patient's blood pressure was running okay while the home health nurse is checking the blood pressure at home According to daughter patients have a no head injury or no fall Patient's also see [facility] marine erector unable to go and see since last admission in the hospital due to the patient with transportation issues Patient's currently doing fair we will keep the patient's for observation for next 24 hours while all workup is negative's could be a vasovagal syncopal episodes Past Medical History Cardiac Medical History: Reports: Hypertension, Pulmonary Embolism Pulmonary Medical History: Reports: Pneumonia Denies: Tuberculosis Neurological Medical History: Reports: Ischemic CVA Denies: Seizures Renal/ Medical History: Reports: Chronic Kidney Disease GI Medical History: Reports: Gastroesophageal Reflux Disease Musculoskeltal Medical History: Reports: Arthritis - RA, Other Musculoskeletal History Note: Rheumatoid arthritis and chronic pain syndrome Psychiatric Medical History: Reports: Depression Past Surgical History Past Surgical History: Reports: Appendectomy, Hysterectomy, Orthopedic Surgery - foot surgery Social History Lives with: Family Smoking Status: Unknown if Ever Smoked Frequency of Alcohol Use: None Hx Recreational Drug Use: No Drugs: None Hx Prescription Drug Abuse: No Family History Family History: Reviewed & Not Pertinent, DM, Hypertension Parental Family History Reviewed: Yes Children Family History Reviewed: Yes Sibling(s) Family History Reviewed.: Yes Medication/Allergy Home Medications: Benzonatate [Tessalon Perles 100 mg Capsule] 100 mg PO Q8HP PRN 08/15/17 Escitalopram Oxalate [Lexapro 10 mg Tablet] 10 mg PO DAILY 08/15/17 Potassium Chloride [Klor-Con M20] 40 meq PO DAILY 08/15/17 Cephalexin [Cephalexin 250 MG Tablet] 250 mg PO DAILY 01/28/18 Cyclosporine 0.05% Oph Emulsio [Restasis 0.05% Opthalmic Droperette] 1 drop OU BID 01/28/18 Diclofenac Sodium [Voltaren] 4 gm TP TID 01/28/18 Levocetirizine Dihydrochloride [Xyzal] 5 mg PO QPM 01/28/18 Oxycodone HCl/Acetaminophen [Oxycodon-Acetaminophen 7.5-325] 1 each PO Q8HP PRN 01/28/18 Pantoprazole Sodium [Protonix] 40 mg PO DAILY 01/28/18 Rivaroxaban [Xarelto 10 mg Tablet] 20 mg PO DAILY 01/28/18 Cefuroxime Axetil [Ceftin 500 mg Tablet] 500 mg PO Q12 #12 tablet 02/07/18 Clopidogrel Bisulfate [Plavix 75 mg Tablet] 75 mg PO DAILY #30 tablet 02/07/18 Guaifenesin [Mucinex Sr 600 mg Tablet.sa] 600 mg PO Q12 #30 tablet.sa 02/07/18 Prednisone [Deltasone 10 mg Tablet] 10 mg PO DAILY #30 tablet 02/07/18 Allergies/Adverse Reactions: No Known Allergies Allergy (Verified 09/07/17 14:19) Review of Systems Constitutional: PRESENT: weakness. ABSENT: chills, fever(s), headache(s), weight gain, weight loss Eyes: ABSENT: visual disturbances Ears: ABSENT: hearing changes Cardiovascular: ABSENT: chest pain, dyspnea on exertion, edema, orthropnea, palpitations Respiratory: ABSENT: cough, hemoptysis Gastrointestinal: ABSENT: abdominal pain, constipation, diarrhea, hematemesis, hematochezia, nausea, vomiting Genitourinary: ABSENT: dysuria, hematuria Musculoskeletal: ABSENT: joint swelling Integumentary: ABSENT: rash, wounds Neurological: ABSENT: abnormal gait, abnormal speech, confusion, dizziness, focal weakness, syncope Psychiatric: ABSENT: anxiety, depression, homidical ideation, suicidal ideation Endocrine: ABSENT: cold intolerance, heat intolerance, menstrual abnormalities, polydipsia, polyuria Hematologic/Lymphatic: ABSENT: easy bleeding, easy bruising, lymphadenopathy Physical Exam Vital Signs: Temp Pulse Resp BP Pulse Ox 98.8 F 91 18 109/56 L 98 03/17/18 15:42 03/17/18 15:30 03/17/18 15:42 03/17/18 15:42 03/17/18 15:42 General appearance: PRESENT: no acute distress, well-developed, well-nourished Head exam: PRESENT: atraumatic, normocephalic Eye exam: PRESENT: conjunctiva pink, EOMI, PERRLA. ABSENT: scleral icterus Ear exam: PRESENT: normal external ear exam Mouth exam: PRESENT: moist, tongue midline Neck exam: PRESENT: full ROM. ABSENT: carotid bruit, JVD, lymphadenopathy, thyromegaly Respiratory exam: PRESENT: clear to auscultation lucas Cardiovascular exam: PRESENT: RRR. ABSENT: diastolic murmur, rubs, systolic murmur Pulses: PRESENT: normal dorsalis pedis pul, +2 pedal pulses bilateral Vascular exam: PRESENT: normal capillary refill GI/Abdominal exam: PRESENT: normal bowel sounds, soft. ABSENT: distended, guarding, mass, organolmegaly, rebound, tenderness Rectal exam: PRESENT: deferred Extremities exam: ABSENT: pedal edema Additional comments: Patient with significant deformity in the bilateral lower and upper extremity due to the significant rheumatoid arthritis Musculoskeletal exam: PRESENT: deformity Neurological exam: PRESENT: alert, awake, oriented to person, oriented to place , oriented to time, oriented to situation, CN II-XII grossly intact. ABSENT: motor sensory deficit Psychiatric exam: PRESENT: appropriate affect, normal mood. ABSENT: homicidal ideation, suicidal ideation Skin exam: PRESENT: dry, intact, warm. ABSENT: cyanosis, rash Results Impressions: Chest X-Ray 03/17/18 16:24 IMPRESSION: NO ACUTE RADIOGRAPHIC FINDING IN THE CHEST. Head CT 03/17/18 18:35 IMPRESSION: MILD CHRONIC CHANGES OF ATROPHY AND MICROVASCULAR ISCHEMIA. NO ACUTE PROCESS. EVIDENCE OF ACUTE STROKE: NO. Assessment & Plan - Diagnosis (1) Hypotension Qualifiers: Hypotension type: hypotension due to hypovolemia Qualified Code(s): I95.89 - Other hypotension; E86.1 - Hypovolemia; E86.1 - Hypovolemia Is this a current diagnosis for this admission?: Yes Plan: Start the patient on IV fluid hold the patient's blood pressure medications rule out any sepsis Also get the cortisone level due to the chronic steroid will start the patient on hydrocortisone's dose (2) Syncope and collapse Is this a current diagnosis for this admission?: Yes Plan: Most likely vasovagal syncopal episodes will continues to monitor to rule out other etiologies start the IV fluid and IV antibiotics (3) Cerebrovascular accident Qualifiers: CVA mechanism: unspecified Is this a current diagnosis for this admission?: No Plan: Continues to Plavix and patient is already on Xarelto (4) Chronic pain syndrome Is this a current diagnosis for this admission?: Yes Plan: Currently see a pain management as outpatients (5) Hyperlipidemia Qualifiers: Hyperlipidemia type: unspecified Is this a current diagnosis for this admission?: Yes Plan: to current medications (6) Pulmonary embolism Qualifiers: Chronicity: unspecified Acute cor pulmonale presence: without acute cor pulmonale Is this a current diagnosis for this admission?: Yes Plan: Continues to Xarelto will get the CT angiogram patient have a more than 6 month of the P to assess again (7) Rheumatoid arthritis Qualifiers: Rheumatoid arthritis location: multiple sites Is this a current diagnosis for this admission?: Yes Plan: She is currently on a chronic steroid and patients currently taking the rheumatoid medications from the [facility] (8) Weakness Is this a current diagnosis for this admission?: Yes Plan: Patients usually unable to move due to the significant deformity and a compression fractures in the back - Time Time Spent: 30 to 50 Minutes Medications reviewed and adjusted accordingly: Yes Anticipated discharge: Home Within: Other - Inpatient Certification Medical Necessity: Need Close Monitoring Due to Risk of Patient Decompensation, Need For IV Fluids, Need for IV Antibiotics Post Hospital Care: D/C Principal Scientist Documentation - Plan Summary Plan Summary: Discussed with the daughter and the patient's and the bedside regarding the patient's current conditions all plan and all the test results patient of a multiple comorbidity will continues to current other medications
[2018-03-17] MEDS ORDERED: CEFTRIAXONE INJ 1000 MG VIAL ONE (20:00)
--- NOTE | 2018-03-17 20:23 | RADIOLOGY REPORT (SQ) ---
EXAM DESCRIPTION: CTA CHEST COMPLETED DATE/TIME: 03/17/2018 7:45 pm REASON FOR STUDY: SYNCOPE, HYPOTENSION COMPARISON: Chest CT 01/29/2018 TECHNIQUE: CT scan of the chest performed using helical scanning technique with dynamic intravenous contrast injection. Images reviewed with lung, soft tissue and bone windows. Reconstructed coronal and sagittal MPR images reviewed. Additional 3 dimensional post-processing performed to develop Maximal Intensity Projection images ([place] P). All images stored on PACS. All CT scanners at this facility use dose modulation, iterative reconstruction, and/or weight based d osing when appropriate to reduce radiation dose to as low as reasonably achievable (ALARA). [facility]: Dose Right [facility]: CareDose [facility]: Dose Right [facility]: Teradose 4D [facility]: [employer] CONTRAST TYPE AND DOSE: contrast/concentration: Isovue 370.00 mg/ml; Total Contrast Delivered: 56.0 ml; Total Saline Delivered: 97.0 ml Contrast bolus optimized for the pulmonary arteries. Not diagnostic for the aorta. RENAL FUNCTION: BUN 10; creatinine 0 point facet RADIATION DOSE: CT Rad equipment meets quality standard of care and radiation dose reduction techniq ues were employed. CTDIvol: 13.2 - 16.5 mGy. DLP: 578 mGy-cm. . LIMITATIONS: Suboptimal bolus timing results in poor opacification of the pulmonary arteries. FINDINGS: LUNGS AND PLEURA: Bibasilar atelectasis. No masses, infiltrates, or pneumothorax. No ple ural effusions or pleural calcifications. AORTA AND GREAT VESSELS: No aneurysm. Contrast bolus not optimized for the aorta. HEART: Trace pericardial effusion, stable. No significant coronary artery calcifications. PULMONARY ARTERIES: No emboli visualized in the main pulmonary arteries or the segmental branches. HILAR AND MEDIASTINAL STRUCTURES: No identified masses or abnormal nodes. HARDWARE: None in the chest. UPPER ABDOMEN: No significant findings. Limited exam. THYROID AND OTHER SOFT TISSUES: No masses. No adenopathy. BONES: No acute or significant finding. 3D MIPS: Confirm above findings. OTHER: No other significant finding. IMPRESSION: Suboptimal bolus timing results in limited examination. No central or segmental pulmona ry emboli are visualized; no secondary findings of pulmonary emboli are demonstrated. COMMENT: Quality ID # [id number]: Final reports with documentation of one or more dose reduction techniques (e.g., Automated exposure control, adjustment of the mA and/or kV according to patient size, use of iterative reconstruction technique) TECHNICAL DOCUMENTATION: JOB ID: [id number]- All Rights Reserved Reading location - IP/workstation name: [email or web address]
--- NOTE | 2018-03-17 21:06 | EKG REPORT ---
SEVERITY:- NORMAL ECG - SINUS RHYTHM : Confirmed by: Sidney Thomas MD 17-Mar-2018 21:06:05
[2018-03-17 21:17] LABS: CREATINE KINASE MB < 0.22 ng/mL (<4.55); TROPONIN I < 0.012 ng/mL
[2018-03-17] MEDS: NORMAL SALINE 1000 ML 1,000 ML IV PRN (21:44)
[2018-03-17] MEDS: HYDROCORTISONE SOD SUCCINATE INJ/PF 100 MG/2 ML SDV IV SCH (21:45)
[2018-03-18 02:51] LABS: ABSOLUTE LYMPHOCYTES (AUTO) 0.7 10^3/uL (0.5-4.7); ABSOLUTE MONOCYTES (AUTO) 0.1 10^3/uL (0.1-1.4); BASOPHILS % (AUTO) 0.4 % (0-2); EOSINOPHILS % (AUTO) 0.6 % (0-6); HEMATOCRIT 34.2 % (36.0-47.0); HEMOGLOBIN 11.8 g/dL (12.0-15.5); LYMPHOCYTES % (AUTO) 9.5 % (13-45); MEAN CORPUSCULAR HEMOGLOBIN 29.2 pg (27.0-33.4); MEAN CORPUSCULAR HGB CONC 34.5 g/dL (32.0-36.0); MEAN CORPUSCULAR VOLUME 85 fl (80-97); MONOCYTES % (AUTO) 1.5 % (3-13); PLATELET COUNT 216 10^3/uL (150-450); RED BLOOD COUNT 4.05 10^6/uL (3.72-5.28); RED CELL DISTRIBUTION WIDTH 17.3 % (11.5-14.0); TOTAL CELLS COUNTED % (AUTO) 100 %; WHITE BLOOD COUNT 6.9 10^3/uL (4.0-10.5)
[2018-03-18 03:33] LABS: ANION GAP 7 (5-19); BLOOD UREA NITROGEN 8 mg/dL (7-20); CALCIUM 7.9 mg/dL (8.4-10.2); CARBON DIOXIDE 24 mmol/L (22-30); CHLORIDE 107 mmol/L (98-107); GLUCOSE 148 mg/dL (75-110); POTASSIUM 4.5 mmol/L (3.6-5.0); SODIUM 138.4 mmol/L (137-145)
[2018-03-18 03:41] LABS: CREATINE KINASE < 20 U/L (30-135)
[2018-03-18 03:49] LABS: CREATINE KINASE MB < 0.22 ng/mL (<4.55); TROPONIN I < 0.012 ng/mL
[2018-03-18] MEDS: HYDROCORTISONE SOD SUCCINATE INJ/PF 100 MG/2 ML SDV IV SCH ×3 (05:19→21:02)
[2018-03-18] MEDS ORDERED: CEFTRIAXONE 1 GM/D5W RTU 1 GM/50 ML RTUPB IV SCH (10:00)
[2018-03-18] MEDS ORDERED: ENOXAPARIN SODIUM INJ 40 MG/0.4 ML DISP.SYRIN SUBCUT SCH (10:00)
--- NOTE | 2018-03-18 10:15 | PDOC PROGRESS REPORT ---
Subjective Progress Note for:: 03/18/18 Subjective:: Patient is feeling much better Patient's cortisol level was very low His blood pressure is currently stable Denied any chest pain denied any shortness of the breath Reason For Visit: SYNCOPAL EPISODE Physical Exam Vital Signs: Temp Pulse Resp BP Pulse Ox 97.6 F 90 10 L 116/85 98 03/18/18 07:45 03/18/18 07:45 03/18/18 07:45 03/18/18 07:45 03/18/18 07:45 Intake & Output 03/17/18 03/18/18 03/19/18 06:59 06:59 06:59 Intake Total 1020 Output Total 50 Balance 970 Weight 48.3 kg General appearance: PRESENT: no acute distress, well-developed, well-nourished Head exam: PRESENT: atraumatic, normocephalic Eye exam: PRESENT: conjunctiva pink, EOMI, PERRLA. ABSENT: scleral icterus Ear exam: PRESENT: normal external ear exam Mouth exam: PRESENT: moist, tongue midline Neck exam: PRESENT: full ROM. ABSENT: carotid bruit, JVD, lymphadenopathy, thyromegaly Respiratory exam: PRESENT: clear to auscultation lucas Cardiovascular exam: PRESENT: RRR. ABSENT: diastolic murmur, rubs, systolic murmur Pulses: PRESENT: normal dorsalis pedis pul, +2 pedal pulses bilateral Vascular exam: PRESENT: normal capillary refill GI/Abdominal exam: PRESENT: normal bowel sounds, soft. ABSENT: distended, guarding, mass, organolmegaly, rebound, tenderness Rectal exam: PRESENT: deferred Extremities exam: ABSENT: pedal edema Neurological exam: PRESENT: alert, awake, oriented to person, oriented to place , oriented to time, oriented to situation, CN II-XII grossly intact. ABSENT: motor sensory deficit Psychiatric exam: PRESENT: appropriate affect, normal mood. ABSENT: homicidal ideation, suicidal ideation Skin exam: PRESENT: dry, intact, warm. ABSENT: cyanosis, rash Results Laboratory Results: 03/18/18 02:44 03/18/18 02:44 03/18/18 03/18/18 02:44 02:44 WBC 6.9 RBC 4.05 Hgb 11.8 L Hct 34.2 L MCV 85 MCH 29.2 MCHC 34.5 RDW 17.3 H Plt Count 216 Seg Neutrophils % 88.0 H Lymphocytes % 9.5 L Monocytes % 1.5 L Eosinophils % 0.6 Basophils % 0.4 Absolute Neutrophils 6.0 Absolute Lymphocytes 0.7 Absolute Monocytes 0.1 Absolute Eosinophils 0.0 Absolute Basophils 0.0 Sodium 138.4 Potassium 4.5 Chloride 107 Carbon Dioxide 24 Anion Gap 7 BUN 8 Creatinine 0.56 Est GFR ( Amer) > 60 Est GFR (Non-Af Amer) > 60 Glucose 148 H Calcium 7.9 L Magnesium 1.9 03/17/18 03/17/18 03/18/18 20:10 20:10 02:44 Creatine Kinase < 20 L CK-MB (CK-2) < 0.22 < 0.22 Troponin I < 0.012 < 0.012 03/18/18 02:44 Creatine Kinase < 20 L CK-MB (CK-2) Troponin I Impressions: Chest X-Ray 03/17/18 16:24 IMPRESSION: NO ACUTE RADIOGRAPHIC FINDING IN THE CHEST. Head CT 03/17/18 18:35 IMPRESSION: MILD CHRONIC CHANGES OF ATROPHY AND MICROVASCULAR ISCHEMIA. NO ACUTE PROCESS. EVIDENCE OF ACUTE STROKE: NO. Chest/Abdomen CTA 03/17/18 19:13 IMPRESSION: Suboptimal bolus timing results in limited examination. No central or segmental pulmonary emboli are visualized; no secondary findings of pulmonary emboli are demonstrated. Assessment & Plan - Diagnosis (1) Hypotension Qualifiers: Hypotension type: hypotension due to hypovolemia Qualified Code(s): I95.89 - Other hypotension; E86.1 - Hypovolemia; E86.1 - Hypovolemia Is this a current diagnosis for this admission?: Yes Plan: Continues on hydrocortisone for another 3 more dose Continues IV fluid Wait for the other cultures to rule out any sepsis (2) Syncope and collapse Is this a current diagnosis for this admission?: Yes Plan: Most likely vasovagal syncopal episodes will continues to monitor to rule out other etiologies start the IV fluid and IV antibiotics (3) Cerebrovascular accident Qualifiers: CVA mechanism: unspecified Is this a current diagnosis for this admission?: No Plan: Continues to Plavix and patient is already on Xarelto (4) Chronic pain syndrome Is this a current diagnosis for this admission?: Yes Plan: Currently see a pain management as outpatients (5) Hyperlipidemia Qualifiers: Hyperlipidemia type: unspecified Is this a current diagnosis for this admission?: Yes Plan: to current medications (6) Pulmonary embolism Qualifiers: Chronicity: unspecified Acute cor pulmonale presence: without acute cor pulmonale Is this a current diagnosis for this admission?: Yes Plan: CT scan is pretty much stable (7) Rheumatoid arthritis Qualifiers: Rheumatoid arthritis location: multiple sites Is this a current diagnosis for this admission?: Yes Plan: She is currently on a chronic steroid and patients currently taking the rheumatoid medications from the [facility] (8) Weakness Is this a current diagnosis for this admission?: Yes Plan: Patients usually unable to move due to the significant deformity and a compression fractures in the back - Time Time Spent with patient: 15-24 minutes Medications reviewed and adjusted accordingly: Yes Anticipated discharge: Home Within: Other - Inpatient Certification Medical Necessity: Need Close Monitoring Due to Risk of Patient Decompensation, Need For IV Fluids Post Hospital Care: D/C Dialysis Rn Documentation - Plan Summary Plan Summary: Continues to current medication
[2018-03-18] MEDS: DOCUSATE SODIUM 100 MG CAPSULE PO SCH ×2 (10:36→17:33)
[2018-03-18] MEDS: NORMAL SALINE 1000 ML 1,000 ML IV PRN ×2 (10:37→23:49)
[2018-03-18 10:55] LABS: CREATINE KINASE MB < 0.22 ng/mL (<4.55); TROPONIN I < 0.012 ng/mL
[2018-03-18] MEDS ORDERED: RIVAROXABAN 10 MG TABLET PO ONE (11:30)
[2018-03-18] MEDS ORDERED: CETIRIZINE 5 MG TABLET PO ONE (12:00)
[2018-03-18] MEDS ORDERED: LANSOPRAZOLE 30 MG TAB.RAP.DR PO ONE (12:00)
[2018-03-18] MEDS ORDERED: (PENDING PHARMACY ID) (Diclofenac Sodium [Voltaren] 4 GM) TP SCH (18:00)
[2018-03-18] MEDS: CEFTRIAXONE SODIUM 1,000 MG in DEXTROSE 5%-WATER 50 ML IV SCH (21:02)
[2018-03-19] MEDS: LANSOPRAZOLE 30 MG TAB.RAP.DR PO SCH (05:33)
[2018-03-19] MEDS: HYDROCORTISONE SOD SUCCINATE INJ/PF 100 MG/2 ML SDV IV SCH (05:33)
[2018-03-19 06:21] LABS: ABSOLUTE LYMPHOCYTES (AUTO) 0.7 10^3/uL (0.5-4.7); ABSOLUTE MONOCYTES (AUTO) 0.1 10^3/uL (0.1-1.4); ABSOLUTE NEUT (AUTO) 2.3 10^3/uL (1.7-8.2); BASOPHILS % (AUTO) 0.2 % (0-2); EOSINOPHILS % (AUTO) 0.1 % (0-6); HEMATOCRIT 32.2 % (36.0-47.0); HEMOGLOBIN 11.2 g/dL (12.0-15.5); LYMPHOCYTES % (AUTO) 21.7 % (13-45); MEAN CORPUSCULAR HEMOGLOBIN 28.8 pg (27.0-33.4); MEAN CORPUSCULAR HGB CONC 34.8 g/dL (32.0-36.0); MEAN CORPUSCULAR VOLUME 83 fl (80-97); MONOCYTES % (AUTO) 4.4 % (3-13); PLATELET COUNT 199 10^3/uL (150-450); RED BLOOD COUNT 3.89 10^6/uL (3.72-5.28); RED CELL DISTRIBUTION WIDTH 16.8 % (11.5-14.0); SEGMENTED NEUTROPHILS % (AUTO) 73.6 % (42-78); TOTAL CELLS COUNTED % (AUTO) 100 %; WHITE BLOOD COUNT 3.1 10^3/uL (4.0-10.5)
[2018-03-19] MEDS ORDERED: NORMAL SALINE 1000 ML 1,000 ML IV PRN (06:34)
[2018-03-19 06:45] LABS: ANION GAP 9 (5-19); BLOOD UREA NITROGEN 7 mg/dL (7-20); CALCIUM 8.1 mg/dL (8.4-10.2); CARBON DIOXIDE 24 mmol/L (22-30); CHLORIDE 108 mmol/L (98-107); GLUCOSE 142 mg/dL (75-110); POTASSIUM 3.7 mmol/L (3.6-5.0); SODIUM 140.7 mmol/L (137-145)
--- NOTE | 2018-03-19 08:21 | PDOC PROGRESS REPORT ---
Subjective Progress Note for:: 03/19/18 Subjective:: Patient is currently doing well Patient's blood pressure is all remained stable Patient's denied any chest pain denied any shortness of the breath No further syncopal episodes Reason For Visit: SYNCOPAL EPISODE Physical Exam Vital Signs: Temp Pulse Resp BP Pulse Ox 97.5 F 58 L 18 140/84 H 100 03/19/18 03:24 03/19/18 07:00 03/19/18 03:24 03/19/18 03:24 03/19/18 03:24 Intake & Output 03/18/18 03/19/18 03/20/18 06:59 06:59 06:59 Intake Total 1020 2134 Output Total 50 200 Balance 970 1934 Weight 48.3 kg 50.6 kg General appearance: PRESENT: no acute distress Head exam: PRESENT: atraumatic, normocephalic Eye exam: PRESENT: conjunctiva pink, EOMI, PERRLA. ABSENT: scleral icterus Ear exam: PRESENT: normal external ear exam Mouth exam: PRESENT: moist, tongue midline Neck exam: PRESENT: full ROM. ABSENT: carotid bruit, JVD, lymphadenopathy, thyromegaly Respiratory exam: PRESENT: clear to auscultation lucas Cardiovascular exam: PRESENT: RRR. ABSENT: diastolic murmur, rubs, systolic murmur Pulses: PRESENT: normal dorsalis pedis pul, +2 pedal pulses bilateral Vascular exam: PRESENT: normal capillary refill GI/Abdominal exam: PRESENT: normal bowel sounds, soft. ABSENT: distended, guarding, mass, organolmegaly, rebound, tenderness Rectal exam: PRESENT: deferred Extremities exam: ABSENT: pedal edema Neurological exam: PRESENT: alert, awake, oriented to person, oriented to place , oriented to time, oriented to situation. ABSENT: motor sensory deficit Psychiatric exam: PRESENT: appropriate affect, normal mood. ABSENT: homicidal ideation, suicidal ideation Skin exam: PRESENT: dry, intact, warm. ABSENT: cyanosis, rash Results Laboratory Results: 03/19/18 05:20 03/19/18 05:20 03/19/18 03/19/18 05:20 05:20 WBC 3.1 L RBC 3.89 Hgb 11.2 L Hct 32.2 L MCV 83 MCH 28.8 MCHC 34.8 RDW 16.8 H Plt Count 199 Seg Neutrophils % 73.6 Lymphocytes % 21.7 Monocytes % 4.4 Eosinophils % 0.1 Basophils % 0.2 Absolute Neutrophils 2.3 Absolute Lymphocytes 0.7 Absolute Monocytes 0.1 Absolute Eosinophils 0.0 Absolute Basophils 0.0 Sodium 140.7 Potassium 3.7 Chloride 108 H Carbon Dioxide 24 Anion Gap 9 BUN 7 Creatinine 0.43 L Est GFR ( Amer) > 60 Est GFR (Non-Af Amer) > 60 Glucose 142 H Calcium 8.1 L Magnesium 1.9 03/17/18 03/17/18 03/18/18 20:10 20:10 02:44 Creatine Kinase < 20 L CK-MB (CK-2) < 0.22 < 0.22 Troponin I < 0.012 < 0.012 03/18/18 03/18/18 03/18/18 02:44 09:45 09:45 Creatine Kinase < 20 L < 20 L CK-MB (CK-2) < 0.22 Troponin I < 0.012 Impressions: Chest X-Ray 03/17/18 16:24 IMPRESSION: NO ACUTE RADIOGRAPHIC FINDING IN THE CHEST. Head CT 03/17/18 18:35 IMPRESSION: MILD CHRONIC CHANGES OF ATROPHY AND MICROVASCULAR ISCHEMIA. NO ACUTE PROCESS. EVIDENCE OF ACUTE STROKE: NO. Chest/Abdomen CTA 03/17/18 19:13 IMPRESSION: Suboptimal bolus timing results in limited examination. No central or segmental pulmonary emboli are visualized; no secondary findings of pulmonary emboli are demonstrated. Assessment & Plan - Diagnosis (1) Hypotension Qualifiers: Hypotension type: hypotension due to hypovolemia Qualified Code(s): I95.89 - Other hypotension; E86.1 - Hypovolemia; E86.1 - Hypovolemia Is this a current diagnosis for this admission?: Yes Plan: Currently all improving after the IV fluid and the hydrocortisone's will DC the hydrocortisone and start on the prednisone p.o. and slowly tapered to the patient's baseline 5 mg (2) Syncope and collapse Is this a current diagnosis for this admission?: Yes Plan: Most likely vasovagal syncopal episodes although workup is negative (3) Cerebrovascular accident Qualifiers: CVA mechanism: unspecified Is this a current diagnosis for this admission?: No Plan: Continues to Plavix and patient is already on Xarelto (4) Chronic pain syndrome Is this a current diagnosis for this admission?: Yes Plan: Currently see a pain management as outpatients (5) Hyperlipidemia Qualifiers: Hyperlipidemia type: unspecified Is this a current diagnosis for this admission?: Yes Plan: to current medications (6) Pulmonary embolism Qualifiers: Chronicity: unspecified Acute cor pulmonale presence: without acute cor pulmonale Is this a current diagnosis for this admission?: Yes Plan: CT scan is pretty much stable (7) Rheumatoid arthritis Qualifiers: Rheumatoid arthritis location: multiple sites Is this a current diagnosis for this admission?: Yes Plan: She is currently on a chronic steroid and patients currently taking the rheumatoid medications from the [facility] (8) Weakness Is this a current diagnosis for this admission?: Yes Plan: Patients usually unable to move due to the significant deformity and a compression fractures in the back - Time Time Spent with patient: 15-24 minutes Medications reviewed and adjusted accordingly: Yes Anticipated discharge: Home Within: within 24 hours - Inpatient Certification Medical Necessity: Need Close Monitoring Due to Risk of Patient Decompensation Post Hospital Care: D/C Assembl[employer] Documentation - Plan Summary Plan Summary: Continues to current medications see other MD orders
[2018-03-19] MEDS: DOCUSATE SODIUM 100 MG CAPSULE PO SCH ×2 (10:11→17:18)
[2018-03-19] MEDS: RIVAROXABAN 10 MG TABLET PO SCH (10:11)
[2018-03-19] MEDS: CLOPIDOGREL BISULFATE 75 MG TABLET PO SCH (10:12)
[2018-03-19] MEDS: PREDNISONE 20 MG TABLET PO SCH ×2 (10:12→17:18)
[2018-03-19] MEDS: CETIRIZINE 5 MG TABLET PO SCH (10:12)
[2018-03-19] MEDS: ESCITALOPRAM OXALATE 10 MG TABLET PO SCH (10:12)
[2018-03-19] MEDS: CEFTRIAXONE SODIUM 1,000 MG in DEXTROSE 5%-WATER 50 ML IV SCH (21:16)
[2018-03-20] MEDS ORDERED: LISINOPRIL 10 MG TABLET PO ONE (04:15)
[2018-03-20 04:56] LABS: ABSOLUTE LYMPHOCYTES (AUTO) 0.7 10^3/uL (0.5-4.7); ABSOLUTE MONOCYTES (AUTO) 0.2 10^3/uL (0.1-1.4); ABSOLUTE NEUT (AUTO) 2.8 10^3/uL (1.7-8.2); BASOPHILS % (AUTO) 0.2 % (0-2); HEMATOCRIT 31.9 % (36.0-47.0); HEMOGLOBIN 11.4 g/dL (12.0-15.5); LYMPHOCYTES % (AUTO) 19.1 % (13-45); MEAN CORPUSCULAR HEMOGLOBIN 29.3 pg (27.0-33.4); MEAN CORPUSCULAR HGB CONC 35.7 g/dL (32.0-36.0); MEAN CORPUSCULAR VOLUME 82 fl (80-97); PLATELET COUNT 205 10^3/uL (150-450); RED BLOOD COUNT 3.89 10^6/uL (3.72-5.28); RED CELL DISTRIBUTION WIDTH 16.6 % (11.5-14.0); SEGMENTED NEUTROPHILS % (AUTO) 75.7 % (42-78); TOTAL CELLS COUNTED % (AUTO) 100 %; WHITE BLOOD COUNT 3.8 10^3/uL (4.0-10.5)
[2018-03-20] MEDS: LANSOPRAZOLE 30 MG TAB.RAP.DR PO SCH (05:01)
[2018-03-20 05:11] LABS: ANION GAP 8 (5-19); BLOOD UREA NITROGEN 11 mg/dL (7-20); CALCIUM 8.1 mg/dL (8.4-10.2); CARBON DIOXIDE 29 mmol/L (22-30); CHLORIDE 105 mmol/L (98-107); GLUCOSE 146 mg/dL (75-110); SODIUM 141.5 mmol/L (137-145)
[2018-03-20 05:28] LABS: POTASSIUM 2.8 mmol/L (3.6-5.0)
[2018-03-20] MEDS ORDERED: POTASSIUM CHLORIDE 20 MEQ/50 ML RTU IV ONE (05:45)
[2018-03-20] MEDS ORDERED: POTASSIUM CHLORIDE 10 MEQ CAPSULE.ER PO ONE ×2 (06:00→13:45)
[2018-03-20] MEDS ORDERED: LISINOPRIL 10 MG TABLET PO SCH ×2 (10:00)
[2018-03-20] MEDS ORDERED: AMLODIPINE BESYLATE 5 MG TABLET PO SCH (10:00)
[2018-03-20] MEDS: RIVAROXABAN 10 MG TABLET PO SCH (10:22)
[2018-03-20] MEDS: CETIRIZINE 5 MG TABLET PO SCH (10:23)
[2018-03-20] MEDS: DOCUSATE SODIUM 100 MG CAPSULE PO SCH ×2 (10:23→17:13)
[2018-03-20] MEDS: ESCITALOPRAM OXALATE 10 MG TABLET PO SCH (10:23)
[2018-03-20] MEDS: CLOPIDOGREL BISULFATE 75 MG TABLET PO SCH (10:23)
[2018-03-20] MEDS: PREDNISONE 20 MG TABLET PO SCH ×2 (10:24→17:13)
--- NOTE | 2018-03-20 12:58 | PDOC DISCHARGE SUMMARY ---
General - Admit/Disc Date/PCP Admission Date/Primary Care Provider: 03/17/18 19:20 MARY LOU OLEA MD Discharge Date: 03/20/18 - Discharge Diagnosis (1) Hypotension Is this a current diagnosis for this admission?: Yes Summary: Currently all resolved (2) Syncope and collapse Is this a current diagnosis for this admission?: Yes Summary: Currently all stable follow outpatients Holter monitor (3) Cerebrovascular accident Is this a current diagnosis for this admission?: No Summary: Kevin to current medications (4) Chronic pain syndrome Is this a current diagnosis for this admission?: Yes Summary: She does follow with the pain management (5) Hyperlipidemia Is this a current diagnosis for this admission?: Yes Summary: Continues to statin (6) Pulmonary embolism Is this a current diagnosis for this admission?: Yes Summary: Is currently on the Xarelto recent CT scan of the chest was all stable (7) Rheumatoid arthritis Is this a current diagnosis for this admission?: Yes Summary: Is currently see the [facility] (8) Weakness Is this a current diagnosis for this admission?: Yes Summary: Continues to physical therapy (9) Hypokalemia Is this a current diagnosis for this admission?: Yes Summary: Replace the potassiums - Additional Information Resuscitation Status: Full Code Prescriptions: Amlodipine Besylate [Norvasc 5 mg Tablet] 5 mg PO DAILY #30 tablet Prednisone 10 mg PO DAILY #30 tablet Home Medications: Cephalexin Monohydrate [Keflex 250 mg Capsule] 250 mg PO DAILY 03/18/18 Clopidogrel Bisulfate [Plavix 75 mg Tablet] 75 mg PO DAILY 03/18/18 Diclofenac Sodium [Voltaren] 4 gm TP BID 03/18/18 Escitalopram Oxalate [Lexapro 10 mg Tablet] 10 mg PO DAILY 03/18/18 Levocetirizine Dihydrochloride [Xyzal] 5 mg PO DAILY 03/18/18 Lisinopril [Zestril] 40 mg PO DAILY 03/18/18 Oxycodone HCl/Acetaminophen [Percocet 10-325 mg Tablet] 1 tab PO Q8HP PRN Pantoprazole Sodium [Protonix] 40 mg PO DAILY 03/18/18 Prednisone [Deltasone 5 mg Tablet] 5 mg PO DAILY 03/18/18 Rivaroxaban [Xarelto] 20 mg PO DAILY 03/18/18 Amlodipine Besylate [Norvasc 5 mg Tablet] 5 mg PO DAILY #30 tablet 03/20/18 Prednisone 10 mg PO DAILY #30 tablet 03/20/18 History of Present Illness History of Present Illness: LILLIE AMIN is a 67 year old female This is a 67-year-old female with a significant history of the rheumatoid arthritis and multiple deformity chronic pain syndrome history of the hypertension and the history of the cerebrovascular accident and a pretty much bedbound and history of the pulmonary embolism on chronic anticoagulations went to the bathroom today and the daughter noticed the patient suddenly get collapse loss of consciousness for a few seconds and the daughter called 911 and the patient's brought to the emergency department where patients pretty much alert awake oriented back to the baseline's Patient denied any chest pain denied any shortness of the breath denied any headache Patient's denied any blood in the stools no black stools Patient's blood pressure is running in the lower end giving some IV fluid Came to the daughters patient's blood pressure was running okay while the home health nurse is checking the blood pressure at home According to daughter patients have a no head injury or no fall Patient's also see [facility] ignition specialist unable to go and see since last admission in the hospital due to the patient with transportation issues Patient's currently doing fair we will keep the patient's for observation for next 24 hours while all workup is negative's could be a vasovagal syncopal episodes Hospital Course Hospital Course: This is a 67-year-old females present in the emergency department with a possible syncopal episode most likely a vasovagal with initial CT of the head and all the blood work was all stable Reason also found little hypotensive's and admitting in the hospital for further evaluation and treatments All cultures negative even the urine cultures was a nonsignificant Since rule out sepsis rule out neurological events and rule out any cardiac events all workup is negative Since cortisol level was very low and patients currently on chronic steroid therapy it could be a most likely has some recent's mild [place]'s crisis patients was given hydrocortisone's 50 mg and the patient's blood pressures better and patient's symptoms much improved Patient's potassium was always running low's replace the potassium patient's also taking the p.o. potassium supplement at home Patient's was started lisinopril and is started on Norvasc and currently stop the diltiazem due to the heart rate is running in the lower end Discussed with the patient and the daughter regarding the patient's current conditions following a couple of days and recheck the potassium in the office Patients follow outpatients cardiology for further evaluations Physical Exam Vital Signs: Temp Pulse Resp BP Pulse Ox 98.1 F 63 16 146/70 H 100 03/20/18 11:50 03/20/18 11:50 03/20/18 11:50 03/20/18 11:50 03/20/18 11:50 Intake & Output 03/19/18 03/20/18 03/21/18 06:59 06:59 06:59 Intake Total 2134 620 275 Output Total 200 550 200 Balance 1934 70 75 Weight 50.6 kg 47.3 kg General appearance: PRESENT: no acute distress, well-developed, well-nourished Head exam: PRESENT: atraumatic, normocephalic Eye exam: PRESENT: conjunctiva pink, EOMI, PERRLA. ABSENT: scleral icterus Ear exam: PRESENT: normal external ear exam Mouth exam: PRESENT: moist, tongue midline Neck exam: PRESENT: full ROM. ABSENT: carotid bruit, JVD, lymphadenopathy, thyromegaly Respiratory exam: PRESENT: clear to auscultation lucas Cardiovascular exam: PRESENT: RRR. ABSENT: diastolic murmur, rubs, systolic murmur Pulses: PRESENT: normal dorsalis pedis pul, +2 pedal pulses bilateral Vascular exam: PRESENT: normal capillary refill GI/Abdominal exam: PRESENT: normal bowel sounds, soft. ABSENT: distended, guarding, mass, organolmegaly, rebound, tenderness Rectal exam: PRESENT: deferred Additional comments: Significant deformity due to the rheumatoid arthritis Neurological exam: PRESENT: alert, awake, oriented to person, oriented to place , oriented to time, oriented to situation, CN II-XII grossly intact. ABSENT: motor sensory deficit Psychiatric exam: PRESENT: appropriate affect, normal mood. ABSENT: homicidal ideation, suicidal ideation Skin exam: PRESENT: dry, intact, warm. ABSENT: cyanosis, rash Results Laboratory Results: 03/20/18 04:39 03/20/18 10:55 03/20/18 03/20/18 03/20/18 04:39 04:39 10:55 WBC 3.8 L RBC 3.89 Hgb 11.4 L Hct 31.9 L MCV 82 MCH 29.3 MCHC 35.7 RDW 16.6 H Plt Count 205 Seg Neutrophils % 75.7 Lymphocytes % 19.1 Monocytes % 5.0 Eosinophils % 0.0 Basophils % 0.2 Absolute Neutrophils 2.8 Absolute Lymphocytes 0.7 Absolute Monocytes 0.2 Absolute Eosinophils 0.0 Absolute Basophils 0.0 Sodium 141.5 Potassium 2.8 L* 3.3 L Chloride 105 Carbon Dioxide 29 Anion Gap 8 BUN 11 Creatinine 0.41 L Est GFR ( Amer) > 60 Est GFR (Non-Af Amer) > 60 Glucose 146 H Calcium 8.1 L Magnesium 2.0 03/17/18 03/17/18 03/18/18 20:10 20:10 02:44 Creatine Kinase < 20 L CK-MB (CK-2) < 0.22 < 0.22 Troponin I < 0.012 < 0.012 03/18/18 03/18/18 03/18/18 02:44 09:45 09:45 Creatine Kinase < 20 L < 20 L CK-MB (CK-2) < 0.22 Troponin I < 0.012 Impressions: Chest X-Ray 03/17/18 16:24 IMPRESSION: NO ACUTE RADIOGRAPHIC FINDING IN THE CHEST. Head CT 03/17/18 18:35 IMPRESSION: MILD CHRONIC CHANGES OF ATROPHY AND MICROVASCULAR ISCHEMIA. NO ACUTE PROCESS. EVIDENCE OF ACUTE STROKE: NO. Chest/Abdomen CTA 03/17/18 19:13 IMPRESSION: Suboptimal bolus timing results in limited examination. No central or segmental pulmonary emboli are visualized; no secondary findings of pulmonary emboli are demonstrated. Qualifiers - * PATIENT BEING DISCHARGED WITH ANY OF THE FOLLOWING DIAGNOSIS: No VTE patient discharged on overlapping Therapy?: Yes Plan Time Spent: Greater than 30 Minutes - Patient is very anxious to go home patient 's potassium was 3.3 replaced 40 continues home potassium and recheck in couple of days other blood work is all stable's
[2018-03-20 18:21] VITALS: BP 172/85
== END 2018-03-20 18:43 | disposition home health service (06) | DRG 316 ==
LOC: ER 15:20 → EH 19:20 → 3W 20:33
PROVIDERS: ADMIT Family Medicine; ATTEND Family Medicine
DX: I95.89 Other hypotension (principal); E86.1 Hypovolemia; I10 Essential (primary) hypertension; M06.89 Other specified rheumatoid arthritis, multiple sites; G89.4 Chronic pain syndrome; K21.9 Gastro-esophageal reflux disease without esophagitis; F32.9 Major depressive disorder, single episode, unspecified; E78.5 Hyperlipidemia, unspecified; Z79.52 Long term (current) use of systemic steroids; Z86.711 Personal history of pulmonary embolism; Z87.81 Personal history of (healed) traumatic fracture; Z90.49 Acquired absence of other specified parts of digestive tract; Z90.710 Acquired absence of both cervix and uterus; Z86.73 Personal history of transient ischemic attack (TIA), and cerebral infarction without residual deficits; Z79.02 Long term (current) use of antithrombotics/antiplatelets; Z79.899 Other long term (current) drug therapy
CPT/HCPCS: 36415; 70450; 71045; 71275; 80048; 80053; 81001; 82533; 82550; 82553; 83605; 83735; 84132; 84484; 85025; 87040; 87086; 87088; 87186; 93005; 93010; 99285; G8978-GP; G8979-GP; J0696; J1720; J3480; J3490; J7030; J7512; S0119

== ENCOUNTER 2018-04-19 16:14 | Emergency (ER) | payer MEDICARE, MEDICAID ==
[2018-04-19 17:34] LABS: HEMATOCRIT 43.9 % (36.0-47.0); HEMOGLOBIN 14.4 g/dL (12.0-15.5); MEAN CORPUSCULAR HEMOGLOBIN 28.8 pg (27.0-33.4); MEAN CORPUSCULAR HGB CONC 32.8 g/dL (32.0-36.0); MEAN CORPUSCULAR VOLUME 88 fl (80-97); PLATELET COUNT 308 10^3/uL (150-450); RED CELL DISTRIBUTION WIDTH 18.2 % (11.5-14.0); WHITE BLOOD COUNT 14.9 10^3/uL (4.0-10.5)
[2018-04-19 17:46] LABS: ALANINE AMINOTRANSFERASE 16 U/L (9-52); ALBUMIN 3.5 g/dL (3.5-5.0); ALKALINE PHOSPHATASE 77 U/L (38-126); ANION GAP 11 (5-19); ASPARTATE AMINO TRANSFERASE 21 U/L (14-36); BILIRUBIN,DIRECT 0.3 mg/dL (0.0-0.4); BILIRUBIN,TOTAL 0.4 mg/dL (0.2-1.3); BLOOD UREA NITROGEN 14 mg/dL (7-20); CALCIUM 9.1 mg/dL (8.4-10.2); CARBON DIOXIDE 28 mmol/L (22-30); CHLORIDE 101 mmol/L (98-107); GLUCOSE 80 mg/dL (75-110); POTASSIUM 4.1 mmol/L (3.6-5.0); SODIUM 140.3 mmol/L (137-145); TOTAL PROTEIN 6.8 g/dL (6.3-8.2)
[2018-04-19 17:50] LABS: INTERNATIONAL RATION (INR) 1.51
[2018-04-19 17:51] LABS: CREATINE KINASE < 20 U/L (30-135)
[2018-04-19 18:03] LABS: CREATINE KINASE MB < 0.22 ng/mL (<4.55); TROPONIN I < 0.012 ng/mL
[2018-04-19 18:07] LABS: ABSOLUTE LYMPHOCYTES# (MANUAL) 2.8 10^3/uL (0.5-4.7); ABSOLUTE MONOCYTES # (MANUAL) 0.6 10^3/uL (0.1-1.4); ABSOLUTE NEUTROPHILS# (MANUAL) 11.3 10^3/uL (1.7-8.2); BAND NEUTROPHILS % (MANUAL) 2 % (3-5); BASOPHILS % (MANUAL) 0 % (0-2); EOSINOPHILS % (MANUAL) 1 % (0-6); LYMPHOCYTES % (MANUAL) 18 % (13-45); METAMYELOCYTES % (MANUAL) 1 % (0); MONOCYTES % (MANUAL) 4 % (3-13); SEGMENTED NEUTROPHILS % (MAN) 73 % (42-78); TOTAL CELLS COUNTED 100
[2018-04-19 18:10] LABS: ANISOCYTOSIS 1+; OVALOCYTES SLIGHT; PLATELET COMMENT ADEQUATE; POIKILOCYTOSIS SLIGHT
--- NOTE | 2018-04-19 18:10 | RADIOLOGY REPORT (SQ) ---
EXAM DESCRIPTION: CHEST 2 VIEWS COMPLETED DATE/TIME: 04/19/2018 5:58 pm REASON FOR STUDY: near syncopal COMPARISON: 01/29/2018 EXAM PARAMETERS: NUMBER OF VIEWS: two views TECHNIQUE: Digital Frontal and Lateral radiographic views of the chest acquired. RADIATION DOSE: NA LIMITATIONS: none FINDINGS: LUNGS AND PLEURA: No acute opacities, masses or pneumothorax. No pleural effusion. MEDIASTINUM AND HILAR STRUCTURES: Stable. HEART AND VASCULAR STRUCTURES: Stable. BONES: No acute findings. HARDWARE: None in the chest. OTHER: No other significant finding. IMPRESSION: NO ACUTE RADIOGRAPHIC FINDING IN THE CHEST. TECHNICAL DOCUMENTATION: JOB ID: [id number] [id number] 2010 [employer]- All Rights Reserved Reading location - IP/workstation name: [email or web address]
--- NOTE | 2018-04-19 18:19 | ER Document Report ---
ED General - General Mode of Arrival: Medic Information source: Patient TRAVEL OUTSIDE OF THE [place] IN LAST 30 DAYS: No <ZAIDA ODONNELL - Last Filed: 04/20/18 00:08> <JOSHUA SPAIN - Last Filed: 04/20/18 00:10> - General Chief Complaint: Near Syncope Stated Complaint: POSSIBLE SYNCOPE Time Seen by Provider: 04/19/18 18:08 Notes: 67 y.o female with a PMHx of rheumatoid arthritis, stroke, HTN and cirrhosis presents to the ED via EMS after her daughter called the EMS for confusion. Pt reports that she went to use the restroom and was having diarrhea and vomiting at the same time. Daughter reports that patient was confused when exiting the restroom. She denies any blood in her vomit or stool as well as any current nausea, dizziness or confusion. Pt denies any CP, trouble breathing, abd pain, blurred vision or any other sx. Pt complains of her knees causing her pain as they do at her baseline due to her hx of arthritis. Pt's PCP is Dr. Reece. Pt denies any continued weakness or any trouble since her stroke. (ZAIDA ODONNELL) - Related Data Allergies/Adverse Reactions: No Known Allergies Allergy (Verified 09/07/17 14:19) Past Medical History - General Information source: Patient - Social History Smoking Status: Never Smoker Chew tobacco use (# tins/day): No Frequency of alcohol use: None Drug Abuse: None Family History: Reviewed & Not Pertinent, DM, Hypertension Patient has suicidal ideation: No Patient has homicidal ideation: No - Past Medical History Cardiac Medical History: Reports: Hx Hypertension, Hx Pulmonary Embolism Pulmonary Medical History: Reports: Hx Pneumonia Renal/ Medical History: Denies: Hx Peritoneal Dialysis GI Medical History: Reports: Hx Gastroesophageal Reflux Disease Musculoskeletal Medical History: Reports Hx Arthritis - RA Skin Medical History: Reports Hx MRSA - CURRENTLY HAS SENSATION OF ABSCESS DEVELOPING UNDER THE LEFT ARM Psychiatric Medical History: Reports: Hx Depression Traumatic Medical History: Reports: Hx Fractures - T10 COMP FX, ACUTE R SHOULDER AND CLAVICLE FX Past Surgical History: Reports: Hx Appendectomy, Hx Hysterectomy, Hx Oral Surgery, Hx Orthopedic Surgery - foot surgery - Immunizations Immunizations up to date: Yes Hx Diphtheria, Pertussis, Tetanus Vaccination: Yes <ZAIDA ODONNELL - Last Filed: 04/20/18 00:08> Review of Systems - Review of Systems Constitutional: No symptoms reported EENT: See HPI. denies: Blurred vision Cardiovascular: See HPI. denies: Chest pain, Dizziness Respiratory: See HPI. denies: Short of breath Gastrointestinal: See HPI, Diarrhea, Vomiting. denies: Abdominal pain, Blood in vomit, Black stools, Rectal bleeding Genitourinary: No symptoms reported Female Genitourinary: No symptoms reported Musculoskeletal: See HPI, Joint pain - bilateral knees Skin: No symptoms reported Hematologic/Lymphatic: No symptoms reported Neurological/Psychological: Confusion -: Yes All other systems reviewed and negative <ZAIDA ODONNELL - Last Filed: 04/20/18 00:08> Physical Exam <ZAIDA ODONNELL - Last Filed: 04/20/18 00:08> <JOSHUA SPAIN - Last Filed: 04/20/18 00:10> - Vital signs Vitals: Temp Pulse Resp BP Pulse Ox 98.6 F 74 16 108/46 L 95 04/19/18 16:30 04/19/18 16:30 04/19/18 16:30 04/19/18 16:30 04/19/18 16:30 - Notes Notes: PHYSICAL EXAM GENERAL: Alert. No acute distress. HEAD: Normocephalic, atraumatic. EYES: Pupils equal, round, and reactive to light. Extraocular movements intact. ENT: Oral mucosa moist, tongue midline. NECK: Full range of motion. Supple. Trachea midline. LUNGS: Clear to auscultation bilaterally, no wheezes, rales, or rhonchi. No respiratory distress. HEART: Regular rate and rhythm. No murmurs, gallops, or rubs. ABDOMEN: Soft, non-tender. Non-distended. Bowel sounds present in all 4 quadrants. No guarding, rebound, or rigidity. EXTREMITIES: Moves all 4 extremities spontaneously. No edema. No cyanosis. Flexion deformity of RT wrist and LT wrist. Significant deformity of MCP joints of bilateral hands consistent with arthritis. NEUROLOGICAL: Alert and oriented x3. Mumbles but daughter states speech in baseline. No facial droop. PSYCH: Normal affect, normal mood. SKIN: Warm, dry, normal turgor. No rashes or lesions noted. (ZAIDA ODONNELL) Course - Laboratory Result Diagrams: 04/19/18 17:00 04/19/18 17:00 <ZAIDA ODONNELL - Last Filed: 04/20/18 00:08> - Laboratory Result Diagrams: 04/19/18 17:00 04/19/18 17:00 <JOSHUA SPAIN - Last Filed: 04/20/18 00:10> - Re-evaluation Re-evalutation: 04/19/18 21:35 CBC shows leukocytosis of 14.9 otherwise unremarkable, INR somewhat prolonged at 1.53, chemistries unremarkable, lipase normal, cardiac enzymes negative, urinalysis does not show any signs of infection. Chest x-ray does not show any acute process. EKG does not have any ischemia or concerning delays that would have caused her syncopal episode. I discussed the patient with her daughter as well and both of them state that she does pass out on a regular basis. They state that this was actually a less severe case than previously where she has had a complete loss of consciousness as opposed to the near-syncope she had this time. Patient is feeling much better, she has been able to drink here without difficulty, I do not see any concerning cause for her vomiting at this time, no evidence of acute intra- abdominal process that would require surgery or antibiotics, she is not tender to palpation on examination. At this time patient will be discharged to home, encouraged to drink more water and less Mountain Dew. Follow-up with primary care physician. (JOSHUA SPAIN) - Vital Signs Vital signs: Temp Pulse Resp BP Pulse Ox 98.6 F 74 18 122/79 97 04/19/18 16:30 04/19/18 16:30 04/19/18 22:01 04/19/18 22:00 04/19/18 22:01 - Laboratory Laboratory results interpreted by me: 04/19/18 04/19/18 04/19/18 17:00 17:00 17:00 WBC 14.9 H RDW 18.2 H Band Neutrophils % 2 L Metamyelocytes % 1 H Abs Neuts (Manual) 11.3 H PT 19.0 H Creatine Kinase < 20 L Urine Urobilinogen 04/19/18 20:06 WBC RDW Band Neutrophils % Metamyelocytes % Abs Neuts (Manual) PT Creatine Kinase Urine Urobilinogen 2.0 H Discharge <ZAIDA ODONNELL - Last Filed: 04/20/18 00:08> <JOSHUA SPAIN - Last Filed: 04/20/18 00:10> - Discharge Clinical Impression: Syncope and collapse Condition: Stable Disposition: HOME, SELF-CARE Additional Instructions: Today your blood work came back normal with the exception of a very slightly elevated white blood cell count. There is no sign of urinary tract infection on your blood work. You were able to keep water down here and have not continued vomiting. You did not have any abdominal pain on your examination. Should she develop fevers, continuing vomiting, any abdominal pain or any new or concerning symptoms please return to the emergency department. Please drink less Mountain Dew and more water. Referrals: MARY LOU REECE MD [Primary Care Provider] - Follow up in 3-5 days Scribe Attestation: 04/20/18 00:10 I personally performed the services described in the documentation, reviewed and edited the documentation which was dictated to the scribe in my presence, and it accurately records my words and actions. (JOSHUA SPAIN) Scribe Documentation - Scribe Written by Snehal:: Snehal Pritchett 04/19/181916 acting as scribe for :: Jael <ZAIDA ODONNELL - Last Filed: 04/20/18 00:08>
[2018-04-19 21:14] LABS: APPEARANCE,URINE CLEAR; BILIRUBIN,URINE NEGATIVE (NEGATIVE); COLOR,URINE YELLOW; GLUCOSE, URINE NEGATIVE (NEGATIVE); KETONES,URINE NEGATIVE (NEGATIVE); LEUKOCYTE ESTERASE,URINE NEGATIVE (NEGATIVE); NITRITE,URINE NEGATIVE (NEGATIVE); PROTEIN,URINE NEGATIVE (NEGATIVE); URINE SPECIFIC GRAVITY 1.014
[2018-04-19 22:08] VITALS: BP 122/79
--- NOTE | 2018-04-19 23:38 | EKG REPORT ---
SEVERITY:- ABNORMAL ECG - SINUS RHYTHM NONSPECIFIC T ABNORMALITIES, LATERAL LEADS : Confirmed by: Ammy Page MD 19-Apr-2018 23:37:49
== END 2018-04-19 22:08 | disposition home or self-care (01) ==
LOC: ER 16:14
DX: R55 Syncope and collapse (principal); I10 Essential (primary) hypertension; Z86.711 Personal history of pulmonary embolism; Z90.710 Acquired absence of both cervix and uterus; Z86.14 Personal history of Methicillin resistant Staphylococcus aureus infection
CPT/HCPCS: 36415; 71046; 80053; 81001; 82550; 82553; 83690; 84484; 85025; 85610; 93005; 93010; 99284

== ENCOUNTER 2018-04-19 22:33 | Inpatient (IN) | payer MEDICARE, MEDICAID ==
[2018-04-19] MEDS ORDERED: NORMAL SALINE 1000 ML 1,000 ML IV ONE (23:02)
[2018-04-19] MEDS ORDERED: PIPERACILLIN/TAZOBACTAM 4.5 GM VIAL IV ONE (23:02)
--- NOTE | 2018-04-19 23:15 | ER Document Report ---
ED General - General Mode of Arrival: Wheelchair Information source: Patient, Relative TRAVEL OUTSIDE OF THE [place] IN LAST 30 DAYS: No <ZAIDA ODONNELL - Last Filed: 04/20/18 05:06> <JOSHUA SPAIN - Last Filed: 04/20/18 05:15> - General Stated Complaint: SHORT OF BREATH Time Seen by Provider: 04/19/18 22:50 Notes: Pt who was just discharged after being evaluated for near syncopal episode, vomiting and diarrhea was standing up to get in the car after being wheeled out when she became SOB, diaphoretic, weak and leaning over. Daughter reports that pt was SOB but when pt was directly asked she denied any SOB and had no complaints. In the triage room we found to be mildly tachycardic and with a temp of 101.0. (ZAIDA ODONNELL) - Related Data Allergies/Adverse Reactions: No Known Allergies Allergy (Verified 09/07/17 14:19) Past Medical History - General Information source: Patient - Social History Smoking Status: Never Smoker Chew tobacco use (# tins/day): No Frequency of alcohol use: None Drug Abuse: None Family History: Reviewed & Not Pertinent, DM, Hypertension - Past Medical History Cardiac Medical History: Reports: Hx Hypertension, Hx Pulmonary Embolism Pulmonary Medical History: Reports: Hx Pneumonia Denies: Hx Tuberculosis Neurological Medical History: Denies: Hx Seizures Renal/ Medical History: Denies: Hx Peritoneal Dialysis GI Medical History: Reports: Hx Gastroesophageal Reflux Disease Musculoskeletal Medical History: Reports Hx Arthritis - RA Skin Medical History: Reports Hx MRSA - CURRENTLY HAS SENSATION OF ABSCESS DEVELOPING UNDER THE LEFT ARM Psychiatric Medical History: Reports: Hx Depression Traumatic Medical History: Reports: Hx Fractures - T10 COMP FX, ACUTE R SHOULDER AND CLAVICLE FX Past Surgical History: Reports: Hx Appendectomy, Hx Hysterectomy, Hx Oral Surgery, Hx Orthopedic Surgery - foot surgery - Immunizations Immunizations up to date: Yes Hx Diphtheria, Pertussis, Tetanus Vaccination: Yes <ZAIDA ODONNELL - Last Filed: 04/20/18 05:06> Review of Systems - Review of Systems Constitutional: See HPI, Fever, Weakness EENT: No symptoms reported Cardiovascular: No symptoms reported Respiratory: See HPI, Short of breath Gastrointestinal: No symptoms reported Genitourinary: No symptoms reported Female Genitourinary: No symptoms reported Musculoskeletal: No symptoms reported Skin: No symptoms reported Hematologic/Lymphatic: No symptoms reported Neurological/Psychological: No symptoms reported -: Yes All other systems reviewed and negative <BLASZAIDA - Last Filed: 04/20/18 05:06> Physical Exam <ZAIDA ODONNELL - Last Filed: 04/20/18 05:06> <JOSHUA SPAIN - Last Filed: 04/20/18 05:15> - Vital signs Vitals: Pulse Ox 97 04/19/18 23:27 - Notes Notes: PHYSICAL EXAM GENERAL: Alert. Febrile. No acute distress. HEAD: Normocephalic, atraumatic. EYES: Pupils equal, round, and reactive to light. Extraocular movements intact. ENT: Oral mucosa moist, tongue midline. NECK: Full range of motion. Supple. Trachea midline. LUNGS: Clear to auscultation bilaterally, no wheezes, rales, or rhonchi. appears SOB. HEART: Tachycardic rate and regular rhythm. No murmurs, gallops, or rubs. ABDOMEN: Soft, non-tender. Non-distended. Bowel sounds present in all 4 quadrants. No guarding, rebound, or rigidity. EXTREMITIES: Moves all 4 extremities spontaneously. No edema. No cyanosis. NEUROLOGICAL: Alert and oriented x3. Normal speech. PSYCH: Normal affect, normal mood. SKIN: Febrile, diaphoretic. Normal turgor. No rashes or lesions noted. (ZAIDA ODONNELL) Course <ZAIDA ODONNELL - Last Filed: 04/20/18 05:06> <JOSHUA SPAIN - Last Filed: 04/20/18 05:15> - Re-evaluation Re-evalutation: 04/20/18 03:03 Patient returned and was found to be febrile at 101.0 when I repeated her vital signs in triage, at that point she was diaphoretic, slightly confused, appeared weak but was denying any symptoms. Daughter states that she had another near syncopal episode by the car. This is quite concerning in the setting of a white blood cell count of 14.9 despite a negative chest x-ray. The remainder of the septic workup was undertaken, venous blood gas unremarkable, lactic acid normal at 1.8, cardiac enzymes were repeated and found to be normal, urinalysis does not show any sign of infection. Blood cultures have been sent. CT angiogram of the chest was performed to rule out a small pneumonia or pulmonary embolism, this was completely negative. CT scan of the head was also ordered as the patient had a significant change in mental status since initial presentation. 04/20/18 03:05 CT scan of the head was negative. Patient continues to have no abdominal tenderness to palpation however I am concerned for the possibility of sepsis, patient was given Zosyn, patient was discussed with Dr. Reece who agreed to admit the patient to his service for near syncope and fever, request CT scan of the abdomen pelvis. This is been ordered. (JOSHUA SPAIN) - Vital Signs Vital signs: Temp Pulse Resp BP Pulse Ox 100.7 F H 21 H 112/73 95 04/20/18 03:25 04/20/18 03:01 04/20/18 03:00 04/20/18 03:00 - Laboratory Laboratory results interpreted by me: 04/20/18 04/20/18 00:34 00:34 PT 17.4 H Creatine Kinase 25 L - EKG Interpretation by Me Additional EKG results interpreted by me: 04/20/18 03:06 EKG shows sinus tachycardia at a rate of 118, normal axis, normal intervals, no ST segment elevations or depressions, there are T-wave inversions in lead I, V5 and V6, T-wave flattening in lead III and aVL per my interpretation. (JOSHUA SPAIN) Discharge <ZAIDA ODONNELL - Last Filed: 04/20/18 05:06> - Discharge Admitting Provider: Chevy Unit Admitted: Telemetry <JOSHUA SPAIN - Last Filed: 04/20/18 05:15> - Discharge Clinical Impression: Syncope and collapse Nausea and vomiting Qualifiers: Vomiting type: unspecified Vomiting Intractability: non-intractable Qualified Code(s): R11.2 - Nausea with vomiting, unspecified Fever Qualifiers: Fever type: unspecified Qualified Code(s): R50.9 - Fever, unspecified Condition: Fair Disposition: ADMITTED INPATIENT Scribe Attestation: 04/20/18 05:15 I personally performed the services described in the documentation, reviewed and edited the documentation which was dictated to the scribe in my presence, and it accurately records my words and actions. (JOSHUA SPAIN) Scribe Documentation - Scribe Written by Snehal:: Snehal Pritchett 04/19/18 [id number] acting as scribe for :: Jael <ZAIDA ODONNELL - Last Filed: 04/20/18 05:06>
--- NOTE | 2018-04-19 23:24 | RADIOLOGY REPORT (SQ) ---
EXAM DESCRIPTION: CT HEAD WITHOUT IV CONTRAST COMPLETED DATE/TME: 04/19/2018 00:00 CLINICAL HISTORY: AMS COMPARISON: 03/17/2018 TECHNIQUE: Axial CT of the head obtained from the skull apex to the skull base without contrast. FINDINGS: No acute intracranial hemorrhage identified. No mass, mass effect, shift of the midline, abnormal extra-axial fluid collection or CT evidence of acute ischemic change identified. The ventricular system and sulcal spaces are mildly enlarged compatible with mild cerebral atrophy. Scattered areas of hypodensity throughout the supratentorial white matter are nonspecific and may be related to chronic small vessel ischemic change. The visualized paranasal sinuses and the mastoids are clear. Postoperative change in the right maxillary sinus region. No skull fracture identified. Visualized orbits and globes are unremarkable. Atherosclerotic calcification of the intracranial internal carotid arteries. DLP: 910.75 mGy-cm IMPRESSION: 1. No acute intracranial abnormality by CT criteria. This exam was performed according to our departmental dose-optimization program, which includes automated exposure control, adjustment of the mA and/or kV according to patient size and/or use of iterative reconstruction technique.
[2018-04-20 00:48] LABS: VENOUS BLOOD HCO3 29.3 mmol/L (20-32); VENOUS BLOOD PCO2 51.8 mmHg (35-63); VENOUS BLOOD PH 7.37 (7.30-7.42)
--- NOTE | 2018-04-20 01:05 | RADIOLOGY REPORT (SQ) ---
EXAM DESCRIPTION: CT CHEST ANGIOGRAPHY WITHOUT THEN WITH IV CONTRAST COMPLETED DATE/TME: 04/19/2018 23:03 CLINICAL HISTORY: 67 years, Female, SOB, h/o PE CREAT 0.60 COMPARISON: None. TECHNIQUE: 975 Images stored on PACS. All CT scanners at this facility use dose modulation, iterative reconstruction, and/or weight based dosing when appropriate to reduce radiation dose to as low as reasonably achievable (ALARA). [facility]: Dose Right [facility]: CareDose [facility]: Dose Right [facility]: Teradose 4D [facility]: [employer] LIMITATIONS: None. FINDINGS: There is calcification in the aorta. No evidence of aneurysm or dissection. Small hiatal hernia. No convincing evidence for pulmonary embolus. No significant hilar or mediastinal adenopathy. Marked degenerative changes in the shoulders bilaterally with volume loss in the humeral heads. Old incompletely united or ununited fracture of the proximal left femur. Elevation of the right hemidiaphragm. No evidence of pericardial or pleural effusion. There is dependent atelectasis bilaterally. No evidence of alveolar consolidation. IMPRESSION: No evidence to suggest aortic dissection No evidence to suggest pulmonary embolus Dependent atelectasis No acute process in the chest Chronic changes in the shoulders bilaterally with chronic appearing fracture of the proximal left humerus TECHNICAL DOCUMENTATION: Quality ID # [id number]: Final reports with documentation of one or more dose reduction techniques (e.g., Automated exposure control, adjustment of the mA and/or kV according to patient size, use of iterative reconstruction technique) 2010 [employer]- All Rights Reserved
[2018-04-20 01:22] LABS: INTERNATIONAL RATION (INR) 1.35; PROTHROMBIN TIME 17.4 SEC (11.4-15.4)
[2018-04-20 01:33] LABS: CREATINE KINASE MB < 0.22 ng/mL (<4.55); TROPONIN I < 0.012 ng/mL
[2018-04-20] MEDS ORDERED: IPRATROPIUM/ALBUTEROL 0.5-2.5 MG/3 ML AMPUL NEB PRN (03:15)
[2018-04-20] MEDS ORDERED: ONDANSETRON 4 MG TAB.RAPDIS PO PRN (03:15)
[2018-04-20] MEDS ORDERED: ACETAMINOPHEN 325 MG TABLET PO PRN (03:15)
[2018-04-20] MEDS ORDERED: PIPERACILLIN/TAZOBACTAM 3.375 GM VIAL IV PRN (03:26)
[2018-04-20] MEDS ORDERED: NORMAL SALINE 1000 ML 1,000 ML IV ONE (03:35)
[2018-04-20] MEDS ORDERED: ACETAMINOPHEN 325 MG TABLET PO ONE (03:35)
--- NOTE | 2018-04-20 05:29 | RADIOLOGY REPORT (SQ) ---
EXAM DESCRIPTION: CT ABDOMEN PELVIS WITHOUT IV CONTRAST COMPLETED DATE/TME: 04/20/2018 03:05 CLINICAL HISTORY: fever, vomiting, diarrhea COMPARISON: None Available. TECHNIQUE: CT of the abdomen and pelvis without IV contrast. Evaluation of the solid organs and vasculature is suboptimal due to lack of IV contrast. Oral contrast administered. DLP: 472.94 mGy-cm FINDINGS: Lung Bases: The visualized lung bases are clear. Small pericardial effusion. Coronary artery atherosclerosis. Bones: No destructive bone lesions identified. Abdomen: Liver: The liver has normal size and density. Gallbladder: Prior cholecystectomy. Spleen, Pancreas, and Adrenal Glands: The spleen, pancreas, and adrenal glands are unremarkable. Kidneys: The kidneys have normal size and contour without evidence of hydronephrosis. No obstructing ureteral calculi. Previously administered contrast identified in the renal collecting system. Bilateral renal cysts. Vasculature: Aortoiliac atherosclerosis. IVC is unremarkable. Stomach: Small hiatal hernia. Other: No free intraperitoneal air. No free fluid or lymphadenopathy. Pelvis: Bladder: Urinary bladder is unremarkable. Bowel: No dilated loops of large or small bowel. Appendix: Not visualized. Pelvis: Uterus is not enlarged. IMPRESSION: 1. No acute inflammatory or obstructive process identified. This exam was performed according to our departmental dose-optimization program, which includes automated exposure control, adjustment of the mA and/or kV according to patient size and/or use of iterative reconstruction technique.
[2018-04-20] MEDS: LANSOPRAZOLE 15 MG TAB.RAP.DR PO SCH ×2 (06:22→21:41)
[2018-04-20] MEDS: PIPERACILLIN SODIUM/TAZOBACTAM 3.375 GM in NORMAL SALINE 100 ML IV SCH ×3 (06:23→19:30)
[2018-04-20 07:50] LABS: TROPONIN I 0.012 ng/mL
[2018-04-20 08:17] LABS: CREATINE KINASE MB < 0.22 ng/mL (<4.55)
[2018-04-20] MEDS: NORMAL SALINE 1000 ML 1,000 ML IV PRN (08:37)
[2018-04-20 09:48] LABS: APPEARANCE,URINE CLEAR; BILIRUBIN,URINE NEGATIVE (NEGATIVE); COLOR,URINE YELLOW; GLUCOSE, URINE NEGATIVE (NEGATIVE); KETONES,URINE NEGATIVE (NEGATIVE); LEUKOCYTE ESTERASE,URINE NEGATIVE (NEGATIVE); NITRITE,URINE NEGATIVE (NEGATIVE); PROTEIN,URINE NEGATIVE (NEGATIVE); UROBILINOGEN,URINE NEGATIVE mg/dL (<2.0)
--- NOTE | 2018-04-20 09:58 | EKG REPORT ---
SEVERITY:- ABNORMAL ECG - SINUS TACHYCARDIA NONSPECIFIC T ABNORMALITIES, LATERAL LEADS : Confirmed by: Ammy Page MD 20-Apr-2018 09:56:31
[2018-04-20] MEDS ORDERED: ENOXAPARIN SODIUM INJ 40 MG/0.4 ML DISP.SYRIN SUBCUT SCH (10:00)
[2018-04-20 14:07] LABS: CREATINE KINASE MB 0.29 ng/mL (<4.55)
[2018-04-20 14:12] LABS: TROPONIN I < 0.012 ng/mL
--- NOTE | 2018-04-20 15:18 | PDOC H&P ---
History of Present Illness Admission Date/PCP: 04/20/18 03:29 MARY LOU OLEA MD Patient complains of: Near syncopalAnd a fever History of Present Illness: LILLIE AMIN is a 67 year old female This is a 66-year-old female with a significant history of rheumatoid arthritis with a history of cerebrovascular accident hypertensions and multiple other comorbidity brought to the emergency department by the daughter while patient's was in the bathroom and suddenly came back with the confusions in patients pretty much near pass out In the emergency department initial first visit workup was all stable except for elevated white count patient also on chronic steroid and patient was discharge but patient's came back from the parking lot because of the further episode of this near passing out episode and fever At this point initial workup including the CT of the chest was negative for any acute finding CT abdomen pelvis was also negative and patient's CT head was also negative Patient initially started on Zosyn and admitting in the hospital for possible underlying urinary tract infectionsRule out the sepsis workup Patients when I saw it in the ER he denied any chest pain denied any shortness of the breathDenied any headache Patient recently had bilateral knee steroid injections by Dr. Waters but patient 's denied any knee swelling except ongoing pain but no redness in the knee Past Medical History Cardiac Medical History: Reports: Hypertension, Pulmonary Embolism Pulmonary Medical History: Reports: Pneumonia Denies: Tuberculosis Neurological Medical History: Denies: Seizures GI Medical History: Reports: Gastroesophageal Reflux Disease Musculoskeltal Medical History: Reports: Arthritis - RA Psychiatric Medical History: Reports: Depression Past Surgical History Past Surgical History: Reports: Appendectomy, Hysterectomy, Orthopedic Surgery - foot surgery Social History Smoking Status: Never Smoker Frequency of Alcohol Use: None Hx Recreational Drug Use: No Drugs: None Hx Prescription Drug Abuse: No - Advance Directive Resuscitation Status: Full Code Family History Family History: Reviewed & Not Pertinent, DM, Hypertension Parental Family History Reviewed: Yes Children Family History Reviewed: Yes Sibling(s) Family History Reviewed.: Yes Medication/Allergy Home Medications: Amlodipine Besylate [Norvasc 5 mg Tablet] 5 mg PO DAILY 04/20/18 Clopidogrel Bisulfate [Plavix 75 mg Tablet] 75 mg PO DAILY 04/20/18 Diltiazem HCl [Cardizem 60 mg Tablet] 60 mg PO Q8 04/20/18 Escitalopram Oxalate [Lexapro 10 mg Tablet] 10 mg PO DAILY 04/20/18 Golimumab [Simponi] 50 mg SQ .[id number] 04/20/18 Levocetirizine Dihydrochloride [Xyzal] 5 mg PO QPM 04/20/18 Lisinopril [Zestril] 40 mg PO DAILY 04/20/18 Methotrexate Sodium/Pf [Methotrexate 50 mg/2 ml Vial] 25 mg SQ WE 04/20/18 Pantoprazole Sodium [Protonix] 40 mg PO DAILY 04/20/18 Prednisone [Deltasone 5 mg Tablet] 5 mg PO DAILY 04/20/18 Rivaroxaban [Xarelto] 20 mg PO DAILY 04/20/18 Allergies/Adverse Reactions: No Known Allergies Allergy (Verified 09/07/17 14:19) Review of Systems Constitutional: ABSENT: chills, fever(s), headache(s), weight gain, weight loss Eyes: ABSENT: visual disturbances Ears: ABSENT: hearing changes Cardiovascular: ABSENT: chest pain, dyspnea on exertion, edema, orthropnea, palpitations Respiratory: ABSENT: cough, hemoptysis Gastrointestinal: ABSENT: abdominal pain, constipation, diarrhea, hematemesis, hematochezia, nausea, vomiting Genitourinary: ABSENT: dysuria, hematuria Musculoskeletal: ABSENT: joint swelling Integumentary: ABSENT: rash, wounds Neurological: ABSENT: abnormal gait, abnormal speech, confusion, dizziness, focal weakness, syncope Psychiatric: ABSENT: anxiety, depression, homidical ideation, suicidal ideation Endocrine: ABSENT: cold intolerance, heat intolerance, menstrual abnormalities, polydipsia, polyuria Hematologic/Lymphatic: ABSENT: easy bleeding, easy bruising, lymphadenopathy Physical Exam Vital Signs: Temp Pulse Resp BP Pulse Ox 99.3 F 17 118/73 97 04/20/18 13:09 04/20/18 13:01 04/20/18 13:01 04/20/18 13:01 Intake & Output 04/19/18 04/20/18 04/21/18 06:59 06:59 06:59 Intake Total 1100 100 Balance 1100 100 Weight 63.6 kg General appearance: PRESENT: no acute distress, well-developed, well-nourished Head exam: PRESENT: atraumatic, normocephalic Eye exam: PRESENT: conjunctiva pink, EOMI, PERRLA. ABSENT: scleral icterus Ear exam: PRESENT: normal external ear exam Mouth exam: PRESENT: moist, tongue midline Neck exam: PRESENT: full ROM. ABSENT: carotid bruit, JVD, lymphadenopathy, thyromegaly Respiratory exam: PRESENT: clear to auscultation lucas Cardiovascular exam: PRESENT: RRR. ABSENT: diastolic murmur, rubs, systolic murmur Pulses: PRESENT: normal dorsalis pedis pul, +2 pedal pulses bilateral Vascular exam: PRESENT: normal capillary refill GI/Abdominal exam: PRESENT: normal bowel sounds, soft. ABSENT: distended, guarding, mass, organolmegaly, rebound, tenderness Rectal exam: PRESENT: deferred Extremities exam: ABSENT: pedal edema Additional comments: Patient has significant deformity in upper and lower extremity to the rheumatoid arthritis Neurological exam: PRESENT: alert, awake, oriented to person, oriented to place , oriented to time, oriented to situation, CN II-XII grossly intact. ABSENT: motor sensory deficit Psychiatric exam: PRESENT: appropriate affect, normal mood. ABSENT: homicidal ideation, suicidal ideation Skin exam: PRESENT: dry, intact, warm. ABSENT: cyanosis, rash Results Laboratory Results: 04/20/18 09:00 Urine Color YELLOW Urine Appearance CLEAR Urine pH 6.0 Ur Specific Minetto 1.030 Urine Protein NEGATIVE Urine Glucose (UA) NEGATIVE Urine Ketones NEGATIVE Urine Blood NEGATIVE Urine Nitrite NEGATIVE Ur Leukocyte Esterase NEGATIVE Urine WBC (Auto) 1 Urine RBC (Auto) 0 04/20/18 04/20/18 04/20/18 07:00 07:00 13:13 Creatine Kinase 24 L 34 CK-MB (CK-2) < 0.22 Troponin I 0.012 04/20/18 13:13 Creatine Kinase CK-MB (CK-2) 0.29 Troponin I < 0.012 Impressions: Head CT 04/19/18 00:00 IMPRESSION: 1. No acute intracranial abnormality by CT criteria. This exam was performed according to our departmental dose-optimization program, which includes automated exposure control, adjustment of the mA and/or kV according to patient size and/or use of iterative reconstruction technique. Chest/Abdomen CTA 04/19/18 23:03 IMPRESSION: No evidence to suggest aortic dissection No evidence to suggest pulmonary embolus Dependent atelectasis No acute process in the chest Chronic changes in the shoulders bilaterally with chronic appearing fracture of the proximal left humerus TECHNICAL DOCUMENTATION: Quality ID # 436: Final reports with documentation of one or more dose reduction techniques (e.g., Automated exposure control, adjustment of the mA and/or kV according to patient size, use of iterative reconstruction technique) 2010 [employer]- All Rights Reserved Abdomen/Pelvis CT 04/20/18 03:05 IMPRESSION: 1. No acute inflammatory or obstructive process identified. This exam was performed according to our departmental dose-optimization program, which includes automated exposure control, adjustment of the mA and/or kV according to patient size and/or use of iterative reconstruction technique. Assessment & Plan - Diagnosis (1) Fever Qualifiers: Fever type: unspecified Qualified Code(s): R50.9 - Fever, unspecified Is this a current diagnosis for this admission?: Yes Plan: Admit the patient's in the hospital obviously most likely urinary tract infections but will get all the blood culture urine culture and currently hold the patient's biological medications (2) Syncope and collapse Is this a current diagnosis for this admission?: Yes Plan: Most likely vasovagal syncopal episode we will get the cardiac workup and MRI of the head (3) Cerebrovascular accident Qualifiers: Is this a current diagnosis for this admission?: No Plan: This is currently on Xarelto (4) Chronic pain syndrome Is this a current diagnosis for this admission?: Yes Plan: Continues to pain medications (5) Hyperlipidemia Qualifiers: Is this a current diagnosis for this admission?: Yes (6) Hypertension Qualifiers: Hypertension type: essential hypertension Is this a current diagnosis for this admission?: Yes (7) Inflammatory knee arthritis Is this a current diagnosis for this admission?: Yes (8) Rheumatoid arthritis Qualifiers: Rheumatoid arthritis location: multiple sites Is this a current diagnosis for this admission?: Yes Plan: This is currently seeing [facility] (9) History of pulmonary embolism Is this a current diagnosis for this admission?: Yes Plan: Currently on xarelto - Time Time Spent: 30 to 50 Minutes Medications reviewed and adjusted accordingly: Yes Anticipated discharge: Home, Home with Homehealth Within: within 48 hours - Inpatient Certification Medical Necessity: Need Close Monitoring Due to Risk of Patient Decompensation, Need For IV Fluids, Need for IV Antibiotics 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
--- NOTE | 2018-04-20 15:34 | RADIOLOGY REPORT (SQ) ---
EXAM DESCRIPTION: MRI HEAD WITHOUT COMPLETED DATE/TIME: 04/20/2018 3:01 pm REASON FOR STUDY: ams COMPARISON: CT head dated 04/19/2018. TECHNIQUE: Multiplanar imaging includes non-contrasted T1, T2, FLAIR, and diffusion with ADC map seq uences. Images stored on PACS. LIMITATIONS: None. FINDINGS: ANATOMY: No anomalies. Normal vascular flow voids. Pituitary fossa normal. CSF SPACES: Atrophy induced prominence of ventricles and CSF spaces. CEREBRUM: High signal intensity lesions scattered throughout the white matter on FLAIR imaging with d istribution suggesting micro-vascular ischemic changes. No evidence of hemorrhage, mass, or extraaxi al fluid collection. POSTERIOR FOSSA: No signal alteration. No hemorrhage. No edema, masses or mass effect. Internal ute tory canals, cerebello-pontine angles, mastoids normal. DIFFUSION IMAGING: Negative for acute or sub-acute infarction. ORBITS: No masses. Globes normal. PARANASAL SINUSES: No fluid levels. Mucosa normal. OTHER: Marked degenerative changes in the upper cervical spine with malalignment, not completely imag ed. IMPRESSION: ATROPHY AND CHRONIC MICRO-VASCULAR ISCHEMIC CHANGES. OTHERWISE NORMAL MRI OF THE BRAIN W ITHOUT INTRAVENOUS GADOLINIUM CONTRAST. EVIDENCE OF ACUTE STROKE: NO. TECHNICAL DOCUMENTATION: JOB ID: [id number] [employer]- All Rights Reserved Reading location - IP/workstation name: [facility]
[2018-04-20 20:06] LABS: CREATINE KINASE MB 0.29 ng/mL (<4.55)
[2018-04-20 20:11] LABS: TROPONIN I < 0.012 ng/mL
[2018-04-20] MEDS: DILTIAZEM HCL 60 MG TABLET PO SCH ×2 (20:54→22:22)
[2018-04-20] MEDS: OXYCODONE-ACETAMINOPHEN 5-325 MG TABLET PO PRN (21:01)
[2018-04-20] MEDS: CETIRIZINE 5 MG TABLET PO SCH (21:41)
[2018-04-21] MEDS: PIPERACILLIN SODIUM/TAZOBACTAM 3.375 GM in NORMAL SALINE 100 ML IV SCH ×5 (01:03→23:32)
[2018-04-21] MEDS: LANSOPRAZOLE 15 MG TAB.RAP.DR PO SCH ×2 (05:49→18:02)
[2018-04-21] MEDS: OXYCODONE-ACETAMINOPHEN 5-325 MG TABLET PO PRN (05:49)
[2018-04-21] MEDS: NORMAL SALINE 1000 ML 1,000 ML IV PRN ×2 (05:50→23:09)
[2018-04-21] MEDS: DILTIAZEM HCL 60 MG TABLET PO SCH ×3 (05:50→23:17)
[2018-04-21 06:09] LABS: ABSOLUTE EOSINOPHILS # (AUTO) 0.1 10^3/uL (0.0-0.6); ABSOLUTE MONOCYTES (AUTO) 0.7 10^3/uL (0.1-1.4); MEAN CORPUSCULAR VOLUME 87 fl (80-97); TOTAL CELLS COUNTED % (AUTO) 100 %
[2018-04-21 06:24] LABS: ABSOLUTE LYMPHOCYTES (AUTO) 1.2 10^3/uL (0.5-4.7); ABSOLUTE NEUT (AUTO) 3.6 10^3/uL (1.7-8.2); BASOPHILS % (AUTO) 0.8 % (0-2); EOSINOPHILS % (AUTO) 1.6 % (0-6); HEMATOCRIT 34.8 % (36.0-47.0); LYMPHOCYTES % (AUTO) 21.6 % (13-45); MEAN CORPUSCULAR HEMOGLOBIN 29.3 pg (27.0-33.4); MEAN CORPUSCULAR HGB CONC 33.5 g/dL (32.0-36.0); MONOCYTES % (AUTO) 12.8 % (3-13); PLATELET COUNT 191 10^3/uL (150-450); RED BLOOD COUNT 3.99 10^6/uL (3.72-5.28); RED CELL DISTRIBUTION WIDTH 17.4 % (11.5-14.0); SEGMENTED NEUTROPHILS % (AUTO) 63.2 % (42-78); WHITE BLOOD COUNT 5.7 10^3/uL (4.0-10.5)
[2018-04-21 06:26] LABS: ALANINE AMINOTRANSFERASE 26 U/L (9-52); ALBUMIN 2.4 g/dL (3.5-5.0); ALKALINE PHOSPHATASE 46 U/L (38-126); ANION GAP 5 (5-19); ASPARTATE AMINO TRANSFERASE 17 U/L (14-36); BILIRUBIN,DIRECT 0.4 mg/dL (0.0-0.4); BLOOD UREA NITROGEN 6 mg/dL (7-20); CALCIUM 7.6 mg/dL (8.4-10.2); CARBON DIOXIDE 25 mmol/L (22-30); CHLORIDE 107 mmol/L (98-107); GLUCOSE 79 mg/dL (75-110); POTASSIUM 3.4 mmol/L (3.6-5.0); SODIUM 136.8 mmol/L (137-145); TOTAL PROTEIN 5.1 g/dL (6.3-8.2)
[2018-04-21 07:17] LABS: HEMOGLOBIN 11.7 g/dL (12.0-15.5)
[2018-04-21] MEDS ORDERED: AMLODIPINE BESYLATE 5 MG TABLET PO SCH (10:00)
[2018-04-21] MEDS ORDERED: (PENDING PHARMACY ID) (Lisinopril [Zestril] 40 MG) PO SCH (10:00)
[2018-04-21] MEDS: PREDNISONE 5 MG TABLET PO SCH (10:16)
[2018-04-21] MEDS: ESCITALOPRAM OXALATE 10 MG TABLET PO SCH (10:16)
[2018-04-21] MEDS: RIVAROXABAN 10 MG TABLET PO SCH (10:17)
[2018-04-21] MEDS: CLOPIDOGREL BISULFATE 75 MG TABLET PO SCH (10:17)
[2018-04-21] MEDS: POTASSIUM CHLORIDE 10 MEQ CAPSULE.ER PO SCH ×2 (11:51→23:17)
[2018-04-21] MEDS: LISINOPRIL 10 MG TABLET PO SCH (12:34)
--- NOTE | 2018-04-21 12:46 | PDOC PROGRESS REPORT ---
Subjective Progress Note for:: 04/21/18 Subjective:: pt is doing well pt denied any chest pain no sob Reason For Visit: SEPSIS Physical Exam Vital Signs: Temp Pulse Resp BP Pulse Ox 98.7 F 80 12 117/61 96 04/21/18 11:57 04/21/18 11:57 04/21/18 11:57 04/21/18 11:57 04/21/18 11:57 Intake & Output 04/20/18 04/21/18 04/22/18 06:59 06:59 06:59 Intake Total 1100 1700 Balance 1100 1700 Weight 47.826 kg General appearance: PRESENT: no acute distress, well-developed, well-nourished Head exam: PRESENT: atraumatic, normocephalic Eye exam: PRESENT: conjunctiva pink, EOMI, PERRLA. ABSENT: scleral icterus Ear exam: PRESENT: normal external ear exam Mouth exam: PRESENT: moist, tongue midline Neck exam: PRESENT: full ROM. ABSENT: carotid bruit, JVD, lymphadenopathy, thyromegaly Respiratory exam: PRESENT: clear to auscultation lucas Cardiovascular exam: PRESENT: RRR. ABSENT: diastolic murmur, rubs, systolic murmur Pulses: PRESENT: normal dorsalis pedis pul, +2 pedal pulses bilateral Vascular exam: PRESENT: normal capillary refill GI/Abdominal exam: PRESENT: normal bowel sounds, soft. ABSENT: distended, guarding, mass, organolmegaly, rebound, tenderness Rectal exam: PRESENT: deferred Extremities exam: ABSENT: pedal edema Neurological exam: PRESENT: alert, awake, oriented to person, oriented to place , oriented to time, oriented to situation, CN II-XII grossly intact. ABSENT: motor sensory deficit Psychiatric exam: PRESENT: appropriate affect, normal mood. ABSENT: homicidal ideation, suicidal ideation Skin exam: PRESENT: dry, intact, warm. ABSENT: cyanosis, rash Results Laboratory Results: 04/21/18 05:44 04/21/18 05:44 04/21/18 04/21/18 05:44 05:44 WBC 5.7 RBC 3.99 Hgb 11.7 L D Hct 34.8 L MCV 87 MCH 29.3 MCHC 33.5 RDW 17.4 H Plt Count 191 Seg Neutrophils % 63.2 Lymphocytes % 21.6 Monocytes % 12.8 Eosinophils % 1.6 Basophils % 0.8 Absolute Neutrophils 3.6 Absolute Lymphocytes 1.2 Absolute Monocytes 0.7 Absolute Eosinophils 0.1 Absolute Basophils 0.0 Sodium 136.8 L Potassium 3.4 L Chloride 107 Carbon Dioxide 25 Anion Gap 5 BUN 6 L Creatinine 0.54 Est GFR ( Amer) > 60 Est GFR (Non-Af Amer) > 60 Glucose 79 Calcium 7.6 L Magnesium 1.9 Total Bilirubin 1.0 AST 17 ALT 26 Alkaline Phosphatase 46 Total Protein 5.1 L Albumin 2.4 L 04/20/18 04/20/18 04/20/18 07:00 07:00 13:13 Creatine Kinase 24 L 34 CK-MB (CK-2) < 0.22 Troponin I 0.012 04/20/18 04/20/18 04/20/18 13:13 19:33 19:33 Creatine Kinase 32 CK-MB (CK-2) 0.29 0.29 Troponin I < 0.012 < 0.012 Impressions: Head CT 04/19/18 00:00 IMPRESSION: 1. No acute intracranial abnormality by CT criteria. This exam was performed according to our departmental dose-optimization program, which includes automated exposure control, adjustment of the mA and/or kV according to patient size and/or use of iterative reconstruction technique. Chest/Abdomen CTA 04/19/18 23:03 IMPRESSION: No evidence to suggest aortic dissection No evidence to suggest pulmonary embolus Dependent atelectasis No acute process in the chest Chronic changes in the shoulders bilaterally with chronic appearing fracture of the proximal left humerus TECHNICAL DOCUMENTATION: Quality ID # 436: Final reports with documentation of one or more dose reduction techniques (e.g., Automated exposure control, adjustment of the mA and/or kV according to patient size, use of iterative reconstruction technique) 2010 [employer]- All Rights Reserved Head MRI 04/20/18 00:00 IMPRESSION: ATROPHY AND CHRONIC MICRO-VASCULAR ISCHEMIC CHANGES. OTHERWISE NORMAL MRI OF THE BRAIN WITHOUT INTRAVENOUS GADOLINIUM CONTRAST. EVIDENCE OF ACUTE STROKE: NO. Abdomen/Pelvis CT 04/20/18 03:05 IMPRESSION: 1. No acute inflammatory or obstructive process identified. This exam was performed according to our departmental dose-optimization program, which includes automated exposure control, adjustment of the mA and/or kV according to patient size and/or use of iterative reconstruction technique. Assessment & Plan - Diagnosis (1) Fever Qualifiers: Fever type: unspecified Qualified Code(s): R50.9 - Fever, unspecified Is this a current diagnosis for this admission?: Yes Plan: Admit the patient's in the hospital obviously most likely urinary tract infections but will get all the blood culture urine culture and currently hold the patient's biological medications (2) Syncope and collapse Is this a current diagnosis for this admission?: Yes Plan: Most likely vasovagal syncopal episode we will get the cardiac workup and MRI of the head (3) Cerebrovascular accident Qualifiers: Is this a current diagnosis for this admission?: No Plan: This is currently on Xarelto (4) Chronic pain syndrome Is this a current diagnosis for this admission?: Yes Plan: Continues to pain medications (5) Hyperlipidemia Qualifiers: Is this a current diagnosis for this admission?: Yes (6) Hypertension Qualifiers: Hypertension type: essential hypertension Is this a current diagnosis for this admission?: Yes (7) Inflammatory knee arthritis Is this a current diagnosis for this admission?: Yes (8) Rheumatoid arthritis Qualifiers: Rheumatoid arthritis location: multiple sites Is this a current diagnosis for this admission?: Yes Plan: This is currently seeing [facility] (9) History of pulmonary embolism Is this a current diagnosis for this admission?: Yes Plan: Currently on xarelto - Time Time Spent with patient: 15-24 minutes Medications reviewed and adjusted accordingly: Yes Anticipated discharge: Other Within: Other - Inpatient Certification Medical Necessity: Need Close Monitoring Due to Risk of Patient Decompensation Post Hospital Care: 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
[2018-04-21] MEDS: CETIRIZINE 5 MG TABLET PO SCH (18:02)
[2018-04-22] MEDS: OXYCODONE-ACETAMINOPHEN 5-325 MG TABLET PO PRN (05:48)
[2018-04-22] MEDS: PIPERACILLIN SODIUM/TAZOBACTAM 3.375 GM in NORMAL SALINE 100 ML IV SCH (05:49)
[2018-04-22] MEDS: DILTIAZEM HCL 60 MG TABLET PO SCH ×3 (05:49→21:57)
[2018-04-22] MEDS: LANSOPRAZOLE 15 MG TAB.RAP.DR PO SCH ×2 (05:49→17:24)
[2018-04-22 06:29] LABS: ABSOLUTE EOSINOPHILS # (AUTO) 0.1 10^3/uL (0.0-0.6); ABSOLUTE LYMPHOCYTES (AUTO) 0.8 10^3/uL (0.5-4.7); ABSOLUTE MONOCYTES (AUTO) 0.6 10^3/uL (0.1-1.4); ABSOLUTE NEUT (AUTO) 3.3 10^3/uL (1.7-8.2); BASOPHILS % (AUTO) 0.4 % (0-2); EOSINOPHILS % (AUTO) 1.5 % (0-6); HEMOGLOBIN 11.4 g/dL (12.0-15.5); MEAN CORPUSCULAR HEMOGLOBIN 29.7 pg (27.0-33.4); MEAN CORPUSCULAR HGB CONC 34.4 g/dL (32.0-36.0); MEAN CORPUSCULAR VOLUME 86 fl (80-97); MONOCYTES % (AUTO) 11.8 % (3-13); PLATELET COUNT 195 10^3/uL (150-450); RED BLOOD COUNT 3.82 10^6/uL (3.72-5.28); RED CELL DISTRIBUTION WIDTH 16.7 % (11.5-14.0); SEGMENTED NEUTROPHILS % (AUTO) 69.3 % (42-78); TOTAL CELLS COUNTED % (AUTO) 100 %; WHITE BLOOD COUNT 4.8 10^3/uL (4.0-10.5)
[2018-04-22 07:16] LABS: ANION GAP 8 (5-19); BLOOD UREA NITROGEN 3 mg/dL (7-20); CALCIUM 7.8 mg/dL (8.4-10.2); CARBON DIOXIDE 22 mmol/L (22-30); CHLORIDE 108 mmol/L (98-107); GLUCOSE 92 mg/dL (75-110); POTASSIUM 3.9 mmol/L (3.6-5.0); SODIUM 137.6 mmol/L (137-145)
[2018-04-22] MEDS: LISINOPRIL 10 MG TABLET PO SCH (10:23)
[2018-04-22] MEDS: POTASSIUM CHLORIDE 10 MEQ CAPSULE.ER PO SCH ×2 (10:23→21:56)
[2018-04-22] MEDS: ESCITALOPRAM OXALATE 10 MG TABLET PO SCH (10:23)
[2018-04-22] MEDS: CLOPIDOGREL BISULFATE 75 MG TABLET PO SCH (10:23)
[2018-04-22] MEDS: PREDNISONE 5 MG TABLET PO SCH (10:23)
[2018-04-22] MEDS: RIVAROXABAN 10 MG TABLET PO SCH (10:24)
--- NOTE | 2018-04-22 11:00 | PDOC PROGRESS REPORT ---
Subjective Progress Note for:: 04/22/18 Subjective:: pt is doing well pt denied any chest pain no sob Reason For Visit: SEPSIS Physical Exam Vital Signs: Temp Pulse Resp BP Pulse Ox 98.7 F 73 15 120/60 99 04/22/18 04:03 04/22/18 07:00 04/22/18 04:03 04/22/18 04:03 04/22/18 04:03 Intake & Output 04/21/18 04/22/18 04/23/18 06:59 06:59 06:59 Intake Total 1700 2555 Balance 1700 2555 Weight 47.826 kg 48.2 kg General appearance: PRESENT: no acute distress, well-developed, well-nourished Head exam: PRESENT: atraumatic, normocephalic Eye exam: PRESENT: conjunctiva pink, EOMI, PERRLA. ABSENT: scleral icterus Ear exam: PRESENT: normal external ear exam Mouth exam: PRESENT: moist, tongue midline Neck exam: PRESENT: full ROM. ABSENT: carotid bruit, JVD, lymphadenopathy, thyromegaly Respiratory exam: PRESENT: clear to auscultation lucas Cardiovascular exam: PRESENT: RRR. ABSENT: diastolic murmur, rubs, systolic murmur Pulses: PRESENT: normal dorsalis pedis pul, +2 pedal pulses bilateral Vascular exam: PRESENT: normal capillary refill GI/Abdominal exam: PRESENT: normal bowel sounds, soft. ABSENT: distended, guarding, mass, organolmegaly, rebound, tenderness Rectal exam: PRESENT: deferred Extremities exam: ABSENT: pedal edema Musculoskeletal exam: PRESENT: deformity Neurological exam: PRESENT: alert, awake, oriented to person, oriented to place , oriented to time, oriented to situation, CN II-XII grossly intact. ABSENT: motor sensory deficit Psychiatric exam: PRESENT: appropriate affect, normal mood. ABSENT: homicidal ideation, suicidal ideation Skin exam: PRESENT: dry, intact, warm. ABSENT: cyanosis, rash Results Laboratory Results: 04/22/18 05:44 04/22/18 05:44 04/22/18 04/22/18 05:44 05:44 WBC 4.8 RBC 3.82 Hgb 11.4 L Hct 33.0 L MCV 86 MCH 29.7 MCHC 34.4 RDW 16.7 H Plt Count 195 Seg Neutrophils % 69.3 Lymphocytes % 17.0 Monocytes % 11.8 Eosinophils % 1.5 Basophils % 0.4 Absolute Neutrophils 3.3 Absolute Lymphocytes 0.8 Absolute Monocytes 0.6 Absolute Eosinophils 0.1 Absolute Basophils 0.0 Sodium 137.6 Potassium 3.9 Chloride 108 H Carbon Dioxide 22 Anion Gap 8 BUN 3 L Creatinine 0.45 L Est GFR ( Amer) > 60 Est GFR (Non-Af Amer) > 60 Glucose 92 Calcium 7.8 L Magnesium 1.9 04/20/18 04/20/18 04/20/18 07:00 07:00 13:13 Creatine Kinase 24 L 34 CK-MB (CK-2) < 0.22 Troponin I 0.012 04/20/18 04/20/18 04/20/18 13:13 19:33 19:33 Creatine Kinase 32 CK-MB (CK-2) 0.29 0.29 Troponin I < 0.012 < 0.012 Impressions: Head CT 04/19/18 00:00 IMPRESSION: 1. No acute intracranial abnormality by CT criteria. This exam was performed according to our departmental dose-optimization program, which includes automated exposure control, adjustment of the mA and/or kV according to patient size and/or use of iterative reconstruction technique. Chest/Abdomen CTA 04/19/18 23:03 IMPRESSION: No evidence to suggest aortic dissection No evidence to suggest pulmonary embolus Dependent atelectasis No acute process in the chest Chronic changes in the shoulders bilaterally with chronic appearing fracture of the proximal left humerus TECHNICAL DOCUMENTATION: Quality ID # [id number]: Final reports with documentation of one or more dose reduction techniques (e.g., Automated exposure control, adjustment of the mA and/or kV according to patient size, use of iterative reconstruction technique) 2010 [employer]- All Rights Reserved Head MRI 04/20/18 00:00 IMPRESSION: ATROPHY AND CHRONIC MICRO-VASCULAR ISCHEMIC CHANGES. OTHERWISE NORMAL MRI OF THE BRAIN WITHOUT INTRAVENOUS GADOLINIUM CONTRAST. EVIDENCE OF ACUTE STROKE: NO. Abdomen/Pelvis CT 04/20/18 03:05 IMPRESSION: 1. No acute inflammatory or obstructive process identified. This exam was performed according to our departmental dose-optimization program, which includes automated exposure control, adjustment of the mA and/or kV according to patient size and/or use of iterative reconstruction technique. Assessment & Plan - Diagnosis (1) Fever Qualifiers: Fever type: unspecified Qualified Code(s): R50.9 - Fever, unspecified Is this a current diagnosis for this admission?: Yes Plan: Admit the patient's in the hospital obviously most likely urinary tract infections but will get all the blood culture urine culture and currently hold the patient's biological medications (2) Syncope and collapse Is this a current diagnosis for this admission?: Yes Plan: Most likely vasovagal syncopal episode we will get the cardiac workup and MRI of the head (3) Cerebrovascular accident Qualifiers: Is this a current diagnosis for this admission?: No Plan: This is currently on Xarelto (4) Chronic pain syndrome Is this a current diagnosis for this admission?: Yes Plan: Continues to pain medications (5) Hyperlipidemia Qualifiers: Is this a current diagnosis for this admission?: Yes (6) Hypertension Qualifiers: Hypertension type: essential hypertension Is this a current diagnosis for this admission?: Yes (7) Inflammatory knee arthritis Is this a current diagnosis for this admission?: Yes (8) Rheumatoid arthritis Qualifiers: Rheumatoid arthritis location: multiple sites Is this a current diagnosis for this admission?: Yes Plan: This is currently seeing [facility] (9) History of pulmonary embolism Is this a current diagnosis for this admission?: Yes Plan: Currently on xarelto - Time Time Spent with patient: 25-34 minutes Medications reviewed and adjusted accordingly: Yes Anticipated discharge: Home with Homehealth, Other Within: Other - Inpatient Certification Medical Necessity: Need Close Monitoring Due to Risk of Patient Decompensation Post Hospital Care: D/C [employer] Documentation - Plan Summary Plan Summary: stable
[2018-04-22] MEDS: CEPHALEXIN 500 MG CAPSULE PO SCH ×2 (14:53→21:56)
[2018-04-22] MEDS: CETIRIZINE 5 MG TABLET PO SCH (17:24)
[2018-04-23 04:30] LABS: ABSOLUTE EOSINOPHILS # (AUTO) 0.1 10^3/uL (0.0-0.6); ABSOLUTE MONOCYTES (AUTO) 0.5 10^3/uL (0.1-1.4); ABSOLUTE NEUT (AUTO) 3.2 10^3/uL (1.7-8.2); BASOPHILS % (AUTO) 0.6 % (0-2); EOSINOPHILS % (AUTO) 1.8 % (0-6); HEMATOCRIT 31.7 % (36.0-47.0); HEMOGLOBIN 10.7 g/dL (12.0-15.5); LYMPHOCYTES % (AUTO) 20.2 % (13-45); MEAN CORPUSCULAR HEMOGLOBIN 29.1 pg (27.0-33.4); MEAN CORPUSCULAR HGB CONC 33.7 g/dL (32.0-36.0); MEAN CORPUSCULAR VOLUME 86 fl (80-97); MONOCYTES % (AUTO) 10.7 % (3-13); PLATELET COUNT 210 10^3/uL (150-450); RED BLOOD COUNT 3.67 10^6/uL (3.72-5.28); RED CELL DISTRIBUTION WIDTH 17.1 % (11.5-14.0); SEGMENTED NEUTROPHILS % (AUTO) 66.7 % (42-78); TOTAL CELLS COUNTED % (AUTO) 100 %; WHITE BLOOD COUNT 4.9 10^3/uL (4.0-10.5)
[2018-04-23 05:29] LABS: ANION GAP 6 (5-19); BLOOD UREA NITROGEN 6 mg/dL (7-20); CALCIUM 7.8 mg/dL (8.4-10.2); CARBON DIOXIDE 24 mmol/L (22-30); CHLORIDE 109 mmol/L (98-107); GLUCOSE 107 mg/dL (75-110); SODIUM 139.2 mmol/L (137-145)
[2018-04-23] MEDS: LANSOPRAZOLE 15 MG TAB.RAP.DR PO SCH ×2 (06:23→17:55)
[2018-04-23] MEDS: DILTIAZEM HCL 60 MG TABLET PO SCH ×2 (06:23→17:53)
[2018-04-23] MEDS: CEPHALEXIN 500 MG CAPSULE PO SCH ×2 (06:23→17:53)
[2018-04-23] MEDS: NORMAL SALINE 1000 ML 1,000 ML IV PRN (06:24)
[2018-04-23] MEDS: ESCITALOPRAM OXALATE 10 MG TABLET PO SCH (11:11)
[2018-04-23] MEDS: PREDNISONE 5 MG TABLET PO SCH (11:11)
[2018-04-23] MEDS: RIVAROXABAN 10 MG TABLET PO SCH (11:11)
[2018-04-23] MEDS: POTASSIUM CHLORIDE 10 MEQ CAPSULE.ER PO SCH (11:11)
[2018-04-23] MEDS: LISINOPRIL 10 MG TABLET PO SCH (11:11)
[2018-04-23] MEDS: CLOPIDOGREL BISULFATE 75 MG TABLET PO SCH (11:12)
[2018-04-23] MEDS: OXYCODONE-ACETAMINOPHEN 5-325 MG TABLET PO PRN (11:12)
--- NOTE | 2018-04-23 17:39 | PDOC DISCHARGE SUMMARY ---
General - Admit/Disc Date/PCP Admission Date/Primary Care Provider: 04/20/18 03:29 MARY LOU OLEA MD Discharge Date: 04/23/18 - Discharge Diagnosis (1) Fever Is this a current diagnosis for this admission?: Yes Summary: Unclear etiology Patient's all cultures so far negative Possible viral versus UTI Currently all resolved (2) Syncope and collapse Is this a current diagnosis for this admission?: Yes Summary: Stable (3) Cerebrovascular accident Is this a current diagnosis for this admission?: No Summary: Stable with negative MRI (4) Chronic pain syndrome Is this a current diagnosis for this admission?: Yes (5) Hyperlipidemia Is this a current diagnosis for this admission?: Yes (6) Hypertension Is this a current diagnosis for this admission?: Yes (7) Inflammatory knee arthritis Is this a current diagnosis for this admission?: Yes Summary: pt currently seen by Dr. Waters (8) Rheumatoid arthritis Is this a current diagnosis for this admission?: Yes Summary: Currently see a [facility] (9) History of pulmonary embolism Is this a current diagnosis for this admission?: Yes Summary: Currently on Xarelto - Additional Information Resuscitation Status: Full Code Discharge Diet: Cardiac, Diabetic Discharge Activity: Activity As Tolerated Prescriptions: Cephalexin Monohydrate [Keflex 500 mg Capsule] 500 mg PO BID #10 capsule Home Medications: Clopidogrel Bisulfate [Plavix 75 mg Tablet] 75 mg PO DAILY 04/20/18 Diltiazem HCl [Cardizem 60 mg Tablet] 60 mg PO Q8 04/20/18 Escitalopram Oxalate [Lexapro 10 mg Tablet] 10 mg PO DAILY 04/20/18 Golimumab [Simponi] 50 mg [id number] [id number] 04/20/18 Levocetirizine Dihydrochloride [Xyzal] 5 mg PO QPM 04/20/18 Lisinopril [Zestril] 40 mg PO DAILY 04/20/18 Methotrexate Sodium/Pf [Methotrexate 50 mg/2 ml Vial] 25 mg SQ WE 04/20/18 Pantoprazole Sodium [Protonix] 40 mg PO DAILY 04/20/18 Prednisone [Deltasone 5 mg Tablet] 5 mg PO DAILY 04/20/18 Rivaroxaban [Xarelto] 20 mg PO DAILY 04/20/18 Cephalexin Monohydrate [Keflex 500 mg Capsule] 500 mg PO BID #10 capsule History of Present Illness History of Present Illness: LILLIE AMIN is a 67 year old female This is a 66-year-old female with a significant history of rheumatoid arthritis with a history of cerebrovascular accident hypertensions and multiple other comorbidity brought to the emergency department by the daughter while patient's was in the bathroom and suddenly came back with the confusions in patients pretty much near pass out In the emergency department initial first visit workup was all stable except for elevated white count patient also on chronic steroid and patient was discharge but patient's came back from the parking lot because of the further episode of this near passing out episode and fever At this point initial workup including the CT of the chest was negative for any acute finding CT abdomen pelvis was also negative and patient's CT head was also negative Patient initially started on Zosyn and admitting in the hospital for possible underlying urinary tract infectionsRule out the sepsis workup Patients when I saw it in the ER he denied any chest pain denied any shortness of the breathDenied any headache Patient recently had bilateral knee steroid injections by Dr. Waters but patient 's denied any knee swelling except ongoing pain but no redness in the knee Hospital Course Hospital Course: pt Was admitted for possible vasovagal syncopal episode and fever Patient started on IV antibiotic empirically patient underwent an MRI of the head was all stable Patient's other blood work is all stable Patient's IV antibiotic was DC'd with all cultures negative Patient is otherwise doing well afebrile Patients desires to want to go home Discussed with daughter and the patient's current conditions Physical Exam Vital Signs: Temp Pulse Resp BP Pulse Ox 97.8 F 69 18 130/70 H 99 04/23/18 15:59 04/23/18 15:59 04/23/18 15:59 04/23/18 15:59 04/23/18 15:59 Intake & Output 04/22/18 04/23/18 04/24/18 06:59 06:59 06:59 Intake Total 2555 1324 Balance 2555 1324 Weight 48.2 kg 49.1 kg General appearance: PRESENT: no acute distress, well-developed, well-nourished Head exam: PRESENT: atraumatic, normocephalic Eye exam: PRESENT: conjunctiva pink, EOMI, PERRLA. ABSENT: scleral icterus Ear exam: PRESENT: normal external ear exam Mouth exam: PRESENT: moist, tongue midline Neck exam: PRESENT: full ROM. ABSENT: carotid bruit, JVD, lymphadenopathy, thyromegaly Respiratory exam: PRESENT: clear to auscultation lucas Cardiovascular exam: PRESENT: RRR. ABSENT: diastolic murmur, rubs, systolic murmur Pulses: PRESENT: normal dorsalis pedis pul, +2 pedal pulses bilateral Vascular exam: PRESENT: normal capillary refill GI/Abdominal exam: PRESENT: normal bowel sounds, soft. ABSENT: distended, guarding, mass, organolmegaly, rebound, tenderness Rectal exam: PRESENT: deferred Musculoskeletal exam: PRESENT: deformity Neurological exam: PRESENT: alert, awake, oriented to person, oriented to place , oriented to time, oriented to situation, CN II-XII grossly intact. ABSENT: motor sensory deficit Psychiatric exam: PRESENT: appropriate affect, normal mood. ABSENT: homicidal ideation, suicidal ideation Skin exam: PRESENT: dry, intact, warm. ABSENT: cyanosis, rash Results Laboratory Results: 04/23/18 04:23 04/23/18 04:23 04/23/18 04/23/18 04:23 04:23 WBC 4.9 RBC 3.67 L Hgb 10.7 L Hct 31.7 L MCV 86 MCH 29.1 MCHC 33.7 RDW 17.1 H Plt Count 210 Seg Neutrophils % 66.7 Lymphocytes % 20.2 Monocytes % 10.7 Eosinophils % 1.8 Basophils % 0.6 Absolute Neutrophils 3.2 Absolute Lymphocytes 1.0 Absolute Monocytes 0.5 Absolute Eosinophils 0.1 Absolute Basophils 0.0 Sodium 139.2 Potassium 4.0 Chloride 109 H Carbon Dioxide 24 Anion Gap 6 BUN 6 L Creatinine 0.39 L Est GFR ( Amer) > 60 Est GFR (Non-Af Amer) > 60 Glucose 107 Calcium 7.8 L Magnesium 1.9 04/20/18 09:00 Clean Catch Midstream Urine Culture - Final NO GROWTH 2 DAYS 04/20/18 04/20/18 04/20/18 07:00 07:00 13:13 Creatine Kinase 24 L 34 CK-MB (CK-2) < 0.22 Troponin I 0.012 04/20/18 04/20/18 04/20/18 13:13 19:33 19:33 Creatine Kinase 32 CK-MB (CK-2) 0.29 0.29 Troponin I < 0.012 < 0.012 Impressions: Head CT 04/19/18 00:00 IMPRESSION: 1. No acute intracranial abnormality by CT criteria. This exam was performed according to our departmental dose-optimization program, which includes automated exposure control, adjustment of the mA and/or kV according to patient size and/or use of iterative reconstruction technique. Chest/Abdomen CTA 04/19/18 23:03 IMPRESSION: No evidence to suggest aortic dissection No evidence to suggest pulmonary embolus Dependent atelectasis No acute process in the chest Chronic changes in the shoulders bilaterally with chronic appearing fracture of the proximal left humerus TECHNICAL DOCUMENTATION: Quality ID # [id number]: Final reports with documentation of one or more dose reduction techniques (e.g., Automated exposure control, adjustment of the mA and/or kV according to patient size, use of iterative reconstruction technique) 2010 [employer]- All Rights Reserved Head MRI 04/20/18 00:00 IMPRESSION: ATROPHY AND CHRONIC MICRO-VASCULAR ISCHEMIC CHANGES. OTHERWISE NORMAL MRI OF THE BRAIN WITHOUT INTRAVENOUS GADOLINIUM CONTRAST. EVIDENCE OF ACUTE STROKE: NO. Abdomen/Pelvis CT 04/20/18 03:05 IMPRESSION: 1. No acute inflammatory or obstructive process identified. This exam was performed according to our departmental dose-optimization program, which includes automated exposure control, adjustment of the mA and/or kV according to patient size and/or use of iterative reconstruction technique. Qualifiers - * PATIENT BEING DISCHARGED WITH ANY OF THE FOLLOWING DIAGNOSIS: No VTE patient discharged on overlapping Therapy?: Yes Plan Time Spent: Greater than 30 Minutes - stable
[2018-04-23] MEDS: CETIRIZINE 5 MG TABLET PO SCH (17:53)
[2018-04-23 21:00] VITALS: BP 132/65
== END 2018-04-23 21:00 | disposition home health service (06) | DRG 690 ==
LOC: ER 22:33 → EH 04-20 03:29 → 5 04-20 15:16
PROVIDERS: ADMIT Family Medicine; ATTEND Family Medicine
PROC: 3E0F73Z Introduction of Anti-inflammatory into Respiratory Tract, Via Natural or Artificial Opening (ICD-10-PCS; principal; 2018-04-20)
DX: N39.0 Urinary tract infection, site not specified (principal); G89.4 Chronic pain syndrome; E78.00 Pure hypercholesterolemia, unspecified; I10 Essential (primary) hypertension; M17.10 Unilateral primary osteoarthritis, unspecified knee; K21.9 Gastro-esophageal reflux disease without esophagitis; F32.9 Major depressive disorder, single episode, unspecified; M06.89 Other specified rheumatoid arthritis, multiple sites; R00.0 Tachycardia, unspecified; Z86.711 Personal history of pulmonary embolism; Z79.899 Other long term (current) drug therapy; Z79.52 Long term (current) use of systemic steroids; Z86.73 Personal history of transient ischemic attack (TIA), and cerebral infarction without residual deficits; Z86.14 Personal history of Methicillin resistant Staphylococcus aureus infection; Z90.710 Acquired absence of both cervix and uterus; Z83.3 Family history of diabetes mellitus; Z82.49 Family history of ischemic heart disease and other diseases of the circulatory system
CPT/HCPCS: 36415; 70450; 70551; 71046; 71275; 74176; 80048; 80053; 81001; 82550; 82553; 82803; 83605; 83690; 83735; 84484; 85025; 85610; 87040; 87086; 93005; 93010; 96361; 96365; 99284; 99285; J2543; J3490; J7030; J7512

== ENCOUNTER 2018-10-03 13:14 | Emergency (ER) | payer MEDICARE, MEDICAID ==
[2018-10-03] MEDS ORDERED: NORMAL SALINE 1000 ML 1,000 ML IV ONE (13:27)
--- NOTE | 2018-10-03 13:42 | ER Document Report ---
ED Blood Pressure Problem - General Chief Complaint: Low Blood Pressure Stated Complaint: BLOOD PRESSURE ISSUES Time Seen by Provider: 10/03/18 13:18 Primary Care Provider: MARY LOU OLEA MD [Primary Care Provider] - Follow up as needed TRAVEL OUTSIDE OF THE [place] IN LAST 30 DAYS: No - HPI Notes: Patient is a 67-year-old female that presents to the emergency department for chief complaint of low blood pressure. Patient has atrial fibrillation and has been trying to get medications arranged in order to control heart rate and blood pressure. She was seen by Dr. Resendiz this morning and he decreased her lisinopril because she has been having low blood pressures. He did add Toprol-XL which she has not taken yet today. Patient denies feeling any symptoms. This afternoon her daughter took her blood pressure and was concerned it was low therefore called EMS. EMS reported blood pressures of 85/62 and then repeat of 94/60. Patient has been completely asymptomatic. She denies any lightheadedness, chest pain, palpitations, shortness of breath, nausea, vomiting, diaphoresis and vision changes. Past Medical History: Atrial fibrillation, rheumatoid arthritis Past Surgical History: Reviewed in chart Social History: Denies smoking Family History: Reviewed and noncontributory for presenting illness Allergies: Reviewed, see documented allergy list. REVIEW OF SYSTEMS: CONSTITUTIONAL : No fever No chills No diaphoresis No recent illness EENT: No vision changes No congestion No sore throat CARDIOVASCULAR: No chest pain No palpitations RESPIRATORY: No shortness of breath No cough No difficulty breathing GASTROINTESTINAL: No abdominal pain No nausea No vomiting No diarrhea GENITOURINARY: No dysuria No hematuria No difficulty urinating MUSCULOSKELETAL: No back pain No leg pain No arm pain SKIN: No rashes No lesions LYMPHATIC: No swollen, enlarged glands. NEUROLOGICAL: No lightheadedness No headache No weakness No paresthesias PSYCHIATRIC: No anxiety No depression PHYSICAL EXAMINATION: Vital signs reviewed, nursing noted reviewed. GENERAL: Well-appearing, well-nourished and in no acute distress. HEAD: Atraumatic, normocephalic. EYES: Eyes appear normal, extraocular movements intact, sclera anicteric, conjunctiva are normal. ENT: nares patent, oropharynx clear without exudates. Moist mucous membranes. NECK: Normal range of motion, supple without lymphadenopathy LUNGS: Breath sounds clear to auscultation bilaterally and equal. No wheezes rales or rhonchi. HEART: Regular rate and rhythm without murmurs ABDOMEN: Soft, nontender, normoactive bowel sounds. No rebound, guarding, or rigidity. No masses appreciated. EXTREMITIES: Nontender, upper extremity flexion contractures, atrophy of lower extremities, no pitting or edema. NEUROLOGICAL: GCS 15, no sensory deficit PSYCH: Normal mood, normal affect. SKIN: Warm, Dry, normal turgor, no rashes or lesions noted on exposed skin - Related Data Allergies/Adverse Reactions: No Known Allergies Allergy (Verified 10/03/18 13:43) Past Medical History - Social History Smoking Status: Never Smoker Family History: Reviewed & Not Pertinent, DM, Hypertension - Past Medical History Cardiac Medical History: Reports: Hx Hypertension, Hx Pulmonary Embolism Pulmonary Medical History: Reports: Hx Pneumonia Denies: Hx Tuberculosis Neurological Medical History: Denies: Hx Seizures Renal/ Medical History: Denies: Hx Peritoneal Dialysis GI Medical History: Reports: Hx Gastroesophageal Reflux Disease Musculoskeletal Medical History: Reports Hx Arthritis - RA Skin Medical History: Reports Hx MRSA - CURRENTLY HAS SENSATION OF ABSCESS DEVELOPING UNDER THE LEFT ARM Psychiatric Medical History: Reports: Hx Depression Traumatic Medical History: Reports: Hx Fractures - T10 COMP FX, ACUTE R SHOULDER AND CLAVICLE FX Past Surgical History: Reports: Hx Appendectomy, Hx Hysterectomy, Hx Oral Surgery, Hx Orthopedic Surgery - foot surgery - Immunizations Immunizations up to date: Yes Hx Diphtheria, Pertussis, Tetanus Vaccination: Yes Physical Exam - Vital signs Vitals: Temp 98.1 F 10/03/18 13:28 Course - Re-evaluation Re-evalutation: 10/03/18 13:42 Vitals reviewed. Nursing notes reviewed. Patient is afebrile and nontoxic in appearance. She has been completely asymptomatic. I discussed her case with Dr. Resendiz who saw her in the office this morning. He states her blood pressure this morning was 110/70. Patient has not taken the Toprol-XL however he believes that would be more hemodynamically stable for her and also control her blood pressure. He recommends stopping her lisinopril completely. He recommends continuing the Cardizem which he also decreased in the Toprol-XL which she started today. He will see the patient back in the office for close reevaluation in the next few days. Patient's blood pressure in the ED is 98/77. She is resting comfortably. With her being asymptomatic and this being a on going chronic issue followed by cardiology I do not feel further workup is indicated. Dr. Resendiz agrees that further workup is not indicated. She will be discharged home after IV hydration. - Vital Signs Vital signs: Temp Pulse Resp BP Pulse Ox 98.1 F 10/03/18 13:28 Discharge - Discharge Clinical Impression: Low blood pressure Qualifiers: Hypotension type: unspecified hypotension type Qualified Code(s): I95.9 - Hypotension, unspecified Condition: Stable Disposition: HOME, SELF-CARE Instructions: Dehydration ([facility]), Hypotension ([facility]) Additional Instructions: Please return to the emergency department if you have any worsening, or concern of your symptoms. Please return to the emergency department if you develop chest pain, difficulty breathing, severe abdominal pain, or ongoing vomiting. Please follow-up with your primary care physician in 2-3 days and any other recommended physicians. If prescribed, take all medications as directed. If you have any questions or concerns do not hesitate to return the emergency department for evaluation. Stop taking your lisinopril Take the Cardizem 120 mg twice daily as directed by Dr. Resendiz Take your Toprol XL 12.5 mg twice daily as directed by Dr. Resendiz Return to the emergency room if you develop any chest pain, shortness of breath, lightheadedness or dizziness. Drink lots of water to stay hydrated this will help prevent fluctuations in your blood pressure. Referrals: MARY LOU OLEA MD [Primary Care Provider] - Follow up as needed IVIS RESENDIZ MD [ACTIVE STAFF] - Follow up tomorrow
[2018-10-03 15:16] VITALS: BP 109/82
== END 2018-10-03 15:17 | disposition home or self-care (01) ==
LOC: ER 13:14
DX: I95.9 Hypotension, unspecified (principal); I48.91 Unspecified atrial fibrillation; I10 Essential (primary) hypertension; Z90.710 Acquired absence of both cervix and uterus; Z86.14 Personal history of Methicillin resistant Staphylococcus aureus infection
CPT/HCPCS: 99284; 96360; J7030

== ENCOUNTER 2018-10-03 23:20 | Inpatient (IN) | payer MEDICARE, MEDICAID ==
--- NOTE | 2018-10-04 00:02 | ER Document Report ---
ED General - General Stated Complaint: FEVER Time Seen by Provider: 10/03/18 23:49 Notes: Patient is a 67-year-old female that comes emergency department for chief compla int of shortness of breath, fever, weakness, low blood pressure. She comes by EMS from home, she was found to have an initial temperature of 102.3, given 975 mg of Tylenol and IV fluid bolus. Initial blood pressure reported to be 94/65, repeat blood pressure here is 111/70. No hypoxia. Family states she has been coughing, breathing hard, and they found her slumped over the toilet just before they called EMS. Patient denies passing out. She denies any complaints, states she "feels fine". She denies chest pain, headache, abdominal pain. Past medical history includes hypertension, atrial fibrillation, pulmonary embolism, rheumatoid arthritis. She is on methotrexate, prednisone, Xarelto, Cardizem, metoprolol. Family at bedside. No recent hospital admissions per family (they state last summer). Has had influenza vaccine. TRAVEL OUTSIDE OF THE [place] IN LAST 30 DAYS: No - Related Data Allergies/Adverse Reactions: No Known Allergies Allergy (Verified 10/03/18 13:43) Past Medical History - General Information source: Patient, Relative - Social History Smoking Status: Never Smoker Frequency of alcohol use: None Drug Abuse: None Lives with: Family Family History: Reviewed & Not Pertinent, DM, Hypertension - Past Medical History Cardiac Medical History: Reports: Hx Atrial Fibrillation, Hx Hypertension, Hx Pulmonary Embolism Pulmonary Medical History: Reports: Hx Pneumonia Denies: Hx Tuberculosis Neurological Medical History: Denies: Hx Seizures Renal/ Medical History: Denies: Hx Peritoneal Dialysis GI Medical History: Reports: Hx Gastroesophageal Reflux Disease Musculoskeletal Medical History: Reports Hx Arthritis - RA Skin Medical History: Reports Hx MRSA - CURRENTLY HAS SENSATION OF ABSCESS DEVELOPING UNDER THE LEFT ARM Psychiatric Medical History: Reports: Hx Depression Traumatic Medical History: Reports: Hx Fractures - T10 COMP FX, ACUTE R SHOULDER AND CLAVICLE FX Past Surgical History: Reports: Hx Appendectomy, Hx Hysterectomy, Hx Oral Surgery, Hx Orthopedic Surgery - foot surgery - Immunizations Immunizations up to date: Yes Hx Diphtheria, Pertussis, Tetanus Vaccination: Yes Review of Systems - Review of Systems Constitutional: See HPI EENT: No symptoms reported Cardiovascular: No symptoms reported Respiratory: See HPI Gastrointestinal: No symptoms reported Genitourinary: No symptoms reported Female Genitourinary: No symptoms reported Musculoskeletal: No symptoms reported Skin: No symptoms reported Hematologic/Lymphatic: No symptoms reported Neurological/Psychological: No symptoms reported Physical Exam - Vital signs Vitals: Temp Resp BP Pulse Ox 99.8 F 18 111/70 98 10/03/18 23:24 10/03/18 23:24 10/03/18 23:24 10/03/18 23:24 - Notes Notes: GENERAL: Very small in stature. Awake and responsive. HEAD: Normocephalic, atraumatic. EYES: Pupils equal, round, and reactive to light. Extraocular movements intact. ENT: Oral mucosa moist, tongue midline. Oropharynx unremarkable. Airway patent. Nares patent, no nasal septal hematoma, TM's intact. NECK: Full range of motion. Supple. Trachea midline. LUNGS: Occasional cough. Right right lower lung everett with rales. Clear otherwise. No tachypnea. HEART: Tachycardia. Normal rhythm. ABDOMEN: Soft, non-tender. Non-distended. Bowel sounds present in all 4 quadrants. GENITOURINARY: Deferred EXTREMITIES: Moves all 4 extremities spontaneously. No edema, normal radial and dorsalis pedis pulses bilaterally. No cyanosis. BACK: no cervical, thoracic, lumbar midline tenderness. No saddle anesthesia, normal distal neurovascular exam. NEUROLOGICAL: Alert and oriented x3. Normal speech. [cranial nerves II through XII grossly intact]. PSYCH: Normal affect, normal mood. SKIN: Warm, dry, normal turgor. No rashes or lesions noted. Course - Re-evaluation Re-evalutation: Patient initially tachycardic, febrile, however she is not hypotensive. She is actually quite well-appearing on exam. She does have occasional cough. She does have a rales in the right lower lung on evaluation. No lower extremity edema. Septic workup initiated. CBC unremarkable, chemistry unremarkable, lactic acid borderline. Tachycardia improved with IV fluids. Patient did not become hypotensive. No signs of shock. Cultures pending. Urinalysis unremarkable. Patient was started on Rocephin and azithromycin for suspected underlying pneumonia. Because of patient's weakness at home, intermittent hypotension reported earlier, persistent tachycardia here, and multiple comorbidities I discussed with family potential admission. Family and patient state agreement with this. Will discuss with patient provider. Discussed with Dr. Reece, patient admitted to [facility] for admission. - Vital Signs Vital signs: Temp Pulse Resp BP Pulse Ox 98.9 F 112 H 17 116/70 100 10/04/18 04:01 10/04/18 05:22 10/04/18 04:01 10/04/18 04:01 10/04/18 04:34 - Laboratory Result Diagrams: 10/03/18 23:49 10/03/18 23:49 Laboratory results interpreted by me: 10/03/18 10/03/18 10/03/18 23:49 23:49 23:49 RDW 14.4 H VBG pH 7.43 H Sodium 136.2 L Potassium 3.5 L Anion Gap 4 L Glucose 123 H Calcium 7.8 L Total Protein 5.4 L Albumin 2.7 L Urine Urobilinogen 10/04/18 01:49 RDW VBG pH Sodium Potassium Anion Gap Glucose Calcium Total Protein Albumin Urine Urobilinogen 4.0 H Discharge - Discharge Clinical Impression: Tachycardia, Cough, Weakness Fever Qualifiers: Fever type: unspecified Qualified Code(s): R50.9 - Fever, unspecified Condition: Fair Disposition: ADMITTED INPATIENT Admitting Provider: Reece Unit Admitted: [facility]
[2018-10-04 00:10] LABS: ABSOLUTE BASOPHILS # (AUTO) 0.1 10^3/uL (0.0-0.2); ABSOLUTE EOSINOPHILS # (AUTO) 0.2 10^3/uL (0.0-0.6); ABSOLUTE LYMPHOCYTES (AUTO) 2.3 10^3/uL (0.5-4.7); ABSOLUTE MONOCYTES (AUTO) 1.1 10^3/uL (0.1-1.4); ABSOLUTE NEUT (AUTO) 6.2 10^3/uL (1.7-8.2); BASOPHILS % (AUTO) 0.8 % (0-2); EOSINOPHILS % (AUTO) 1.5 % (0-6); HEMATOCRIT 36.6 % (36.0-47.0); HEMOGLOBIN 12.1 g/dL (12.0-15.5); LYMPHOCYTES % (AUTO) 23.2 % (13-45); MEAN CORPUSCULAR HEMOGLOBIN 29.1 pg (27.0-33.4); MEAN CORPUSCULAR HGB CONC 33.2 g/dL (32.0-36.0); MEAN CORPUSCULAR VOLUME 88 fl (80-97); MONOCYTES % (AUTO) 11.6 % (3-13); PLATELET COUNT 188 10^3/uL (150-450); RED BLOOD COUNT 4.17 10^6/uL (3.72-5.28); RED CELL DISTRIBUTION WIDTH 14.4 % (11.5-14.0); SEGMENTED NEUTROPHILS % (AUTO) 62.9 % (42-78); TOTAL CELLS COUNTED % (AUTO) 100 %; WHITE BLOOD COUNT 9.9 10^3/uL (4.0-10.5)
[2018-10-04 00:11] LABS: VENOUS BLOOD BASE EXCESS 1.7 mmol/L; VENOUS BLOOD HCO3 26.1 mmol/L (20-32); VENOUS BLOOD PCO2 39.9 mmHg (35-63); VENOUS BLOOD PH 7.43 (7.30-7.42)
[2018-10-04 00:26] LABS: ALANINE AMINOTRANSFERASE 22 U/L (9-52); ALBUMIN 2.7 g/dL (3.5-5.0); ALKALINE PHOSPHATASE 59 U/L (38-126); ASPARTATE AMINO TRANSFERASE 16 U/L (14-36); BILIRUBIN,DIRECT 0.2 mg/dL (0.0-0.4); BLOOD UREA NITROGEN 8 mg/dL (7-20); CALCIUM 7.8 mg/dL (8.4-10.2); GLUCOSE 123 mg/dL (75-110); POTASSIUM 3.5 mmol/L (3.6-5.0); TOTAL PROTEIN 5.4 g/dL (6.3-8.2)
[2018-10-04 00:32] LABS: CARBON DIOXIDE 26 mmol/L (22-30); CHLORIDE 106 mmol/L (98-107); SODIUM 136.2 mmol/L (137-145)
[2018-10-04 00:35] LABS: ANION GAP 4 (5-19)
--- NOTE | 2018-10-04 00:57 | RADIOLOGY REPORT (SQ) ---
EXAM DESCRIPTION: XR CHEST 1 VIEW COMPLETED DATE/TME: 10/03/2018 23:58 CLINICAL HISTORY: 67 years, Female, fever, cough, hypotension COMPARISON: 04/19/2018 chest NUMBER OF VIEWS: 1 TECHNIQUE: Frontal view chest LIMITATIONS: None. FINDINGS: Heart size is normal. Osteopenia. Chronic blunting of the costophrenic angles consistent with tiny effusions and/or pleural thickening. Similar findings were present previously. Old left humeral fracture. Chronic changes to the right shoulder. No pneumothorax IMPRESSION: Chronic blunting of the costophrenic angles bilaterally consistent with tiny effusions and/or pleural thickening. Lungs are otherwise clear copyright 2010 [employer]- All Rights Reserved
[2018-10-04] MEDS ORDERED: CEFTRIAXONE 1 GM/D5W RTU 1 GM/50 ML RTUPB IV ONE (01:12)
[2018-10-04 01:14] LABS: A TYPE INFLUENZA AG NEGATIVE (NEGATIVE); B INFLUENZA AG NEGATIVE (NEGATIVE)
[2018-10-04 03:03] LABS: APPEARANCE,URINE CLEAR; BILIRUBIN,URINE NEGATIVE (NEGATIVE); COLOR,URINE YELLOW; GLUCOSE, URINE NEGATIVE (NEGATIVE); KETONES,URINE NEGATIVE (NEGATIVE); LEUKOCYTE ESTERASE,URINE NEGATIVE (NEGATIVE); NITRITE,URINE NEGATIVE (NEGATIVE); PROTEIN,URINE NEGATIVE (NEGATIVE); URINE SPECIFIC GRAVITY 1.018
[2018-10-04] MEDS ORDERED: AZITHROMYCIN INJ 500 MG VIAL IV ONE (03:23)
[2018-10-04] MEDS ORDERED: ACETAMINOPHEN 325 MG TABLET PO PRN (03:42)
[2018-10-04] MEDS: LANSOPRAZOLE 15 MG TAB.RAP.DR PO SCH ×2 (06:25→16:39)
[2018-10-04] MEDS: DILTIAZEM HCL 60 MG TABLET PO SCH ×5 (06:25→22:31)
[2018-10-04] MEDS ORDERED: HYDROCORTISONE SOD SUCCINATE INJ/PF 100 MG/2 ML SDV IV ONE ×2 (07:00→08:00)
--- NOTE | 2018-10-04 08:05 | EKG REPORT ---
SEVERITY:- ABNORMAL ECG - SINUS TACHYCARDIA CONSIDER LEFT VENTRICULAR HYPERTROPHY BORDERLINE T ABNORMALITIES, INFERIOR LEADS : Confirmed by: Ammy Page MD 04-Oct-2018 08:04:55
[2018-10-04] MEDS ORDERED: POLYETHYLENE GLYCOL 3350 POWDER 17 GM/1 PACKET PO PRN (09:21)
[2018-10-04] MEDS: GUAIFENESIN 600 MG TABLET.SA PO SCH ×2 (09:52→22:30)
[2018-10-04] MEDS: DOCUSATE SODIUM 100 MG CAPSULE PO SCH ×2 (09:52→18:19)
--- NOTE | 2018-10-04 13:53 | PDOC H&P ---
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 every 8 was increased to the every 6 and referred to the cardiology went to see yesterday Dr. 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 Patient always have some issue with the low immunity with the infections recently [facility] stop the injection therapy but still continues to take the methotrexate continues to take the prednisone daily Discussed with the daughter at the bedside Patient is currently on Xarelto for pulmonary embolism Past Medical History Cardiac Medical History: Reports: Atrial Fibrillation, Hypertension, Pulmonary Embolism Pulmonary Medical History: Reports: Pneumonia Denies: Tuberculosis Neurological Medical History: Denies: Seizures GI Medical History: Reports: Gastroesophageal Reflux Disease Musculoskeltal Medical History: Reports: Arthritis - RA Psychiatric Medical History: Reports: Depression Hematology: Reports: Anemia Past Surgical History Past Surgical History: Reports: Appendectomy, Hysterectomy, Orthopedic Surgery - foot surgery Social History Lives with: Family Smoking Status: Never Smoker Frequency of Alcohol Use: None Hx Recreational Drug Use: No Drugs: None Hx Prescription Drug Abuse: No - Advance Directive Resuscitation Status: Full Code Family History Family History: Reviewed & Not Pertinent, DM, Hypertension Parental Family History Reviewed: Yes Children Family History Reviewed: Yes Sibling(s) Family History Reviewed.: Yes Medication/Allergy Home Medications: Clopidogrel Bisulfate [Plavix 75 mg Tablet] 75 mg PO DAILY 10/04/18 Diclofenac Sodium [Voltaren] 4 gm TP BID 10/04/18 Diltiazem HCl [Cardizem 60 mg Tablet] 60 mg PO Q8 10/04/18 Escitalopram Oxalate [Lexapro 10 mg Tablet] 10 mg PO DAILY 10/04/18 Fluticasone Propionate [Flonase Nasal Denison 50 Mcg/Denison 16 gm] 1 spray NASL Q12 10/04/18 Folic Acid [Folvite 1 mg Tablet] 1 mg PO DAILY 10/04/18 Levocetirizine Dihydrochloride [Xyzal] 5 mg PO QPM 10/04/18 Lisinopril [Prinivil 40 mg Tablet] 40 mg PO DAILY 10/04/18 Methotrexate Sodium/Pf [Methotrexate 50 mg/2 ml Vial] 25 mg IJ WE@1000 10/04/18 Nystatin [Mycostatin 427161 Unit/mL Susp 60 mL] 5 ml PO QID 10/04/18 Pantoprazole Sodium [Protonix] 40 mg PO DAILY 10/04/18 Potassium Chloride 40 meq PO DAILY 10/04/18 Prednisone [Deltasone 5 mg Tablet] 5 mg PO DAILY 10/04/18 Rivaroxaban [Xarelto] 20 mg PO DAILY 10/04/18 Allergies/Adverse Reactions: No Known Allergies Allergy (Verified 10/03/18 13:43) Review of Systems Constitutional: PRESENT: weakness. ABSENT: chills, fever(s), headache(s), weight gain, weight loss Eyes: ABSENT: visual disturbances Ears: ABSENT: hearing changes Cardiovascular: ABSENT: chest pain, dyspnea on exertion, edema, orthropnea, palpitations Respiratory: PRESENT: cough. ABSENT: hemoptysis Gastrointestinal: ABSENT: abdominal pain, constipation, diarrhea, hematemesis, hematochezia, nausea, vomiting Genitourinary: ABSENT: dysuria, hematuria Musculoskeletal: ABSENT: joint swelling Integumentary: ABSENT: rash, wounds Neurological: ABSENT: abnormal gait, abnormal speech, confusion, dizziness, focal weakness, syncope Psychiatric: ABSENT: anxiety, depression, homidical ideation, suicidal ideation Endocrine: ABSENT: cold intolerance, heat intolerance, menstrual abnormalities, polydipsia, polyuria Hematologic/Lymphatic: ABSENT: easy bleeding, easy bruising, lymphadenopathy Physical Exam Vital Signs: Temp Pulse Resp BP Pulse Ox 99.0 F 104 H 18 112/61 96 10/04/18 07:10 10/04/18 07:10 10/04/18 07:10 10/04/18 07:10 10/04/18 07:10 Intake & Output 10/03/18 10/04/18 10/05/18 06:59 06:59 06:59 Intake Total 50 Balance 50 Weight 55.3 kg General appearance: PRESENT: no acute distress, thin Head exam: PRESENT: atraumatic, normocephalic Eye exam: PRESENT: conjunctiva pink, EOMI, PERRLA. ABSENT: scleral icterus Ear exam: PRESENT: normal external ear exam Mouth exam: PRESENT: moist, tongue midline Neck exam: PRESENT: full ROM. ABSENT: carotid bruit, JVD, lymphadenopathy, thyromegaly Respiratory exam: PRESENT: clear to auscultation lucas Cardiovascular exam: PRESENT: RRR. ABSENT: diastolic murmur, rubs, systolic murmur Vascular exam: PRESENT: normal capillary refill GI/Abdominal exam: PRESENT: normal bowel sounds, soft. ABSENT: distended, guarding, mass, organolmegaly, rebound, tenderness Rectal exam: PRESENT: deferred Extremities exam: ABSENT: pedal edema Additional comments: No significant deformity in upper or lower extremity due to the rheumatoid arthritis Neurological exam: PRESENT: alert, awake, oriented to person, oriented to place, oriented to time, oriented to situation, CN II-XII grossly intact. ABSENT: motor sensory deficit Psychiatric exam: PRESENT: appropriate affect, normal mood. ABSENT: homicidal ideation, suicidal ideation Skin exam: PRESENT: dry, intact, warm. ABSENT: cyanosis, rash Results Laboratory Results: 10/03/18 23:49 10/03/18 23:49 10/03/18 10/03/18 10/03/18 23:49 23:49 23:49 WBC 9.9 RBC 4.17 Hgb 12.1 Hct 36.6 MCV 88 MCH 29.1 MCHC 33.2 RDW 14.4 H Plt Count 188 Seg Neutrophils % 62.9 Lymphocytes % 23.2 Monocytes % 11.6 Eosinophils % 1.5 Basophils % 0.8 Absolute Neutrophils 6.2 Absolute Lymphocytes 2.3 Absolute Monocytes 1.1 Absolute Eosinophils 0.2 Absolute Basophils 0.1 VBG pH VBG pCO2 VBG HCO3 VBG Base Excess Sodium 136.2 L Potassium 3.5 L Chloride 106 Carbon Dioxide 26 Anion Gap 4 L BUN 8 Creatinine 0.61 Est GFR ( Amer) > 60 Est GFR (Non-Af Amer) > 60 Glucose 123 H Lactic Acid 2.1 Calcium 7.8 L Total Bilirubin 1.0 AST 16 ALT 22 Alkaline Phosphatase 59 Total Protein 5.4 L Albumin 2.7 L Urine Color Urine Appearance Urine pH Ur Specific Keller Urine Protein Urine Glucose (UA) Urine Ketones Urine Blood Urine Nitrite Ur Leukocyte Esterase Urine WBC (Auto) Urine RBC (Auto) 10/03/18 10/04/18 10/04/18 23:49 01:49 03:50 WBC RBC Hgb Hct MCV MCH MCHC RDW Plt Count Seg Neutrophils % Lymphocytes % Monocytes % Eosinophils % Basophils % Absolute Neutrophils Absolute Lymphocytes Absolute Monocytes Absolute Eosinophils Absolute Basophils VBG pH 7.43 H VBG pCO2 39.9 VBG HCO3 26.1 VBG Base Excess 1.7 Sodium Potassium Chloride Carbon Dioxide Anion Gap BUN Creatinine Est GFR ( Amer) Est GFR (Non-Af Amer) Glucose Lactic Acid 0.7 Calcium Total Bilirubin AST ALT Alkaline Phosphatase Total Protein Albumin Urine Color YELLOW Urine Appearance CLEAR Urine pH 5.0 Ur Specific Keller 1.018 Urine Protein NEGATIVE Urine Glucose (UA) NEGATIVE Urine Ketones NEGATIVE Urine Blood NEGATIVE Urine Nitrite NEGATIVE Ur Leukocyte Esterase NEGATIVE Urine WBC (Auto) 1 Urine RBC (Auto) 2 Impressions: Chest X-Ray 10/03/18 23:58 IMPRESSION: Chronic blunting of the costophrenic angles bilaterally consistent with tiny effusions and/or pleural thickening. Lungs are otherwise clear copyright 2011 [employer]- All Rights Reserved Assessment & Plan - Diagnosis (1) Pneumonia Qualifiers: Pneumonia type: due to unspecified organism Is this a current diagnosis for this admission?: Yes Plan: Start the patient on IV antibiotic (2) Hypotensive episode Is this a current diagnosis for this admission?: Yes Plan: Possible from the sepsis versus mild adrenal insufficiency we will start the patient on IV fluid IV antibiotic and also IV hydrocortisone (3) Insufficiency adrenal cortex Is this a current diagnosis for this admission?: Yes Plan: Will start the patient on IV hydrocortisone (4) Fever Qualifiers: Fever type: unspecified Qualified Code(s): R50.9 - Fever, unspecified Is this a current diagnosis for this admission?: Yes Plan: IV antibiotic (5) Tachycardia Is this a current diagnosis for this admission?: Yes Plan: Currently on a Cardizem 60 mg We consulted cardiology (6) Weakness Is this a current diagnosis for this admission?: Yes (7) Cerebrovascular accident Qualifiers: Is this a current diagnosis for this admission?: No (8) Chronic pain syndrome Is this a current diagnosis for this admission?: Yes Plan: Is currently on a chronic pain medications (9) History of pulmonary embolism Is this a current diagnosis for this admission?: Yes Plan: Get the CT angiogram Xarelto (10) Hypokalemia Is this a current diagnosis for this admission?: Yes (11) Rheumatoid arthritis Qualifiers: Rheumatoid arthritis location: multiple sites Is this a current diagnosis for this admission?: Yes Plan: Currently hold the methotrexate - Time Time Spent: 30 to 50 Minutes Medications reviewed and adjusted accordingly: Yes Anticipated discharge: Home Within: Other - Inpatient Certification Based on my medical assessment, after consideration of the patient's comorb idities, presenting symptoms, or acuity I expect that the services needed warrant INPATIENT care.: Yes I certify that my determination is in accordance with my understanding of Medicare's requirements for reasonable and necessary INPATIENT services [42 CFR 412.3e].: Yes Medical Necessity: Need For IV Fluids, Need for IV Antibiotics Post Hospital Care: D/C Yarn Inspector Documentation - Plan Summary Plan Summary: Continues to IV antibiotic See MD orders
[2018-10-04] MEDS: HYDROCORTISONE SOD SUCCINATE INJ/PF 100 MG/2 ML SDV IV SCH ×2 (13:54→22:34)
[2018-10-04] MEDS ORDERED: (PENDING PHARMACY ID) (Nystatin 5 ML) PO SCH (14:00)
[2018-10-04] MEDS: RIVAROXABAN 10 MG TABLET PO SCH (16:39)
--- NOTE | 2018-10-04 17:49 | RADIOLOGY REPORT (SQ) ---
EXAM DESCRIPTION: CT CHEST WITHOUT COMPLETED DATE/TIME: 10/04/2018 5:38 pm REASON FOR STUDY: SOB, tachycardia, R/O PE COMPARISON: None. TECHNIQUE: CT scan performed of the chest without intravenous contrast. Images reviewed with lung, soft tissue and bone windows. Reconstructed coronal and sagittal MPR images reviewed. All images st ored on PACS. All CT scanners at this facility use dose modulation, iterative reconstruction, and/or weight based d osing when appropriate to reduce radiation dose to as low as reasonably achievable (ALARA). [facility]: Dose Right [facility]: CareDose [facility]: Dose Right [facility]: Teradose 4D [facility]: Smart Incisive Surgical RADIATION DOSE: CT Rad equipment meets quality standard of care and radiation dose reduction techniq ues were employed. CTDIvol: 15.5 mGy. DLP: 571 mGy-cm. mGy. LIMITATIONS: No technical limitations. FINDINGS: LUNGS AND PLEURA: Small pleural effusions. HILAR AND MEDIASTINAL STRUCTURES: No identified masses or abnormal nodes. No obvious aneurysm. HEART AND VASCULAR STRUCTURES: No aneurysm. No pericardial effusion. UPPER ABDOMEN: Prominent left renal calcification. THYROID AND OTHER SOFT TISSUES: No masses. No adenopathy. BONES: No significant finding. HARDWARE: None in the chest. OTHER: No other significant findings. IMPRESSION: Small pleural effusions. No acute findings in the thorax otherwise. TECHNICAL DOCUMENTATION: JOB ID: [id number] Quality ID # [id number]: Final reports with documentation of one or more dose reduction techniques (e.g., Au tomated exposure control, adjustment of the mA and/or kV according to patient size, use of iterative reconstruction technique) 2010 [employer]- All Rights Reserved Reading location - IP/workstation name: [email or web address]
[2018-10-04] MEDS ORDERED: RIVAROXABAN 10 MG TABLET PO SCH (18:00)
[2018-10-04] MEDS: CEFTRIAXONE 1 GM/D5W RTU 1 GM/50 ML RTUPB IV SCH (18:19)
[2018-10-04] MEDS: NORMAL SALINE 1000 ML 1,000 ML IV PRN (18:19)
[2018-10-04] MEDS: NYSTATIN 500000 UNIT/5 ML UDCUP PO SCH ×2 (18:19→22:31)
--- NOTE | 2018-10-04 19:27 | XCELERA REPORT ---
[address] [address] Transthoracic Echocardiogram Report Name: LILLIE AMIN Age: 67 yrs Gender: Female : 1950 Patient Status: Inpatient Patient Location: [address] [place] [address] Study Date: 10/04/2018 03:31 PM Procedure: A complete two-dimensional transthoracic echocardiogram was performed (2D, M-mode, spectral and color flow Doppler). The study was technically difficult with many images being suboptimal in quality. Reason For Study: hypotension, tachycardia Ordering Physician: JAMES RESENDIZ Performed By: Vidhi Crane Interpretation Summary The left ventricular ejection fraction is normal. There is mild concentric left ventricular hypertrophy. Doppler measurements suggest pseudonormalized left ventricular relaxation, which is associated with grade II/IV or mild to moderate diastolic dysfunction The left ventricle is grossly normal size. Wall motion cannot be accurately commented on, but no definite regional wall motion abnormalities noted. The right ventricular systolic function is normal. The left atrial size is normal. The right atrium is normal in size There is a trace amount of mitral regurgitation There is no mitral valve stenosis. No aortic regurgitation is present. There is no aortic valve stenosis There is a trace or physiologic amount of tricuspid regurgitation Tricuspid regurgitation jet envelope not well defined to measure RV systolic pressure accurately. The aortic root is not well visualized but is probably normal size. The inferior vena cava was not well visualized There is no pericardial effusion. MMode/2D Measurements & Calculations RVDd: 3.1 cm LVIDd: 4.1 cm FS: 35.8 % Ao root diam: 3.0 cm IVSd: 0.85 cm LVIDs: 2.6 cm EDV(Teich): 74.7 ml Ao root area: 6.9 cm2 LVPWd: 0.86 cm ESV(Teich): 25.6 ml EF(Teich): 65.8 % Doppler Measurements & Calculations MV E max brianna: MV dec slope: Ao V2 max: LV V1 max P.0 cm/sec 93.3 cm/sec 2.6 mmHg MV A max brianna: 439.1 cm/sec2 Ao max PG: LV V1 max: 64.8 cm/sec MV dec time: 0.11 sec 3.5 mmHg 79.9 cm/sec MV E/A: 0.77 PA V2 max: 63.1 cm/sec PA max P.6 mmHg Left Ventricle The left ventricle is grossly normal size. There is mild concentric left ventricular hypertrophy. The left ventricular ejection fraction is normal. Doppler measurements suggest pseudonormalized left ventricular relaxation, which is associated with grade II/IV or mild to moderate diastolic dysfunction. Wall motion cannot be accurately commented on, but no definite regional wall motion abnormalities noted. Right Ventricle The right ventricle is grossly normal size. There is normal right ventricular wall thickness. The right ventricular systolic function is normal. Atria The right atrium is normal in size. The left atrial size is normal. Interarterial septum not well visualized and not well dopplered. Cannot comment on ASD/PFO presence. Mitral Valve The mitral valve leaflets are sclerotic, but show no functional abnormalities. There is no mitral valve stenosis. There is a trace amount of mitral regurgitation. Aortic Valve The aortic valve is not well visualized secondary to technical limitations. There is no aortic valve stenosis. No aortic regurgitation is present. Tricuspid Valve The tricuspid valve is not well visualized secondary to technical limitations. There is no tricuspid stenosis. There is a trace or physiologic amount of tricuspid regurgitation. Tricuspid regurgitation jet envelope not well defined to measure RV systolic pressure accurately. Pulmonic Valve The pulmonic valve is not well visualized. Great Vessels The aortic root is not well visualized but is probably normal size. The inferior vena cava was not well visualized. Effusions There is no pericardial effusion. : JAMES RESENDIZ > James Resendiz
--- NOTE | 2018-10-04 19:45 | PDOC PROGRESS REPORT ---
Subjective Progress Note for:: 10/04/18 Subjective:: Patient was seen in the office just a yesterday with tachycardia. Patient blood pressure was above 100 at that time, in 100 210 range. Patient had tachycardia at around 110 bpm in the office. However the day before she was noted to have heart rate up to 140 bpm at primary care MDs office. Patient was brought into the emergency room as she felt dizzy and was noted to be hypotensive. During her office visit with me, patient was prescribed Cardizem CD 120 mg p.o. twice daily, was also placed on metoprolol succinate 12.5 mg p.o. twice daily with instruction to restart with 12.5 mg p.o. daily and increase to twice daily if tachycardia persisted. The lisinopril dose was reduced to 20 mg p.o. daily. Once in the ER, I got a call from the ER physician who noted that patient was dehydrated and had low blood pressure in the 90s. On my advice, the lisinopril was discontinued. However patient subsequently got admitted. There is some suspicion of pneumonia. 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 Reason For Visit: PNEUMONIA Physical Exam Vital Signs: Temp Pulse Resp BP Pulse Ox 98.3 F 104 H 16 137/75 H 97 10/04/18 15:15 10/04/18 15:15 10/04/18 15:15 10/04/18 15:15 10/04/18 15:15 Intake & Output 10/03/18 10/04/18 10/05/18 06:59 06:59 06:59 Intake Total 50 587 Balance 50 587 Weight 55.3 kg Exam: GENERAL: well-nourished and in no acute distress. Alert and oriented x3 HEAD: Atraumatic, normocephalic. EYES: ELIZABETH, sclera anicteric, conjunctiva are normal. ENT: Moist mucous membranes. No oral ulcerations or bleeding gums noted. No obvious ear, nose or throat abnormalities noted. NECK: supple without lymphadenopathy. Trachea is central. No cervical or axillary lymphadenopathy noted. Carotids are 2+, JVD WNL LUNGS: Breath sounds clear bilaterally. No wheezes rales or rhonchi noted. No significant dullness noted on percussion. CHEST: Palpation of the chest wall shows no significant chest wall tenderness. 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 ABDOMEN: Soft, no significant tenderness appreciated, normoactive bowel sounds. No guarding, no rebound. No rigidity noted . No masses appreciated. EXTREMITIES: Pedal pulses are 1-2+, no calf tenderness noted. No clubbing or cyanosis. negative pedal edema noted NEUROLOGICAL: Focused neurological exam showed no significant neurologic deficit. Normal speech, no focal weakness appreciated. PSYCH: Normal mood, normal affect. Judgment and insight within normal limits. SKIN: No significant ecchymosis, skin is noted to be warm. MUSCULOSKELETAL EXAM: Marked joint deformity noted secondary to rheumatoid arthritis. Results Laboratory Results: 10/03/18 23:49 10/03/18 23:49 10/03/18 10/03/18 10/03/18 23:49 23:49 23:49 WBC 9.9 RBC 4.17 Hgb 12.1 Hct 36.6 MCV 88 MCH 29.1 MCHC 33.2 RDW 14.4 H Plt Count 188 Seg Neutrophils % 62.9 Lymphocytes % 23.2 Monocytes % 11.6 Eosinophils % 1.5 Basophils % 0.8 Absolute Neutrophils 6.2 Absolute Lymphocytes 2.3 Absolute Monocytes 1.1 Absolute Eosinophils 0.2 Absolute Basophils 0.1 VBG pH VBG pCO2 VBG HCO3 VBG Base Excess Sodium 136.2 L Potassium 3.5 L Chloride 106 Carbon Dioxide 26 Anion Gap 4 L BUN 8 Creatinine 0.61 Est GFR ( Amer) > 60 Est GFR (Non-Af Amer) > 60 Glucose 123 H Lactic Acid 2.1 Calcium 7.8 L Total Bilirubin 1.0 AST 16 ALT 22 Alkaline Phosphatase 59 Total Protein 5.4 L Albumin 2.7 L Urine Color Urine Appearance Urine pH Ur Specific [place] Urine Protein Urine Glucose (UA) Urine Ketones Urine Blood Urine Nitrite Ur Leukocyte Esterase Urine WBC (Auto) Urine RBC (Auto) 10/03/18 10/04/18 10/04/18 23:49 01:49 03:50 WBC RBC Hgb Hct MCV MCH MCHC RDW Plt Count Seg Neutrophils % Lymphocytes % Monocytes % Eosinophils % Basophils % Absolute Neutrophils Absolute Lymphocytes Absolute Monocytes Absolute Eosinophils Absolute Basophils VBG pH 7.43 H VBG pCO2 39.9 VBG HCO3 26.1 VBG Base Excess 1.7 Sodium Potassium Chloride Carbon Dioxide Anion Gap BUN Creatinine Est GFR ( Amer) Est GFR (Non-Af Amer) Glucose Lactic Acid 0.7 Calcium Total Bilirubin AST ALT Alkaline Phosphatase Total Protein Albumin Urine Color YELLOW Urine Appearance CLEAR Urine pH 5.0 Ur Specific [place] 1.018 Urine Protein NEGATIVE Urine Glucose (UA) NEGATIVE Urine Ketones NEGATIVE Urine Blood NEGATIVE Urine Nitrite NEGATIVE Ur Leukocyte Esterase NEGATIVE Urine WBC (Auto) 1 Urine RBC (Auto) 2 EKG Comments: Shows sinus tachycardia without any acute ST-T wave changes Impressions: Chest X-Ray 10/03/18 23:58 IMPRESSION: Chronic blunting of the costophrenic angles bilaterally consistent with tiny effusions and/or pleural thickening. Lungs are otherwise clear copyright 2011 [employer]- All Rights Reserved Chest CT 10/04/18 00:00 IMPRESSION: Small pleural effusions. No acute findings in the thorax otherwise. Assessment & Plan - Diagnosis (1) Hypotensive episode Is this a current diagnosis for this admission?: Yes (2) Insufficiency adrenal cortex Is this a current diagnosis for this admission?: Yes (3) Tachycardia Is this a current diagnosis for this admission?: Yes - Notes Notes: Hypotension: Most likely related to adrenal cortical insufficiency, made worse by antihypertensive medication especially LUIS inhibitors and other antihypertensive along with volume depletion, relative. Agree with IV fluid infusion. Tachycardia: [place] to be inappropriate. Agree with Cardizem CD 60 mg p.o. every 8 hours. Could add a small dose of beta-jamee, metoprolol succinate 12.5 mg p.o. daily. Will start in the hospitalist to see any response. Adrenal cortical insufficiency: Most likely related to chronic suppression from steroid therapy needed for rheumatoid arthritis. Agree with enhanced supplementation of steroids. 2D echocardiogram performed showed normal LVEF. No significant stenosis or other valvular abnormalities noted.. - Time Time with patient: Greater than 35 minutes - More than 50% of the time spent coordinating care, discussing management plans with involved caregivers. Management plans discussed with involved personnels. Medical decision making was of moderate to high complexity, patient's has multiple comorbidities. I thank Dr. Reece very much for involving me in the care of this nice lady. Medications reviewed and adjusted accordingly: Yes
[2018-10-04] MEDS ORDERED: CETIRIZINE 5 MG TABLET PO SCH (22:00)
[2018-10-04] MEDS ORDERED: AZITHROMYCIN 500 MG in DEXTROSE 5%-WATER 250 ML IV SCH (22:00)
[2018-10-04] MEDS ORDERED: DILTIAZEM HCL 60 MG TABLET PO ONE (22:35)
[2018-10-04] MEDS: FLUTICASONE NASAL SPRAY 50 MCG/SPRY 120 SPRAY/16 GM NASL SCH (22:39)
[2018-10-05] MEDS ORDERED: LANSOPRAZOLE 30 MG TAB.RAP.DR PO SCH (06:00)
[2018-10-05 06:01] LABS: ABSOLUTE LYMPHOCYTES (AUTO) 0.7 10^3/uL (0.5-4.7); ABSOLUTE MONOCYTES (AUTO) 0.4 10^3/uL (0.1-1.4); ABSOLUTE NEUT (AUTO) 5.1 10^3/uL (1.7-8.2); BASOPHILS % (AUTO) 0.2 % (0-2); HEMATOCRIT 31.3 % (36.0-47.0); HEMOGLOBIN 10.7 g/dL (12.0-15.5); LYMPHOCYTES % (AUTO) 11.7 % (13-45); MEAN CORPUSCULAR HEMOGLOBIN 29.5 pg (27.0-33.4); MEAN CORPUSCULAR HGB CONC 34.3 g/dL (32.0-36.0); MEAN CORPUSCULAR VOLUME 86 fl (80-97); MONOCYTES % (AUTO) 6.4 % (3-13); PLATELET COUNT 156 10^3/uL (150-450); RED BLOOD COUNT 3.64 10^6/uL (3.72-5.28); RED CELL DISTRIBUTION WIDTH 13.8 % (11.5-14.0); SEGMENTED NEUTROPHILS % (AUTO) 81.7 % (42-78); TOTAL CELLS COUNTED % (AUTO) 100 %; WHITE BLOOD COUNT 6.2 10^3/uL (4.0-10.5)
[2018-10-05] MEDS: HYDROCORTISONE SOD SUCCINATE INJ/PF 100 MG/2 ML SDV IV SCH ×2 (06:21→14:58)
[2018-10-05] MEDS: LANSOPRAZOLE 15 MG TAB.RAP.DR PO SCH ×2 (06:25→16:19)
[2018-10-05 06:27] LABS: ALANINE AMINOTRANSFERASE 18 U/L (9-52); ALBUMIN 2.6 g/dL (3.5-5.0); ALKALINE PHOSPHATASE 55 U/L (38-126); ASPARTATE AMINO TRANSFERASE 16 U/L (14-36); BILIRUBIN,DIRECT 0.2 mg/dL (0.0-0.4); BILIRUBIN,TOTAL 0.5 mg/dL (0.2-1.3); BLOOD UREA NITROGEN 4 mg/dL (7-20); CALCIUM 7.7 mg/dL (8.4-10.2); GLUCOSE 131 mg/dL (75-110); POTASSIUM 3.3 mmol/L (3.6-5.0); TOTAL PROTEIN 5.2 g/dL (6.3-8.2)
[2018-10-05 06:29] VITALS: BP 152/76
[2018-10-05] MEDS: NORMAL SALINE 1000 ML 1,000 ML IV PRN (06:30)
[2018-10-05 06:32] LABS: CARBON DIOXIDE 26 mmol/L (22-30); CHLORIDE 111 mmol/L (98-107)
[2018-10-05] MEDS: DILTIAZEM HCL 60 MG TABLET PO SCH ×2 (06:35→14:57)
[2018-10-05 06:38] LABS: ANION GAP 2 (5-19)
[2018-10-05] MEDS ORDERED: POTASSIUM CHLORIDE 10 MEQ CAPSULE.ER PO ONE ×2 (08:00→16:30)
[2018-10-05] MEDS: GUAIFENESIN 600 MG TABLET.SA PO SCH (09:46)
[2018-10-05] MEDS: NYSTATIN 500000 UNIT/5 ML UDCUP PO SCH ×3 (09:46→17:01)
[2018-10-05] MEDS: DOCUSATE SODIUM 100 MG CAPSULE PO SCH ×2 (09:46→17:01)
[2018-10-05] MEDS: PREDNISONE 20 MG TABLET PO SCH ×2 (09:46→17:02)
[2018-10-05] MEDS: FLUTICASONE NASAL SPRAY 50 MCG/SPRY 120 SPRAY/16 GM NASL SCH (09:51)
[2018-10-05] MEDS ORDERED: POTASSIUM CHLORIDE 10 MEQ CAPSULE.ER PO SCH (10:00)
[2018-10-05] MEDS ORDERED: FOLIC ACID 1 MG TABLET PO SCH (10:00)
[2018-10-05] MEDS ORDERED: ESCITALOPRAM OXALATE 10 MG TABLET PO SCH (10:00)
[2018-10-05] MEDS ORDERED: (PENDING PHARMACY ID) (Potassium Chloride [Potassium Chloride] 40 MEQ) PO SCH (10:00)
[2018-10-05] MEDS ORDERED: CLOPIDOGREL BISULFATE 75 MG TABLET PO SCH (10:00)
[2018-10-05] MEDS: RIVAROXABAN 10 MG TABLET PO SCH (16:19)
--- NOTE | 2018-10-05 16:36 | PDOC DISCHARGE SUMMARY ---
General - Admit/Disc Date/PCP Admission Date/Primary Care Provider: 10/04/18 03:38 MARY LOU OLEA MD Discharge Date: 10/05/18 - Discharge Diagnosis (1) Pneumonia Is this a current diagnosis for this admission?: Yes Summary: CT of the chest is all stable We will continue to the p.o. antibiotic (2) Hypotensive episode Is this a current diagnosis for this admission?: Yes Summary: Most likely from Isabela's insufficiency currently all resolving (3) Insufficiency adrenal cortex Is this a current diagnosis for this admission?: Yes Summary: With tapering dose of the p.o. steroid (4) Fever Is this a current diagnosis for this admission?: Yes Summary: All cultures so far negative blood culture is most likely a contaminated patient lactic acid is all stable cover with the p.o. antibiotic (5) Tachycardia Is this a current diagnosis for this admission?: Yes Summary: Currently all stable (6) Weakness Is this a current diagnosis for this admission?: Yes (7) Cerebrovascular accident Is this a current diagnosis for this admission?: No Summary: Continues to anticoagulations (8) Chronic pain syndrome Is this a current diagnosis for this admission?: Yes Summary: Patients follow with the pain management (9) History of pulmonary embolism Is this a current diagnosis for this admission?: Yes Summary: Currently on Xarelto (10) Hypokalemia Is this a current diagnosis for this admission?: Yes Summary: Continues the potassium p.o. (11) Rheumatoid arthritis Is this a current diagnosis for this admission?: Yes Summary: Currently follow with the [facility] - Additional Information Resuscitation Status: Full Code Discharge Diet: Cardiac Discharge Activity: Activity As Tolerated Prescriptions: Cefdinir [Omnicef 300 mg Capsule] 1 cap PO BID #14 capsule Prednisone [Deltasone 10 mg Tablet] 10 mg PO DAILY #40 tablet Home Medications: Clopidogrel Bisulfate [Plavix 75 mg Tablet] 75 mg PO DAILY 10/04/18 Diclofenac Sodium [Voltaren] 4 gm TP BID 10/04/18 Diltiazem HCl [Cardizem 60 mg Tablet] 60 mg PO Q8 10/04/18 Escitalopram Oxalate [Lexapro 10 mg Tablet] 10 mg PO DAILY 10/04/18 Fluticasone Propionate [Flonase Nasal [place] 50 Mcg/[place] 16 gm] 1 spray NASL Q12 10/04/18 Folic Acid [Folvite 1 mg Tablet] 1 mg PO DAILY 10/04/18 Levocetirizine Dihydrochloride [Xyzal] 5 mg PO QPM 10/04/18 Lisinopril [Prinivil 40 mg Tablet] 40 mg PO DAILY 10/04/18 Methotrexate Sodium/Pf [Methotrexate 50 mg/2 ml Vial] 25 mg IJ WE@1000 10/04/18 Nystatin [Mycostatin 234428 Unit/1 ml Susp 60 ml Btl] 5 ml PO QID 10/04/18 Pantoprazole Sodium [Protonix] 40 mg PO DAILY 10/04/18 Potassium Chloride 40 meq PO DAILY 10/04/18 Rivaroxaban [Xarelto] 20 mg PO DAILY 10/04/18 Cefdinir [Omnicef 300 mg Capsule] 1 cap PO BID #14 capsule 10/05/18 Prednisone [Deltasone 10 mg Tablet] 10 mg PO DAILY #40 tablet 10/05/18 History of Present Illness History of Present Illness: LILLIE AMIN is a 67 year old female This is a 67-year-old female with a significant history of the rheumatoid arthritis history of the pulmonary embolism history of the hypertension's ch ronic pain syndrome chronic steroid dependent 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 every 8 was increased to the every 6 and referred to the cardiology went to see yesterday Dr. 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 Patient always have some issue with the low immunity with the infections recently [facility] stop the injection therapy but still continues to take the methotrexate continues to take the prednisone daily Discussed with the daughter at the bedside Patient is currently on Xarelto for pulmonary embolism Physical Exam Vital Signs: Temp Pulse Resp BP Pulse Ox 97.9 F 89 20 152/76 H 96 10/05/18 15:53 10/05/18 15:53 10/05/18 15:53 10/05/18 04:08 10/05/18 15:53 Intake & Output 10/04/18 10/05/18 10/06/18 06:59 06:59 06:59 Intake Total 50 1887 235 Balance 50 1887 235 Weight 55.3 kg 57.6 kg General appearance: PRESENT: no acute distress, well-developed, well-nourished Head exam: PRESENT: atraumatic, normocephalic Eye exam: PRESENT: conjunctiva pink, EOMI, PERRLA. ABSENT: scleral icterus Ear exam: PRESENT: normal external ear exam Mouth exam: PRESENT: moist, tongue midline Neck exam: PRESENT: full ROM. ABSENT: carotid bruit, JVD, lymphadenopathy, thyromegaly Respiratory exam: PRESENT: clear to auscultation lucas Cardiovascular exam: PRESENT: RRR. ABSENT: diastolic murmur, rubs, systolic murmur Vascular exam: PRESENT: normal capillary refill GI/Abdominal exam: PRESENT: normal bowel sounds, soft. ABSENT: distended, guarding, mass, organolmegaly, rebound, tenderness Rectal exam: PRESENT: deferred Neurological exam: PRESENT: alert, awake, oriented to person, oriented to place, oriented to time, oriented to situation, CN II-XII grossly intact. ABSENT: motor sensory deficit Psychiatric exam: PRESENT: appropriate affect, normal mood. ABSENT: homicidal ideation, suicidal ideation Skin exam: PRESENT: dry, intact, warm. ABSENT: cyanosis, rash Results Laboratory Results: 10/05/18 05:37 10/05/18 14:48 10/05/18 10/05/18 10/05/18 05:37 05:37 14:48 WBC 6.2 RBC 3.64 L Hgb 10.7 L Hct 31.3 L MCV 86 MCH 29.5 MCHC 34.3 RDW 13.8 Plt Count 156 Seg Neutrophils % 81.7 H Lymphocytes % 11.7 L Monocytes % 6.4 Eosinophils % 0.0 Basophils % 0.2 Absolute Neutrophils 5.1 Absolute Lymphocytes 0.7 Absolute Monocytes 0.4 Absolute Eosinophils 0.0 Absolute Basophils 0.0 Sodium 139.0 Potassium 3.3 L Cancelled Chloride 111 H Carbon Dioxide 26 Anion Gap 2 L BUN 4 L Creatinine 0.45 L Est GFR ( Amer) > 60 Est GFR (Non-Af Amer) > 60 Glucose 131 H Calcium 7.7 L Total Bilirubin 0.5 AST 16 ALT 18 Alkaline Phosphatase 55 Total Protein 5.2 L Albumin 2.6 L 10/03/18 23:49 Blood Blood Culture - Final Bacillus Sp. Not Anthracis 10/04/18 09:00 Sputum Gram Stain - Final 10/04/18 09:00 Sputum Sputum Culture - Final Impressions: Chest X-Ray 10/03/18 23:58 IMPRESSION: Chronic blunting of the costophrenic angles bilaterally consistent with tiny effusions and/or pleural thickening. Lungs are otherwise clear copyright 2011 [employer]- All Rights Reserved Chest CT 10/04/18 00:00 IMPRESSION: Small pleural effusions. No acute findings in the thorax otherwise. Qualifiers - * PATIENT BEING DISCHARGED WITH ANY OF THE FOLLOWING DIAGNOSIS: No VTE patient discharged on overlapping Therapy?: Yes Plan Time Spent: Greater than 30 Minutes - Currently all stable Continues to current medications Following a 1 week in office Recheck the potassium Follow with the cardiology
[2018-10-05] MEDS: CEFTRIAXONE 1 GM/D5W RTU 1 GM/50 ML RTUPB IV SCH (17:02)
--- NOTE | 2018-10-05 19:22 | PDOC PROGRESS REPORT ---
Subjective Progress Note for:: 10/05/18 Subjective:: Patient was seen in the afternoon at lunchtime. She seems to be resting comfortably and is suspected to be discharged. Patient telemetry steps were reviewed. Patient maintaining normal sinus rhythm without any tachycardia or bradycardia episodes being noted. Patient is denying any chest arm or neck discomfort. Reason For Visit: PNEUMONIA Physical Exam Vital Signs: Temp Pulse Resp BP Pulse Ox 97.9 F 89 20 152/76 H 96 10/05/18 15:53 10/05/18 15:53 10/05/18 15:53 10/05/18 04:08 10/05/18 15:53 Intake & Output 10/04/18 10/05/18 10/06/18 06:59 06:59 06:59 Intake Total 50 1887 235 Balance 50 1887 235 Weight 55.3 kg 57.6 kg Exam: GEN: NAD, patient alert oriented x3. Appearance and grooming WNL HEENT : Eyes: ELIZABETH, Ears: No significant abnormalities, Nose: No significant abnormalities. normocephalic atraumatic. Flat midface (-), Receding chin (-) ORAL : Mallampati class III, highly arched palate (-) Tonsils: Not enlarged. NECK: no thyromegaly, no masses, trachea is central, JVD is not elevated, carotids are 2+ with bruit (-) RESP: lungs clear to auscultation bilaterally, no rales, wheezes or rhonchi., nonlabored, no use of accessory muscles of respiration CV: NL S1 and S2. 2/6 ejection systolic murmur noted in the aortic area and left sternal border. 1/6 pansystolic murmur noted at the apex. no S3, no S4 noted. No rub noted., gallops, rubs, clicks GI: abd NT to palpation, no masses, bowel sounds present, no guarding or rigidity noted. EXT: no clubbing, (-) cyanosis, edema (-), perpheral pulses diminished (+) MUSC/SKEL: Significant rheumatoid arthritic changes noted. Muscle strength is generally intact. NEURO: no tremors. no significant focal neurological deficits are noted., sen sation grossly intact, AO x 3 PSYCH: NL mood and affect. judgment and insight noted to be intact.. SKIN: (-) rash, (-)Signs of pruritus, (-) other significant abnormality Results Laboratory Results: 10/05/18 05:37 10/05/18 16:38 10/05/18 10/05/18 10/05/18 05:37 05:37 14:48 WBC 6.2 RBC 3.64 L Hgb 10.7 L Hct 31.3 L MCV 86 MCH 29.5 MCHC 34.3 RDW 13.8 Plt Count 156 Seg Neutrophils % 81.7 H Lymphocytes % 11.7 L Monocytes % 6.4 Eosinophils % 0.0 Basophils % 0.2 Absolute Neutrophils 5.1 Absolute Lymphocytes 0.7 Absolute Monocytes 0.4 Absolute Eosinophils 0.0 Absolute Basophils 0.0 Sodium 139.0 Potassium 3.3 L Cancelled Chloride 111 H Carbon Dioxide 26 Anion Gap 2 L BUN 4 L Creatinine 0.45 L Est GFR ( Amer) > 60 Est GFR (Non-Af Amer) > 60 Glucose 131 H Calcium 7.7 L Total Bilirubin 0.5 AST 16 ALT 18 Alkaline Phosphatase 55 Total Protein 5.2 L Albumin 2.6 L 10/05/18 16:38 WBC RBC Hgb Hct MCV MCH MCHC RDW Plt Count Seg Neutrophils % Lymphocytes % Monocytes % Eosinophils % Basophils % Absolute Neutrophils Absolute Lymphocytes Absolute Monocytes Absolute Eosinophils Absolute Basophils Sodium Potassium 3.5 L Chloride Carbon Dioxide Anion Gap BUN Creatinine Est GFR ( Amer) Est GFR (Non-Af Amer) Glucose Calcium Total Bilirubin AST ALT Alkaline Phosphatase Total Protein Albumin 10/03/18 23:49 Blood Blood Culture - Final Bacillus Sp. Not Anthracis 10/04/18 09:00 Sputum Gram Stain - Final 10/04/18 09:00 Sputum Sputum Culture - Final Impressions: Chest X-Ray 10/03/18 23:58 IMPRESSION: Chronic blunting of the costophrenic angles bilaterally consistent with tiny effusions and/or pleural thickening. Lungs are otherwise clear copyright 2011 [employer]- All Rights Reserved Chest CT 10/04/18 00:00 IMPRESSION: Small pleural effusions. No acute findings in the thorax otherwise. Assessment & Plan - Diagnosis (1) Hypotensive episode Is this a current diagnosis for this admission?: Yes (2) Insufficiency adrenal cortex Is this a current diagnosis for this admission?: Yes (3) Tachycardia Is this a current diagnosis for this admission?: Yes - Notes Notes: Hypotension: Most likely related to adrenal cortical insufficiency, made worse by antihypertensive medication especially LUIS inhibitors and other antihypertensive along with volume depletion, relative. Agree with IV fluid infusion.Patient blood pressure has improved. Heart rate has also improved. Recommend continuing steroids. Tachycardia: [place] to be inappropriate. Agree with Cardizem CD 60 mg p.o. every 8 hours. Patient has done well on this dose and has maintained good heart rate. Therefore will recommend continuing with this dose, if needed will consider cardiac event monitor as an outpatient. Adrenal cortical insufficiency: Most likely related to chronic suppression from steroid therapy needed for rheumatoid arthritis. Agree with enhanced supplementation of steroids. 2D echocardiogram performed showed normal LVEF. No significant stenosis or other valvular abnormalities noted.. - Time Time with patient: Greater than 35 minutes Medications reviewed and adjusted accordingly: Yes
== END 2018-10-05 17:40 | disposition home or self-care (01) | DRG 194 ==
LOC: ER 23:20 → EH 10-04 03:38 → 3S 10-04 05:15
PROVIDERS: ADMIT Family Medicine; ATTEND Family Medicine
DX: J18.9 Pneumonia, unspecified organism (principal); E27.40 Unspecified adrenocortical insufficiency; I95.9 Hypotension, unspecified; G89.4 Chronic pain syndrome; E87.6 Hypokalemia; I48.91 Unspecified atrial fibrillation; I10 Essential (primary) hypertension; K21.9 Gastro-esophageal reflux disease without esophagitis; F32.9 Major depressive disorder, single episode, unspecified; D64.9 Anemia, unspecified; M06.89 Other specified rheumatoid arthritis, multiple sites; Z86.14 Personal history of Methicillin resistant Staphylococcus aureus infection; Z86.711 Personal history of pulmonary embolism; Z79.899 Other long term (current) drug therapy; Z79.52 Long term (current) use of systemic steroids; Z79.01 Long term (current) use of anticoagulants; Z90.710 Acquired absence of both cervix and uterus; Z83.3 Family history of diabetes mellitus; Z82.49 Family history of ischemic heart disease and other diseases of the circulatory system
CPT/HCPCS: 36415; 71045; 71250; 80053; 81001; 82533; 82803; 83605; 84132; 85025; 87040; 87070; 87077; 87086; 87205; 87804; 93005; 93010; 93306; J0456; J0696; J1720; J3490; J7030; J7060; J7512

== ENCOUNTER 2019-11-27 15:08 | Inpatient (IN) | payer MEDICARE, MEDICAID ==
[2019-11-27] MEDS ORDERED: NORMAL SALINE 1000 ML 1,000 ML IV ONE ×2 (15:35→17:02)
[2019-11-27] MEDS ORDERED: ONDANSETRON HCL INJ/PF 4 MG/2 ML SDV IV ONE (15:35)
--- NOTE | 2019-11-27 15:37 | ER Document Report ---
ED Medical Screen (RME) - General Stated Complaint: HEART PALPITATIONS/VOMITING Time Seen by Provider: 11/27/19 15:30 Primary Care Provider: MARY LOU OLEA MD [Primary Care Provider] - Follow up as needed Mode of Arrival: Wheelchair Information source: Patient Notes: Patient is a 69-year-old female with significant comorbidities presenting to the emergency department chief complaint of hypotension, tachycardia and vomiting. Patient apparently lives in [place] but her daughter brings her to [place] to see her primary care provider who is Dr. Olea. Apparently she saw Dr. Olea today for medication refills and he referred her to treat the emergency department for her current symptoms. Her daughter denies her having any episodes of diarrhea or fever. She states that she has been recurrently vomiting and has had decreased intake and decreased number of wet diapers per day. Patient is spitting into a bag in triage, no active vomiting noted during triage. Patient is not answering questions, she does have a history of stroke. I have greeted and performed a rapid initial assessment of this patient. A comprehensive ED assessment and evaluation of the patient, analysis of test results and completion of the medical decision making process will be conducted by additional ED providers. I have specifically instructed the patient or family members with the patient to immediately return to any nursing staff should anything change in the patient's condition or with their chief complaint. TRAVEL OUTSIDE OF THE [place] IN LAST 30 DAYS: No - Related Data Allergies/Adverse Reactions: No Known Allergies Allergy (Verified 10/03/18 13:43) Past Medical History - Past Medical History Cardiac Medical History: Reports: Hx Atrial Fibrillation, Hx Hypertension, Hx Pulmonary Embolism Pulmonary Medical History: Reports: Hx Pneumonia Denies: Hx Tuberculosis Neurological Medical History: Denies: Hx Seizures Renal/ Medical History: Denies: Hx Peritoneal Dialysis GI Medical History: Reports: Hx Gastroesophageal Reflux Disease Musculoskeltal Medical History: Reports Hx Arthritis - RA Skin Medical History: Reports Hx MRSA - CURRENTLY HAS SENSATION OF ABSCESS DEVELOPING UNDER THE LEFT ARM Psychiatric Medical History: Reports: Hx Depression Traumatic Medical History: Reports: Hx Fractures - T10 COMP FX, ACUTE R SHOULDER AND CLAVICLE FX Past Surgical History: Reports: Hx Appendectomy, Hx Hysterectomy, Hx Oral Surgery, Hx Orthopedic Surgery - foot surgery - Immunizations Immunizations up to date: Yes Hx Diphtheria, Pertussis, Tetanus Vaccination: Yes Physical Exam - Vital signs Vitals: Temp Pulse Resp BP Pulse Ox 97.9 F 124 H 22 H 82/57 L 96 11/27/19 15:28 11/27/19 15:28 11/27/19 15:28 11/27/19 15:28 11/27/19 15:28 Course - Vital Signs Vital signs: Temp Pulse Resp BP Pulse Ox 97.9 F 124 H 22 H 82/57 L 96 11/27/19 15:28 11/27/19 15:28 11/27/19 15:28 11/27/19 15:28 11/27/19 15:28 Doctor's Discharge - Discharge Referrals: MARY LOU OLEA MD [Primary Care Provider] - Follow up as needed
[2019-11-27 16:19] LABS: VENOUS BLOOD BASE EXCESS -7.4 mmol/L; VENOUS BLOOD HCO3 21.1 mmol/L (20-32); VENOUS BLOOD PCO2 55.1 mmHg (35-63); VENOUS BLOOD PH 7.2 (7.30-7.42)
[2019-11-27 16:22] LABS: ABSOLUTE BASOPHILS # (AUTO) 0.1 10^3/uL (0.0-0.2); ABSOLUTE LYMPHOCYTES (AUTO) 3.1 10^3/uL (0.5-4.7); ABSOLUTE MONOCYTES (AUTO) 1.1 10^3/uL (0.1-1.4); BASOPHILS % (AUTO) 1.1 % (0-2); EOSINOPHILS % (AUTO) 0.1 % (0-6); HEMOGLOBIN 12.9 g/dL (12.0-15.5); LYMPHOCYTES % (AUTO) 37.5 % (13-45); MEAN CORPUSCULAR HEMOGLOBIN 27.1 pg (27.0-33.4); MEAN CORPUSCULAR VOLUME 82 fl (80-97); MONOCYTES % (AUTO) 12.8 % (3-13); PLATELET COUNT 244 10^3/uL (150-450); RED BLOOD COUNT 4.75 10^6/uL (3.72-5.28); RED CELL DISTRIBUTION WIDTH 15.7 % (11.5-14.0); SEGMENTED NEUTROPHILS % (AUTO) 48.5 % (42-78); TOTAL CELLS COUNTED % (AUTO) 100 %; WHITE BLOOD COUNT 8.2 10^3/uL (4.0-10.5)
[2019-11-27 16:28] LABS: INTERNATIONAL RATION (INR) 1.27
--- NOTE | 2019-11-27 16:36 | RADIOLOGY REPORT (SQ) ---
EXAM DESCRIPTION: CHEST SINGLE VIEW COMPLETED DATE/TIME: 11/27/2019 4:13 pm REASON FOR STUDY: cough COMPARISON: 10/04/2018 EXAM PARAMETERS: NUMBER OF VIEWS: One view. TECHNIQUE: Single frontal radiographic view of the chest acquired. RADIATION DOSE: NA LIMITATIONS: None. FINDINGS: LUNGS AND PLEURA: No opacities, masses or pneumothorax. No pleural effusion. MEDIASTINUM AND HILAR STRUCTURES: Stable appearance. HEART AND VASCULAR STRUCTURES: Stable appearance. Normal vasculature. BONES: The osseous structures are stable in appearance. Nonunited proximal left humerus fracture. Mild interval resorption of the medial aspect of the proximal fracture. Marked deformity proximal ri ght humerus and distal clavicles bilaterally, chronic changes. HARDWARE: None in the chest. OTHER: No other significant finding. IMPRESSION: 1. No significant interval changes since the prior study dated 10/04/2018. No acute fin dings. TECHNICAL DOCUMENTATION: JOB ID: [id number] 2010 [employer]- All Rights Reserved Reading location - IP/workstation name: [email or web address]
[2019-11-27 16:37] LABS: ALBUMIN 3.1 g/dL (3.5-5.0); ALKALINE PHOSPHATASE 58 U/L (38-126); ANION GAP 12 (5-19); ASPARTATE AMINO TRANSFERASE 36 U/L (14-36); BILIRUBIN,DIRECT 0.2 mg/dL (0.0-0.4); BILIRUBIN,TOTAL 0.5 mg/dL (0.2-1.3); BLOOD UREA NITROGEN 22 mg/dL (7-20); CALCIUM 8.7 mg/dL (8.4-10.2); CARBON DIOXIDE 22 mmol/L (22-30); CHLORIDE 102 mmol/L (98-107); GLUCOSE 100 mg/dL (75-110); POTASSIUM 4.5 mmol/L (3.6-5.0); TOTAL PROTEIN 6.7 g/dL (6.3-8.2)
--- NOTE | 2019-11-27 17:03 | ER Document Report ---
ED General - General Chief Complaint: Vomiting Stated Complaint: HEART PALPITATIONS/VOMITING Time Seen by Provider: 11/27/19 15:30 Primary Care Provider: MARY LOU OLEA MD [Primary Care Provider] - Follow up as needed Mode of Arrival: Wheelchair Information source: Patient TRAVEL OUTSIDE OF THE [place] IN LAST 30 DAYS: No - HPI Onset: Other - over the last several days Onset/Duration: Gradual Quality of pain: Achy Severity: Mild Pain Level: 1 Associated symptoms: Diarrhea, Nausea, Weakness Exacerbated by: Food Relieved by: Denies Similar symptoms previously: No Recently seen / treated by doctor: Yes - patient has been diagnosed with a UTI recently Notes: 69 year old female with a history of RA on Chronic Steroids, Chronic Pain, AFib, PE, HTN, GERD, Arthritis, Depression here for generalized weakness, nausea, vomiting. The patient was apparently recently diagnosed with a UTI and she finished a course of antibiotics. The patient was at her PCPs office today and she was sent to the ER since she was found to be hypotensive, tachycardic and weak. The patient is not much of historian so most of history was obtained from Dr. Olea (patient's PCP) who I spoke to on the phone. - Related Data Allergies/Adverse Reactions: No Known Allergies Allergy (Verified 10/03/18 13:43) Past Medical History - General Information source: Patient - Social History Smoking Status: Never Smoker Family History: Reviewed & Not Pertinent, DM, Hypertension Patient has suicidal ideation: No Patient has homicidal ideation: No - Past Medical History Cardiac Medical History: Reports: Hx Atrial Fibrillation, Hx Hypertension, Hx Pulmonary Embolism Pulmonary Medical History: Reports: Hx Pneumonia Denies: Hx Tuberculosis Neurological Medical History: Denies: Hx Seizures Renal/ Medical History: Denies: Hx Peritoneal Dialysis GI Medical History: Reports: Hx Gastroesophageal Reflux Disease Musculoskeletal Medical History: Reports Hx Arthritis - RA Skin Medical History: Reports Hx MRSA - CURRENTLY HAS SENSATION OF ABSCESS DEVELOPING UNDER THE LEFT ARM Psychiatric Medical History: Reports: Hx Depression Traumatic Medical History: Reports: Hx Fractures - T10 COMP FX, ACUTE R SHOULDER AND CLAVICLE FX Past Surgical History: Reports: Hx Appendectomy, Hx Hysterectomy, Hx Oral Surgery, Hx Orthopedic Surgery - foot surgery - Immunizations Immunizations up to date: Yes Hx Diphtheria, Pertussis, Tetanus Vaccination: Yes Review of Systems - Review of Systems Constitutional: Weakness, Other - poor PO intake EENT: No symptoms reported Cardiovascular: No symptoms reported Respiratory: No symptoms reported Gastrointestinal: Nausea, Vomiting Genitourinary: No symptoms reported Female Genitourinary: No symptoms reported Musculoskeletal: No symptoms reported Skin: No symptoms reported Hematologic/Lymphatic: No symptoms reported Neurological/Psychological: Weakness, Other - altred mental status -: Yes All other systems reviewed and negative Physical Exam - Vital signs Vitals: Temp Pulse Resp BP Pulse Ox 97.9 F 124 H 22 H 82/57 L 96 11/27/19 15:28 11/27/19 15:28 11/27/19 15:28 11/27/19 15:28 11/27/19 15:28 - Notes Notes: GENERAL: Chronically ill-appearing, well-nourished and in no acute distress. HEAD: Atraumatic, normocephalic. EYES: Pupils equal round and reactive to light, extraocular movements intact, sclera anicteric, conjunctiva are normal. ENT: Nares patent, oropharynx clear without exudates. Moist mucous membranes. NECK: Normal range of motion, supple without lymphadenopathy or JVD. LUNGS: Breath sounds clear to auscultation bilaterally and equal. No wheezes rales or rhonchi. HEART: Regular rate and rhythm without murmurs, rubs or gallops. ABDOMEN: Soft, nontender, normoactive bowel sounds. No guarding, no rebound. No masses appreciated. EXTREMITIES: Normal range of motion, no pitting or edema. No clubbing or cyanosis. NEUROLOGICAL: No focal deficits. Normal speech, normal gait. PSYCH: Normal mood, normal affect. SKIN: Warm, Dry, normal turgor, no rashes or lesions noted. Course - Re-evaluation Re-evalutation: 11/27/19 18:46 The patient has ESPERANZA and initially she was hypotensive and tachycardic. The patient likely has ESPERANZA due to poor PO intake but an infectious process is possible. Chest Xray shows no acute process but UA is still pending. Patient is on chronic steroids due to RA so will give stress does steroids (hydrocortisone) along with fluids. Patient's BP improved with fluids. Patient admitted to [facility] by Dr. Olea. Dr. Olea requested a head and abd/pelvis CT which were all negative. Dr. Olea also requested 1g of Cefepime to be given. - Vital Signs Vital signs: Temp Pulse Resp BP Pulse Ox 97.9 F 124 H 14 119/73 99 11/27/19 15:28 11/27/19 15:28 11/27/19 18:30 11/27/19 18:30 11/27/19 17:15 - Laboratory Result Diagrams: 11/27/19 16:03 11/27/19 16:03 Laboratory results interpreted by me: 11/27/19 11/27/19 11/27/19 16:03 16:03 16:03 RDW 15.7 H PT 16.0 H VBG pH Sodium 136.4 L BUN 22 H Creatinine 2.33 H Est GFR ( Amer) 25 L Est GFR (MDRD) Non-Af 21 L Lactic Acid Albumin 3.1 L 11/27/19 11/27/19 16:03 16:03 RDW PT VBG pH 7.20 L Sodium BUN Creatinine Est GFR ( Amer) Est GFR (MDRD) Non-Af Lactic Acid 2.3 H Albumin - Diagnostic Test Radiology reviewed: Image reviewed, Reports reviewed - EKG Interpretation by Me EKG shows normal: Sinus rhythm, [place], Intervals Rate: Tachycardia Additional EKG results interpreted by me: 11/27/19 17:25 T wave inversions in I, II, aVL, aVF, V3-V6 Discharge - Discharge Clinical Impression: Dehydration Acute kidney failure Qualifiers: Acute renal failure type: unspecified Qualified Code(s): N17.9 - Acute kidney failure, unspecified Condition: Stable Disposition: ADMITTED INPATIENT Admitting Provider: Chevy Unit Admitted: IMCU Referrals: MARY LOU OLEA MD [Primary Care Provider] - Follow up as needed
--- NOTE | 2019-11-27 17:49 | RADIOLOGY REPORT (SQ) ---
EXAM DESCRIPTION: CT HEAD WITHOUT COMPLETED DATE/TIME: 11/27/2019 5:30 pm REASON FOR STUDY: eval for altered mental status COMPARISON: Multiple previous since 02/19/2016, most recently 04/19/2018 TECHNIQUE: Axial images acquired through the brain without intravenous contrast. Images reviewed wi th bone, brain and subdural windows. Additional sagittal and coronal reconstructions were generated. Images stored on PACS. All CT scanners at this facility use dose modulation, iterative reconstruction, and/or weight based d osing when appropriate to reduce radiation dose to as low as reasonably achievable (ALARA). [facility]: Dose Right [facility]: CareDose [facility]: Dose Right [facility]: Teradose 4D [facility]: Smart [employer] RADIATION DOSE: CT Rad equipment meets quality standard of care and radiation dose reduction techniq ues were employed. CTDIvol: 55.2 mGy. DLP: 1112 mGy-cm. mGy. LIMITATIONS: None. FINDINGS: VENTRICLES: Normal size and contour. CEREBRUM: No CT evidence of acute large territory ischemic change, acute intracranial hemorrhage, mas s effect, or midline shift. 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 CEREBELLUM: No masses. No hemorrhage. No alteration of density. No evidence for acute infarction. EXTRAAXIAL SPACES: No fluid collections. No masses. ORBITS AND GLOBE: No intra- or extraconal masses. Normal contour of globe without masses. CALVARIUM: No fracture. Old occipital cervical fusion. PARANASAL SINUSES: No fluid or mucosal thickening. SOFT TISSUES: No mass or hematoma. OTHER: No other significant finding. IMPRESSION: No acute findings EVIDENCE OF ACUTE STROKE: NO. COMMENT: Quality ID # 436: Final reports with documentation of one or more dose reduction techniques (e.g., Automated exposure control, adjustment of the mA and/or kV according to patient size, use of iterative reconstruction technique) TECHNICAL DOCUMENTATION: JOB ID: [id number] 2010 [employer]- All Rights Reserved Reading location - IP/workstation name: [email or web address]
[2019-11-27] MEDS ORDERED: HYDROCORTISONE SOD SUCCINATE INJ/PF 100 MG/2 ML SDV IV ONE (18:42)
[2019-11-27] MEDS ORDERED: CEFEPIME 1 GM/D5W RTU 1 GM/50 ML RTUPB IV ONE (18:50)
[2019-11-27] MEDS ORDERED: ACETAMINOPHEN 325 MG TABLET PO PRN (19:05)
[2019-11-27] MEDS ORDERED: LEVALBUTEROL HCL NEB 1.25 MG/3 ML AMPUL NEB PRN (19:05)
[2019-11-27] MEDS ORDERED: ONDANSETRON HCL INJ/PF 4 MG/2 ML SDV IV PRN (19:05)
[2019-11-27 19:56] LABS: A TYPE INFLUENZA AG NEGATIVE (NEGATIVE); B INFLUENZA AG NEGATIVE (NEGATIVE)
--- NOTE | 2019-11-27 20:03 | EKG REPORT ---
SEVERITY:- ABNORMAL ECG - SINUS TACHYCARDIA ABNORMAL T, CONSIDER ISCHEMIA, DIFFUSE LEADS : Confirmed by: Ammy Page MD 27-Nov-2019 20:02:57
[2019-11-27 20:48] LABS: APPEARANCE,URINE SLIGHTLY-CLOUDY; BILIRUBIN,URINE NEGATIVE (NEGATIVE); COLOR,URINE YELLOW; GLUCOSE, URINE NEGATIVE (NEGATIVE); KETONES,URINE TRACE mg/dL (NEGATIVE); LEUKOCYTE ESTERASE,URINE LARGE (NEGATIVE); NITRITE,URINE POSITIVE (NEGATIVE); PROTEIN,URINE NEGATIVE (NEGATIVE); URINE SPECIFIC GRAVITY 1.011; UROBILINOGEN,URINE NEGATIVE mg/dL (<2.0)
--- NOTE | 2019-11-27 20:50 | RADIOLOGY REPORT (SQ) ---
EXAM DESCRIPTION: CT ABDOMEN PELVIS WITHOUT IV CONTRAST COMPLETED DATE/TME: 11/27/2019 00:00 CLINICAL HISTORY: 69 years, Female, abd pain COMPARISON: Prior study from 04/20/2018 TECHNIQUE: Noncontrast CT of the abdomen/pelvis was acquired. Coronal and sagittal reformations were created. Images stored on PACS. All CT scanners at this facility use dose modulation, iterative reconstruction, and/or weight based dosing when appropriate to reduce radiation dose to as low as reasonably achievable (ALARA). [facility]: Dose Right [facility]: CareDose [facility]: Dose Right [facility]: Teradose 4D [facility]: [employer] LIMITATIONS: None. FINDINGS: Limited evaluation of the lower chest reveals trace bilateral pleural effusions with associated bibasilar consolidation. Calcifications are noted about the thoracic aorta. There is a trace pericardial effusion. Small hiatal hernia is noted. The liver, spleen, pancreas, and both adrenal glands appear normal. Intermediate density layers dependently within the gallbladder lumen, most likely corresponding to sludge. A few fluid density lesions are noted about both kidneys, incompletely assessed on this noncontrast study though statistically corresponding to simple renal cysts. In addition, there is coarse calcification located about the lower pole of the left kidney measuring 0.8 x 0.6 cm in size, corresponding to nephrolithiasis. Associated cortical scarring is noted in this region. No hydronephrosis. The urinary bladder is well distended and shows no suspicious finding. The small and large bowel appear normal in caliber. No areas of focal wall thickening. No evidence of bowel obstruction. Calcifications are evident about the abdominal aorta and proximal iliac vessels. Uterus is absent. Neither ovary is well visualized. No suspicious lymphadenopathy is appreciated. Bone windows show osteopenia. In addition, there is moderate compression deformity involving the T11 vertebral body, unchanged from 04/20/2018, and considered chronic. No destructive osseous lesions. However, there is osteopenia. A few sclerotic foci are noted about the left iliac wing and left femoral head, indicative of benign bone islands. IMPRESSION: No acute abnormality within the abdomen or pelvis. Trace bilateral pleural effusions with associated bibasilar consolidation. Consider atelectasis or pneumonia to include aspiration. Nonobstructive left nephrolithiasis with associated overlying cortical scarring. TECHNICAL DOCUMENTATION: Quality ID # 436: Final reports with documentation of one or more dose reduction techniques (e.g., Automated exposure control, adjustment of the mA and/or kV according to patient size, use of iterative reconstruction technique) copyright 2010 [employer]- All Rights Reserved
[2019-11-27] MEDS: NORMAL SALINE 1000 ML 1,000 ML IV PRN (21:32)
[2019-11-27] MEDS: CEFEPIME 1 GM/D5W RTU 1 GM/50 ML RTUPB IV SCH (21:34)
[2019-11-27] MEDS: HYDROCORTISONE SOD SUCCINATE INJ/PF 100 MG/2 ML SDV IV SCH (22:12)
[2019-11-27 22:20] LABS: ANION GAP 8 (5-19); BLOOD UREA NITROGEN 18 mg/dL (7-20); CALCIUM 7.8 mg/dL (8.4-10.2); CARBON DIOXIDE 19 mmol/L (22-30); CHLORIDE 110 mmol/L (98-107); GLUCOSE 96 mg/dL (75-110); POTASSIUM 4.9 mmol/L (3.6-5.0)
[2019-11-27] MEDS ORDERED: INFLUENZA QUAD (6MOS+) 2019-20 VAC 0.5 ML SYR IM ONE (23:22)
[2019-11-27] MEDS: OXYCODONE HCL IR 5 MG TABLET PO PRN (23:37)
[2019-11-28] MEDS: HYDROCORTISONE SOD SUCCINATE INJ/PF 100 MG/2 ML SDV IV SCH ×3 (05:16→21:18)
[2019-11-28] MEDS: PANTOPRAZOLE SODIUM 40 MG TABLET.DR PO SCH ×2 (05:16→17:05)
[2019-11-28 06:35] LABS: ABSOLUTE LYMPHOCYTES (AUTO) 0.5 10^3/uL (0.5-4.7); ABSOLUTE MONOCYTES (AUTO) 0.1 10^3/uL (0.1-1.4); ABSOLUTE NEUT (AUTO) 3.6 10^3/uL (1.7-8.2); BASOPHILS % (AUTO) 0.6 % (0-2); EOSINOPHILS % (AUTO) 0.1 % (0-6); HEMATOCRIT 36.1 % (36.0-47.0); HEMOGLOBIN 12.2 g/dL (12.0-15.5); LYMPHOCYTES % (AUTO) 12.8 % (13-45); MEAN CORPUSCULAR HEMOGLOBIN 27.4 pg (27.0-33.4); MEAN CORPUSCULAR HGB CONC 33.8 g/dL (32.0-36.0); MEAN CORPUSCULAR VOLUME 81 fl (80-97); MONOCYTES % (AUTO) 2.5 % (3-13); PLATELET COUNT 218 10^3/uL (150-450); RED BLOOD COUNT 4.46 10^6/uL (3.72-5.28); RED CELL DISTRIBUTION WIDTH 15.4 % (11.5-14.0); TOTAL CELLS COUNTED % (AUTO) 100 %; WHITE BLOOD COUNT 4.3 10^3/uL (4.0-10.5)
--- NOTE | 2019-11-28 10:17 | PDOC PROGRESS REPORT ---
Subjective Progress Note for:: 11/28/19 Subjective:: Patient is feeling much better not lethargic anymore more appropriate the answer the questions today Patient's denied any chest pain no short of breath No abdominal pain Patient CT of the head was negative CT abdomen and pelvis did not show any significant finding Reason For Visit: ACUTE RENAL FAILURE Physical Exam Vital Signs: Temp Pulse Resp BP Pulse Ox 98.1 F 93 18 160/97 H 99 11/28/19 08:10 11/28/19 08:10 11/28/19 08:10 11/28/19 08:10 11/28/19 08:10 Intake & Output 11/27/19 11/28/19 11/29/19 06:59 06:59 06:59 Intake Total 2100 Balance 2100 Weight 44.6 kg General appearance: PRESENT: no acute distress Head exam: PRESENT: atraumatic, normocephalic Eye exam: PRESENT: conjunctiva pink, EOMI, PERRLA. ABSENT: scleral icterus Ear exam: PRESENT: normal external ear exam Mouth exam: PRESENT: moist, tongue midline Neck exam: PRESENT: full ROM. ABSENT: carotid bruit, JVD, lymphadenopathy, thyromegaly Respiratory exam: PRESENT: decreased breath sounds Cardiovascular exam: PRESENT: RRR. ABSENT: diastolic murmur, rubs, systolic murmur Vascular exam: PRESENT: normal capillary refill GI/Abdominal exam: PRESENT: normal bowel sounds, soft. ABSENT: distended, guarding, mass, organolmegaly, rebound, tenderness Rectal exam: PRESENT: deferred Neurological exam: PRESENT: alert, awake, oriented to person, oriented to place. ABSENT: motor sensory deficit Psychiatric exam: PRESENT: appropriate affect, normal mood. ABSENT: homicidal ideation, suicidal ideation Skin exam: PRESENT: dry, intact, warm. ABSENT: cyanosis, rash Results Laboratory Results: 11/28/19 04:19 11/27/19 21:50 11/27/19 11/27/19 11/27/19 16:03 16:03 16:03 WBC 8.2 RBC 4.75 Hgb 12.9 Hct 39.0 MCV 82 MCH 27.1 MCHC 33.0 RDW 15.7 H Plt Count 244 Seg Neutrophils % 48.5 VBG pH 7.20 L VBG pCO2 55.1 VBG HCO3 21.1 VBG Base Excess -7.4 Sodium 136.4 L Potassium 4.5 Chloride 102 Carbon Dioxide 22 Anion Gap 12 BUN 22 H Creatinine 2.33 H Est GFR ( Amer) 25 L Glucose 100 Lactic Acid Calcium 8.7 Magnesium Total Bilirubin 0.5 AST 36 Alkaline Phosphatase 58 Total Protein 6.7 Albumin 3.1 L Urine Color Urine Appearance Urine pH Ur Specific [place] Urine Protein Urine Glucose (UA) Urine Ketones Urine Blood Urine Nitrite Ur Leukocyte Esterase Urine WBC (Auto) Urine RBC (Auto) 11/27/19 11/27/19 11/27/19 16:03 19:18 20:18 WBC RBC Hgb Hct MCV MCH MCHC RDW Plt Count Seg Neutrophils % VBG pH VBG pCO2 VBG HCO3 VBG Base Excess Sodium Potassium Chloride Carbon Dioxide Anion Gap BUN Creatinine Est GFR ( Amer) Glucose Lactic Acid 2.3 H 2.0 Calcium Magnesium Total Bilirubin AST Alkaline Phosphatase Total Protein Albumin Urine Color YELLOW Urine Appearance SLIGHTLY-CLOUDY Urine pH 5.0 Ur Specific [place] 1.011 Urine Protein NEGATIVE Urine Glucose (UA) NEGATIVE Urine Ketones TRACE H Urine Blood MODERATE H Urine Nitrite POSITIVE H Ur Leukocyte Esterase LARGE H Urine WBC (Auto) 51 Urine RBC (Auto) 11/27/19 11/27/19 11/28/19 21:50 21:50 04:19 WBC 4.3 RBC 4.46 Hgb 12.2 Hct 36.1 MCV 81 MCH 27.4 MCHC 33.8 RDW 15.4 H Plt Count 218 Seg Neutrophils % 84.0 H VBG pH VBG pCO2 VBG HCO3 VBG Base Excess Sodium 137.4 Potassium 4.9 Chloride 110 H Carbon Dioxide 19 L Anion Gap 8 BUN 18 Creatinine 1.65 H Est GFR ( Amer) 38 L Glucose 96 Lactic Acid 1.2 Calcium 7.8 L Magnesium Total Bilirubin AST Alkaline Phosphatase Total Protein Albumin Urine Color Urine Appearance Urine pH Ur Specific [place] Urine Protein Urine Glucose (UA) Urine Ketones Urine Blood Urine Nitrite Ur Leukocyte Esterase Urine WBC (Auto) Urine RBC (Auto) 11/28/19 04:19 WBC RBC Hgb Hct MCV MCH MCHC RDW Plt Count Seg Neutrophils % VBG pH VBG pCO2 VBG HCO3 VBG Base Excess Sodium Potassium Chloride Carbon Dioxide Anion Gap BUN Creatinine Est GFR ( Amer) Glucose Lactic Acid Calcium Magnesium 1.8 Total Bilirubin AST Alkaline Phosphatase Total Protein Albumin Urine Color Urine Appearance Urine pH Ur Specific [place] Urine Protein Urine Glucose (UA) Urine Ketones Urine Blood Urine Nitrite Ur Leukocyte Esterase Urine WBC (Auto) Urine RBC (Auto) Impressions: Abdomen/Pelvis CT 11/27/19 00:00 IMPRESSION: No acute abnormality within the abdomen or pelvis. Trace bilateral pleural effusions with associated bibasilar consolidation. Consider atelectasis or pneumonia to include aspiration. Nonobstructive left nephrolithiasis with associated overlying cortical scarring. TECHNICAL DOCUMENTATION: Quality ID # 436: Final reports with documentation of one or more dose reduction techniques (e.g., Automated exposure control, adjustment of the mA and/or kV according to patient size, use of iterative reconstruction technique) copyright 2010 [employer]- All Rights Reserved Chest X-Ray 11/27/19 15:32 IMPRESSION: 1. No significant interval changes since the prior study dated 10/04/2018. No acute findings. Head CT 11/27/19 17:16 IMPRESSION: No acute findings EVIDENCE OF ACUTE STROKE: NO. Assessment & Plan - Diagnosis (1) Acute kidney failure Qualifiers: Acute renal failure type: unspecified Qualified Code(s): N17.9 - Acute kidney failure, unspecified Is this a current diagnosis for this admission?: Yes Plan: Continues the IV fluid (2) Dehydration Is this a current diagnosis for this admission?: Yes Plan: After receiving the IV fluid patient is feeling much better (3) Chronic pain syndrome Is this a current diagnosis for this admission?: Yes Plan: Is currently see a pain management (4) Hyperlipidemia Qualifiers: Is this a current diagnosis for this admission?: Yes (5) Hypertension Qualifiers: Hypertension type: essential hypertension Is this a current diagnosis for this admission?: Yes Plan: Is currently running was hypotensive yesterday currently getting better (6) Nausea and vomiting Qualifiers: Vomiting Intractability: unspecified Is this a current diagnosis for this admission?: Yes Plan: Currently all stable (7) Pneumonia Qualifiers: Pneumonia type: due to unspecified organism Is this a current diagnosis for this admission?: Yes Plan: Continues IV antibiotic (8) Rheumatoid arthritis Qualifiers: Laterality: unspecified laterality Is this a current diagnosis for this admission?: Yes Plan: Is currently see the [facility] (9) Urinary tract infection Qualifiers: Indwelling urinary catheter type: unspecified Is this a current diagnosis for this admission?: Yes Plan: Get the urine cultures continues to IV antibiotic (10) Hypotension Qualifiers: Hypotension type: unspecified hypotension type Qualified Code(s): I95.9 - Hypotension, unspecified Is this a current diagnosis for this admission?: Yes Plan: Most likely due to the related to the dehydration and acute renal failure and the sepsis currently all getting better's we will also give her the steroid stress dose due to the chronic steroid - Time Time Spent with patient: 25-34 minutes Level of Care: IMCU Medications reviewed and adjusted accordingly: Yes Anticipated discharge: Home Within: Other - Inpatient Certification Based on my medical assessment, after consideration of the patient's comorbi dities, presenting symptoms, or acuity I expect that the services needed warrant INPATIENT care.: Yes I certify that my determination is in accordance with my understanding of Medicare's requirements for reasonable and necessary INPATIENT services [42 CFR 412.3e].: Yes Medical Necessity: Significant Comorbidiites Make Outpatient Treatment Too Risky, Need For IV Fluids, Need for IV Antibiotics 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
[2019-11-28] MEDS: CEFEPIME 1 GM/D5W RTU 1 GM/50 ML RTUPB IV SCH ×2 (10:44→21:25)
[2019-11-28] MEDS: OXYCODONE HCL IR 5 MG TABLET PO PRN ×2 (12:00→23:45)
[2019-11-28] MEDS: AMLODIPINE BESYLATE 2.5 MG TABLET PO SCH ×2 (13:27→21:20)
[2019-11-28] MEDS: METOPROLOL SUCCINATE 25 MG TAB.SR.24H PO SCH ×2 (13:27→21:24)
[2019-11-28] MEDS: NORMAL SALINE 1000 ML 1,000 ML IV PRN (13:28)
--- NOTE | 2019-11-28 15:29 | PDOC H&P ---
History of Present Illness Admission Date/PCP: 11/27/19 19:41 MARY LOU OLEA MD History of Present Illness: LILLIE AMIN is a 69 year old female his is a 69-year-old female with a history of the significant rheumatoid arthritis currently see the [facility] currently on methotrexate and chronic prednisone history of the chronic pain syndrome due to the above conditions currently see pain management and oxycodone history of the pulmonary embolisms currently on Xarelto history of the cerebrovascular accident today's came to the office for the routine follow-up. Patient is currently live in [place]. In the office patient was throwing up and patient's little lethargic initial heart rate was 130 then coming down to the 74 range. Patient's blood pressure and oxygen's level is all stable Patient is alert awake but lethargic and I thinks mostly dehydrated due to the vomiting Patient according to the daughter have a cough and a cold symptoms for the last 3 days but no fever no contact with anybody patient is pretty much leve at home and a wheelchair bound Patient is denied any chest pain no short of breath no fever no abdominal pain no diarrhea At this point patient's directed to the emergency department for possible IV fluid and further evaluations with some blood work In the emergency department patient CT of the head was negative patient is in acute renal failure suggesting the acute dehydration's urinary tract infections and the pneumonia and admitting in the hospital for further evaluation and treatments Past Medical History Cardiac Medical History: Reports: Atrial Fibrillation, Hypertension, Pulmonary Embolism Pulmonary Medical History: Reports: Pneumonia Denies: Tuberculosis Neurological Medical History: Reports: Ischemic CVA Denies: Seizures GI Medical History: Reports: Gastroesophageal Reflux Disease Musculoskeltal Medical History: Reports: Arthritis - RA Musculoskeletal History Note: Severe rheumatoid arthritis with a significant deformity Psychiatric Medical History: Reports: Depression Hematology: Reports: Anemia Past Surgical History Past Surgical History: Reports: Appendectomy, Hysterectomy, Orthopedic Surgery - foot surgery Social History Information Source: Patient Smoking Status: Never Smoker Electronic Cigarette use?: No Frequency of Alcohol Use: None Hx Recreational Drug Use: No Drugs: None Hx Prescription Drug Abuse: No Family History Family History: Reviewed & Not Pertinent, DM, Hypertension Parental Family History Reviewed: Yes Children Family History Reviewed: Yes Sibling(s) Family History Reviewed.: Yes Medication/Allergy Home Medications: Clopidogrel Bisulfate [Plavix 75 mg Tablet] 75 mg PO DAILY 10/04/18 Diclofenac Sodium [Voltaren] 4 gm TP BID 10/04/18 Escitalopram Oxalate [Lexapro 10 mg Tablet] 10 mg PO DAILY 10/04/18 Fluticasone Propionate [Flonase Nasal [place] 50 Mcg/[place] 16 gm] 1 spray NASL BID 10/04/18 Folic Acid [Folvite 1 mg Tablet] 1 mg PO DAILY 10/04/18 Levocetirizine Dihydrochloride [Xyzal] 5 mg PO QPM 10/04/18 Lisinopril [Prinivil 40 mg Tablet] 40 mg PO DAILY 10/04/18 Methotrexate Sodium/Pf [Methotrexate 50 mg/2 ml Vial] 25 mg INJ WE@1000 10/04/18 Nystatin [Mycostatin 586468 Unit/1 ml Susp 60 ml Btl] 5 ml PO QID 10/04/18 Pantoprazole Sodium [Protonix] 40 mg PO QAM 10/04/18 Potassium Chloride 20 meq PO DAILY 10/04/18 Rivaroxaban [Xarelto] 20 mg PO DAILY 10/04/18 Meclizine HCl [Antivert 12.5 mg Tablet] 12.5 mg PO DAILYP PRN 11/28/19 Metoprolol Succinate [Toprol Xl 25 mg Tab.sr] 12.5 mg PO BID 11/28/19 Montelukast Sodium [Singulair 10 mg Tablet] 10 mg PO QPM 11/28/19 Oxycodone HCl [Oxy-Ir 5 mg Tablet] 10 mg PO Q8HP PRN 11/28/19 Prednisone [Deltasone 10 mg Tablet] 5 mg PO DAILY 11/28/19 Allergies/Adverse Reactions: No Known Allergies Allergy (Verified 10/03/18 13:43) Review of Systems Constitutional: PRESENT: chills. ABSENT: fever(s), headache(s), weight gain, weight loss Eyes: ABSENT: visual disturbances Ears: ABSENT: hearing changes Cardiovascular: ABSENT: chest pain, dyspnea on exertion, edema, orthropnea, palpitations Respiratory: PRESENT: cough. ABSENT: hemoptysis Gastrointestinal: PRESENT: vomiting. ABSENT: abdominal pain, constipation, leatha rrhea, hematemesis, hematochezia, nausea Genitourinary: ABSENT: dysuria, hematuria Musculoskeletal: ABSENT: joint swelling Integumentary: ABSENT: rash, wounds Neurological: ABSENT: abnormal gait, abnormal speech, confusion, dizziness, focal weakness, syncope Psychiatric: ABSENT: anxiety, depression, homidical ideation, suicidal ideation Endocrine: ABSENT: cold intolerance, heat intolerance, menstrual abnormalities, polydipsia, polyuria Hematologic/Lymphatic: ABSENT: easy bleeding, easy bruising, lymphadenopathy Physical Exam Vital Signs: Temp Pulse Resp BP Pulse Ox 97.5 F 110 H 18 178/102 H 97 11/28/19 11:36 11/28/19 11:36 11/28/19 11:36 11/28/19 11:36 11/28/19 11:36 Intake & Output 11/27/19 11/28/19 11/29/19 06:59 06:59 06:59 Intake Total 2100 1050 Balance 2100 1050 Weight 44.6 kg Physical Exam: Lethargic and ill-appearing General appearance: PRESENT: no acute distress Head exam: PRESENT: atraumatic, normocephalic Eye exam: PRESENT: conjunctiva pink, EOMI, PERRLA. ABSENT: scleral icterus Ear exam: PRESENT: normal external ear exam Mouth exam: PRESENT: dry mucosa, tongue midline Neck exam: PRESENT: full ROM. ABSENT: carotid bruit, JVD, lymphadenopathy, thyromegaly Respiratory exam: PRESENT: clear to auscultation lucas Cardiovascular exam: PRESENT: RRR. ABSENT: diastolic murmur, rubs, systolic murmur Pulses: PRESENT: normal dorsalis pedis pul, +2 pedal pulses bilateral Vascular exam: PRESENT: normal capillary refill GI/Abdominal exam: PRESENT: normal bowel sounds, soft. ABSENT: distended, guarding, mass, organolmegaly, rebound, tenderness Rectal exam: PRESENT: deferred Extremities exam: ABSENT: pedal edema Additional comments: Significant upper and lower extremity deformity from the rheumatoid arthritis Neurological exam: PRESENT: alert, awake, oriented to person, oriented to place. ABSENT: motor sensory deficit Psychiatric exam: PRESENT: appropriate affect, normal mood. ABSENT: homicidal ideation, suicidal ideation Skin exam: PRESENT: dry, intact, warm. ABSENT: cyanosis, rash Results Laboratory Results: 11/28/19 04:19 11/27/19 21:50 11/27/19 11/27/19 11/27/19 16:03 16:03 16:03 WBC 8.2 RBC 4.75 Hgb 12.9 Hct 39.0 MCV 82 MCH 27.1 MCHC 33.0 RDW 15.7 H Plt Count 244 Seg Neutrophils % 48.5 VBG pH 7.20 L VBG pCO2 55.1 VBG HCO3 21.1 VBG Base Excess -7.4 Sodium 136.4 L Potassium 4.5 Chloride 102 Carbon Dioxide 22 Anion Gap 12 BUN 22 H Creatinine 2.33 H Est GFR ( Amer) 25 L Glucose 100 Lactic Acid Calcium 8.7 Magnesium Total Bilirubin 0.5 AST 36 Alkaline Phosphatase 58 Total Protein 6.7 Albumin 3.1 L Urine Color Urine Appearance Urine pH Ur Specific [place] Urine Protein Urine Glucose (UA) Urine Ketones Urine Blood Urine Nitrite Ur Leukocyte Esterase Urine WBC (Auto) Urine RBC (Auto) 11/27/19 11/27/19 11/27/19 16:03 19:18 20:18 WBC RBC Hgb Hct MCV MCH MCHC RDW Plt Count Seg Neutrophils % VBG pH VBG pCO2 VBG HCO3 VBG Base Excess Sodium Potassium Chloride Carbon Dioxide Anion Gap BUN Creatinine Est GFR ( Amer) Glucose Lactic Acid 2.3 H 2.0 Calcium Magnesium Total Bilirubin AST Alkaline Phosphatase Total Protein Albumin Urine Color YELLOW Urine Appearance SLIGHTLY-CLOUDY Urine pH 5.0 Ur Specific [place] 1.011 Urine Protein NEGATIVE Urine Glucose (UA) NEGATIVE Urine Ketones TRACE H Urine Blood MODERATE H Urine Nitrite POSITIVE H Ur Leukocyte Esterase LARGE H Urine WBC (Auto) 51 Urine RBC (Auto) 11/27/19 11/27/19 11/28/19 21:50 21:50 04:19 WBC 4.3 RBC 4.46 Hgb 12.2 Hct 36.1 MCV 81 MCH 27.4 MCHC 33.8 RDW 15.4 H Plt Count 218 Seg Neutrophils % 84.0 H VBG pH VBG pCO2 VBG HCO3 VBG Base Excess Sodium 137.4 Potassium 4.9 Chloride 110 H Carbon Dioxide 19 L Anion Gap 8 BUN 18 Creatinine 1.65 H Est GFR ( Amer) 38 L Glucose 96 Lactic Acid 1.2 Calcium 7.8 L Magnesium Total Bilirubin AST Alkaline Phosphatase Total Protein Albumin Urine Color Urine Appearance Urine pH Ur Specific [place] Urine Protein Urine Glucose (UA) Urine Ketones Urine Blood Urine Nitrite Ur Leukocyte Esterase Urine WBC (Auto) Urine RBC (Auto) 11/28/19 04:19 WBC RBC Hgb Hct MCV MCH MCHC RDW Plt Count Seg Neutrophils % VBG pH VBG pCO2 VBG HCO3 VBG Base Excess Sodium Potassium Chloride Carbon Dioxide Anion Gap BUN Creatinine Est GFR ( Amer) Glucose Lactic Acid Calcium Magnesium 1.8 Total Bilirubin AST Alkaline Phosphatase Total Protein Albumin Urine Color Urine Appearance Urine pH Ur Specific [place] Urine Protein Urine Glucose (UA) Urine Ketones Urine Blood Urine Nitrite Ur Leukocyte Esterase Urine WBC (Auto) Urine RBC (Auto) Impressions: Abdomen/Pelvis CT 11/27/19 00:00 IMPRESSION: No acute abnormality within the abdomen or pelvis. Trace bilateral pleural effusions with associated bibasilar consolidation. Consider atelectasis or pneumonia to include aspiration. Nonobstructive left nephrolithiasis with associated overlying cortical scarring. TECHNICAL DOCUMENTATION: Quality ID # 436: Final reports with documentation of one or more dose reduction techniques (e.g., Automated exposure control, adjustment of the mA and/or kV according to patient size, use of iterative reconstruction technique) copyright 2011 [employer]- All Rights Reserved Chest X-Ray 11/27/19 15:32 IMPRESSION: 1. No significant interval changes since the prior study dated 10/04/2018. No acute findings. Head CT 11/27/19 17:16 IMPRESSION: No acute findings EVIDENCE OF ACUTE STROKE: NO. Assessment & Plan - Diagnosis (1) Sepsis Qualifiers: Sepsis type: sepsis due to unspecified organism Severe sepsis shock status: without septic shock Is this a current diagnosis for this admission?: Yes Plan: Most likely due to underlying urinary tract infections mostly urosepsis will start on IV fluid IV antibiotic get the blood culture urine culture (2) Acute kidney failure Qualifiers: Acute renal failure type: unspecified Qualified Code(s): N17.9 - Acute kidney failure, unspecified Is this a current diagnosis for this admission?: Yes Plan: Due to the significant underlying dehydration's and the urinary tract infections we start on IV fluids hold the lisinopril (3) Dehydration Is this a current diagnosis for this admission?: Yes Plan: Start the patient on IV fluid (4) Chronic pain syndrome Is this a current diagnosis for this admission?: Yes Plan: Patient currently see a pain management due to the significant rheumatoid arthritis (5) Hyperlipidemia Qualifiers: Is this a current diagnosis for this admission?: Yes Plan: Currently all stable continues to current medications (6) Hypertension Qualifiers: Hypertension type: essential hypertension Is this a current diagnosis for this admission?: Yes Plan: Patient is currently on a low blood pressures due to the dehydration's on the renal failure and the sepsis (7) Nausea and vomiting Qualifiers: Vomiting Intractability: unspecified Is this a current diagnosis for this admission?: Yes Plan: CT abdomen pelvis did not find any significant acute findings continues the IV fluid (8) Pneumonia Qualifiers: Pneumonia type: due to unspecified organism Is this a current diagnosis for this admission?: Yes Plan: Start the patient on IV antibiotic (9) Rheumatoid arthritis Qualifiers: Laterality: unspecified laterality Is this a current diagnosis for this admission?: Yes Plan: Patient is currently see the [facility] (10) Urinary tract infection Qualifiers: Indwelling urinary catheter type: unspecified Is this a current diagnosis for this admission?: Yes Plan: Start the patient on IV antibiotic (11) Hypotension Qualifiers: Hypotension type: unspecified hypotension type Qualified Code(s): I95.9 - H ypotension, unspecified Is this a current diagnosis for this admission?: Yes Plan: Most likely due to the sepsis will also start on IV fluid and patient on a chronic steroid we will give her we hydrocortisone (12) Pulmonary embolism Qualifiers: Chronicity: unspecified Acute cor pulmonale presence: without acute cor pulmonale Is this a current diagnosis for this admission?: Yes Plan: Continues on Xarelto - Time Time Spent: 50 to 70 Minutes Medications reviewed and adjusted accordingly: Yes Anticipated discharge: Home Within: Other - Inpatient Certification Based on my medical assessment, after consideration of the patient's comorbidities, presenting symptoms, or acuity I expect that the services needed warrant INPATIENT care.: Yes I certify that my determination is in accordance with my understanding of Medicare's requirements for reasonable and necessary INPATIENT services [42 CFR 412.3e].: Yes Medical Necessity: Significant Comorbidiites Make Outpatient Treatment Too Risky, Need Close Monitoring Due to Risk of Patient Decompensation, Need For IV Fluids, Need for IV Antibiotics Post Hospital Care: D/C Game Technician Documentation - Plan Summary Plan Summary: Admit the patient in IMCU discuss with the patient's daughter regarding the patient's current conditions
[2019-11-28] MEDS: MONTELUKAST SODIUM 10 MG TABLET PO SCH (17:05)
[2019-11-28] MEDS: HYDRALAZINE HCL INJ/PF 20 MG/1 ML SDV IV PRN (17:05)
[2019-11-28] MEDS: CETIRIZINE 5 MG TABLET PO SCH (17:05)
[2019-11-28] MEDS: FLUTICASONE NASAL SPRAY 50 MCG/SPRY 120 SPRAY/16 GM NASL SCH (17:14)
[2019-11-28] MEDS ORDERED: METOPROLOL SUCCINATE 25 MG TAB.SR.24H PO SCH (18:00)
[2019-11-29] MEDS: HYDRALAZINE HCL INJ/PF 20 MG/1 ML SDV IV PRN ×2 (04:07→23:23)
[2019-11-29 04:54] LABS: ABSOLUTE LYMPHOCYTES (AUTO) 0.7 10^3/uL (0.5-4.7); ABSOLUTE MONOCYTES (AUTO) 0.4 10^3/uL (0.1-1.4); ABSOLUTE NEUT (AUTO) 4.9 10^3/uL (1.7-8.2); BASOPHILS % (AUTO) 0.1 % (0-2); HEMATOCRIT 33.4 % (36.0-47.0); HEMOGLOBIN 11.4 g/dL (12.0-15.5); LYMPHOCYTES % (AUTO) 12.3 % (13-45); MEAN CORPUSCULAR HEMOGLOBIN 27.4 pg (27.0-33.4); MEAN CORPUSCULAR VOLUME 80 fl (80-97); MONOCYTES % (AUTO) 6.2 % (3-13); PLATELET COUNT 215 10^3/uL (150-450); RED BLOOD COUNT 4.16 10^6/uL (3.72-5.28); RED CELL DISTRIBUTION WIDTH 15.6 % (11.5-14.0); SEGMENTED NEUTROPHILS % (AUTO) 81.4 % (42-78); TOTAL CELLS COUNTED % (AUTO) 100 %; WHITE BLOOD COUNT 6.1 10^3/uL (4.0-10.5)
[2019-11-29] MEDS: HYDROCORTISONE SOD SUCCINATE INJ/PF 100 MG/2 ML SDV IV SCH (05:03)
[2019-11-29] MEDS: PANTOPRAZOLE SODIUM 40 MG TABLET.DR PO SCH ×2 (05:03→18:31)
[2019-11-29 09:03] LABS: ANION GAP 10 (5-19); BLOOD UREA NITROGEN 21 mg/dL (7-20); CALCIUM 8.4 mg/dL (8.4-10.2); CARBON DIOXIDE 17 mmol/L (22-30); CHLORIDE 111 mmol/L (98-107); GLUCOSE 129 mg/dL (75-110); POTASSIUM 4.7 mmol/L (3.6-5.0)
[2019-11-29] MEDS: PREDNISONE 10 MG TABLET PO SCH (09:48)
[2019-11-29] MEDS: LISINOPRIL 10 MG TABLET PO SCH (09:48)
[2019-11-29] MEDS: ESCITALOPRAM OXALATE 10 MG TABLET PO SCH (09:48)
[2019-11-29] MEDS: FOLIC ACID 1 MG TABLET PO SCH (09:48)
[2019-11-29] MEDS: METOPROLOL SUCCINATE 25 MG TAB.SR.24H PO SCH ×2 (09:49→21:06)
[2019-11-29] MEDS: OXYCODONE HCL IR 5 MG TABLET PO PRN ×2 (09:49→21:06)
[2019-11-29] MEDS: CEFEPIME 1 GM/D5W RTU 1 GM/50 ML RTUPB IV SCH ×2 (09:49→21:06)
[2019-11-29] MEDS: FLUTICASONE NASAL SPRAY 50 MCG/SPRY 120 SPRAY/16 GM NASL SCH ×2 (09:54→18:32)
[2019-11-29] MEDS ORDERED: CLOPIDOGREL BISULFATE 75 MG TABLET PO SCH (10:00)
--- NOTE | 2019-11-29 16:23 | PDOC PROGRESS REPORT ---
Subjective Progress Note for:: 11/29/19 Subjective:: Patient is currently doing well Patient's kidney function is back to the normal Patient urine cultures positive for gram-negative organisms still waiting for culture and sensitivity Patient's denied any chest pain no short of breath no fever His blood pressure is currently PRN medications we will restart the lisinopril while the kidney function is normal Reason For Visit: ACUTE RENAL FAILURE Physical Exam Vital Signs: Temp Pulse Resp BP Pulse Ox 98.0 F 90 16 144/88 H 91 L 11/29/19 11:32 11/29/19 11:32 11/29/19 11:32 11/29/19 11:32 11/29/19 11:32 Intake & Output 11/28/19 11/29/19 11/30/19 06:59 06:59 06:59 Intake Total 2100 1100 Balance 2100 1100 Weight 44.6 kg 45.9 kg General appearance: PRESENT: no acute distress, well-developed, well-nourished Head exam: PRESENT: atraumatic, normocephalic Eye exam: PRESENT: conjunctiva pink, EOMI, PERRLA. ABSENT: scleral icterus Ear exam: PRESENT: normal external ear exam Mouth exam: PRESENT: moist, tongue midline Neck exam: PRESENT: full ROM. ABSENT: carotid bruit, JVD, lymphadenopathy, thyromegaly Respiratory exam: PRESENT: clear to auscultation lucas Cardiovascular exam: PRESENT: RRR. ABSENT: diastolic murmur, rubs, systolic murmur Pulses: PRESENT: normal dorsalis pedis pul, +2 pedal pulses bilateral Vascular exam: PRESENT: normal capillary refill GI/Abdominal exam: PRESENT: normal bowel sounds, soft. ABSENT: distended, guarding, mass, organolmegaly, rebound, tenderness Rectal exam: PRESENT: deferred Neurological exam: PRESENT: alert, awake, oriented to person, oriented to place, oriented to time, oriented to situation, CN II-XII grossly intact. ABSENT: motor sensory deficit Psychiatric exam: PRESENT: appropriate affect, normal mood. ABSENT: homicidal ideation, suicidal ideation Skin exam: PRESENT: dry, intact, warm. ABSENT: cyanosis, rash Results Laboratory Results: 11/29/19 04:07 11/29/19 04:07 11/29/19 11/29/19 04:07 04:07 WBC 6.1 RBC 4.16 Hgb 11.4 L Hct 33.4 L MCV 80 MCH 27.4 MCHC 34.0 RDW 15.6 H Plt Count 215 Seg Neutrophils % 81.4 H Sodium 138.0 Potassium 4.7 Chloride 111 H Carbon Dioxide 17 L Anion Gap 10 BUN 21 H Creatinine 0.84 Est GFR ( Amer) > 60 Glucose 129 H Calcium 8.4 Impressions: Abdomen/Pelvis CT 11/27/19 00:00 IMPRESSION: No acute abnormality within the abdomen or pelvis. Trace bilateral pleural effusions with associated bibasilar consolidation. Consider atelectasis or pneumonia to include aspiration. Nonobstructive left nephrolithiasis with associated overlying cortical scarring. TECHNICAL DOCUMENTATION: Quality ID # 436: Final reports with documentation of one or more dose reduction techniques (e.g., Automated exposure control, adjustment of the mA and/or kV according to patient size, use of iterative reconstruction technique) copyright 2011 [employer]- All Rights Reserved Chest X-Ray 11/27/19 15:32 IMPRESSION: 1. No significant interval changes since the prior study dated 10/04/2018. No acute findings. Head CT 11/27/19 17:16 IMPRESSION: No acute findings EVIDENCE OF ACUTE STROKE: NO. Assessment & Plan - Diagnosis (1) Sepsis Qualifiers: Sepsis type: sepsis due to unspecified organism Severe sepsis shock status: without septic shock Is this a current diagnosis for this admission?: Yes Plan: Continues to IV antibiotic most likely from UTIs and underlying pneumonia we will repeat the chest x-ray (2) Acute kidney failure Qualifiers: Acute renal failure type: unspecified Qualified Code(s): N17.9 - Acute kidney failure, unspecified Is this a current diagnosis for this admission?: Yes Plan: Currently all resolved (3) Dehydration Is this a current diagnosis for this admission?: Yes Plan: Currently all resolved we will stop the IV fluid (4) Chronic pain syndrome Is this a current diagnosis for this admission?: Yes Plan: Currently all stable (5) Hyperlipidemia Qualifiers: Is this a current diagnosis for this admission?: Yes (6) Hypertension Qualifiers: Hypertension type: essential hypertension Is this a current diagnosis for this admission?: Yes Plan: Currently all stable (7) Nausea and vomiting Qualifiers: Vomiting Intractability: unspecified Is this a current diagnosis for this admission?: Yes Plan: Currently all resolved (8) Pneumonia Qualifiers: Pneumonia type: due to unspecified organism Is this a current diagnosis for this admission?: Yes Plan: Since the IV antibiotic will repeat the chest x-ray (9) Rheumatoid arthritis Qualifiers: Laterality: unspecified laterality Is this a current diagnosis for this admission?: Yes (10) Urinary tract infection Qualifiers: Indwelling urinary catheter type: unspecified Is this a current diagnosis for this admission?: Yes Plan: Will waiting for culture and sensitivity (11) Hypotension Qualifiers: Hypotension type: unspecified hypotension type Qualified Code(s): I95.9 - Hypotension, unspecified Is this a current diagnosis for this admission?: Yes Plan: Currently all resolved (12) Pulmonary embolism Qualifiers: Chronicity: unspecified Acute cor pulmonale presence: without acute cor pulmonale Is this a current diagnosis for this admission?: Yes - Time Time Spent with patient: 25-34 minutes Level of Care: IMCU Medications reviewed and adjusted accordingly: Yes Anticipated discharge: Home Within: within 24 hours - Plan Summary Plan Summary: Continues to current medications
[2019-11-29] MEDS: DOCUSATE SODIUM 100 MG CAPSULE PO SCH (18:30)
[2019-11-29] MEDS: CETIRIZINE 5 MG TABLET PO SCH (18:31)
[2019-11-29] MEDS: MONTELUKAST SODIUM 10 MG TABLET PO SCH (18:31)
--- NOTE | 2019-11-29 19:04 | RADIOLOGY REPORT (SQ) ---
EXAM DESCRIPTION: CHEST SINGLE VIEW COMPLETED DATE/TIME: 11/29/2019 5:16 pm REASON FOR STUDY: AMS COMPARISON: 11/27/2019 EXAM PARAMETERS: NUMBER OF VIEWS: One view. TECHNIQUE: Single frontal radiographic view of the chest acquired. RADIATION DOSE: NA LIMITATIONS: None. FINDINGS: LUNGS AND PLEURA: Lungs are hyperinflated. No focal consolidation or pleural effusion. N o pneumothorax. MEDIASTINUM AND HILAR STRUCTURES: No masses. Contour normal. HEART AND VASCULAR STRUCTURES: Heart normal in size. Normal vasculature. BONES: Nonunited fracture proximal left humerus is stable. Diffuse osteopenia. HARDWARE: None in the chest. OTHER: No other significant finding. IMPRESSION: No significant interval change. No acute cardiopulmonary disease. TECHNICAL DOCUMENTATION: JOB ID: [id number] 2010 [employer]- All Rights Reserved Reading location - IP/workstation name: [email or web address]
[2019-11-29] MEDS ORDERED: LORAZEPAM 0.5 MG TABLET PO ONE (23:45)
[2019-11-30] MEDS: DILTIAZEM HCL 30 MG TABLET PO SCH ×4 (00:02→23:28)
[2019-11-30] MEDS: PANTOPRAZOLE SODIUM 40 MG TABLET.DR PO SCH ×2 (05:11→17:24)
[2019-11-30 05:48] LABS: ABSOLUTE LYMPHOCYTES (AUTO) 1.3 10^3/uL (0.5-4.7); ABSOLUTE MONOCYTES (AUTO) 0.7 10^3/uL (0.1-1.4); ABSOLUTE NEUT (AUTO) 5.3 10^3/uL (1.7-8.2); BASOPHILS % (AUTO) 0.3 % (0-2); EOSINOPHILS % (AUTO) 0.1 % (0-6); HEMATOCRIT 32.1 % (36.0-47.0); HEMOGLOBIN 10.8 g/dL (12.0-15.5); LYMPHOCYTES % (AUTO) 17.2 % (13-45); MEAN CORPUSCULAR HEMOGLOBIN 26.9 pg (27.0-33.4); MEAN CORPUSCULAR HGB CONC 33.7 g/dL (32.0-36.0); MEAN CORPUSCULAR VOLUME 80 fl (80-97); MONOCYTES % (AUTO) 9.8 % (3-13); PLATELET COUNT 248 10^3/uL (150-450); RED BLOOD COUNT 4.02 10^6/uL (3.72-5.28); RED CELL DISTRIBUTION WIDTH 15.2 % (11.5-14.0); SEGMENTED NEUTROPHILS % (AUTO) 72.6 % (42-78); TOTAL CELLS COUNTED % (AUTO) 100 %; WHITE BLOOD COUNT 7.3 10^3/uL (4.0-10.5)
[2019-11-30 06:10] LABS: ANION GAP 6 (5-19); BLOOD UREA NITROGEN 23 mg/dL (7-20); CALCIUM 8.5 mg/dL (8.4-10.2); CARBON DIOXIDE 21 mmol/L (22-30); CHLORIDE 113 mmol/L (98-107); GLUCOSE 102 mg/dL (75-110); POTASSIUM 3.8 mmol/L (3.6-5.0)
[2019-11-30] MEDS: ESCITALOPRAM OXALATE 10 MG TABLET PO SCH (09:39)
[2019-11-30] MEDS: PREDNISONE 10 MG TABLET PO SCH (09:39)
[2019-11-30] MEDS: DOCUSATE SODIUM 100 MG CAPSULE PO SCH ×2 (09:39→17:24)
[2019-11-30] MEDS: LISINOPRIL 10 MG TABLET PO SCH (09:39)
[2019-11-30] MEDS: METOPROLOL SUCCINATE 25 MG TAB.SR.24H PO SCH ×2 (09:39→23:27)
[2019-11-30] MEDS: FOLIC ACID 1 MG TABLET PO SCH (09:39)
[2019-11-30] MEDS: CEFEPIME 1 GM/D5W RTU 1 GM/50 ML RTUPB IV SCH ×2 (09:40→23:28)
[2019-11-30] MEDS: FLUTICASONE NASAL SPRAY 50 MCG/SPRY 120 SPRAY/16 GM NASL SCH ×2 (09:41→17:24)
--- NOTE | 2019-11-30 10:47 | PDOC PROGRESS REPORT ---
Subjective Progress Note for:: 11/30/19 Subjective:: Patient is feeling this morning is much better but last night patient was some anxiety attack give a p.o. Ativan and patient was put on a Cardizem 30 mg p.o. every 8 because of persistent elevated heart rate Patient's blood pressure is much better Patient's denied any chest pain no short of breath Patient's urine culture is still pending Reason For Visit: ACUTE RENAL FAILURE Physical Exam Vital Signs: Temp Pulse Resp BP Pulse Ox 98.4 F 85 16 133/68 H 93 11/30/19 08:04 11/30/19 08:04 11/30/19 08:04 11/30/19 08:04 11/30/19 08:04 Intake & Output 11/29/19 11/30/19 12/01/19 06:59 06:59 06:59 Intake Total 1100 1300 Balance 1100 1300 Weight 45.9 kg 46.3 kg General appearance: PRESENT: no acute distress Eye exam: PRESENT: PERRLA Mouth exam: PRESENT: neck supple Respiratory exam: PRESENT: clear to auscultation lucas Cardiovascular exam: PRESENT: +S1, +S2 GI/Abdominal exam: PRESENT: normal bowel sounds, soft Neurological exam: PRESENT: alert, awake, oriented to person Results Laboratory Results: 11/30/19 04:33 11/30/19 04:33 11/30/19 11/30/19 04:33 04:33 WBC 7.3 RBC 4.02 Hgb 10.8 L Hct 32.1 L MCV 80 MCH 26.9 L MCHC 33.7 RDW 15.2 H Plt Count 248 Seg Neutrophils % 72.6 Sodium 140.4 Potassium 3.8 Chloride 113 H Carbon Dioxide 21 L Anion Gap 6 BUN 23 H Creatinine 0.61 Est GFR ( Amer) > 60 Glucose 102 Calcium 8.5 Impressions: Abdomen/Pelvis CT 11/27/19 00:00 IMPRESSION: No acute abnormality within the abdomen or pelvis. Trace bilateral pleural effusions with associated bibasilar consolidation. Consider atelectasis or pneumonia to include aspiration. Nonobstructive left nephrolithiasis with associated overlying cortical scarring. TECHNICAL DOCUMENTATION: Quality ID # 436: Final reports with documentation of one or more dose reduction techniques (e.g., Automated exposure control, adjustment of the mA and/or kV according to patient size, use of iterative reconstruction technique) copyright 2011 [employer]- All Rights Reserved Head CT 11/27/19 17:16 IMPRESSION: No acute findings EVIDENCE OF ACUTE STROKE: NO. Chest X-Ray 11/29/19 00:00 IMPRESSION: No significant interval change. No acute cardiopulmonary disease. Assessment & Plan - Diagnosis (1) Sepsis Qualifiers: Sepsis type: sepsis due to unspecified organism Severe sepsis shock status: without septic shock Is this a current diagnosis for this admission?: Yes Plan: Continues to IV antibiotic most likely from UTIs and underlying pneumonia we will repeat the chest x-ray (2) Acute kidney failure Qualifiers: Acute renal failure type: unspecified Qualified Code(s): N17.9 - Acute kidney failure, unspecified Is this a current diagnosis for this admission?: Yes Plan: Currently all resolved (3) Dehydration Is this a current diagnosis for this admission?: Yes Plan: Currently all resolved we will stop the IV fluid (4) Chronic pain syndrome Is this a current diagnosis for this admission?: Yes Plan: Currently all stable (5) Hyperlipidemia Qualifiers: Is this a current diagnosis for this admission?: Yes (6) Hypertension Qualifiers: Hypertension type: essential hypertension Is this a current diagnosis for this admission?: Yes Plan: Currently all stable (7) Nausea and vomiting Qualifiers: Vomiting Intractability: unspecified Is this a current diagnosis for this admission?: Yes (8) Pneumonia Qualifiers: Pneumonia type: due to unspecified organism Is this a current diagnosis for this admission?: Yes (9) Rheumatoid arthritis Qualifiers: Laterality: unspecified laterality Is this a current diagnosis for this admission?: Yes (10) Urinary tract infection Qualifiers: Indwelling urinary catheter type: unspecified Is this a current diagnosis for this admission?: Yes (11) Hypotension Qualifiers: Hypotension type: unspecified hypotension type Qualified Code(s): I95.9 - Hypotension, unspecified Is this a current diagnosis for this admission?: Yes (12) Pulmonary embolism Qualifiers: Chronicity: unspecified Acute cor pulmonale presence: without acute cor pulmonale Is this a current diagnosis for this admission?: Yes - Time Time Spent with patient: 15-24 minutes Level of Care: IMCU Medications reviewed and adjusted accordingly: Yes Anticipated discharge: Home Within: within 24 hours - Plan Summary Plan Summary: Will waiting for culture and sensitivity because patient is currently live in [place] will discharge with appropriate antibiotic
[2019-11-30] MEDS: OXYCODONE HCL IR 5 MG TABLET PO PRN (11:52)
[2019-11-30] MEDS: CETIRIZINE 5 MG TABLET PO SCH (17:24)
[2019-11-30] MEDS: HYDRALAZINE HCL INJ/PF 20 MG/1 ML SDV IV PRN (17:24)
[2019-11-30] MEDS: MONTELUKAST SODIUM 10 MG TABLET PO SCH (17:24)
[2019-12-01] MEDS: HYDRALAZINE HCL INJ/PF 20 MG/1 ML SDV IV PRN ×2 (00:19→08:05)
[2019-12-01] MEDS: PANTOPRAZOLE SODIUM 40 MG TABLET.DR PO SCH ×2 (06:28→16:11)
[2019-12-01 06:55] LABS: ANION GAP 10 (5-19); BLOOD UREA NITROGEN 15 mg/dL (7-20); CALCIUM 8.1 mg/dL (8.4-10.2); CARBON DIOXIDE 22 mmol/L (22-30); CHLORIDE 108 mmol/L (98-107); GLUCOSE 79 mg/dL (75-110)
[2019-12-01 07:03] LABS: POTASSIUM 2.9 mmol/L (3.6-5.0)
[2019-12-01] MEDS ORDERED: POTASSIUM CHLORIDE 20 MEQ PACKET PO ONE ×2 (07:24→10:30)
[2019-12-01] MEDS: DILTIAZEM HCL 30 MG TABLET PO SCH ×2 (08:03→16:11)
[2019-12-01] MEDS: OXYCODONE HCL IR 5 MG TABLET PO PRN ×2 (08:05→16:11)
--- NOTE | 2019-12-01 09:38 | PDOC PROGRESS REPORT ---
Subjective Progress Note for:: 12/01/19 Subjective:: Patient is currently doing much better Denied any chest pain no short of breath Patient's potassium is 2.9 which is usual patient always running low Patient's microbiology is still pending Reason For Visit: ACUTE RENAL FAILURE Physical Exam Vital Signs: Temp Pulse Resp BP Pulse Ox 98.5 F 81 16 170/89 H 99 12/01/19 08:03 12/01/19 08:03 12/01/19 08:03 12/01/19 08:03 12/01/19 08:03 Intake & Output 11/30/19 12/01/19 12/02/19 06:59 06:59 06:59 Intake Total 1300 570 Balance 1300 570 Weight 46.3 kg 46.7 kg General appearance: PRESENT: no acute distress, well-developed, well-nourished Head exam: PRESENT: atraumatic, normocephalic Eye exam: PRESENT: conjunctiva pink, EOMI, PERRLA. ABSENT: scleral icterus Ear exam: PRESENT: normal external ear exam Mouth exam: PRESENT: moist, tongue midline Neck exam: PRESENT: full ROM. ABSENT: carotid bruit, JVD, lymphadenopathy, thyromegaly Respiratory exam: PRESENT: clear to auscultation lucas Cardiovascular exam: PRESENT: RRR. ABSENT: diastolic murmur, rubs, systolic murmur Pulses: PRESENT: normal dorsalis pedis pul, +2 pedal pulses bilateral Vascular exam: PRESENT: normal capillary refill GI/Abdominal exam: PRESENT: normal bowel sounds, soft. ABSENT: distended, guarding, mass, organolmegaly, rebound, tenderness Rectal exam: PRESENT: deferred Neurological exam: PRESENT: alert, awake, oriented to person, oriented to place, oriented to time, oriented to situation, CN II-XII grossly intact. ABSENT: motor sensory deficit Psychiatric exam: PRESENT: appropriate affect, normal mood. ABSENT: homicidal ideation, suicidal ideation Skin exam: PRESENT: dry, intact, warm. ABSENT: cyanosis, rash Results Laboratory Results: 11/30/19 04:33 12/01/19 06:06 12/01/19 06:06 Sodium 140.3 Potassium 2.9 L* Chloride 108 H Carbon Dioxide 22 Anion Gap 10 BUN 15 Creatinine 0.38 L Est GFR ( Amer) > 60 Glucose 79 Calcium 8.1 L Impressions: Abdomen/Pelvis CT 11/27/19 00:00 IMPRESSION: No acute abnormality within the abdomen or pelvis. Trace bilateral pleural effusions with associated bibasilar consolidation. Consider atelectasis or pneumonia to include aspiration. Nonobstructive left nephrolithiasis with associated overlying cortical scarring. TECHNICAL DOCUMENTATION: Quality ID # [id number]: Final reports with documentation of one or more dose reduction techniques (e.g., Automated exposure control, adjustment of the mA and/or kV according to patient size, use of iterative reconstruction technique) copyright 2011 [employer]- All Rights Reserved Head CT 11/27/19 17:16 IMPRESSION: No acute findings EVIDENCE OF ACUTE STROKE: NO. Chest X-Ray 11/29/19 00:00 IMPRESSION: No significant interval change. No acute cardiopulmonary disease. Assessment & Plan - Diagnosis (1) Sepsis Qualifiers: Sepsis type: sepsis due to unspecified organism Severe sepsis shock status: without septic shock Is this a current diagnosis for this admission?: Yes (2) Acute kidney failure Qualifiers: Acute renal failure type: unspecified Qualified Code(s): N17.9 - Acute kidney failure, unspecified Is this a current diagnosis for this admission?: Yes (3) Dehydration Is this a current diagnosis for this admission?: Yes (4) Chronic pain syndrome Is this a current diagnosis for this admission?: Yes (5) Hyperlipidemia Qualifiers: Is this a current diagnosis for this admission?: Yes (6) Hypertension Qualifiers: Hypertension type: essential hypertension Is this a current diagnosis for this admission?: Yes (7) Nausea and vomiting Qualifiers: Vomiting Intractability: unspecified Is this a current diagnosis for this admission?: Yes (8) Pneumonia Qualifiers: Pneumonia type: due to unspecified organism Is this a current diagnosis for this admission?: Yes (9) Rheumatoid arthritis Qualifiers: Laterality: unspecified laterality Is this a current diagnosis for this admission?: Yes (10) Urinary tract infection Qualifiers: Indwelling urinary catheter type: unspecified Is this a current diagnosis for this admission?: Yes (11) Hypotension Qualifiers: Hypotension type: unspecified hypotension type Qualified Code(s): I95.9 - Hypotension, unspecified Is this a current diagnosis for this admission?: Yes (12) Pulmonary embolism Qualifiers: Chronicity: unspecified Acute cor pulmonale presence: without acute cor pulmonale Is this a current diagnosis for this admission?: Yes - Time Time Spent with patient: 15-24 minutes Level of Care: IMCU Medications reviewed and adjusted accordingly: Yes Anticipated discharge: Home Within: within 24 hours - Plan Summary Plan Summary: Replace the potassiums Check the potassiums after replacing Patient's potassium supplement at home continues that 1 If the microbiologist backs patients can be discharged today home
[2019-12-01] MEDS ORDERED: PREDNISONE 10 MG TABLET PO SCH (10:00)
[2019-12-01] MEDS: CEFEPIME 1 GM/D5W RTU 1 GM/50 ML RTUPB IV SCH (10:31)
[2019-12-01] MEDS: FOLIC ACID 1 MG TABLET PO SCH (10:31)
[2019-12-01] MEDS: LISINOPRIL 10 MG TABLET PO SCH (10:31)
[2019-12-01] MEDS: DOCUSATE SODIUM 100 MG CAPSULE PO SCH (10:32)
[2019-12-01] MEDS: METOPROLOL SUCCINATE 25 MG TAB.SR.24H PO SCH (10:32)
[2019-12-01] MEDS: ESCITALOPRAM OXALATE 10 MG TABLET PO SCH (10:32)
[2019-12-01] MEDS: FLUTICASONE NASAL SPRAY 50 MCG/SPRY 120 SPRAY/16 GM NASL SCH (10:39)
[2019-12-01 15:51] VITALS: BP 148/81
== END 2019-12-01 16:19 | disposition home or self-care (01) | DRG 871 ==
LOC: ER 15:08 → EH 19:41 → 3N 20:50 → 3S 11-30 14:18
PROVIDERS: ADMIT Family Medicine; ATTEND Family Medicine
DX: A41.9 Sepsis, unspecified organism (principal); J18.9 Pneumonia, unspecified organism; N17.9 Acute kidney failure, unspecified; N39.0 Urinary tract infection, site not specified; I48.91 Unspecified atrial fibrillation; E86.0 Dehydration; I10 Essential (primary) hypertension; K21.9 Gastro-esophageal reflux disease without esophagitis; E78.5 Hyperlipidemia, unspecified; M06.9 Rheumatoid arthritis, unspecified; G89.4 Chronic pain syndrome; F32.9 Major depressive disorder, single episode, unspecified; Z86.711 Personal history of pulmonary embolism; Z79.01 Long term (current) use of anticoagulants; Z79.52 Long term (current) use of systemic steroids; Z79.899 Other long term (current) drug therapy
CPT/HCPCS: 36415; 70450; 71045; 74176; 80048; 80053; 81001; 82803; 82962; 83605; 83735; 84132; 85025; 85610; 87040; 87086; 87088; 87186; 87804; 93005; 93010; 96361; 96374; 96375; 99285; J0360; J0692; J1720; J2405; J3490; J7030; J7512

== ENCOUNTER → 2019-12-06 | Outpatient (CLI) | payer MEDICARE, MEDICAID ==
--- NOTE | 2019-12-06 16:18 | RADIOLOGY REPORT (SQ) ---
EXAM DESCRIPTION: CHEST SINGLE VIEW IMAGES COMPLETED DATE/TIME: 12/06/2019 4:10 pm REASON FOR STUDY: COUGH COMPARISON: 11/29/2019 EXAM PARAMETERS: NUMBER OF VIEWS: One view. TECHNIQUE: Single frontal radiographic view of the chest acquired. RADIATION DOSE: NA LIMITATIONS: None. FINDINGS: LUNGS AND PLEURA: Basilar atelectasis and small effusions left greater than right. Lung f ields are otherwise clear. MEDIASTINUM AND HILAR STRUCTURES: No masses. Contour normal. HEART AND VASCULAR STRUCTURES: Heart normal in size. Normal vasculature. BONES: Degenerative changes both shoulders. Chronic left proximal humerus fracture. HARDWARE: None in the chest. OTHER: No other significant finding. IMPRESSION: Small effusions and basilar atelectasis left greater than right. TECHNICAL DOCUMENTATION: JOB ID: [id number] 2010 [employer]- All Rights Reserved Reading location - IP/workstation name: [email or web address]
== END ==
LOC: OD 15:48
PROVIDERS: ATTEND Family Medicine
DX: R05 Cough (principal)
CPT/HCPCS: 71045

== ENCOUNTER 2020-08-27 21:18 | Emergency (ER) | payer MEDICARE, MEDICAID ==
--- NOTE | 2020-08-27 23:37 | ER Document Report ---
ED General - General Chief Complaint: Fever Stated Complaint: FEVER(DAUGHTER WANTED HER TO GET CHECKED OUT) Time Seen by Provider: 08/27/20 23:29 Primary Care Provider: MARY LOU REECE MD [Primary Care Provider] - Follow up as needed Mode of Arrival: Wheelchair Information source: Patient Notes: 08/27/20 23:22 - ED Nursing Note by KRISTYN TAYN Acct Num: [id number] : 1950 Patient Age: 69 pt presents via ems w/ c/o of fever per daughter. daughter states pt has been "sick for 3 weeks and she has been getting worse." per ems pt is + for flu and - for covid. pt is diaphoretic and vomiting, contractures noted to bilateral wrists, and knees. MY NOTES 69-year-old black female arrives by EMS with her daughter advising that she wants her mother checked out ..with chief complaint of severe diaphoresis feeling hot and cough status post influenza a few weeks ago. Patient has a history of pneumonia rheumatoid arthritis pulmonary embolism CVA UTI ARF sepsis hypertension hypotension and is a patient of Dr. Bahena. I spoke with patient as she was placed into [facility] by nursing staff from her wheelchair. TRAVEL OUTSIDE OF THE [place] IN LAST 30 DAYS: No - HPI Onset: This evening Onset/Duration: Persistent Quality of pain: Achy Severity: Mild Pain Level: 1 Associated symptoms: Fever - Related Data Allergies/Adverse Reactions: No Known Allergies Allergy (Verified 10/03/18 13:43) Past Medical History - General Information source: Patient, Relative - Social History Smoking Status: Unknown if Ever Smoked Cigarette use (# per day): No Chew tobacco use (# tins/day): No Smoking Education Provided: No Frequency of alcohol use: None Drug Abuse: None Lives with: Family Family History: Reviewed & Not Pertinent, DM, Hypertension Patient has suicidal ideation: No Patient has homicidal ideation: No - Past Medical History Cardiac Medical History: Reports: Hx Atrial Fibrillation, Hx Hypertension, Hx Pulmonary Embolism Pulmonary Medical History: Reports: Hx Pneumonia Denies: Hx Tuberculosis Neurological Medical History: Denies: Hx Seizures Renal/ Medical History: Denies: Hx Peritoneal Dialysis GI Medical History: Reports: Hx Gastroesophageal Reflux Disease Musculoskeletal Medical History: Reports Hx Arthritis - RA Skin Medical History: Reports Hx MRSA - CURRENTLY HAS SENSATION OF ABSCESS DEVELOPING UNDER THE LEFT ARM Psychiatric Medical History: Reports: Hx Depression Traumatic Medical History: Reports: Hx Fractures - T10 COMP FX, ACUTE R SHOULDER AND CLAVICLE FX Past Surgical History: Reports: Hx Appendectomy, Hx Hysterectomy, Hx Oral Surgery, Hx Orthopedic Surgery - foot surgery - Immunizations Immunizations up to date: Yes Hx Diphtheria, Pertussis, Tetanus Vaccination: Yes Review of Systems - Review of Systems Constitutional: See HPI, Diaphoresis - Patient has beads of sweat on forehead, Fever, Weakness, Recent illness EENT: No symptoms reported Cardiovascular: See HPI, Lightheaded Respiratory: See HPI, Cough Gastrointestinal: No symptoms reported Genitourinary: No symptoms reported Female Genitourinary: No symptoms reported Musculoskeletal: No symptoms reported Skin: No symptoms reported Hematologic/Lymphatic: No symptoms reported Neurological/Psychological: See HPI, Weakness -: Yes All other systems reviewed and negative Physical Exam - Vital signs Vitals: Temp Pulse Resp BP Pulse Ox 98.8 F 85 18 117/76 94 08/27/20 21:33 08/27/20 21:33 08/27/20 21:33 08/27/20 21:33 08/27/20 21:33 Interpretation: Normal - General General appearance: Appears well, Alert - HEENT Head: Normocephalic, Atraumatic Eyes: Normal Pupils: PERRL - Respiratory Respiratory status: No respiratory distress Chest status: Nontender Breath sounds: Normal Chest palpation: Normal - Cardiovascular Rhythm: Regular Heart sounds: Normal auscultation Murmur: No - Abdominal Inspection: Normal Distension: No distension Bowel sounds: Normal Tenderness: Nontender Organomegaly: No organomegaly - Rectal Hemorrhoids: Other - deferred - Genitourinary Bimanuel exam: Other - deferred - Back Back: Normal, Nontender - Extremities General upper extremity: Tender, Normal color, Normal temperature, Other - Severe rheumatoid arthritis changes with ulnar deviation contractures of all extremities. Both left and right extremity upper General lower extremity: Tender, Normal color, Normal temperature, Other - Severe rheumatoid arthritis changes and contracture deformity of lower extremity feet ankles. No: Nu's sign - Neurological Neuro grossly intact: Yes Cognition: Normal Orientation: AAOx4 Amilcar Coma Scale Eye Opening: Spontaneous [place] Coma Scale Verbal: Oriented [place] Coma Scale Motor: Obeys Commands Amilcar Coma Scale Total: 15 Speech: Normal Motor strength normal: LUE, RUE, LLE, RLE Sensory: Normal - Psychological Associated symptoms: Normal affect, Normal mood - Skin Skin Temperature: Warm Skin Moisture: Dry Skin Color: Normal Course - Vital Signs Vital signs: Temp Pulse Resp BP Pulse Ox 98.9 F 77 11 L 112/69 98 08/28/20 03:32 08/28/20 03:32 08/28/20 03:32 08/28/20 03:32 08/28/20 03:32 - Laboratory Results Result Diagrams: 08/28/20 01:39 08/28/20 00:55 Laboratory Results Interpreted: 08/28/20 08/28/20 08/28/20 00:55 00:55 00:55 WBC RDW PT 17.5 H Sodium 134.2 L Potassium 3.1 L Glucose 134 H Creatine Kinase 28 L NT-Pro-B Natriuret Pep 208 H Urine Protein Urine Blood Urine Urobilinogen Ur Leukocyte Esterase 08/28/20 08/28/20 01:39 02:20 WBC 11.0 H RDW 15.0 H PT Sodium Potassium Glucose Creatine Kinase NT-Pro-B Natriuret Pep Urine Protein 30 H Urine Blood SMALL H Urine Urobilinogen 2.0 H Ur Leukocyte Esterase LARGE H 11,000 white count per Melissa at the lab around 0205 and also the patient's H&H is 13.4 and 40 Critical Laboratory Results Reviewed: Yes Attending or Supervising Physician who Reviewed Labs: RAMÍREZ ANDREW JR - Radiology Results Radiology Results Interpreted: 08/28/20 01:[email or web address] Radiology Results Reviewed: No Critical Results Attending or Supervising Physician who Reviewed Radiology: RAMÍREZ ANDREW JR Discharge - Discharge Clinical Impression: Hypokalemia URI (upper respiratory infection) Qualifiers: URI type: unspecified URI Qualified Code(s): J06.9 - Acute upper respiratory infection, unspecified UTI (urinary tract infection) Qualifiers: Urinary tract infection type: acute cystitis Hematuria presence: without hematuria Qualified Code(s): N30.00 - Acute cystitis without hematuria Condition: Stable Disposition: HOME, SELF-CARE Instructions: Fever ([facility]) Additional Instructions: Follow-up with Dr. Reece return to ER as needed take medicines as directed; Prescriptions: Dexamethasone [Decadron 4 Mg Tablet] 4 mg PO DAILY #5 tablet Levofloxacin [Levaquin 500 mg Tablet] 500 mg PO DAILY #10 tablet Famotidine [Pepcid 20 mg Tablet] 20 mg PO BID #12 tablet Potassium Chloride 10 meq PO DAILY 5 Days #5 tablet.er Referrals: MARY LOU REECE MD [Primary Care Provider] - Follow up as needed
[2020-08-28 00:54] LABS: A TYPE INFLUENZA AG NEGATIVE (NEGATIVE); B INFLUENZA AG NEGATIVE (NEGATIVE)
--- NOTE | 2020-08-28 01:07 | RADIOLOGY REPORT (SQ) ---
EXAM DESCRIPTION: XR CHEST 1 VIEW COMPLETED DATE/TME: 08/28/2020 00:36 CLINICAL HISTORY: 69 years, Female, cough COMPARISON: None. NUMBER OF VIEWS: TECHNIQUE: LIMITATIONS: None. FINDINGS: No evidence of pulmonary infiltrate or pleural effusion. The heart and mediastinum are unremarkable. Pulmonary vascularity appears normal. There are atherosclerotic changes and tortuosity of the thoracic aorta. There are chronic degenerative and posttraumatic changes involving the shoulders bilaterally. IMPRESSION: No acute finding. copyright 2010 [employer]- All Rights Reserved
[2020-08-28 01:24] LABS: INTERNATIONAL RATION (INR) 1.42; PROTHROMBIN TIME 17.5 SEC (11.4-15.4)
[2020-08-28 01:47] LABS: ALBUMIN 3.5 g/dL (3.5-5.0); ALKALINE PHOSPHATASE 72 U/L (38-126); ANION GAP 5 (5-19); ASPARTATE AMINO TRANSFERASE 17 U/L (14-36); BILIRUBIN,DIRECT 0.1 mg/dL (0.0-0.4); BILIRUBIN,TOTAL 0.8 mg/dL (0.2-1.3); BLOOD UREA NITROGEN 15 mg/dL (7-20); CALCIUM 8.7 mg/dL (8.4-10.2); CARBON DIOXIDE 30 mmol/L (22-30); CHLORIDE 99 mmol/L (98-107); CREATINE KINASE 28 U/L (30-135); GLUCOSE 134 mg/dL (75-110); POTASSIUM 3.1 mmol/L (3.6-5.0); TOTAL PROTEIN 7.1 g/dL (6.3-8.2)
[2020-08-28 01:56] LABS: HEMATOCRIT 40.5 % (36.0-47.0); HEMOGLOBIN 13.4 g/dL (12.0-15.5); MEAN CORPUSCULAR HEMOGLOBIN 27.5 pg (27.0-33.4); MEAN CORPUSCULAR VOLUME 83 fl (80-97); PLATELET COUNT 227 10^3/uL (150-450); RED BLOOD COUNT 4.86 10^6/uL (3.72-5.28)
[2020-08-28 01:59] LABS: NT PRO BNP 208 pg/mL (<125); TROPONIN I < 0.012 ng/mL
[2020-08-28] MEDS ORDERED: POTASSIUM CHLORIDE 10 MEQ TABLET.ER PO ONE (02:02)
[2020-08-28] MEDS ORDERED: FAMOTIDINE 20 MG TABLET PO ONE (02:08)
[2020-08-28] MEDS ORDERED: LEVOFLOXACIN 500 MG TABLET PO ONE (02:08)
[2020-08-28] MEDS ORDERED: ONDANSETRON ODT 4 MG TAB (6 TAB/ER DISP) PO PRN (02:09)
[2020-08-28] MEDS ORDERED: DEXAMETHASONE 4 MG TABLET PO ONE (02:09)
[2020-08-28 02:23] LABS: ABSOLUTE MONOCYTES # (MANUAL) 0.7 10^3/uL (0.1-1.4); BASOPHILS % (MANUAL) 0 % (0-2); EOSINOPHILS % (MANUAL) 0 % (0-6); LYMPHOCYTES % (MANUAL) 21 % (13-45); MONOCYTES % (MANUAL) 6 % (3-13); SEGMENTED NEUTROPHILS % (MAN) 67 % (42-78); TOTAL CELLS COUNTED 100
[2020-08-28 02:24] LABS: ANISOCYTOSIS SLIGHT; OVALOCYTES SLIGHT; PLATELET COMMENT ADEQUATE; POIKILOCYTOSIS SLIGHT; TEAR DROP CELLS SLIGHT; TOXIC GRANULATION SLIGHT
[2020-08-28 02:37] LABS: APPEARANCE,URINE SLIGHTLY-CLOUDY; BILIRUBIN,URINE NEGATIVE (NEGATIVE); COLOR,URINE AMBER; GLUCOSE, URINE NEGATIVE (NEGATIVE); KETONES,URINE NEGATIVE (NEGATIVE); LEUKOCYTE ESTERASE,URINE LARGE (NEGATIVE); NITRITE,URINE NEGATIVE (NEGATIVE); PROTEIN,URINE 30 mg/dL (NEGATIVE); URINE SPECIFIC GRAVITY 1.018
[2020-08-28 03:33] VITALS: BP 112/69
== END 2020-08-28 03:15 | disposition home or self-care (01) ==
LOC: ER 21:18
DX: J06.9 Acute upper respiratory infection, unspecified (principal); N30.00 Acute cystitis without hematuria; E87.6 Hypokalemia; R50.9 Fever, unspecified; R11.10 Vomiting, unspecified; R05 Cough; M06.9 Rheumatoid arthritis, unspecified; R53.1 Weakness; M24.532 Contracture, left wrist; M24.531 Contracture, right wrist; M24.562 Contracture, left knee; M24.561 Contracture, right knee; I10 Essential (primary) hypertension; Z87.01 Personal history of pneumonia (recurrent); Z20.828 Contact with and (suspected) exposure to other viral communicable diseases
CPT/HCPCS: 99284; 36415; 87040; 87070; 87880; 82550; 85025; 85610; 80053; 81001; 84484; 87804; 83880; 71045; U0003; A9270 ×5; C9803; 87635; J8540